=== PATIENT | female | born 1950 | race Two or more races ===

== ENCOUNTER → 2016-04-06 | Outpatient (CLI) | payer MEDICARE, OTHER ==
[~2016-04-06] MED LIST: AMITRIPTYLINE H25 MG ORAL; ASPIRIN-LOW81 MG ORAL; GABAPENTIN100 MG ORAL; GLIPIZIDE5 MG ORAL; METOPROLOL TART25 MG ORAL; NEPHROVITE1 TAB ORAL; PANTOPRAZOLE SO40 MG ORAL; RENAGEL800 MG ORAL
--- NOTE | 2016-04-06 12:59 | Diagnostic Imaging Report ---
Indication: Cough Comparison: 11/10/14 A single view chest radiograph was obtained. Findings: There is a stent present in the left innominate vein. No definite infiltrate or pulmonary vascular congestion identified. The heart is enlarged. The aorta is mildly enlarged consistent with atherosclerotic vascular disease. The bones are osteopenic. Impression: No acute disease. No significant change.
== END | disposition home or self-care (01) ==
LOC: RAD 11:58
DX: R05 Cough (principal)
CPT/HCPCS: 71010

== ENCOUNTER 2016-07-21 02:50 | Inpatient (IN) | payer MEDICARE, OTHER ==
[~2016-07-21] VITALS: Ht 147.3 cm; Wt 96.6 kg
[2016-07-21] VITALS (21 sets, daily range): BP systolic 86–148; BP diastolic 34–76
[2016-07-21 03:31] LABS: MEAN CORPUSCULAR HEMOGLOBIN 33.5 PG (27.0-31.0); MEAN CORPUSCULAR HGB CONC 30.3 G/DL (32.0-36.0); MEAN CORPUSCULAR VOLUME 111 FL (80-99); PLATELET COUNT 198 K/UL (150-450); RED BLOOD COUNT 3.45 M/UL (4.20-5.40); RED CELL DISTRIBUTION WIDTH 13.8 % (11.6-14.8); WHITE BLOOD COUNT 10.4 K/UL (4.8-10.8)
[2016-07-21 03:37] LABS: INR 0.9 (0.9-1.1); PROTHROMBIN TIME 9.4 SEC (9.30-11.50)
[2016-07-21 03:41] LABS: TROPONIN I < 0.30 ng/mL (<=0.30)
[2016-07-21 03:42] LABS: ALANINE AMINOTRANSFERASE 24 U/L (3-33); ANION GAP 18 (5-15); ASPARTATE AMINO TRANSFERASE 29 U/L (5-40); CALCIUM 8.9 mg/dL (8.6-10.2); CARBON DIOXIDE 29 mEQ/L (20-30); CHLORIDE 89 mEQ/L (98-107); CREATININE 5.8 mg/dL (0.5-0.9); GLOMERULAR FILTRATION RATE 7.3 mL/min (>60); HEMOLYSIS 9; POTASSIUM 4.8 mEQ/L (3.4-4.9); SODIUM 136 mEQ/L (135-145); TOTAL PROTEIN 8.2 g/dL (6.6-8.7)
[2016-07-21 03:52] LABS: CKMB < 1.5 ng/mL (< 3.8)
--- NOTE | 2016-07-21 04:01 | Emergency Room Report ---
History of Present Illness General Chief Complaint: Dyspnea/Respdistress Source: EMS Present Illness HPI This is a 66-year-old morbidly obese female with a history renal failure on dialysis. Per EMS she had dialysis yesterday. 911 was called because she was in respiratory distress. Unable to get history from the patient because of her condition. Per EMS, patient has severe rest or distress and their place her on a CPAP. She did not receive anything else. On arrival, she was obtunded and nonresponsive. Her oxygenation was in the mid 80s. Is on a CPAP. No other history can be obtained from the patient. Allergies: Coded Allergies: AMITRIPTYLINE (Verified Allergy, Unknown, 11/15/14) When taken with glipizide pts Blood glucose was critically low. MD stopped medication ATENOLOL (Verified Allergy, Unknown, 11/03/14) GLIPIZIDE (Verified Allergy, Unknown, 11/15/14) Pt is not diabetic. When prescribed pt had symptoms of lethargy, somnolence, depressed, anxiousness. Medication was discontinued. UNABLE TO ASSESS (Unverified , 07/21/16) Patient History Past Medical History: see triage record, old chart reviewed, HTN, renal disease , dialysis Past Surgical History: other - dialysis shunt Pertinent Family History: none Social History: Denies: smoking Last Menstrual Period: n/a Now: No Immunizations: other Reviewed Nursing Documentation: PMH: Agreed, PSxH: Agreed Nursing Documentation-PMH Hx Cardiac Problems: Yes - CAD Hx Hypertension: Yes Hx Asthma: No Hx COPD: Yes Hx Diabetes: Yes Hx Cancer: No Hx Gastrointestinal Problems: No Hx Dialysis: Yes - Shunt L-ARM, T TH SAT Hx Neurological Problems: Yes Hx Cerebrovascular Accident: Yes - Left sided paralysis Hx Transient Ischemic Attacks: Yes Hx Weakness: Yes Review of Systems All Other Systems: limited - Secondary to condition Physical Exam Vital Signs Date Time Temp Pulse Resp B/P Pulse Ox O2 Delivery O2 Flow Rate FiO2 07/21/16 02:43 97.9 112 44 148/65 60 Non-Rebreather 15.0 vitals with tachycardia, tachypnea, and hypoxia Sp02 EP Interpretation: abnormal General Appearance: severe distress, obese, Stupor Head: normocephalic, atraumatic Eyes: bilateral eye PERRL ENT: other - poor dentition with missing and rotten teeth. Neck: other - short and thick neck. Respiratory: respiratory distress, decreased breath sounds, accessory muscle use, rales Cardiovascular #1: tachycardia Gastrointestinal: other - umbilical hernia, overweight Genitourinary: normal inspection Musculoskeletal: other - no edema Neurologic: other - poor response Skin: diaphoresis Procedures Critical Care Time Critical Care Time Critical care is mandated in this patient who presented with respiratory failure. Patient require my urgent intervention to attenuate the risks of respiratory failure which may lead to cardiovascular collapse and . Critical care time is 75 minutes excluding any reportable procedure. Critical care time included evaluation, multiple reevaluation, looking at old charts, interpreting laboratory and diagnostic data, discussing case with patient and family and consultants, and charting. Intubation Intubation : Consent: Emergent Intubation Method: orotracheal Tube Size (cm): 7.5 Medications: Etomidate, Succinylcholine Intubation Complications: oral-unsuccessful attempt, O2 saturation decreased Post Intubation Xray: Yes Attempts: Other - multiples Patient Tolerated: Well Complications: Other Progress Because of the patient's respiratory failure, I elected to intubate the patient. It was extremely difficult intubation. Her neck is really short and thick. Oropharynx is very small. She has loose teeth. Patient received etomidate and succinylcholine. I tried intubate her with a MAC 4 blade and was unsuccessful. Was able to see the vocal cords but it was extremely anterior. Unable to pass the endotracheal tube. I tried with the glidescope and had the same problem. Each time, we were able to bag her oxygenation up to 100%. After several attempts that were unsuccessful, I place a LMA. Initially, there was only a size 4 LMA. I placed this and we were able to oxygenate her. When I found a size 5LMA, I switch it out. Also place a oral bite guard. We will get more tidal volume with this. Unfortunately, 2 of her teeth came out during these procedures. The first one was a right lower central incisor. This came out with the use using my finger to open her mouth. The second one was a left premolar. This came out as I was removing the NG tube that her curled into her mouth. Medical Decision Making Diagnostic Impression: Primary Impression: Respiratory failure requiring intubation Additional Impressions: Respiratory failure with hypoxia Qualified Codes: J96.01 - Acute respiratory failure with hypoxia CHF exacerbation Qualified Codes: I50.9 - Heart failure, unspecified Morbid obesity with BMI of 60.0-69.9, adult End-stage renal disease Anemia in chronic kidney disease ER Course Patient presents with respiratory failure requiring intubation. Again, she was extremely difficult intubated endotracheally. Fortunately, she is getting good tidal volume and oxygenating well on LMA. She is in fact getting more alert. Will admit to the ICU. She does have evidence of vascular congestion on chest x -ray. This has happened to her before. Per family, she went to the [facility] on Sunday. Afterward her symptom worsen. Her something to smoke may have caused some problems too. This patient primary care doctor is Dr. Cohn, will admit to Dr. Sky. I contacted him for admission. Laboratory Tests Test 07/21/16 02:50 White Blood Count 10.4 K/UL (4.8-10.8) Red Blood Count 3.45 M/UL (4.20-5.40) L Hemoglobin 11.6 G/DL (12.0-16.0) L Hematocrit 38.1 % (37.0-47.0) Mean Corpuscular Volume 111 FL (80-99) H Mean Corpuscular Hemoglobin 33.5 PG (27.0-31.0) H Mean Corpuscular Hemoglobin Concent 30.3 G/DL (32.0-36.0) L Red Cell Distribution Width 13.8 % (11.6-14.8) Platelet Count 198 K/UL (150-450) Mean Platelet Volume 6.0 FL (6.5-10.1) L Neutrophils (%) (Auto) % (45.0-75.0) Lymphocytes (%) (Auto) % (20.0-45.0) Monocytes (%) (Auto) % (1.0-10.0) Eosinophils (%) (Auto) % (0.0-3.0) Basophils (%) (Auto) % (0.0-2.0) Prothrombin Time 9.4 SEC (9.30-11.50) Prothromb Time International Ratio 0.9 (0.9-1.1) Activated Partial Thromboplast Time 27 SEC (23-33) Sodium Level 136 mEQ/L (135-145) Potassium Level 4.8 mEQ/L (3.4-4.9) Chloride Level 89 mEQ/L (98-107) L Carbon Dioxide Level 29 mEQ/L (20-30) Anion Gap 18 (5-15) H Blood Urea Nitrogen 32 mg/dL (7-23) H Creatinine 5.8 mg/dL (0.5-0.9) H Estimat Glomerular Filtration Rate 7.3 mL/min (>60) Glucose Level 163 mg/dL (74-106) H Calcium Level 8.9 mg/dL (8.6-10.2) Total Bilirubin 0.4 mg/dL (0.0-1.2) Aspartate Amino Transf (AST/SGOT) 29 U/L (5-40) Alanine Aminotransferase (ALT/SGPT) 24 U/L (3-33) Alkaline Phosphatase 141 U/L (35-104) H Total Creatine Kinase 38 U/L (26-140) Creatine Kinase MB < 1.5 ng/mL (< 3.8) Creatine Kinase MB Relative Index 3.9 Troponin I < 0.30 ng/mL (<=0.30) Pro-B-Type Natriuretic Peptide 87982 pg/mL (0-125) H Total Protein 8.2 g/dL (6.6-8.7) Albumin 4.1 g/dL (3.5-5.2) Globulin 4.1 g/dL Albumin/Globulin Ratio 1.0 (1.0-2.7) Lab Results Impression labs with elevated BNP EKG Diagnostic Results EP Interpretation: no Rate: tachycardiac Rhythm: NSR ST Segments: other - nsst changes Rhythm Strip Diag. Results Rhythm Strip Time: 04:00 EP Interpretation: yes Rate: 90 Rhythm: NSR Chest X-Ray Diagnostic Results Chest X-Ray Ordered: Yes # of Views/Limited/Complete: 1 View Interpretation: no consolidation, no effusion, no pneumothorax, other - cm, vasc congestion. atelectasis Indication: Shortness of Breath Impression: Other - cm with chf Date Electronically Signed: Jul 21, 2016 Time Electronically Signed: 04:00 Interpreting ER Physician: Marco Goldman MD Last Vital Signs Date Time Temp Pulse Resp B/P Pulse Ox O2 Delivery O2 Flow Rate FiO2 07/21/16 02:43 97.9 112 44 148/65 60 Non-Rebreather 15.0 Status: improved Disposition: ADMITTED INPATIENT Condition: Critical MARCO GOLDMAN M.D. Jul 21, 2016 04:01
[2016-07-21] MEDS ORDERED: Albuterol ud Inhalation HHN ONE (04:15)
[2016-07-21] MEDS ORDERED: B COMPLEX1 EACH ORAL (04:46)
[2016-07-21] MEDS ORDERED: PERFOROMIS20 MCG/2 M IH (04:46)
[2016-07-21] MEDS ORDERED: SIMVASTATIN20 MG ORAL (04:46)
[2016-07-21] MEDS ORDERED: METOPROLOL TART25 MG ORAL (04:46)
[2016-07-21] MEDS ORDERED: RENAGEL800 MG ORAL (04:46)
[2016-07-21] MEDS ORDERED: GABAPENTIN300 MG ORAL (04:46)
[2016-07-21] MEDS ORDERED: VELPHORO500 MG PO (04:46)
[2016-07-21] MEDS ORDERED: FOLIC ACID1 MG ORAL (04:46)
[2016-07-21] MEDS ORDERED: TRAMADOL HCL50 MG ORAL (04:46)
[2016-07-21] MEDS ORDERED: RENA-VITE RX T1 EAC1 PO (04:46)
[2016-07-21 05:49] LABS: ABG BASE EXCESS 0.4; ABG PCO2 128.6 mmHg (35.0-45.0)
[2016-07-21 05:50] LABS: ABG ALLEN TEST POSITIVE
[2016-07-21 06:58] LABS: ABG ALLEN TEST POSITIVE; ABG BASE EXCESS -3.1; ABG PCO2 94.9 mmHg (35.0-45.0)
[2016-07-21] MEDS ORDERED: Solu-MEDROL 125mg Inj IVP ONE (08:00)
[2016-07-21] MEDS ORDERED: Nimbex 2mg/ml Inj 10ML IVP ONE (09:00)
[2016-07-21] MEDS ORDERED: Zosyn 2.25 gm in D5W 55ml IV SCH (09:00)
[2016-07-21] MEDS: Pantoprazole Inj IVP SCH ×2 (09:00→09:12)
--- NOTE | 2016-07-21 09:12 | Diagnostic Imaging Report ---
Indications: Shortness of breath, status post intubation Technique: AP chest Findings: Comparison: 04/06/2016 Patient body habitus results in poor image quality, limiting evaluation. Tube coiled over region of larynx, incompletely imaged. Intravascular stents again noted in the regions of left brachiocephalic and subclavian veins, now extending out into the left axillary vein. Cardiac silhouette remains enlarged. Inspiratory effort remains suboptimal. Pulmonary vasculature difficult to evaluate. Linear density is now suggested in both lung bases. Visualized portions of lungs and pleura remain otherwise grossly clear. Moderate gaseous distention of stomach. IMPRESSION: Malposition of tube in neck, most likely nasogastric tube coiled in the larynx. Recommend removal and new placement attempt. Pulmonary bibasal subsegmental atelectasis No other evidence of acute cardiopulmonary disease, limited as described, unchanged. Extension of the left central venous stents, likely relating to dialysis access Moderate gaseous distention of stomach, nonspecific.
[2016-07-21] MEDS ORDERED: Propofol 10mg/ml 20ml IV ONE (09:15)
[2016-07-21] MEDS ORDERED: Lidocaine 1% 10mg/ml/Epi 0.005mg/ml 30ml vial INJ ONE (09:34)
[2016-07-21] MEDS ORDERED: Lidocaine 1% Plain 30 ml INJ ONE ×2 (09:34→13:30)
--- NOTE | 2016-07-21 09:41 | General Progress Note ---
Progress Note Progress Note called emergently by Dr olmstead and ER MD for possible emergency tracheostomy. pt with respiratory distress, had LMA placed, but still in respiratory distress. Pt has been seen by anesthesia budget consultant. The plan is to bring pt to OR for fiberoptic intubation by the [id number]. if unsuccessful, i am here to perform emergency tracheostomy/. PT daughter at bedside and has been apprised of the above plan. KYLE REYES Jul 21, 2016 09:41
[2016-07-21] MEDS: Zosyn 2.25 gm in D5W 55ml IV SCH ×2 (11:26→21:31)
--- NOTE | 2016-07-21 11:30 | History and Physical Report ---
DATE OF ADMISSION: 07/21/2016 CHIEF COMPLAINT: Respiratory failure. HISTORY OF PRESENT ILLNESS: The patient is a 66-year-old female. She has a history of hypertension, diabetes, hypertensive heart disease, and obesity. She was brought in by family members because of altered mentation and shortness of breath. According to the patient's family, the patient was well until Sunday. Initially she felt "weak". She initially refused to go to outpatient dialysis that day, but later after encouragement family agreed for dialysis. She had an uncomplicated dialysis session on Sunday, but afterwards was noted be very tired and weak. She was somnolent and sleepy. On , the patient remained very sleepy and drowsy and on the day of admission, family noted the patient remained somnolent sleepy. She was minimally verbal and appeared short of breath. They brought her to the emergency room for further evaluation. On evaluation there, the patient was difficult to arouse. She had an elevated natriuretic peptide level 13,000. ABG showed severe hypercapnic respiratory failure with a pH of 7 and CO2 of 128. The patient attempted orally intubated and the patient was unsuccessful because of her stature LMA was placed. The patient is on a ventilator. ABG is improving. PAST MEDICAL HISTORY: As above. PAST SURGICAL HISTORY: Unknown. CURRENT MEDICATIONS: Reconciled and reviewed. ALLERGIES: Include amitriptyline, atenolol, and glipizide. SOCIAL HISTORY: There is no known history of tobacco, ethanol, or drugs. REVIEW OF SYSTEMS: From the patient is unobtainable as she is confused and nonverbal. PHYSICAL EXAMINATION: VITAL SIGNS: Temperature 97 degrees, pulse 80, respirations 18, and blood pressure 94/34. GENERAL: The patient is morbidly obese female. She has an airway in place. NECK: Supple. HEART: Regular rate and rhythm. LUNGS: Diminished breath sounds. ABDOMEN: Soft, nontender, and nondistended. EXTREMITIES: Without clubbing or cyanosis. LABORATORY DATA: ABG most recent ABG showed a pH of 7.1 with a CO2 of 94, pO2 of 74, bicarb of 28. White count was 10, hemoglobin 11, hematocrit 38, and platelet count of 198,000. Coags are normal. Sodium is 136, potassium 4.8, BUN 32, and creatinine 5.8. Natriuretic peptide level 13,000. ASSESSMENT: This is an unfortunate female with a history of end-stage renal disease, diabetes, and hypertension, admitted with hypercapnic respiratory failure. 1. Respiratory failure. 2. Rule out pneumonia. 3. End-stage renal disease. 4. Hypertension. 5. Diabetes. PLAN: ENT and anesthesiology. We will take the patient to the OR to attempt a fiberoptic guided intubation if not the patient may require emergent tracheostomy. This has been discussed with the patient's daughter, who is in agreement. We will treat empirically for aspiration pneumonia. Renal consultation, hemodialysis. Pulmonary and ID consultation was also be obtained. The patient's status is currently critical and guarded . Goldy Sky M.D. DR: Serena JOB#: [id number] CC:
--- NOTE | 2016-07-21 11:50 | Anethesia Preoperative Eval ---
Anesthesia Pre-op PMH/ROS General Date of Evaluation: Jul 21, 2016 Anesthesiologist: Mike ASA Score: ASA 4 - E Mallampati Score Class I : Soft palate, uvula, fauces, pillars visible Class II: Soft palate, uvula, fauces visible Class III: Soft palate, base of uvula visible Class IV: Only hard plate visible Mallampati Classification: Class IV Surgeon: Cris Diagnosis: Angioedema Surgical Procedure: Emergency intubation possible tracheostomy Anesthesia History: none Family History: no anesthesia problems Allergies: Coded Allergies: AMITRIPTYLINE (Verified Allergy, Unknown, 11/15/14) When taken with glipizide pts Blood glucose was critically low. MD stopped medication ATENOLOL (Verified Allergy, Unknown, 11/03/14) GLIPIZIDE (Verified Allergy, Unknown, 11/15/14) Pt is not diabetic. When prescribed pt had symptoms of lethargy, somnolence, depressed, anxiousness. Medication was discontinued. UNABLE TO ASSESS (Unverified , 07/21/16) Medications: see eMAR Past Medical History Cardiovascular: Reports: CAD, HTN, other - CHF, Denies: TX, arrhythmia, valve dz Pulmonary: Reports: COPD, Denies: ANIBAL, asthma, other Gastrointestinal/Genitourinary: Reports: ESRD, Denies: CRI, GERD, other Neurologic/Psychiatric: Reports: CVA - with residual left sided paralysis, Denies: TIA, dementia, depression/anxiety, other Endocrine: Reports: DM, Denies: hypothyroidism, other, steroids HEENT: Denies: AGDAAGUX (L), AGDAAGUX (R), cataract (L), cataract (R), glaucoma, other Hematology/Immune: Denies: DVT, anemia, bleeding disorder, other Musculoskeletal/Integumentary: Reports: edema, Denies: DDD, DJD, OA, RA, other Other: obesity - morbid PSxH Narrative: Unable to assess Anesthesia Pre-op Phys. Exam Physician Exam Last Vital Signs Date Time Temp Pulse Resp B/P Pulse Ox O2 Delivery O2 Flow Rate FiO2 07/21/16 11:18 73 16 100 07/21/16 11:00 91/48 100 Mechanical Ventilator 07/21/16 10:45 98.1 07/21/16 10:13 15.0 Constitutional: other - In severe acute respiratory distress, tongue swollen out of mouth, patient unable to speak Cardiovascular: other - tachy Respiratory: other - tachypneic, decreased/absent breath sounds bilaterally Gastrointestinal: other - severely distended; with evidence of umbilical hernia Airway Exam Mallampati Score: Class IV MO: limited - severe angioedema and swelling of tongue, unable to visualize intra-oral cavity Neck: short, obese TMD: <2FB ROM: limited Teeth: missing, broken, loose Anesthesia Pre-op A/P Labs Hematology Test 07/21/16 02:50 White Blood Count 10.4 K/UL (4.8-10.8) Red Blood Count 3.45 M/UL (4.20-5.40) L Hemoglobin 11.6 G/DL (12.0-16.0) L Hematocrit 38.1 % (37.0-47.0) Mean Corpuscular Volume 111 FL (80-99) H Mean Corpuscular Hemoglobin 33.5 PG (27.0-31.0) H Mean Corpuscular Hemoglobin Concent 30.3 G/DL (32.0-36.0) L Red Cell Distribution Width 13.8 % (11.6-14.8) Platelet Count 198 K/UL (150-450) Mean Platelet Volume 6.0 FL (6.5-10.1) L Neutrophils (%) (Auto) % (45.0-75.0) Lymphocytes (%) (Auto) % (20.0-45.0) Monocytes (%) (Auto) % (1.0-10.0) Eosinophils (%) (Auto) % (0.0-3.0) Basophils (%) (Auto) % (0.0-2.0) Coagulation Test 07/21/16 02:50 Prothrombin Time 9.4 SEC (9.30-11.50) Prothromb Time International Ratio 0.9 (0.9-1.1) Activated Partial Thromboplast Time 27 SEC (23-33) Chemistry Test 07/21/16 02:50 Sodium Level 136 mEQ/L (135-145) Potassium Level 4.8 mEQ/L (3.4-4.9) Chloride Level 89 mEQ/L (98-107) L Carbon Dioxide Level 29 mEQ/L (20-30) Anion Gap 18 (5-15) H Blood Urea Nitrogen 32 mg/dL (7-23) H Creatinine 5.8 mg/dL (0.5-0.9) H Estimat Glomerular Filtration Rate 7.3 mL/min (>60) Glucose Level 163 mg/dL (74-106) H Calcium Level 8.9 mg/dL (8.6-10.2) Total Bilirubin 0.4 mg/dL (0.0-1.2) Aspartate Amino Transf (AST/SGOT) 29 U/L (5-40) Alanine Aminotransferase (ALT/SGPT) 24 U/L (3-33) Alkaline Phosphatase 141 U/L (35-104) H Total Creatine Kinase 38 U/L (26-140) Creatine Kinase MB < 1.5 ng/mL (< 3.8) Creatine Kinase MB Relative Index 3.9 Troponin I < 0.30 ng/mL (<=0.30) Pro-B-Type Natriuretic Peptide 22786 pg/mL (0-125) H Total Protein 8.2 g/dL (6.6-8.7) Albumin 4.1 g/dL (3.5-5.2) Globulin 4.1 g/dL Albumin/Globulin Ratio 1.0 (1.0-2.7) Risk Assessment & Plan Assessment: ASA ALVA Plan: GA Status Change Before Surgery: No Pre-Antibiotics Drug: N/A PRESTON JEAN-BAPTISTE M.D. Jul 21, 2016 11:50
--- NOTE | 2016-07-21 11:51 | Immediate Post-Op Evaluation ---
Immediate Post-Op Evalulation Immediate Post-Op Evalulation Procedure: Emergency intubation Date of Evaluation: Jul 21, 2016 Time of Evaluation: 10:46 IV Fluids: 100 Blood Products: 0 Estimated Blood Loss: 0 Urinary Output: 0 Blood Pressure Systolic: 104 Blood Pressure Diastolic: 76 Pulse Rate: 73 Respiratory Rate: 16 O2 Sat by Pulse Oximetry: 99 Temperature (Fahrenheit): 97.2 Pain Score (1-10): 0 Nausea: No Vomiting: No Complications 0 Patient Status: no response - sedated, ventilated, none Hydration Status: adequate Drug: N/A PRESTON JEAN-BAPTISTE M.D. Jul 21, 2016 11:51
[2016-07-21] MEDS ORDERED: Vancomycin 1.5 GM in D5W 325 ML IVPB ONE (12:00)
[2016-07-21] MEDS ORDERED: Lidocaine 1% MPF 10mg/ml 5ml INJ PRN (12:45)
[2016-07-21] MEDS ORDERED: Heparin 2000 units/Ns 1000ml INJ PRN (13:30)
[2016-07-21] MEDS ORDERED: Sodium Bicarbonate 4% 2.4meq/5ml vial INJ PRN (13:30)
[2016-07-21] MEDS ORDERED: Piperacillin/Tazobactam 3.375 GM in D5W 110 ML IVPB SCH (14:00)
--- NOTE | 2016-07-21 14:47 | 48 Hour Post Anesthesia Eval ---
Post Anesthesia Evaluation Procedure: Emergency intubation Date of Evaluation: Jul 21, 2016 Time of Evaluation: 14:45 Blood Pressure Systolic: 122 0: 58 Pulse Rate: 74 Respiratory Rate: 16 O2 Sat by Pulse Oximetry: 100 Airway: other - intuvbated Nausea: No Vomiting: No Pain Intensity: 0 Hydration Status: adequate Cardiopulmonary Status: at baseline Mental Status/LOC: patient returned to baseline Post-Anesthesia Complications: 0 Follow-up care needed: N/A - further care as per primary team PRESTON JEAN-BAPTISTE M.D. Jul 21, 2016 14:47
[2016-07-21 15:17] LABS: ABG ALLEN TEST POSITIVE; ABG BASE EXCESS -0.4; ABG PCO2 35.5 mmHg (35.0-45.0)
--- NOTE | 2016-07-21 15:36 | Diagnostic Imaging Report ---
Indications: Central IV access required for intravenous therapy Technique: Procedure, indications, risks and alternatives were explained to the patient's family, who understands and gives consent to proceed. Procedure was performed at bedside. Strict aseptic technique was utilized, including hand washing, use of hat and mask, use of sterile gown and gloves, sterile ultrasound gel and probe cover, prepping of left groin/proximal anterior thigh skin with 2% chlorhexidine solution, and application of full body sterile barrier over this area. Skin and subcutaneous soft tissues were infiltrated with 1% lidocaine and sodium bicarbonate. A small dermatotomy was made, through which the patent left greater saphenous vein was punctured percutaneously under direct sonographic guidance with a 5 Thai micropuncture set. The percutaneous tract was dilated over a guidewire, then a 7 Thai 20 cm triple-lumen central venous catheter advanced over the guidewire to its hub. Guidewire was removed. Catheter ports were aspirated, then flushed with heparinized saline. Catheter was secured to the skin with suture and adhesive dressing. The patient tolerated the procedure well without immediate complications. Followup abdominal radiograph performed. Findings: All catheter ports aspirate and flush freely. Followup abdominal radiograph demonstrates tip of central venous catheter in region of left common iliac vein. Nasogastric tube is present within the region of the stomach. Hammonds catheter is present within the region of the urinary bladder. There is [id number] diffuse gaseous distention of small bowel and colon, not dilated out of portion to any other. Mild levoscoliosis lumbar spine. Bridging disc margin osteophytes thoracic spine. Scattered arterial mural calcifications. IMPRESSION: Bedside placement of triple-lumen central venous catheter via left greater saphenous vein, working well, adequately position, may be used Additional lines and tubes in place as described Bowel gas pattern compatible with diffuse ileus Arteriosclerosis Degenerative spondylosis and scoliosis.
[2016-07-22] VITALS (24 sets, daily range): BP systolic 83–126; BP diastolic 38–58
--- NOTE | 2016-07-22 01:45 | Consultation ---
DATE OF CONSULTATION: 07/21/2016 NEPHROLOGY CONSULTATION CONSULTING PHYSICIAN: Cm Carrero M.D. REFERRING PHYSICIAN: Goldy Sky M.D. REASON FOR CONSULTATION: End-stage renal disease. HISTORY OF PRESENT ILLNESS: The patient is a 66-year-old lady with end-stage renal disease, who receives dialysis regularly on Sunday, Sunday, and Sunday, and today is Sunday. She was treated by other doctors, who are not in staff in this hospital. She presents with lethargy and respiratory failure with a very high pCO2 greater than 100. She was given treatment in the emergency room and has required intubation under anesthesia as she has thick neck and difficulty intubating and she is intubated in the intensive care unit at the time of my exam. She has a history of a prior CVA, insulin-dependent diabetes, and obstructive sleep apnea and is on apparently home oxygen therapy. She had a CVA in 2011 with left-sided weakness. There is a history of congestive heart failure, prior myocardial infarction, and prior coronary angiogram on two occasions without stenting. PAST SURGICAL HISTORY: Include an AV fistula in the left arm and section. ALLERGIES: Apparently, she is allergic to atenolol from prior notes. MEDICATIONS: Prior to admission medicines reviewed from the computer, but not verified as the family is not available at this time. Home medications include aspirin, folic acid, formoterol, gabapentin, metoprolol, Protonix, Levemir, simvastatin, Velphoro, tramadol, and vitamin B complex. SYSTEM REVIEW: The patient is unable. PHYSICAL EXAMINATION: GENERAL: The patient is seen in the intensive care unit. She is intubated and lethargic. VITAL SIGNS: Temperature 97.9 degrees, pulse 79, respirations 17, blood pressure 119/59, pulse oximetry is 100 on the ventilator. HEENT: Sclerae nonicteric. Eyes are closed during most of the exam. She is orally intubated. NECK: No adenopathy. LUNGS: Distant breath sounds. I do not hear any rales or rhonchi. HEART: Regular. I hear no murmur. ABDOMEN: Obese and soft. No organomegaly. EXTREMITIES: Showed trace edema. She has a left upper arm AV fistula with a good thrill. NEUROLOGIC: She has a left hemiparesis. She moves . LABORATORY DATA: Pertinent labs show a chest x-ray with malposition of the tube in the neck, likely it is nasogastric tube, pulmonary and myocardial subsegmental atelectasis. No acute cardiopulmonary disease. The white count is 10.4 and hemoglobin is 11.6. Sodium 136, potassium 4.8, chloride 89, CO2 29, BUN 32, creatinine 5.8, and glucose 163. Troponin less than 0.30. BNP is 13,738. IMPRESSION: 1. End-stage renal disease. 2. Sssqu-vq-tnscrau respiratory failure. 3. Obstructive sleep apnea. 4. Obesity. 5. Insulin-dependent diabetes. 6. History of cerebrovascular accident with left-sided weakness. 7. Low normal blood pressure. PLAN: Dialysis, to be arranged for fistula. Her medications are reviewed for end-stage renal disease. Try to avoid fluid overload and metabolic abnormality. The patient's condition is critical. Cm Carrero M.D. DR: BALDO JOB#: [id number] CC:
[2016-07-22] MEDS ORDERED: Acetaminophen 650mg/20.3ml NG PRN (03:30)
[2016-07-22] MEDS: LORazepam Inj 2mg/ml 1ml IV PRN (03:47)
[2016-07-22 05:10] LABS: MEAN CORPUSCULAR HEMOGLOBIN 35.6 PG (27.0-31.0); MEAN CORPUSCULAR HGB CONC 33.8 G/DL (32.0-36.0); MEAN CORPUSCULAR VOLUME 105 FL (80-99); PLATELET COUNT 160 K/UL (150-450); RED BLOOD COUNT 2.82 M/UL (4.20-5.40); RED CELL DISTRIBUTION WIDTH 12.8 % (11.6-14.8); WHITE BLOOD COUNT 19.5 K/UL (4.8-10.8)
[2016-07-22 05:23] LABS: CALCIUM 9.1 mg/dL (8.6-10.2); GLOMERULAR FILTRATION RATE 11.2 mL/min (>60); POTASSIUM 3.7 mEQ/L (3.4-4.9); TOTAL PROTEIN 6.4 g/dL (6.6-8.7)
[2016-07-22] MEDS: Zosyn 2.25 gm in D5W 55ml IV SCH ×3 (05:37→21:58)
[2016-07-22] MEDS ORDERED: Heparin Sod 1000 units/ml 10ml IV PRN (06:00)
[2016-07-22 08:13] LABS: BAND NEUTROPHILS % (MANUAL) 2 % (0-8); BASOPHILS % (MANUAL) 0 % (0-2); EOSINOPHILS % (MANUAL) 1 % (0-3); LYMPHOCYTES % (MANUAL) 7 % (20-45); NEUTROPHILS % (MANUAL) 87 % (45-75); PLATELET ESTIMATE ADEQUATE; PLATELET MORPHOLOGY NORMAL; TOTAL CELLS COUNTED 100
--- NOTE | 2016-07-22 08:15 | General Progress Note ---
Assessment/Plan Problem List: (1) DM renal manif type II ICD Codes: E11.29 - Type 2 diabetes mellitus with other diabetic kidney complication SNOMED: 06039497, 703341429 (2) Hemiplegia of nondominant side as late effect of cerebrovascular disease ICD Codes: I69.959 - Hemiplegia and hemiparesis following unspecified cerebrovascular disease affecting unspecified side SNOMED: 511997341 (3) Respiratory acidosis ICD Codes: E87.2 - Acidosis SNOMED: 50159352 (4) Anemia in chronic kidney disease ICD Codes: N18.9 - Chronic kidney disease, unspecified; D63.1 - Anemia in chronic kidney disease SNOMED: 540408545 (5) Morbid obesity with BMI of 60.0-69.9, adult ICD Codes: E66.01 - Morbid (severe) obesity due to excess calories; Z68.44 - Body mass index (BMI) 60.0-69.9, adult SNOMED: 327205619, 695895989 (6) CHF exacerbation ICD Codes: I50.9 - Heart failure, unspecified SNOMED: 72389959, 335367089 Qualifiers: Qualified Codes: I50.9 - Heart failure, unspecified (7) Respiratory failure requiring intubation ICD Codes: J96.90 - Respiratory failure, unspecified, unspecified whether with hypoxia or hypercapnia; Z68.44 - Body mass index (BMI) 60.0-69.9, adult SNOMED: 904931184, 464114780 (8) Respiratory failure with hypoxia ICD Codes: J96.91 - Respiratory failure, unspecified with hypoxia SNOMED: 61856559928146210 Qualifiers: Qualified Codes: J96.01 - Acute respiratory failure with hypoxia Status: stable, progressing Assessment/Plan vent support resp rx suctioning iv abx ngt feeds monitor cxr follow up cultures HD per renal Subjective ROS Limited/Unobtainable: No Constitutional: Reports: malaise, weakness HEENT: Reports: no symptoms Cardiovascular: Reports: no symptoms Respiratory: Reports: cough, shortness of breath Gastrointestinal/Abdominal: Reports: no symptoms Genitourinary: Reports: no symptoms Neurologic/Psychiatric: Reports: no symptoms Endocrine: Reports: no symptoms Hematologic/Lymphatic: Reports: no symptoms Allergies: Coded Allergies: AMITRIPTYLINE (Verified Allergy, Unknown, 11/15/14) When taken with glipizide pts Blood glucose was critically low. MD stopped medication ATENOLOL (Verified Allergy, Unknown, 11/03/14) GLIPIZIDE (Verified Allergy, Unknown, 11/15/14) Pt is not diabetic. When prescribed pt had symptoms of lethargy, somnolence, depressed, anxiousness. Medication was discontinued. UNABLE TO ASSESS (Unverified , 07/21/16) All Systems: reviewed and negative except above Subjective orally intubated in the OR with surgery on standby for possible trach. tolerated HD yesterday - 1L UF. bp on the low side. awake and alert. ?pain Objective Last 24 Hour Vital Signs Date Time Temp Pulse Resp B/P Pulse Ox O2 Delivery O2 Flow Rate FiO2 07/22/16 08:00 40 07/22/16 07:05 71 16 40 07/22/16 07:00 70 17 94/40 100 Mechanical Ventilator 40 07/22/16 06:07 99.1 07/22/16 06:00 71 16 92/41 100 Mechanical Ventilator 40 07/22/16 05:17 77 16 40 07/22/16 05:00 73 16 92/42 100 Mechanical Ventilator 40 07/22/16 04:00 75 07/22/16 04:00 40 07/22/16 04:00 99.1 73 17 90/49 100 Mechanical Ventilator 40 07/22/16 03:17 78 16 40 07/22/16 03:00 79 18 103/47 100 Mechanical Ventilator 40 07/22/16 02:00 99.3 84 16 103/47 100 Mechanical Ventilator 40 07/22/16 01:15 79 16 40 07/22/16 01:00 85 20 108/46 100 Mechanical Ventilator 40 07/22/16 00:00 40 07/22/16 00:00 99.5 87 22 115/44 100 Mechanical Ventilator 40 07/22/16 00:00 74 07/21/16 23:20 77 16 40 07/21/16 23:00 76 25 112/54 100 Mechanical Ventilator 40 07/21/16 22:00 99.3 81 18 117/50 100 Mechanical Ventilator 40 07/21/16 21:15 78 16 40 07/21/16 21:10 Mechanical Ventilator 40 07/21/16 21:00 100.0 84 16 114/60 99 Mechanical Ventilator 40 07/21/16 20:00 40 07/21/16 20:00 76 07/21/16 20:00 99.5 84 16 104/47 99 Mechanical Ventilator 40 07/21/16 19:12 79 16 40 07/21/16 19:00 78 18 126/40 100 Mechanical Ventilator 40 07/21/16 18:00 78 18 121/39 100 Mechanical Ventilator 40 07/21/16 17:40 Mechanical Ventilator 40 07/21/16 17:00 40 07/21/16 17:00 98.1 75 16 118/46 98 Mechanical Ventilator 40 07/21/16 16:53 76 16 40 07/21/16 16:00 50 07/21/16 16:00 75 07/21/16 16:00 77 20 120/46 98 Mechanical Ventilator 60 07/21/16 15:08 78 16 50 07/21/16 15:00 78 20 123/55 100 Mechanical Ventilator 50 07/21/16 14:47 74 16 100 07/21/16 14:00 97.9 79 17 119/59 100 Mechanical Ventilator 60 07/21/16 13:30 75 16 100 07/21/16 13:00 81 20 130/51 100 Mechanical Ventilator 60 07/21/16 12:00 60 07/21/16 12:00 71 07/21/16 12:00 71 16 86/48 100 Mechanical Ventilator 60 07/21/16 11:51 73 16 99 07/21/16 11:18 73 16 100 07/21/16 11:00 75 18 91/48 100 Mechanical Ventilator 60 07/21/16 10:45 98.1 75 20 104/34 100 Mechanical Ventilator 07/21/16 10:40 77 07/21/16 10:40 60 07/21/16 10:13 72 24 117/40 99 Ambu-Bag 15.0 07/21/16 09:36 96.5 72 16 90/41 100 Mechanical Ventilator 100 07/21/16 09:30 20 07/21/16 09:25 18 07/21/16 09:23 16 07/21/16 09:20 16 07/21/16 08:44 78 16 100 07/21/16 08:30 97.8 73 15 118/41 100 Mechanical Ventilator 60 Intake and Output 07/21/16 07/22/16 19:00 07:00 Intake Total 380 ml 140 ml Output Total 0 ml 1000 ml Balance 380 ml -860 ml Intake Oral 0 ml IV Total 380 ml 110 ml Other 30 ml Output Urine Total 0 ml 0 ml Hemodialysis UF 1000 ml # Bowel Movements 2 Laboratory Tests 07/21/16 15:05: Arterial Blood pH 7.437, Arterial Blood Partial Pressure CO2 35.5, Arterial Blood Partial Pressure O2 111.7H, Arterial Blood HCO3 23.4, Arterial Blood Oxygen Saturation 98.5H, Arterial Blood Base Excess -0.4, Jarred Test Positive 07/22/16 04:00: White Blood Count 19.5#H, Red Blood Count 2.82L, Hemoglobin 10.0L, Hematocrit 29.6L, Mean Corpuscular Volume 105H, Mean Corpuscular Hemoglobin 35.6H, Mean Corpuscular Hemoglobin Concent 33.8, Red Cell Distribution Width 12.8, Platelet Count 160, Mean Platelet Volume 7.0, Neutrophils (%) (Auto) , Lymphocytes (%) ( Auto) , Monocytes (%) (Auto) , Eosinophils (%) (Auto) , Basophils (%) (Auto) , Neutrophils % (Manual) [Pending], Lymphocytes % (Manual) [Pending], Platelet Estimate [Pending], Platelet Morphology [Pending], Sodium Level 138, Potassium Level 3.7, Chloride Level 96L, Carbon Dioxide Level 26, Anion Gap 16H, Blood Urea Nitrogen 20, Creatinine 4.0H, Estimat Glomerular Filtration Rate 11.2, Glucose Level 110H, Calcium Level 9.1, Total Bilirubin 0.9, Aspartate Amino Transf (AST/SGOT) 33, Alanine Aminotransferase (ALT/SGPT) 19, Alkaline Phosphatase 79, Total Protein 6.4L, Albumin 3.3L, Globulin 3.1, Albumin/ Globulin Ratio 1.0, Random Vancomycin Level 20.9, Hepatitis A IgM Antibody [ Pending], Hepatitis B Surface Antigen [Pending], Hepatitis B Core IgM Antibody [ Pending], Hepatitis C Antibody [Pending] Height (Feet): 4 Height (Inches): 10.00 Weight (Pounds): 198 General Appearance: WD/WN, alert Neck: supple Cardiovascular: regular rhythm Respiratory/Chest: rhonchi - bilaterally Abdomen: normal bowel sounds, non tender, soft, no organomegaly Edema: no edema noted Arm (L), no edema noted Arm (R), no edema noted Leg (L), no edema noted Leg (R), no edema noted Pedal (L), no edema noted Pedal (R), no edema noted 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
--- NOTE | 2016-07-22 08:47 | Critical Care Progress Note ---
Assessment/Plan Assessment/Plan IMPRESSION: 1. End-stage renal disease. 2. Yjfcc-jm-sffqxej respiratory failure. 3. Obstructive sleep apnea. 4. poor airway 5. Insulin-dependent diabetes. 6. cerebrovascular accident with left-sided weakness. 7. hypotension 8. leukocytosis 9. anemia 10. possible sepsis PLAN care noted IV antibiotics respiratory care Ventilatory support reviewed meds supportive care suction no wean for today oxygen therapy prognosis guarded ICU care noted medications/laboratory data/nursing notes/ICU care reviewed in detail note reviewed and edited care discussed with RN and RT ICU time spent 36 minutes Critical Care - Subjective Interval Events: events noted orally intubated now stable renal noted ROS Limited/Unobtainable: Yes Condition: critical EKG Rhythm: Sinus Rhythm I&O: Intake and Output 07/21/16 07/22/16 19:00 07:00 Intake Total 380 ml 140 ml Output Total 0 ml 1000 ml Balance 380 ml -860 ml Intake Oral 0 ml IV Total 380 ml 110 ml Other 30 ml Output Urine Total 0 ml 0 ml Hemodialysis UF 1000 ml # Bowel Movements 2 Critical Care - Objective ET-Tube: 7.5 ET Position: 20 Last 24 Hour Vital Signs Date Time Temp Pulse Resp B/P Pulse Ox O2 Delivery O2 Flow Rate FiO2 07/22/16 08:00 74 07/22/16 08:00 98.8 74 18 88/38 100 Mechanical Ventilator 40 07/22/16 08:00 40 07/22/16 07:05 71 16 40 07/22/16 07:00 70 17 94/40 100 Mechanical Ventilator 40 07/22/16 06:07 99.1 07/22/16 06:00 71 16 92/41 100 Mechanical Ventilator 40 07/22/16 05:17 77 16 40 07/22/16 05:00 73 16 92/42 100 Mechanical Ventilator 40 07/22/16 04:00 75 07/22/16 04:00 40 07/22/16 04:00 99.1 73 17 90/49 100 Mechanical Ventilator 40 07/22/16 03:17 78 16 40 07/22/16 03:00 79 18 103/47 100 Mechanical Ventilator 40 07/22/16 02:00 99.3 84 16 103/47 100 Mechanical Ventilator 40 07/22/16 01:15 79 16 40 07/22/16 01:00 85 20 108/46 100 Mechanical Ventilator 40 07/22/16 00:00 40 6/17/17 00:00 99.5 87 22 115/44 100 Mechanical Ventilator 40 07/22/16 00:00 74 07/21/16 23:20 77 16 40 07/21/16 23:00 76 25 112/54 100 Mechanical Ventilator 40 07/21/16 22:00 99.3 81 18 117/50 100 Mechanical Ventilator 40 07/21/16 21:15 78 16 40 07/21/16 21:10 Mechanical Ventilator 40 07/21/16 21:00 100.0 84 16 114/60 99 Mechanical Ventilator 40 07/21/16 20:00 40 07/21/16 20:00 76 07/21/16 20:00 99.5 84 16 104/47 99 Mechanical Ventilator 40 07/21/16 19:12 79 16 40 07/21/16 19:00 78 18 126/40 100 Mechanical Ventilator 40 07/21/16 18:00 78 18 121/39 100 Mechanical Ventilator 40 07/21/16 17:40 Mechanical Ventilator 40 07/21/16 17:00 40 07/21/16 17:00 98.1 75 16 118/46 98 Mechanical Ventilator 40 07/21/16 16:53 76 16 40 17 16:00 50 07/21/16 16:00 75 07/21/16 16:00 77 20 120/46 98 Mechanical Ventilator 60 07/21/16 15:08 78 16 50 07/21/16 15:00 78 20 123/55 100 Mechanical Ventilator 50 07/21/16 14:47 74 16 100 07/21/16 14:00 97.9 79 17 119/59 100 Mechanical Ventilator 60 07/21/16 13:30 75 16 100 17 13:00 81 20 130/51 100 Mechanical Ventilator 60 17 12:00 60 17 12:00 71 07/21/16 12:00 71 16 86/48 100 Mechanical Ventilator 60 1617 11:51 73 16 99 1617 11:18 73 16 100 1617 11:00 75 18 91/48 100 Mechanical Ventilator 60 17 10:45 98.1 75 20 104/34 100 Mechanical Ventilator 17 10:40 77 1617 10:40 60 17 10:13 72 24 117/40 99 Ambu-Bag 15.0 07/21/16 09:36 96.5 72 16 90/41 100 Mechanical Ventilator 100 07/21/16 09:30 20 07/21/16 09:25 18 07/21/16 09:23 16 07/21/16 09:20 16 07/21/16 08:44 78 16 100 Labs: Laboratory Tests Test 07/21/16 15:05 07/22/16 04:00 Arterial Blood pH 7.437 (7.350-7.450) Arterial Blood Partial Pressure CO2 35.5 mmHg (35.0-45.0) Arterial Blood Partial Pressure O2 111.7 mmHg (75.0-100.0) H Arterial Blood HCO3 23.4 mmol/L (22.0-26.0) Arterial Blood Oxygen Saturation 98.5 % (92.0-98.0) H Arterial Blood Base Excess -0.4 Jarred Test Positive White Blood Count 19.5 K/UL (4.8-10.8) #H Red Blood Count 2.82 M/UL (4.20-5.40) L Hemoglobin 10.0 G/DL (12.0-16.0) L Hematocrit 29.6 % (37.0-47.0) L Mean Corpuscular Volume 105 FL (80-99) H Mean Corpuscular Hemoglobin 35.6 PG (27.0-31.0) H Mean Corpuscular Hemoglobin Concent 33.8 G/DL (32.0-36.0) Red Cell Distribution Width 12.8 % (11.6-14.8) Platelet Count 160 K/UL (150-450) Mean Platelet Volume 7.0 FL (6.5-10.1) Neutrophils (%) (Auto) % (45.0-75.0) Lymphocytes (%) (Auto) % (20.0-45.0) Monocytes (%) (Auto) % (1.0-10.0) Eosinophils (%) (Auto) % (0.0-3.0) Basophils (%) (Auto) % (0.0-2.0) Neutrophils % (Manual) Pending Lymphocytes % (Manual) Pending Platelet Estimate Pending Platelet Morphology Pending Sodium Level 138 mEQ/L (135-145) Potassium Level 3.7 mEQ/L (3.4-4.9) Chloride Level 96 mEQ/L (98-107) L Carbon Dioxide Level 26 mEQ/L (20-30) Anion Gap 16 (5-15) H Blood Urea Nitrogen 20 mg/dL (7-23) Creatinine 4.0 mg/dL (0.5-0.9) H Estimat Glomerular Filtration Rate 11.2 mL/min (>60) Glucose Level 110 mg/dL (74-106) H Calcium Level 9.1 mg/dL (8.6-10.2) Total Bilirubin 0.9 mg/dL (0.0-1.2) Aspartate Amino Transf (AST/SGOT) 33 U/L (5-40) Alanine Aminotransferase (ALT/SGPT) 19 U/L (3-33) Alkaline Phosphatase 79 U/L (35-104) Total Protein 6.4 g/dL (6.6-8.7) L Albumin 3.3 g/dL (3.5-5.2) L Globulin 3.1 g/dL Albumin/Globulin Ratio 1.0 (1.0-2.7) Random Vancomycin Level 20.9 ug/mL Hepatitis A IgM Antibody Pending Hepatitis B Surface Antigen Pending Hepatitis B Core IgM Antibody Pending Hepatitis C Antibody Pending Objective: PHYSICAL EXAMINATION: GENERAL: ALOC, NAD HEENT: orally intubated; PERRL NECK: No adenopathy. LUNGS: reduced breath sounds. no rhonchi or wheeze HEART: RRR without MRG ABDOMEN: Obese and soft. No HSM; no distention; NABS EXTREMITIES: no CCE; She has a left upper arm AV fistula with a good thrill. NEUROLOGIC: left hemiparesis. Accucheck: 127 FITO SIMS Jul 22, 2016 08:47
--- NOTE | 2016-07-22 08:58 | Nephrology Progress Note ---
Assessment/Plan Problem List: (1) Respiratory failure with hypoxia (2) Hemiplegia of nondominant side as late effect of cerebrovascular disease (3) Respiratory failure requiring intubation (4) End-stage renal disease Plan hd 07/21 uf -1000, bp low-normal, no significant fluid overload, continue pulmonary care Subjective ROS Limited/Unobtainable: Yes Objective Objective Last 24 Hour Vital Signs Date Time Temp Pulse Resp B/P Pulse Ox O2 Delivery O2 Flow Rate FiO2 07/22/16 08:00 74 07/22/16 08:00 98.8 74 18 88/38 100 Mechanical Ventilator 40 07/22/16 08:00 40 07/22/16 07:05 71 16 40 07/22/16 07:00 70 17 94/40 100 Mechanical Ventilator 40 07/22/16 06:07 99.1 07/22/16 06:00 71 16 92/41 100 Mechanical Ventilator 40 07/22/16 05:17 77 16 40 07/22/16 05:00 73 16 92/42 100 Mechanical Ventilator 40 07/22/16 04:00 75 07/22/16 04:00 40 07/22/16 04:00 99.1 73 17 90/49 100 Mechanical Ventilator 40 07/22/16 03:17 78 16 40 07/22/16 03:00 79 18 103/47 100 Mechanical Ventilator 40 07/22/16 02:00 99.3 84 16 103/47 100 Mechanical Ventilator 40 07/22/16 01:15 79 16 40 07/22/16 01:00 85 20 108/46 100 Mechanical Ventilator 40 07/22/16 00:00 40 07/22/16 00:00 99.5 87 22 115/44 100 Mechanical Ventilator 40 07/22/16 00:00 74 07/21/16 23:20 77 16 40 07/21/16 23:00 76 25 112/54 100 Mechanical Ventilator 40 07/21/16 22:00 99.3 81 18 117/50 100 Mechanical Ventilator 40 07/21/16 21:15 78 16 40 07/21/16 21:10 Mechanical Ventilator 40 07/21/16 21:00 100.0 84 16 114/60 99 Mechanical Ventilator 40 07/21/16 20:00 40 07/21/16 20:00 76 07/21/16 20:00 99.5 84 16 104/47 99 Mechanical Ventilator 40 07/21/16 19:12 79 16 40 07/21/16 19:00 78 18 126/40 100 Mechanical Ventilator 40 07/21/16 18:00 78 18 121/39 100 Mechanical Ventilator 40 07/21/16 17:40 Mechanical Ventilator 40 07/21/16 17:00 40 07/21/16 17:00 98.1 75 16 118/46 98 Mechanical Ventilator 40 07/21/16 16:53 76 16 40 07/21/16 16:00 50 07/21/16 16:00 75 07/21/16 16:00 77 20 120/46 98 Mechanical Ventilator 60 07/21/16 15:08 78 16 50 07/21/16 15:00 78 20 123/55 100 Mechanical Ventilator 50 07/21/16 14:47 74 16 100 07/21/16 14:00 97.9 79 17 119/59 100 Mechanical Ventilator 60 07/21/16 13:30 75 16 100 07/21/16 13:00 81 20 130/51 100 Mechanical Ventilator 60 07/21/16 12:00 60 07/21/16 12:00 71 07/21/16 12:00 71 16 86/48 100 Mechanical Ventilator 60 07/21/16 11:51 73 16 99 07/21/16 11:18 73 16 100 07/21/16 11:00 75 18 91/48 100 Mechanical Ventilator 60 07/21/16 10:45 98.1 75 20 104/34 100 Mechanical Ventilator 07/21/16 10:40 77 07/21/16 10:40 60 07/21/16 10:13 72 24 117/40 99 Ambu-Bag 15.0 07/21/16 09:36 96.5 72 16 90/41 100 Mechanical Ventilator 100 07/21/16 09:30 20 07/21/16 09:25 18 07/21/16 09:23 16 07/21/16 09:20 16 Intake and Output 07/21/16 07/22/16 19:00 07:00 Intake Total 380 ml 140 ml Output Total 0 ml 1000 ml Balance 380 ml -860 ml Intake Oral 0 ml IV Total 380 ml 110 ml Other 30 ml Output Urine Total 0 ml 0 ml Hemodialysis UF 1000 ml # Bowel Movements 2 Laboratory Tests 07/21/16 15:05: Arterial Blood pH 7.437, Arterial Blood Partial Pressure CO2 35.5, Arterial Blood Partial Pressure O2 111.7H, Arterial Blood HCO3 23.4, Arterial Blood Oxygen Saturation 98.5H, Arterial Blood Base Excess -0.4, Jarred Test Positive 07/22/16 04:00: White Blood Count 19.5#H, Red Blood Count 2.82L, Hemoglobin 10.0L, Hematocrit 29.6L, Mean Corpuscular Volume 105H, Mean Corpuscular Hemoglobin 35.6H, Mean Corpuscular Hemoglobin Concent 33.8, Red Cell Distribution Width 12.8, Platelet Count 160, Mean Platelet Volume 7.0, Neutrophils (%) (Auto) , Lymphocytes (%) ( Auto) , Monocytes (%) (Auto) , Eosinophils (%) (Auto) , Basophils (%) (Auto) , Neutrophils % (Manual) [Pending], Lymphocytes % (Manual) [Pending], Platelet Estimate [Pending], Platelet Morphology [Pending], Sodium Level 138, Potassium Level 3.7, Chloride Level 96L, Carbon Dioxide Level 26, Anion Gap 16H, Blood Urea Nitrogen 20, Creatinine 4.0H, Estimat Glomerular Filtration Rate 11.2, Glucose Level 110H, Calcium Level 9.1, Total Bilirubin 0.9, Aspartate Amino Transf (AST/SGOT) 33, Alanine Aminotransferase (ALT/SGPT) 19, Alkaline Phosphatase 79, Total Protein 6.4L, Albumin 3.3L, Globulin 3.1, Albumin/ Globulin Ratio 1.0, Random Vancomycin Level 20.9, Hepatitis A IgM Antibody [ Pending], Hepatitis B Surface Antigen [Pending], Hepatitis B Core IgM Antibody [ Pending], Hepatitis C Antibody [Pending] Height (Feet): 4 Height (Inches): 10.00 Weight (Pounds): 198 General Appearance: no apparent distress, other - intubated EENT: normal ENT inspection Neck: non-tender Cardiovascular: normal rate, regular rhythm Respiratory/Chest: lungs clear, decreased breath sounds Abdomen: non tender, soft Extremities: trace edema Neurologic: other - L hemiparesis TATI DANIEL Jul 22, 2016 08:58
[2016-07-22] MEDS: Dyna-Hex 2% Top Sol 8oz TOPIC SCH (09:02)
[2016-07-22] MEDS: Pantoprazole Inj IVP SCH (09:02)
[2016-07-22] MEDS ORDERED: Tubing IV Secondary IV ONE (09:31)
[2016-07-22] MEDS ORDERED: NS 275ml ONE (09:31)
[2016-07-22] MEDS ORDERED: Sterile Water Irrig 1000ml IRRIG ONE (16:02)
[2016-07-22] MEDS ORDERED: Vancomycin 750mg/D5W 275ml IVPB ONE ×2 (18:00)
[2016-07-22] MEDS: Norco 5mg/325mg tab ORAL PRN (22:12)
[2016-07-23] VITALS (25 sets, daily range): BP systolic 72–101; BP diastolic 34–73
[2016-07-23] MEDS: Dyna-Hex 2% Top Sol 8oz TOPIC SCH (00:46)
[2016-07-23 05:16] LABS: MEAN CORPUSCULAR HEMOGLOBIN 34.3 PG (27.0-31.0); MEAN CORPUSCULAR HGB CONC 33.1 G/DL (32.0-36.0); MEAN CORPUSCULAR VOLUME 104 FL (80-99); MEAN PLATELET VOLUME 6.9 FL (6.5-10.1); PLATELET COUNT 158 K/UL (150-450); RED BLOOD COUNT 2.79 M/UL (4.20-5.40); RED CELL DISTRIBUTION WIDTH 12.9 % (11.6-14.8); WHITE BLOOD COUNT 13.6 K/UL (4.8-10.8)
[2016-07-23 05:29] LABS: CALCIUM 9.1 mg/dL (8.6-10.2); CREATININE 5.5 mg/dL (0.5-0.9); GLOMERULAR FILTRATION RATE 7.7 mL/min (>60); POTASSIUM 3.9 mEQ/L (3.4-4.9)
[2016-07-23] MEDS: Zosyn 2.25 gm in D5W 55ml IV SCH ×3 (05:37→22:07)
--- NOTE | 2016-07-23 07:29 | Critical Care Progress Note ---
Assessment/Plan Assessment/Plan IMPRESSION: 1. End-stage renal disease. 2. [id number] respiratory failure. 3. Obstructive sleep apnea. 4. poor airway 5. Insulin-dependent diabetes. 6. cerebrovascular accident with left-sided weakness. 7. hypotension 8. leukocytosis 9. anemia 10. possible sepsis PLAN care noted and reviewed overall not acute IV antibiotics respiratory care Ventilatory support; still on high o2 reviewed meds supportive care suction as needed no wean for today; possibly in am oxygen therapy prognosis guarded follow up chest xray ICU care noted medications/laboratory data/nursing notes/ICU care reviewed in detail note reviewed and edited care discussed with RN and RT ICU time spent 37 minutes Critical Care - Subjective Interval Events: care reviewed on the ventilator nursing noted reviewed ROS Limited/Unobtainable: Yes Condition: critical EKG Rhythm: Sinus Rhythm Residuals: minimal Tube Feeding Tolerated: yes I&O: Intake and Output 07/22/16 07/23/16 19:00 07:00 Intake Total 40 ml 400 ml Output Total 0 ml 0 ml Balance 40 ml 400 ml IV Total 110 ml Tube Feeding 40 ml 240 ml Other 50 ml Output Urine Total 0 ml 0 ml Critical Care - Objective ET-Tube: 7.5 ET Position: 20 Last 24 Hour Vital Signs Date Time Temp Pulse Resp B/P Pulse Ox O2 Delivery O2 Flow Rate FiO2 07/23/16 07:12 56 16 40 07/23/16 07:00 60 17 85/38 100 Mechanical Ventilator 40 07/23/16 06:00 57 17 83/38 100 Mechanical Ventilator 40 07/23/16 05:24 57 16 40 07/23/16 05:00 57 17 86/45 100 Mechanical Ventilator 40 07/23/16 04:00 40 07/23/16 04:00 56 07/23/16 04:00 98.3 56 16 86/41 100 Mechanical Ventilator 40 07/23/16 03:20 68 16 40 07/23/16 03:00 57 17 86/73 100 Mechanical Ventilator 40 07/23/16 02:00 60 17 88/43 100 Mechanical Ventilator 40 07/23/16 01:43 75 16 40 07/23/16 01:00 70 17 99/43 100 Mechanical Ventilator 40 07/23/16 00:00 40 07/23/16 00:00 59 17 99/46 100 Mechanical Ventilator 40 07/23/16 00:00 56 07/22/16 23:22 61 15 40 07/22/16 23:11 99.1 07/22/16 23:00 98.3 59 16 97/41 100 Mechanical Ventilator 40 07/22/16 22:00 68 16 97/42 100 Mechanical Ventilator 40 07/22/16 21:28 63 16 40 07/22/16 21:00 65 17 90/38 100 Mechanical Ventilator 40 07/22/16 20:00 99.1 73 22 97/43 100 Mechanical Ventilator 40 07/22/16 20:00 68 07/22/16 20:00 40 07/22/16 19:34 71 16 40 07/22/16 19:00 64 16 92/40 100 Mechanical Ventilator 40 07/22/16 18:00 64 16 94/40 100 Mechanical Ventilator 40 07/22/16 17:13 74 15 40 07/22/16 17:00 73 20 126/46 100 Mechanical Ventilator 40 07/22/16 16:00 74 07/22/16 16:00 99.3 68 18 94/41 100 Mechanical Ventilator 40 07/22/16 16:00 40 07/22/16 15:00 68 18 101/45 100 Mechanical Ventilator 40 07/22/16 14:00 76 23 100/42 99 Mechanical Ventilator 40 07/22/16 13:06 72 16 40 07/22/16 13:00 72 23 94/58 99 Mechanical Ventilator 40 07/22/16 12:00 80 07/22/16 12:00 99.1 73 22 97/43 100 Mechanical Ventilator 40 07/22/16 12:00 40 07/22/16 11:00 86 22 83/38 100 Mechanical Ventilator 40 07/22/16 10:57 86 15 40 07/22/16 10:00 73 18 91/40 100 Mechanical Ventilator 40 07/22/16 09:00 69 20 101/42 100 Mechanical Ventilator 40 07/22/16 08:51 69 15 40 07/22/16 08:00 74 07/22/16 08:00 98.8 74 18 88/38 100 Mechanical Ventilator 40 07/22/16 08:00 40 Labs: Labs Test 07/21/16 02:50 07/21/16 05:31 07/21/16 06:36 07/21/16 15:05 White Blood Count 10.4 K/UL (4.8-10.8) Red Blood Count 3.45 M/UL (4.20-5.40) Hemoglobin 11.6 G/DL (12.0-16.0) Hematocrit 38.1 % (37.0-47.0) Mean Corpuscular Volume 111 FL (80-99) Mean Corpuscular Hemoglobin 33.5 PG (27.0-31.0) Mean Corpuscular Hemoglobin Concent 30.3 G/DL (32.0-36.0) Red Cell Distribution Width 13.8 % (11.6-14.8) Platelet Count 198 K/UL (150-450) Mean Platelet Volume 6.0 FL (6.5-10.1) Neutrophils (%) (Auto) % (45.0-75.0) Lymphocytes (%) (Auto) % (20.0-45.0) Monocytes (%) (Auto) % (1.0-10.0) Eosinophils (%) (Auto) % (0.0-3.0) Basophils (%) (Auto) % (0.0-2.0) Prothrombin Time 9.4 SEC (9.30-11.50) Prothromb Time International Ratio 0.9 (0.9-1.1) Activated Partial Thromboplast Time 27 SEC (23-33) Sodium Level 136 mEQ/L (135-145) Potassium Level 4.8 mEQ/L (3.4-4.9) Chloride Level 89 mEQ/L (98-107) Carbon Dioxide Level 29 mEQ/L (20-30) Anion Gap 18 (5-15) Blood Urea Nitrogen 32 mg/dL (7-23) Creatinine 5.8 mg/dL (0.5-0.9) Estimat Glomerular Filtration Rate 7.3 mL/min (>60) Glucose Level 163 mg/dL (74-106) Calcium Level 8.9 mg/dL (8.6-10.2) Total Bilirubin 0.4 mg/dL (0.0-1.2) Aspartate Amino Transf (AST/SGOT) 29 U/L (5-40) Alanine Aminotransferase (ALT/SGPT) 24 U/L (3-33) Alkaline Phosphatase 141 U/L (35-104) Total Creatine Kinase 38 U/L (26-140) Creatine Kinase MB < 1.5 ng/mL (< 3.8) Creatine Kinase MB Relative Index 3.9 Troponin I < 0.30 ng/mL (<=0.30) Pro-B-Type Natriuretic Peptide 69947 pg/mL (0-125) Total Protein 8.2 g/dL (6.6-8.7) Albumin 4.1 g/dL (3.5-5.2) Globulin 4.1 g/dL Albumin/Globulin Ratio 1.0 (1.0-2.7) Arterial Blood pH 7.046 (7.350-7.450) 7.100 (7.350-7.450) 7.437 (7.350-7.450) Arterial Blood Partial Pressure CO2 128.6 mmHg (35.0-45.0) 94.9 mmHg (35.0-45.0) 35.5 mmHg (35.0-45.0) Arterial Blood Partial Pressure O2 178.5 mmHg (75.0-100.0) 74.3 mmHg (75.0-100.0) 111.7 mmHg (75.0-100.0) Arterial Blood HCO3 34.5 mmol/L (22.0-26.0) 28.8 mmol/L (22.0-26.0) 23.4 mmol/L (22.0-26.0) Arterial Blood Oxygen Saturation 98.7 % (92.0-98.0) 93.0 % (92.0-98.0) 98.5 % (92.0-98.0) Arterial Blood Base Excess 0.4 -3.1 -0.4 Jarred Test Positive Positive Positive Test 07/22/16 04:00 07/23/16 04:00 White Blood Count 19.5 K/UL (4.8-10.8) 13.6 K/UL (4.8-10.8) Red Blood Count 2.82 M/UL (4.20-5.40) 2.79 M/UL (4.20-5.40) Hemoglobin 10.0 G/DL (12.0-16.0) 9.6 G/DL (12.0-16.0) Hematocrit 29.6 % (37.0-47.0) 28.9 % (37.0-47.0) Mean Corpuscular Volume 105 FL (80-99) 104 FL (80-99) Mean Corpuscular Hemoglobin 35.6 PG (27.0-31.0) 34.3 PG (27.0-31.0) Mean Corpuscular Hemoglobin Concent 33.8 G/DL (32.0-36.0) 33.1 G/DL (32.0-36.0) Red Cell Distribution Width 12.8 % (11.6-14.8) 12.9 % (11.6-14.8) Platelet Count 160 K/UL (150-450) 158 K/UL (150-450) Mean Platelet Volume 7.0 FL (6.5-10.1) 6.9 FL (6.5-10.1) Neutrophils (%) (Auto) % (45.0-75.0) % (45.0-75.0) Lymphocytes (%) (Auto) % (20.0-45.0) % (20.0-45.0) Monocytes (%) (Auto) % (1.0-10.0) % (1.0-10.0) Eosinophils (%) (Auto) % (0.0-3.0) % (0.0-3.0) Basophils (%) (Auto) % (0.0-2.0) % (0.0-2.0) Differential Total Cells Counted 100 Neutrophils % (Manual) 87 % (45-75) Lymphocytes % (Manual) 7 % (20-45) Monocytes % (Manual) 3 % (1-10) Eosinophils % (Manual) 1 % (0-3) Basophils % (Manual) 0 % (0-2) Band Neutrophils 2 % (0-8) Platelet Estimate Adequate Platelet Morphology Normal Red Blood Cell Morphology Normal Sodium Level 138 mEQ/L (135-145) 138 mEQ/L (135-145) Potassium Level 3.7 mEQ/L (3.4-4.9) 3.9 mEQ/L (3.4-4.9) Chloride Level 96 mEQ/L (98-107) 94 mEQ/L (98-107) Carbon Dioxide Level 26 mEQ/L (20-30) 24 mEQ/L (20-30) Anion Gap 16 (5-15) 20 (5-15) Blood Urea Nitrogen 20 mg/dL (7-23) 41 mg/dL (7-23) Creatinine 4.0 mg/dL (0.5-0.9) 5.5 mg/dL (0.5-0.9) Estimat Glomerular Filtration Rate 11.2 mL/min (>60) 7.7 mL/min (>60) Glucose Level 110 mg/dL (74-106) 113 mg/dL (74-106) Calcium Level 9.1 mg/dL (8.6-10.2) 9.1 mg/dL (8.6-10.2) Total Bilirubin 0.9 mg/dL (0.0-1.2) 0.7 mg/dL (0.0-1.2) Aspartate Amino Transf (AST/SGOT) 33 U/L (5-40) 26 U/L (5-40) Alanine Aminotransferase (ALT/SGPT) 19 U/L (3-33) 17 U/L (3-33) Alkaline Phosphatase 79 U/L (35-104) 96 U/L (35-104) Total Protein 6.4 g/dL (6.6-8.7) 6.0 g/dL (6.6-8.7) Albumin 3.3 g/dL (3.5-5.2) 3.0 g/dL (3.5-5.2) Globulin 3.1 g/dL 3.0 g/dL Albumin/Globulin Ratio 1.0 (1.0-2.7) 1.0 (1.0-2.7) Random Vancomycin Level 20.9 ug/mL Objective: PHYSICAL EXAMINATION: GENERAL: ALOC, NAD HEENT: orally intubated; PERRL NECK: No adenopathy. LUNGS: reduced breath sounds. no rhonchi or wheeze HEART: RRR without MRG ABDOMEN: Obese and soft. No HSM; no distention; NABS EXTREMITIES: no CCE; She has a left upper arm AV fistula with a good thrill. NEUROLOGIC: left hemiparesis. reviewed and edited Micro: Microbiology Date/Time Source Procedure Growth Status 07/21/16 04:31 Rectum VRE Culture - Final NO VANCOMYCIN RESISTANT ENTEROCOCCUS ... Complete Accucheck: 127 FITO SIMS Jul 23, 2016 07:29
--- NOTE | 2016-07-23 08:26 | General Progress Note ---
Assessment/Plan Problem List: (1) DM renal manif type II ICD Codes: E11.29 - Type 2 diabetes mellitus with other diabetic kidney complication SNOMED: 22428086, 289481728 (2) Hemiplegia of nondominant side as late effect of cerebrovascular disease ICD Codes: I69.959 - Hemiplegia and hemiparesis following unspecified cerebrovascular disease affecting unspecified side SNOMED: 529954634 (3) Respiratory acidosis ICD Codes: E87.2 - Acidosis SNOMED: 70208598 (4) Anemia in chronic kidney disease ICD Codes: N18.9 - Chronic kidney disease, unspecified; D63.1 - Anemia in chronic kidney disease SNOMED: 750232489 (5) Morbid obesity with BMI of 60.0-69.9, adult ICD Codes: E66.01 - Morbid (severe) obesity due to excess calories; Z68.44 - Body mass index (BMI) 60.0-69.9, adult SNOMED: 261372694, 165365124 (6) CHF exacerbation ICD Codes: I50.9 - Heart failure, unspecified SNOMED: 28421591, 344219215 Qualifiers: Qualified Codes: I50.9 - Heart failure, unspecified (7) Respiratory failure requiring intubation ICD Codes: J96.90 - Respiratory failure, unspecified, unspecified whether with hypoxia or hypercapnia; Z68.44 - Body mass index (BMI) 60.0-69.9, adult SNOMED: 615627984, 507278766 (8) Respiratory failure with hypoxia ICD Codes: J96.91 - Respiratory failure, unspecified with hypoxia SNOMED: 48207134680639446 Qualifiers: Qualified Codes: J96.01 - Acute respiratory failure with hypoxia Status: stable, progressing Assessment/Plan vent support resp rx suctioning wean per pulm iv abx ngt feeds monitor cxr follow up cultures HD per renal Subjective ROS Limited/Unobtainable: No Constitutional: Reports: malaise, weakness HEENT: Reports: no symptoms Cardiovascular: Reports: no symptoms Respiratory: Reports: shortness of breath Gastrointestinal/Abdominal: Reports: no symptoms Genitourinary: Reports: no symptoms Neurologic/Psychiatric: Reports: no symptoms Endocrine: Reports: no symptoms Hematologic/Lymphatic: Reports: no symptoms Allergies: Coded Allergies: AMITRIPTYLINE (Verified Allergy, Unknown, 11/15/14) When taken with glipizide pts Blood glucose was critically low. MD stopped medication ATENOLOL (Verified Allergy, Unknown, 11/03/14) GLIPIZIDE (Verified Allergy, Unknown, 11/15/14) Pt is not diabetic. When prescribed pt had symptoms of lethargy, somnolence, depressed, anxiousness. Medication was discontinued. UNABLE TO ASSESS (Unverified , 07/21/16) All Systems: reviewed and negative except above Subjective remains intubated. still with high fio2. alert. follows commands. tolerating feeds. Objective Last 24 Hour Vital Signs Date Time Temp Pulse Resp B/P Pulse Ox O2 Delivery O2 Flow Rate FiO2 07/23/16 08:00 58 07/23/16 08:00 40 07/23/16 08:00 58 17 91/41 100 Mechanical Ventilator 40 07/23/16 07:12 56 16 40 07/23/16 07:00 60 17 85/38 100 Mechanical Ventilator 40 07/23/16 06:00 57 17 83/38 100 Mechanical Ventilator 40 07/23/16 05:24 57 16 40 07/23/16 05:00 57 17 86/45 100 Mechanical Ventilator 40 07/23/16 04:00 40 07/23/16 04:00 56 07/23/16 04:00 98.3 56 16 86/41 100 Mechanical Ventilator 40 07/23/16 03:20 68 16 40 07/23/16 03:00 57 17 86/73 100 Mechanical Ventilator 40 07/23/16 02:00 60 17 88/43 100 Mechanical Ventilator 40 07/23/16 01:43 75 16 40 07/23/16 01:00 70 17 99/43 100 Mechanical Ventilator 40 07/23/16 00:00 40 07/23/16 00:00 59 17 99/46 100 Mechanical Ventilator 40 07/23/16 00:00 56 07/22/16 23:22 61 15 40 07/22/16 23:11 99.1 07/22/16 23:00 98.3 59 16 97/41 100 Mechanical Ventilator 40 07/22/16 22:00 68 16 97/42 100 Mechanical Ventilator 40 07/22/16 21:28 63 16 40 07/22/16 21:00 65 17 90/38 100 Mechanical Ventilator 40 07/22/16 20:00 99.1 73 22 97/43 100 Mechanical Ventilator 40 07/22/16 20:00 68 07/22/16 20:00 40 07/22/16 19:34 71 16 40 07/22/16 19:00 64 16 92/40 100 Mechanical Ventilator 40 07/22/16 18:00 64 16 94/40 100 Mechanical Ventilator 40 07/22/16 17:13 74 15 40 07/22/16 17:00 73 20 126/46 100 Mechanical Ventilator 40 07/22/16 16:00 74 07/22/16 16:00 99.3 68 18 94/41 100 Mechanical Ventilator 40 07/22/16 16:00 40 07/22/16 15:00 68 18 101/45 100 Mechanical Ventilator 40 07/22/16 14:00 76 23 100/42 99 Mechanical Ventilator 40 07/22/16 13:06 72 16 40 07/22/16 13:00 72 23 94/58 99 Mechanical Ventilator 40 07/22/16 12:00 80 07/22/16 12:00 99.1 73 22 97/43 100 Mechanical Ventilator 40 07/22/16 12:00 40 07/22/16 11:00 86 22 83/38 100 Mechanical Ventilator 40 07/22/16 10:57 86 15 40 07/22/16 10:00 73 18 91/40 100 Mechanical Ventilator 40 07/22/16 09:00 69 20 101/42 100 Mechanical Ventilator 40 07/22/16 08:51 69 15 40 Intake and Output 07/22/16 07/23/16 19:00 07:00 Intake Total 40 ml 400 ml Output Total 0 ml 0 ml Balance 40 ml 400 ml IV Total 110 ml Tube Feeding 40 ml 240 ml Other 50 ml Output Urine Total 0 ml 0 ml Laboratory Tests 07/23/16 04:00: White Blood Count 13.6H, Red Blood Count 2.79L, Hemoglobin 9.6L, Hematocrit 28.9L, Mean Corpuscular Volume 104H, Mean Corpuscular Hemoglobin 34.3H, Mean Corpuscular Hemoglobin Concent 33.1, Red Cell Distribution Width 12.9, Platelet Count 158, Mean Platelet Volume 6.9, Neutrophils (%) (Auto) , Lymphocytes (%) ( Auto) , Monocytes (%) (Auto) , Eosinophils (%) (Auto) , Basophils (%) (Auto) , Neutrophils % (Manual) [Pending], Lymphocytes % (Manual) [Pending], Platelet Estimate [Pending], Platelet Morphology [Pending], Sodium Level 138, Potassium Level 3.9, Chloride Level 94L, Carbon Dioxide Level 24, Anion Gap 20H, Blood Urea Nitrogen 41H, Creatinine 5.5H, Estimat Glomerular Filtration Rate 7.7, Glucose Level 113H, Calcium Level 9.1, Total Bilirubin 0.7, Aspartate Amino Transf (AST/SGOT) 26, Alanine Aminotransferase (ALT/SGPT) 17, Alkaline Phosphatase 96, Total Protein 6.0L, Albumin 3.0L, Globulin 3.0, Albumin/ Globulin Ratio 1.0 Height (Feet): 4 Height (Inches): 10.00 Weight (Pounds): 187 Objective General Appearance: WD/WN, alert Neck: supple Cardiovascular: regular rhythm Respiratory/Chest: rhonchi - bilaterally Abdomen: normal bowel sounds, non tender, soft, no organomegaly Edema: no edema noted Arm (L), no edema noted Arm (R), no edema noted Leg (L), no edema noted Leg (R), no edema noted Pedal (L), no edema noted Pedal (R), no edema noted Generalized 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
[2016-07-23] MEDS: Pantoprazole Inj IVP SCH (08:48)
[2016-07-23 10:27] LABS: BAND NEUTROPHILS % (MANUAL) 0 % (0-8); BASOPHILS % (MANUAL) 0 % (0-2); EOSINOPHILS % (MANUAL) 1 % (0-3); HYPOCHROMASIA 1+; LYMPHOCYTES % (MANUAL) 7 % (20-45); NEUTROPHILS % (MANUAL) 90 % (45-75); PLATELET ESTIMATE ADEQUATE; PLATELET MORPHOLOGY NORMAL; TOTAL CELLS COUNTED 100
--- NOTE | 2016-07-23 10:38 | Diagnostic Imaging Report ---
Indication: Chest pain Technique: XRAY CHEST 1 V Comparison: 07/21/16 Findings: Endotracheal tube is now in satisfactory position 2 cm above the terry. Nasogastric tube and left-sided vascular stents are noted. The cardiomediastinal silhouette is stable. Bilateral interstitial edema or infiltrates are again noted. Osseous structures are stable. Impression: Satisfactory repositioning of the endotracheal tube. Cardiomegaly and bilateral interstitial probable edema.
--- NOTE | 2016-07-23 12:04 | Nephrology Progress Note ---
Assessment/Plan Problem List: (1) Respiratory failure with hypoxia (2) Hemiplegia of nondominant side as late effect of cerebrovascular disease (3) Respiratory failure requiring intubation (4) End-stage renal disease Plan hd 07/21 uf -1000, bp low-normal, no significant fluid overload, continue pulmonary care, epogen, next hd 07/24 Subjective ROS Limited/Unobtainable: Yes Objective Objective Last 24 Hour Vital Signs Date Time Temp Pulse Resp B/P Pulse Ox O2 Delivery O2 Flow Rate FiO2 07/23/16 11:00 61 18 88/45 100 Mechanical Ventilator 40 07/23/16 10:54 61 16 40 07/23/16 10:00 63 18 101/34 100 Mechanical Ventilator 40 07/23/16 09:00 60 16 81/34 100 Mechanical Ventilator 40 07/23/16 08:38 56 16 40 07/23/16 08:00 58 07/23/16 08:00 40 07/23/16 08:00 98.5 58 17 91/41 100 Mechanical Ventilator 40 07/23/16 07:12 56 16 40 07/23/16 07:00 60 17 85/38 100 Mechanical Ventilator 40 07/23/16 06:00 57 17 83/38 100 Mechanical Ventilator 40 07/23/16 05:24 57 16 40 07/23/16 05:00 57 17 86/45 100 Mechanical Ventilator 40 07/23/16 04:00 40 07/23/16 04:00 56 07/23/16 04:00 98.3 56 16 86/41 100 Mechanical Ventilator 40 07/23/16 03:20 68 16 40 07/23/16 03:00 57 17 86/73 100 Mechanical Ventilator 40 07/23/16 02:00 60 17 88/43 100 Mechanical Ventilator 40 07/23/16 01:43 75 16 40 07/23/16 01:00 70 17 99/43 100 Mechanical Ventilator 40 07/23/16 00:00 40 07/23/16 00:00 59 17 99/46 100 Mechanical Ventilator 40 07/23/16 00:00 56 07/22/16 23:22 61 15 40 07/22/16 23:11 99.1 07/22/16 23:00 98.3 59 16 97/41 100 Mechanical Ventilator 40 07/22/16 22:00 68 16 97/42 100 Mechanical Ventilator 40 07/22/16 21:28 63 16 40 07/22/16 21:00 65 17 90/38 100 Mechanical Ventilator 40 07/22/16 20:00 99.1 73 22 97/43 100 Mechanical Ventilator 40 07/22/16 20:00 68 07/22/16 20:00 40 07/22/16 19:34 71 16 40 07/22/16 19:00 64 16 92/40 100 Mechanical Ventilator 40 07/22/16 18:00 64 16 94/40 100 Mechanical Ventilator 40 07/22/16 17:13 74 15 40 07/22/16 17:00 73 20 126/46 100 Mechanical Ventilator 40 07/22/16 16:00 74 07/22/16 16:00 99.3 68 18 94/41 100 Mechanical Ventilator 40 07/22/16 16:00 40 07/22/16 15:00 68 18 101/45 100 Mechanical Ventilator 40 07/22/16 14:00 76 23 100/42 99 Mechanical Ventilator 40 07/22/16 13:06 72 16 40 07/22/16 13:00 72 23 94/58 99 Mechanical Ventilator 40 Intake and Output 07/22/16 07/23/16 19:00 07:00 Intake Total 40 ml 400 ml Output Total 0 ml 0 ml Balance 40 ml 400 ml IV Total 110 ml Tube Feeding 40 ml 240 ml Other 50 ml Output Urine Total 0 ml 0 ml Laboratory Tests 07/23/16 04:00: White Blood Count 13.6H, Red Blood Count 2.79L, Hemoglobin 9.6L, Hematocrit 28.9L, Mean Corpuscular Volume 104H, Mean Corpuscular Hemoglobin 34.3H, Mean Corpuscular Hemoglobin Concent 33.1, Red Cell Distribution Width 12.9, Platelet Count 158, Mean Platelet Volume 6.9, Neutrophils (%) (Auto) , Lymphocytes (%) ( Auto) , Monocytes (%) (Auto) , Eosinophils (%) (Auto) , Basophils (%) (Auto) , Differential Total Cells Counted 100, Neutrophils % (Manual) 90H, Lymphocytes % (Manual) 7L, Monocytes % (Manual) 2, Eosinophils % (Manual) 1, Basophils % ( Manual) 0, Band Neutrophils 0, Platelet Estimate Adequate, Platelet Morphology Normal, Hypochromasia 1+, Sodium Level 138, Potassium Level 3.9, Chloride Level 94L, Carbon Dioxide Level 24, Anion Gap 20H, Blood Urea Nitrogen 41H, Creatinine 5.5H, Estimat Glomerular Filtration Rate 7.7, Glucose Level 113H, Calcium Level 9.1, Total Bilirubin 0.7, Aspartate Amino Transf (AST/SGOT) 26, Alanine Aminotransferase (ALT/SGPT) 17, Alkaline Phosphatase 96, Total Protein 6.0L, Albumin 3.0L, Globulin 3.0, Albumin/Globulin Ratio 1.0 Height (Feet): 4 Height (Inches): 10.00 Weight (Pounds): 187 General Appearance: no apparent distress, other - on ventilator EENT: normal ENT inspection Neck: normal alignment Cardiovascular: regular rhythm Respiratory/Chest: lungs clear Abdomen: soft, no organomegaly Extremities: other - no edema Neurologic: motor weakness TATI DANIEL Jul 23, 2016 12:04
[2016-07-23] MEDS: Norco 5mg/325mg tab ORAL PRN ×2 (14:08→23:22)
[2016-07-23] MEDS ORDERED: Tubing IV Secondary IV ONE (16:04)
[2016-07-23] MEDS ORDERED: NS 275ml ONE (16:04)
--- NOTE | 2016-07-23 18:34 | Cardiology Report ---
APPROVED REPORT EKG Measurement Heart [id number] Sinus tachycardia with premature atrial complexes Left axis deviation Low voltage QRS Cannot rule out Anterior infarct, age undetermined Abnormal ECG
[2016-07-24] VITALS (24 sets, daily range): BP systolic 80–111; BP diastolic 37–72
[2016-07-24] MEDS: Dyna-Hex 2% Top Sol 8oz TOPIC SCH (03:58)
[2016-07-24 05:06] LABS: BASOPHILS % (AUTO) 0.8 % (0.0-2.0); EOSINOPHILS % (AUTO) 2.5 % (0.0-3.0); LYMPHOCYTES % (AUTO) 8.8 % (20.0-45.0); MEAN CORPUSCULAR HEMOGLOBIN 33.3 PG (27.0-31.0); MEAN CORPUSCULAR HGB CONC 32.4 G/DL (32.0-36.0); MEAN CORPUSCULAR VOLUME 103 FL (80-99); MEAN PLATELET VOLUME 7.5 FL (6.5-10.1); MONOCYTES % (AUTO) 8.1 % (1.0-10.0); NEUTROPHILS % (AUTO) 79.8 % (45.0-75.0); PLATELET COUNT 147 K/UL (150-450); RED BLOOD COUNT 2.99 M/UL (4.20-5.40)
[2016-07-24 05:25] LABS: CALCIUM 8.9 mg/dL (8.6-10.2); CREATININE 6.6 mg/dL (0.5-0.9); GLOMERULAR FILTRATION RATE 6.2 mL/min (>60); POTASSIUM 3.8 mEQ/L (3.4-4.9)
[2016-07-24] MEDS: Zosyn 2.25 gm in D5W 55ml IV SCH ×3 (05:38→22:04)
[2016-07-24] MEDS ORDERED: Heparin Sod 1000 units/ml 10ml IV PRN (06:00)
--- NOTE | 2016-07-24 07:56 | General Progress Note ---
Assessment/Plan Problem List: (1) DM renal manif type II ICD Codes: E11.29 - Type 2 diabetes mellitus with other diabetic kidney complication SNOMED: 26806211, 162575280 (2) Hemiplegia of nondominant side as late effect of cerebrovascular disease ICD Codes: I69.959 - Hemiplegia and hemiparesis following unspecified cerebrovascular disease affecting unspecified side SNOMED: 459268086 (3) Respiratory acidosis ICD Codes: E87.2 - Acidosis SNOMED: 50303775 (4) Anemia in chronic kidney disease ICD Codes: N18.9 - Chronic kidney disease, unspecified; D63.1 - Anemia in chronic kidney disease SNOMED: 969339503 (5) Morbid obesity with BMI of 60.0-69.9, adult ICD Codes: E66.01 - Morbid (severe) obesity due to excess calories; Z68.44 - Body mass index (BMI) 60.0-69.9, adult SNOMED: 964917622, 553652806 (6) CHF exacerbation ICD Codes: I50.9 - Heart failure, unspecified SNOMED: 69473919, 904292885 Qualifiers: Qualified Codes: I50.9 - Heart failure, unspecified (7) Respiratory failure requiring intubation ICD Codes: J96.90 - Respiratory failure, unspecified, unspecified whether with hypoxia or hypercapnia; Z68.44 - Body mass index (BMI) 60.0-69.9, adult SNOMED: 030953520, 051155589 (8) Respiratory failure with hypoxia ICD Codes: J96.91 - Respiratory failure, unspecified with hypoxia SNOMED: 54281965157165387 Qualifiers: Qualified Codes: J96.01 - Acute respiratory failure with hypoxia Status: stable Assessment/Plan vent support resp rx suctioning wean per pulm may need to be extubated in or with ent backup for possible trach iv abx ngt feeds monitor cxr follow up cultures HD per renal Subjective ROS Limited/Unobtainable: No Constitutional: Reports: malaise, weakness HEENT: Reports: no symptoms Cardiovascular: Reports: no symptoms Respiratory: Reports: cough, shortness of breath Gastrointestinal/Abdominal: Reports: difficulty swallowing Genitourinary: Reports: no symptoms Neurologic/Psychiatric: Reports: no symptoms Endocrine: Reports: no symptoms Hematologic/Lymphatic: Reports: anemia Allergies: Coded Allergies: AMITRIPTYLINE (Verified Allergy, Unknown, 11/15/14) When taken with glipizide pts Blood glucose was critically low. MD stopped medication ATENOLOL (Verified Allergy, Unknown, 11/03/14) GLIPIZIDE (Verified Allergy, Unknown, 11/15/14) Pt is not diabetic. When prescribed pt had symptoms of lethargy, somnolence, depressed, anxiousness. Medication was discontinued. UNABLE TO ASSESS (Unverified , 07/21/16) All Systems: reviewed and negative except above Subjective remains intubated. still with high fio2. alert. follows commands. tolerating feeds. on 45%. alert and awake Objective Last 24 Hour Vital Signs Date Time Temp Pulse Resp B/P Pulse Ox O2 Delivery O2 Flow Rate FiO2 07/24/16 07:00 58 19 87/46 100 Mechanical Ventilator 40 07/24/16 06:35 53 16 40 07/24/16 06:00 55 19 93/43 100 Mechanical Ventilator 40 07/24/16 05:29 62 16 40 07/24/16 05:00 62 17 91/46 100 Mechanical Ventilator 40 07/24/16 04:00 98.5 56 17 111/52 100 Mechanical Ventilator 40 07/24/16 04:00 40 07/24/16 04:00 54 07/24/16 03:00 52 16 40 07/24/16 03:00 57 17 97/46 100 Mechanical Ventilator 40 07/24/16 02:00 52 17 81/43 100 Mechanical Ventilator 40 07/24/16 01:00 52 17 89/46 100 Mechanical Ventilator 40 07/24/16 00:58 53 16 40 07/24/16 00:21 98.0 07/24/16 00:00 59 07/24/16 00:00 98.0 67 16 87/37 100 Mechanical Ventilator 40 07/24/16 00:00 40 07/23/16 23:12 59 16 40 07/23/16 23:00 58 17 97/47 100 Mechanical Ventilator 40 07/23/16 22:00 55 17 87/61 100 Mechanical Ventilator 40 07/23/16 21:22 59 16 40 07/23/16 21:00 56 20 99/43 100 Mechanical Ventilator 40 07/23/16 20:00 98.5 63 17 90/40 100 Mechanical Ventilator 40 07/23/16 20:00 59 07/23/16 20:00 40 07/23/16 19:28 62 16 40 07/23/16 19:00 75 21 79/37 100 Mechanical Ventilator 40 07/23/16 18:00 72 18 89/35 100 Mechanical Ventilator 40 07/23/16 17:00 63 23 82/41 100 Mechanical Ventilator 40 07/23/16 16:58 54 16 40 07/23/16 16:00 60 07/23/16 16:00 40 07/23/16 16:00 98.0 68 23 82/40 100 Mechanical Ventilator 40 07/23/16 15:21 64 16 40 07/23/16 15:00 64 23 89/45 100 Mechanical Ventilator 40 07/23/16 14:00 67 19 85/40 100 Mechanical Ventilator 40 07/23/16 13:20 76 16 40 07/23/16 13:00 69 22 89/50 100 Mechanical Ventilator 40 07/23/16 12:00 98.5 63 17 75/36 100 Mechanical Ventilator 40 07/23/16 12:00 63 07/23/16 12:00 40 07/23/16 11:00 61 18 88/45 100 Mechanical Ventilator 40 07/23/16 10:54 61 16 40 07/23/16 10:00 63 18 101/34 100 Mechanical Ventilator 40 07/23/16 09:00 60 16 81/34 100 Mechanical Ventilator 40 07/23/16 08:38 56 16 40 07/23/16 08:00 58 07/23/16 08:00 40 07/23/16 08:00 98.5 58 17 91/41 100 Mechanical Ventilator 40 Intake and Output 07/23/16 07/24/16 19:00 07:00 Intake Total 295 ml 380 ml Output Total 0 ml 0 ml Balance 295 ml 380 ml IV Total 55 ml 110 ml Tube Feeding 240 ml 240 ml Other 30 ml Output Urine Total 0 ml 0 ml Laboratory Tests 07/24/16 04:00: White Blood Count 9.0, Red Blood Count 2.99L, Hemoglobin 10.0L, Hematocrit 30.7L , Mean Corpuscular Volume 103H, Mean Corpuscular Hemoglobin 33.3H, Mean Corpuscular Hemoglobin Concent 32.4, Red Cell Distribution Width 13.0, Platelet Count 147L, Mean Platelet Volume 7.5, Neutrophils (%) (Auto) 79.8H, Lymphocytes (%) (Auto) 8.8L, Monocytes (%) (Auto) 8.1, Eosinophils (%) (Auto) 2.5, Basophils (%) (Auto) 0.8, Sodium Level 138, Potassium Level 3.8, Chloride Level 94L, Carbon Dioxide Level 25, Anion Gap 19H, Blood Urea Nitrogen 58H, Creatinine 6.6H, Estimat Glomerular Filtration Rate 6.2, Glucose Level 101, Calcium Level 8.9, Random Vancomycin Level 31.6 Height (Feet): 4 Height (Inches): 10.00 Weight (Pounds): 195 Objective General Appearance: WD/WN, alert Neck: supple Cardiovascular: regular rhythm Respiratory/Chest: rhonchi - bilaterally Abdomen: normal bowel sounds, non tender, soft, no organomegaly Edema: no edema noted Arm (L), no edema noted Arm (R), no edema noted Leg (L), no edema noted Leg (R), no edema noted Pedal (L), no edema noted Pedal (R), no edema noted Generalized 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
--- NOTE | 2016-07-24 08:39 | Diagnostic Imaging Report ---
Indications: Intubation Technique: Portable AP chest at 1149 Findings: Comparison: 0331 Endotracheal tube has been placed, tip 1 cm into the right mainstem bronchus. Nasogastric tube has been placed, tip and proximal port in the region of the stomach. Gaseous distention of the latter has resolved. Patchy airspace opacity has developed in the right upper lobe. Mild volume loss of the left lung has developed with leftward shift of cardiomediastinal structures. No other interval change. IMPRESSION: Endotracheal tube in right mainstem bronchus, recommend 3-4 cm withdrawal. Patient's nurse in ICU notified by telephone at time of this dictation. Developing atelectasis versus pneumonia right upper lobe, may be due to endotracheal tube position Left lung volume loss and also be due to endotracheal tube position Nasogastric tube in stomach, latter decompressed
[2016-07-24] MEDS: Pantoprazole Inj IVP SCH (08:55)
[2016-07-24] MEDS ORDERED: Etomidate 40mg/20ml Inj IV ONE ×2 (10:26)
[2016-07-24] MEDS ORDERED: Zemuron 50mg/5ml Inj IV ONE (10:26)
[2016-07-24] MEDS ORDERED: Succinylcholine 20mg/ml 10ml vial ONE ×2 (10:26)
--- NOTE | 2016-07-24 10:45 | Consultation ---
DATE OF CONSULTATION: HEAD AND NECK SURGERY ENT CONSULT CONSULTING PHYSICIAN: Bernard Nichole M.D. REQUESTING PHYSICIAN: Goldy Sky M.D. INDICATION FOR CONSULTATION: This is a 66-year-old female with congestive heart failure, respiratory failure was intubated with difficulty few days ago. This was done in the operating room, actually with general surgeon there to put a trach and as needed. Today, Dr. Sky saw me in the ICU while was seeing another patient asked me to evaluate her. We discussed the fact that she may be extubated well in the near future, but considering her BMI and recent events which should be done in the operating room, with the ability to place a trach if indicated. PAST MEDICAL HISTORY: Significant for respiratory failure, chronic renal failure, congestive heart failure and anemia associated with chronic renal disease. In the past, she has been hypoglycemic as well and hemiparesis. MEDICATIONS: Tylenol, , Procrit, heparin, Matthews, Ativan, Protonix, sodium chloride and vancomycin dose. At home, she takes aspirin, folic acid, Perforomist, gabapentin, metoprolol, pantoprazole, Renagel, Zocor, Velphoro, tramadol, vitamin C complex with biotin and B complex. ALLERGIES: She is allergic to amitriptyline, atenolol, and glipizide. PHYSICAL EXAMINATION: VITAL SIGNS: She is 147.cm, weighs 88.47 kilograms, and BMI of 40.8 kilograms. HEENT: Head, normocephalic. She is morbidly obese and has excessive fat in her neck, which will make it more difficult to place the trach. She has an endotracheal tube and her mouth was shut with the endotracheal tube so she was not able to evaluate significantly. Feeding tube in her nose. ASSESSMENT: She has a potential trach, if she is not extubatable. PLAN: I did discuss with her daughter in the room this morning after seeing the patient that we will try that extubate the patient in the operating room with myself present if need be we will do a trach. She understands this and is researching herself and is agreeable. I did suggest she discuss it with her brother, which she will do. At this point, it is at least a couple days away so we will revisit this as we proceed. Once again, she was a very difficult intubation and therefore I would recommend that she be extubated in the operating room, with the ability to do a trach if indicated will be reintubated. Thank you very much for asking my opinion in the care and treatment of this patient. Bernard Nichole M.D. DR: Jose JOB#: [id number] CC: HANH
[2016-07-24] MEDS: Norco 5mg/325mg tab ORAL PRN ×2 (11:12→22:26)
--- NOTE | 2016-07-24 11:21 | Critical Care Progress Note ---
Assessment/Plan Assessment/Plan IMPRESSION: 1. End-stage renal disease. 2. Pbaxg-io-rihkvqf respiratory failure. 3. Obstructive sleep apnea. 4. poor airway 5. Insulin-dependent diabetes. 6. cerebrovascular accident with left-sided weakness. 7. hypotension 8. leukocytosis 9. anemia 10. possible sepsis PLAN care noted and reviewed exam noted and reviewed overall seems more stable IV antibiotics noted respiratory care Ventilatory support; wean in am reviewed meds supportive care suction as needed oxygen therapy prognosis guarded follow up chest xray for change monitor fluid status closely ICU care noted monitor airway after extubation medications/laboratory data/nursing notes/ICU care reviewed in detail note reviewed and edited care discussed with RN and RT ICU time spent 36 minutes Critical Care - Subjective Interval Events: care noted and reviewed events noted and discussed ROS Limited/Unobtainable: Yes Condition: critical EKG Rhythm: Sinus Tachycardia Residuals: minimal Tube Feeding Tolerated: yes I&O: Intake and Output 07/23/16 07/24/16 18:59 06:59 Intake Total 295 ml 380 ml Output Total 0 ml 0 ml Balance 295 ml 380 ml IV Total 55 ml 110 ml Tube Feeding 240 ml 240 ml Other 30 ml Output Urine Total 0 ml 0 ml Critical Care - Objective CXR: mild edema ET-Tube: 7.5 ET Position: 20 Last 24 Hour Vital Signs Date Time Temp Pulse Resp B/P Pulse Ox O2 Delivery O2 Flow Rate FiO2 07/24/16 11:00 65 16 40 07/24/16 10:00 51 24 92/40 100 Mechanical Ventilator 40 07/24/16 09:00 64 22 88/44 100 Mechanical Ventilator 40 07/24/16 08:39 72 18 40 07/24/16 08:00 98.7 61 16 80/38 100 Mechanical Ventilator 40 07/24/16 08:00 57 07/24/16 08:00 40 07/24/16 07:00 58 19 87/46 100 Mechanical Ventilator 40 07/24/16 06:35 53 16 40 07/24/16 06:00 55 19 93/43 100 Mechanical Ventilator 40 07/24/16 05:29 62 16 40 07/24/16 05:00 62 17 91/46 100 Mechanical Ventilator 40 07/24/16 04:00 98.5 56 17 111/52 100 Mechanical Ventilator 40 07/24/16 04:00 40 07/24/16 04:00 54 07/24/16 03:00 52 16 40 07/24/16 03:00 57 17 97/46 100 Mechanical Ventilator 40 07/24/16 02:00 52 17 81/43 100 Mechanical Ventilator 40 07/24/16 01:00 52 17 89/46 100 Mechanical Ventilator 40 07/24/16 00:58 53 16 40 07/24/16 00:21 98.0 07/24/16 00:00 59 07/24/16 00:00 98.0 67 16 87/37 100 Mechanical Ventilator 40 07/24/16 00:00 40 07/23/16 23:12 59 16 40 07/23/16 23:00 58 17 97/47 100 Mechanical Ventilator 40 07/23/16 22:00 55 17 87/61 100 Mechanical Ventilator 40 07/23/16 21:22 59 16 40 07/23/16 21:00 56 20 99/43 100 Mechanical Ventilator 40 07/23/16 20:00 98.5 63 17 90/40 100 Mechanical Ventilator 40 07/23/16 20:00 59 07/23/16 20:00 40 07/23/16 19:28 62 16 40 07/23/16 19:00 75 21 79/37 100 Mechanical Ventilator 40 07/23/16 18:00 72 18 89/35 100 Mechanical Ventilator 40 07/23/16 17:00 63 23 82/41 100 Mechanical Ventilator 40 07/23/16 16:58 54 16 40 07/23/16 16:00 60 07/23/16 16:00 40 07/23/16 16:00 98.0 68 23 82/40 100 Mechanical Ventilator 40 07/23/16 15:21 64 16 40 07/23/16 15:00 64 23 89/45 100 Mechanical Ventilator 40 07/23/16 14:00 67 19 85/40 100 Mechanical Ventilator 40 07/23/16 13:20 76 16 40 07/23/16 13:00 69 22 89/50 100 Mechanical Ventilator 40 07/23/16 12:00 98.5 63 17 75/36 100 Mechanical Ventilator 40 07/23/16 12:00 63 07/23/16 12:00 40 Labs: Labs Test 07/21/16 15:05 07/22/16 04:00 07/23/16 04:00 07/24/16 04:00 Arterial Blood pH 7.437 (7.350-7.450) Arterial Blood Partial Pressure CO2 35.5 mmHg (35.0-45.0) Arterial Blood Partial Pressure O2 111.7 mmHg (75.0-100.0) Arterial Blood HCO3 23.4 mmol/L (22.0-26.0) Arterial Blood Oxygen Saturation 98.5 % (92.0-98.0) Arterial Blood Base Excess -0.4 Jarred Test Positive White Blood Count 19.5 K/UL (4.8-10.8) 13.6 K/UL (4.8-10.8) 9.0 K/UL (4.8-10.8) Red Blood Count 2.82 M/UL (4.20-5.40) 2.79 M/UL (4.20-5.40) 2.99 M/UL (4.20-5.40) Hemoglobin 10.0 G/DL (12.0-16.0) 9.6 G/DL (12.0-16.0) 10.0 G/DL (12.0-16.0) Hematocrit 29.6 % (37.0-47.0) 28.9 % (37.0-47.0) 30.7 % (37.0-47.0) Mean Corpuscular Volume 105 FL (80-99) 104 FL (80-99) 103 FL (80-99) Mean Corpuscular Hemoglobin 35.6 PG (27.0-31.0) 34.3 PG (27.0-31.0) 33.3 PG (27.0-31.0) Mean Corpuscular Hemoglobin Concent 33.8 G/DL (32.0-36.0) 33.1 G/DL (32.0-36.0) 32.4 G/DL (32.0-36.0) Red Cell Distribution Width 12.8 % (11.6-14.8) 12.9 % (11.6-14.8) 13.0 % (11.6-14.8) Platelet Count 160 K/UL (150-450) 158 K/UL (150-450) 147 K/UL (150-450) Mean Platelet Volume 7.0 FL (6.5-10.1) 6.9 FL (6.5-10.1) 7.5 FL (6.5-10.1) Neutrophils (%) (Auto) % (45.0-75.0) % (45.0-75.0) 79.8 % (45.0-75.0) Lymphocytes (%) (Auto) % (20.0-45.0) % (20.0-45.0) 8.8 % (20.0-45.0) Monocytes (%) (Auto) % (1.0-10.0) % (1.0-10.0) 8.1 % (1.0-10.0) Eosinophils (%) (Auto) % (0.0-3.0) % (0.0-3.0) 2.5 % (0.0-3.0) Basophils (%) (Auto) % (0.0-2.0) % (0.0-2.0) 0.8 % (0.0-2.0) Differential Total Cells Counted 100 100 Neutrophils % (Manual) 87 % (45-75) 90 % (45-75) Lymphocytes % (Manual) 7 % (20-45) 7 % (20-45) Monocytes % (Manual) 3 % (1-10) 2 % (1-10) Eosinophils % (Manual) 1 % (0-3) 1 % (0-3) Basophils % (Manual) 0 % (0-2) 0 % (0-2) Band Neutrophils 2 % (0-8) 0 % (0-8) Platelet Estimate Adequate Adequate Platelet Morphology Normal Normal Red Blood Cell Morphology Normal Sodium Level 138 mEQ/L (135-145) 138 mEQ/L (135-145) 138 mEQ/L (135-145) Potassium Level 3.7 mEQ/L (3.4-4.9) 3.9 mEQ/L (3.4-4.9) 3.8 mEQ/L (3.4-4.9) Chloride Level 96 mEQ/L (98-107) 94 mEQ/L (98-107) 94 mEQ/L (98-107) Carbon Dioxide Level 26 mEQ/L (20-30) 24 mEQ/L (20-30) 25 mEQ/L (20-30) Anion Gap 16 (5-15) 20 (5-15) 19 (5-15) Blood Urea Nitrogen 20 mg/dL (7-23) 41 mg/dL (7-23) 58 mg/dL (7-23) Creatinine 4.0 mg/dL (0.5-0.9) 5.5 mg/dL (0.5-0.9) 6.6 mg/dL (0.5-0.9) Estimat Glomerular Filtration Rate 11.2 mL/min (>60) 7.7 mL/min (>60) 6.2 mL/min (>60) Glucose Level 110 mg/dL (74-106) 113 mg/dL (74-106) 101 mg/dL (74-106) Calcium Level 9.1 mg/dL (8.6-10.2) 9.1 mg/dL (8.6-10.2) 8.9 mg/dL (8.6-10.2) Total Bilirubin 0.9 mg/dL (0.0-1.2) 0.7 mg/dL (0.0-1.2) Aspartate Amino Transf (AST/SGOT) 33 U/L (5-40) 26 U/L (5-40) Alanine Aminotransferase (ALT/SGPT) 19 U/L (3-33) 17 U/L (3-33) Alkaline Phosphatase 79 U/L (35-104) 96 U/L (35-104) Total Protein 6.4 g/dL (6.6-8.7) 6.0 g/dL (6.6-8.7) Albumin 3.3 g/dL (3.5-5.2) 3.0 g/dL (3.5-5.2) Globulin 3.1 g/dL 3.0 g/dL Albumin/Globulin Ratio 1.0 (1.0-2.7) 1.0 (1.0-2.7) Random Vancomycin Level 20.9 ug/mL 31.6 ug/mL Hypochromasia 1+ Objective: PHYSICAL EXAMINATION: GENERAL: ALOC, NAD HEENT: orally intubated; PERRL NECK: No adenopathy. short LUNGS: reduced breath sounds. no rhonchi or wheeze HEART: RRR without MRG ABDOMEN: Obese and soft. No HSM; no distention; NABS EXTREMITIES: no CCE; She has a left upper arm AV fistula with a good thrill. NEUROLOGIC: left hemiparesis. reviewed and edited Accucheck: 127 FITO SIMS Jul 24, 2016 11:21
--- NOTE | 2016-07-24 12:24 | Nephrology Progress Note ---
Assessment/Plan Problem List: (1) Respiratory failure with hypoxia (2) Hemiplegia of nondominant side as late effect of cerebrovascular disease (3) Respiratory failure requiring intubation (4) End-stage renal disease Plan no significant fluid overload, continue pulmonary care, epogen, next hd 07/24 Subjective ROS Limited/Unobtainable: Yes Objective Objective Last 24 Hour Vital Signs Date Time Temp Pulse Resp B/P Pulse Ox O2 Delivery O2 Flow Rate FiO2 07/24/16 12:00 98.4 63 23 109/52 100 Mechanical Ventilator 40 07/24/16 12:00 60 07/24/16 12:00 40 07/24/16 11:00 59 23 96/43 100 Mechanical Ventilator 40 07/24/16 11:00 65 16 40 07/24/16 10:00 51 24 92/40 100 Mechanical Ventilator 40 07/24/16 09:00 64 22 88/44 100 Mechanical Ventilator 40 07/24/16 08:39 72 18 40 07/24/16 08:00 98.7 61 16 80/38 100 Mechanical Ventilator 40 07/24/16 08:00 57 07/24/16 08:00 40 07/24/16 07:00 58 19 87/46 100 Mechanical Ventilator 40 07/24/16 06:35 53 16 40 07/24/16 06:00 55 19 93/43 100 Mechanical Ventilator 40 07/24/16 05:29 62 16 40 07/24/16 05:00 62 17 91/46 100 Mechanical Ventilator 40 07/24/16 04:00 98.5 56 17 111/52 100 Mechanical Ventilator 40 07/24/16 04:00 40 07/24/16 04:00 54 07/24/16 03:00 52 16 40 07/24/16 03:00 57 17 97/46 100 Mechanical Ventilator 40 07/24/16 02:00 52 17 81/43 100 Mechanical Ventilator 40 07/24/16 01:00 52 17 89/46 100 Mechanical Ventilator 40 07/24/16 00:58 53 16 40 07/24/16 00:21 98.0 07/24/16 00:00 59 07/24/16 00:00 98.0 67 16 87/37 100 Mechanical Ventilator 40 07/24/16 00:00 40 07/23/16 23:12 59 16 40 07/23/16 23:00 58 17 97/47 100 Mechanical Ventilator 40 07/23/16 22:00 55 17 87/61 100 Mechanical Ventilator 40 07/23/16 21:22 59 16 40 07/23/16 21:00 56 20 99/43 100 Mechanical Ventilator 40 07/23/16 20:00 98.5 63 17 90/40 100 Mechanical Ventilator 40 07/23/16 20:00 59 07/23/16 20:00 40 07/23/16 19:28 62 16 40 07/23/16 19:00 75 21 79/37 100 Mechanical Ventilator 40 07/23/16 18:00 72 18 89/35 100 Mechanical Ventilator 40 07/23/16 17:00 63 23 82/41 100 Mechanical Ventilator 40 07/23/16 16:58 54 16 40 07/23/16 16:00 60 07/23/16 16:00 40 07/23/16 16:00 98.0 68 23 82/40 100 Mechanical Ventilator 40 07/23/16 15:21 64 16 40 07/23/16 15:00 64 23 89/45 100 Mechanical Ventilator 40 07/23/16 14:00 67 19 85/40 100 Mechanical Ventilator 40 07/23/16 13:20 76 16 40 07/23/16 13:00 69 22 89/50 100 Mechanical Ventilator 40 Intake and Output 07/23/16 07/24/16 19:00 07:00 Intake Total 295 ml 380 ml Output Total 0 ml 0 ml Balance 295 ml 380 ml IV Total 55 ml 110 ml Tube Feeding 240 ml 240 ml Other 30 ml Output Urine Total 0 ml 0 ml Laboratory Tests 07/24/16 04:00: White Blood Count 9.0, Red Blood Count 2.99L, Hemoglobin 10.0L, Hematocrit 30.7L , Mean Corpuscular Volume 103H, Mean Corpuscular Hemoglobin 33.3H, Mean Corpuscular Hemoglobin Concent 32.4, Red Cell Distribution Width 13.0, Platelet Count 147L, Mean Platelet Volume 7.5, Neutrophils (%) (Auto) 79.8H, Lymphocytes (%) (Auto) 8.8L, Monocytes (%) (Auto) 8.1, Eosinophils (%) (Auto) 2.5, Basophils (%) (Auto) 0.8, Sodium Level 138, Potassium Level 3.8, Chloride Level 94L, Carbon Dioxide Level 25, Anion Gap 19H, Blood Urea Nitrogen 58H, Creatinine 6.6H, Estimat Glomerular Filtration Rate 6.2, Glucose Level 101, Calcium Level 8.9, Random Vancomycin Level 31.6 Height (Feet): 4 Height (Inches): 10.00 Weight (Pounds): 195 General Appearance: no apparent distress, morbidly obese EENT: normal ENT inspection, other - intubated Neck: normal alignment Cardiovascular: normal rate Respiratory/Chest: lungs clear, decreased breath sounds Abdomen: non tender Extremities: other - no edema Neurologic: other - L side weakness TATI DANIEL Jul 24, 2016 12:24
[2016-07-24] MEDS: Epogen (for ESRD on dialysis) SUBQ SCH (20:41)
[2016-07-25] VITALS (24 sets, daily range): BP systolic 89–134; BP diastolic 42–66
[2016-07-25] MEDS: LORazepam Inj 2mg/ml 1ml IV PRN (01:00)
[2016-07-25] MEDS: Zosyn 2.25 gm in D5W 55ml IV SCH ×3 (05:29→21:36)
[2016-07-25] MEDS: Dyna-Hex 2% Top Sol 8oz TOPIC SCH (05:32)
--- NOTE | 2016-07-25 07:15 | Consultation ---
DATE OF CONSULTATION: 07/21/2016 PULMONARY CONSULTATION REFERRING PHYSICIAN: Goldy Sky M.D. REASON FOR CONSULTATION: Respiratory failure. HISTORY OF PRESENT ILLNESS: This is an unfortunate 66-year-old female with multiple medical problems. The patient is dialysis patient, was brought in by 911 with respiratory distress. The patient is now intubated with LMA due to difficult with intubation. The patient is obtunded and unresponsive. The patient with poor oxygenation, initially on CPAP. Case discussed and reviewed. I was asked to evaluate further. The patient's finding discussed. The patient remains fairly critical, requires endotracheal intubation. The patient is agitated adequately at this time. The patient's findings discussed and reviewed. The patient unable to give any history at this present time. PAST MEDICAL HISTORY: Per chart review from prior admission, notable for end stage renal disease, history of AV fistula, history of , history of encephalopathy, hypertension, history of diabetes. MEDICATIONS: Reviewed. ALLERGIES: Reviewed. SOCIAL HISTORY: Nonsmoker and nondrinker. The patient is very debilitated, fully disabled at the present time. FAMILY HISTORY: Unobtainable. REVIEW OF SYSTEMS: Unobtainable. PHYSICAL EXAMINATION: GENERAL: The patient is an elderly female, currently stable. VITAL SIGNS: All reviewed. Currently, temperature 97 degrees, blood pressure 94/34, saturation 95% on 60% FiO2, respiratory rate is 16 and heart rate is 86. HEENT: Fairly negative. Pupil sluggish. LMA in place. NECK: Supple. LUNGS: Reduced air entry, but adequate. No rhonchi or wheezes. CARDIAC: S1 and S2. Regular rate and rhythm without murmur, rubs or gallops. ABDOMEN: Obese and nontender. Positive bowel sounds. EXTREMITIES: No cyanosis or clubbing. The patient without any clear edema. Of note, the patient does have an umbilical hernia. NEUROLOGIC: Poorly responsive. SKIN: Noted and reviewed. LABORATORY AND DIAGNOSTIC DATA: Sodium 136, potassium 4.8, chloride 89, BUN is 32 and creatinine is 5.8. BNP 13,786. White cell count 10.4, hemoglobin 11.6, and platelets are 198,000. Arterial blood gases poor at 7.10, 94, 74, and 28. The x-rays reviewed. IMPRESSION: 1. Profound respiratory acidemia. 2. Acute on chronic respiratory acidosis. 3. Metabolic alkalosis respiratory failure, acute on chronic. 4. End-stage renal disease. 5. Poor airway. 6. Elevated natriuretic peptide, likely with fluid overload. 7. Evidence of anemia. 8. Acute encephalopathy. RECOMMENDATION: The patient requires airway. The patient to go to the OR for an endoscopic tracheostomy and/or intubation. At present, the patient requires hyperventilation to maintain an adequate PH. Await follow up of blood gases to to assess further. The patient is critical and guarded, we need to keep pH greater than 7.2 and hypoventilate as needed and optimize care. Monitor fluid status and Nephrology for hemodialysis and ultrafiltration when the patient is stable. Case discussed and reviewed with the admitting physician and I will follow clinically for other changes. Aquiles Clifton M.D. DR: ROCK JOB#: [id number] CC: HANH
[2016-07-25] MEDS: Docusate 100mg/10ml Liq NG SCH ×2 (07:44→17:31)
--- NOTE | 2016-07-25 07:44 | Nephrology Progress Note ---
Assessment/Plan Problem List: (1) Respiratory failure with hypoxia (2) Hemiplegia of nondominant side as late effect of cerebrovascular disease (3) Respiratory failure requiring intubation (4) End-stage renal disease Plan no significant fluid overload, continue pulmonary care, epogen, low bp and no uf on hd 07/24 Subjective ROS Limited/Unobtainable: Yes Objective Objective Last 24 Hour Vital Signs Date Time Temp Pulse Resp B/P Pulse Ox O2 Delivery O2 Flow Rate FiO2 07/25/16 07:01 74 16 35 07/25/16 07:00 75 20 134/55 100 Mechanical Ventilator 40 07/25/16 06:00 46 19 92/42 100 Mechanical Ventilator 40 07/25/16 05:20 62 16 40 07/25/16 05:00 61 19 112/51 100 Mechanical Ventilator 40 07/25/16 04:00 40 07/25/16 04:00 98.9 61 18 97/48 100 Mechanical Ventilator 40 07/25/16 04:00 63 07/25/16 03:23 61 18 40 07/25/16 03:00 54 17 93/48 100 Mechanical Ventilator 40 07/25/16 02:00 57 17 99/52 100 Mechanical Ventilator 40 07/25/16 01:08 63 16 40 07/25/16 01:00 69 18 97/62 100 Mechanical Ventilator 40 07/25/16 00:00 65 07/25/16 00:00 98.7 64 21 99/52 100 Mechanical Ventilator 40 07/25/16 00:00 40 07/24/16 23:27 61 16 40 07/24/16 23:00 65 18 97/44 100 Mechanical Ventilator 40 07/24/16 22:06 61 16 40 07/24/16 22:00 74 17 88/38 99 Mechanical Ventilator 40 07/24/16 21:55 Mechanical Ventilator 07/24/16 21:00 74 17 88/41 99 Mechanical Ventilator 40 07/24/16 20:17 59 16 40 07/24/16 20:00 52 07/24/16 20:00 40 07/24/16 20:00 69 17 92/43 99 Mechanical Ventilator 40 07/24/16 19:00 98.9 62 20 90/44 100 Mechanical Ventilator 40 07/24/16 18:00 73 22 102/72 100 Mechanical Ventilator 40 07/24/16 17:00 98.7 56 21 90/47 100 Mechanical Ventilator 40 07/24/16 16:33 62 16 40 07/24/16 16:00 40 07/24/16 16:00 63 17 102/72 100 Mechanical Ventilator 40 07/24/16 16:00 63 07/24/16 15:00 57 20 94/42 100 Mechanical Ventilator 40 07/24/16 14:42 65 16 40 07/24/16 14:00 57 32 102/45 100 Mechanical Ventilator 40 07/24/16 13:00 63 22 104/40 100 Mechanical Ventilator 40 07/24/16 13:00 62 16 40 07/24/16 12:00 98.4 63 23 109/52 100 Mechanical Ventilator 40 07/24/16 12:00 60 07/24/16 12:00 40 07/24/16 11:00 59 23 96/43 100 Mechanical Ventilator 40 07/24/16 11:00 65 16 40 07/24/16 10:00 51 24 92/40 100 Mechanical Ventilator 40 07/24/16 09:00 64 22 88/44 100 Mechanical Ventilator 40 07/24/16 08:39 72 18 40 07/24/16 08:00 98.7 61 16 80/38 100 Mechanical Ventilator 40 07/24/16 08:00 57 07/24/16 08:00 40 Intake and Output 07/24/16 07/25/16 19:00 07:00 Intake Total 445 ml 270 ml Output Total 0 ml 0 ml Balance 445 ml 270 ml IV Total 55 ml Tube Feeding 240 ml 240 ml Hemodialysis 0 ml Other 150 ml 30 ml Output Urine Total 0 ml 0 ml # Bowel Movements 1 Height (Feet): 4 Height (Inches): 10.00 Weight (Pounds): 200 General Appearance: morbidly obese EENT: normal ENT inspection Neck: normal alignment Cardiovascular: regular rhythm Respiratory/Chest: decreased breath sounds, rhonchi - bilaterally Abdomen: non tender, soft Extremities: other - no edema Neurologic: other - l side weak TATI DANIEL Jul 25, 2016 07:44
[2016-07-25] MEDS: Pantoprazole Inj IVP SCH (07:45)
[2016-07-25] MEDS: Norco 5mg/325mg tab ORAL PRN ×2 (07:45→19:48)
--- NOTE | 2016-07-25 09:29 | General Progress Note ---
Assessment/Plan Problem List: (1) DM renal manif type II ICD Codes: E11.29 - Type 2 diabetes mellitus with other diabetic kidney complication SNOMED: 84098201, 937392987 (2) Hemiplegia of nondominant side as late effect of cerebrovascular disease ICD Codes: I69.959 - Hemiplegia and hemiparesis following unspecified cerebrovascular disease affecting unspecified side SNOMED: 352527425 (3) Respiratory acidosis ICD Codes: E87.2 - Acidosis SNOMED: 98652449 (4) Anemia in chronic kidney disease ICD Codes: N18.9 - Chronic kidney disease, unspecified; D63.1 - Anemia in chronic kidney disease SNOMED: 554760328 (5) Morbid obesity with BMI of 60.0-69.9, adult ICD Codes: E66.01 - Morbid (severe) obesity due to excess calories; Z68.44 - Body mass index (BMI) 60.0-69.9, adult SNOMED: 666261315, 365815092 (6) CHF exacerbation ICD Codes: I50.9 - Heart failure, unspecified SNOMED: 16664222, 908730605 Qualifiers: Qualified Codes: I50.9 - Heart failure, unspecified (7) Respiratory failure requiring intubation ICD Codes: J96.90 - Respiratory failure, unspecified, unspecified whether with hypoxia or hypercapnia; Z68.44 - Body mass index (BMI) 60.0-69.9, adult SNOMED: 078651845, 430330156 (8) Respiratory failure with hypoxia ICD Codes: J96.91 - Respiratory failure, unspecified with hypoxia SNOMED: 22161516105747092 Qualifiers: Qualified Codes: J96.01 - Acute respiratory failure with hypoxia Status: stable, progressing Assessment/Plan vent support resp rx suctioning wean per pulm may need to be extubated in or with ent backup for possible trach iv abx ngt feeds monitor cxr follow up cultures HD per renal Subjective ROS Limited/Unobtainable: No Constitutional: Reports: malaise, weakness HEENT: Reports: no symptoms Cardiovascular: Reports: no symptoms Respiratory: Reports: cough, shortness of breath Gastrointestinal/Abdominal: Reports: no symptoms Genitourinary: Reports: no symptoms Neurologic/Psychiatric: Reports: no symptoms Endocrine: Reports: no symptoms Hematologic/Lymphatic: Reports: anemia Allergies: Coded Allergies: AMITRIPTYLINE (Verified Allergy, Unknown, 11/15/14) When taken with glipizide pts Blood glucose was critically low. MD stopped medication ATENOLOL (Verified Allergy, Unknown, 11/03/14) GLIPIZIDE (Verified Allergy, Unknown, 11/15/14) Pt is not diabetic. When prescribed pt had symptoms of lethargy, somnolence, depressed, anxiousness. Medication was discontinued. UNABLE TO ASSESS (Unverified , 07/21/16) All Systems: reviewed and negative except above Subjective remains intubated. alert. follows commands. tolerating feeds. on 40%. alert and awake. HD done yesterday. No UF due to low bp Objective Last 24 Hour Vital Signs Date Time Temp Pulse Resp B/P Pulse Ox O2 Delivery O2 Flow Rate FiO2 07/25/16 08:40 98.9 07/25/16 08:00 98.7 71 22 94/46 100 Mechanical Ventilator 40 07/25/16 07:01 74 16 35 07/25/16 07:00 75 20 134/55 100 Mechanical Ventilator 40 07/25/16 06:00 46 19 92/42 100 Mechanical Ventilator 40 07/25/16 05:20 62 16 40 07/25/16 05:00 61 19 112/51 100 Mechanical Ventilator 40 07/25/16 04:00 40 07/25/16 04:00 98.9 61 18 97/48 100 Mechanical Ventilator 40 07/25/16 04:00 63 07/25/16 03:23 61 18 40 07/25/16 03:00 54 17 93/48 100 Mechanical Ventilator 40 07/25/16 02:00 57 17 99/52 100 Mechanical Ventilator 40 07/25/16 01:08 63 16 40 07/25/16 01:00 69 18 97/62 100 Mechanical Ventilator 40 07/25/16 00:00 65 07/25/16 00:00 98.7 64 21 99/52 100 Mechanical Ventilator 40 07/25/16 00:00 40 07/24/16 23:27 61 16 40 07/24/16 23:00 65 18 97/44 100 Mechanical Ventilator 40 07/24/16 22:06 61 16 40 07/24/16 22:00 74 17 88/38 99 Mechanical Ventilator 40 07/24/16 21:55 Mechanical Ventilator 07/24/16 21:00 74 17 88/41 99 Mechanical Ventilator 40 07/24/16 20:17 59 16 40 07/24/16 20:00 52 07/24/16 20:00 40 07/24/16 20:00 69 17 92/43 99 Mechanical Ventilator 40 07/24/16 19:00 98.9 62 20 90/44 100 Mechanical Ventilator 40 07/24/16 18:00 73 22 102/72 100 Mechanical Ventilator 40 07/24/16 17:00 98.7 56 21 90/47 100 Mechanical Ventilator 40 07/24/16 16:33 62 16 40 07/24/16 16:00 40 07/24/16 16:00 63 17 102/72 100 Mechanical Ventilator 40 07/24/16 16:00 63 07/24/16 15:00 57 20 94/42 100 Mechanical Ventilator 40 07/24/16 14:42 65 16 40 07/24/16 14:00 57 32 102/45 100 Mechanical Ventilator 40 07/24/16 13:00 63 22 104/40 100 Mechanical Ventilator 40 07/24/16 13:00 62 16 40 07/24/16 12:00 98.4 63 23 109/52 100 Mechanical Ventilator 40 07/24/16 12:00 60 07/24/16 12:00 40 07/24/16 11:00 59 23 96/43 100 Mechanical Ventilator 40 07/24/16 11:00 65 16 40 07/24/16 10:00 51 24 92/40 100 Mechanical Ventilator 40 Intake and Output 07/24/16 07/25/16 19:00 07:00 Intake Total 445 ml 270 ml Output Total 0 ml 0 ml Balance 445 ml 270 ml IV Total 55 ml Tube Feeding 240 ml 240 ml Hemodialysis 0 ml Other 150 ml 30 ml Output Urine Total 0 ml 0 ml # Bowel Movements 1 Height (Feet): 4 Height (Inches): 10.00 Weight (Pounds): 200 General Appearance: WD/WN, alert Neck: supple Cardiovascular: regular rhythm Respiratory/Chest: lungs clear, normal breath sounds, no respiratory distress, no accessory muscle use Abdomen: normal bowel sounds, non tender, soft, no organomegaly Edema: no edema noted Arm (L), no edema noted Arm (R), no edema noted Leg (L), no edema noted Leg (R), no edema noted Pedal (L), no edema noted Pedal (R), no edema noted Generalized Objective General Appearance: WD/WN, alert Neck: supple Cardiovascular: regular rhythm Respiratory/Chest: rhonchi - bilaterally Abdomen: normal bowel sounds, non tender, soft, no organomegaly Edema: no edema noted Arm (L), no edema noted Arm (R), no edema noted Leg (L), no edema noted Leg (R), no edema noted Pedal (L), no edema noted Pedal (R), no edema noted Generalized Neurologic: clarity specialists II-XII grossly normal, no motor/sensory deficits, alert, responsive Lymphatic: normal anterior cervical (L), normal anterior cervical (R), normal axillary (L), normal axillary (R), normal inguinal (L), normal inguinal (R), normal other, normal posterior cervical (L), normal posterior cervical (R), normal submandibular (L), normal submandibular (R), normal supraclavicular (L), normal supraclavicular (R) TOMI GONZALES Jul 25, 2016 09:29
--- NOTE | 2016-07-25 09:42 | Critical Care Progress Note ---
Assessment/Plan Assessment/Plan IMPRESSION: 1. End-stage renal disease. 2. Ojsxd-ag-nnfgkle respiratory failure. 3. Obstructive sleep apnea. 4. poor airway 5. Insulin-dependent diabetes. 6. cerebrovascular accident with left-sided weakness. 7. hypotension 8. leukocytosis 9. anemia 10. possible sepsis PLAN care noted and reviewed exam noted and reviewed overall seems stable IV antibiotics noted respiratory care Ventilatory support; wean today reviewed meds supportive care suction as needed oxygen therapy prognosis guarded but seems to have stabilized follow up chest xray for fluid retention monitor fluid status closely ICU care noted monitor airway after extubation medications/laboratory data/nursing notes/ICU care reviewed in detail note reviewed and edited care discussed with RN and RT ICU time spent 38 minutes Critical Care - Subjective Interval Events: intubated events noted NAD ROS Limited/Unobtainable: Yes Condition: critical EKG Rhythm: Sinus Tachycardia Residuals: minimal Tube Feeding Tolerated: yes I&O: Intake and Output 07/24/16 07/25/16 19:00 07:00 Intake Total 445 ml 270 ml Output Total 0 ml 0 ml Balance 445 ml 270 ml IV Total 55 ml Tube Feeding 240 ml 240 ml Hemodialysis 0 ml Other 150 ml 30 ml Output Urine Total 0 ml 0 ml # Bowel Movements 1 Critical Care - Objective ET-Tube: 7.5 ET Position: 20 Last 24 Hour Vital Signs Date Time Temp Pulse Resp B/P Pulse Ox O2 Delivery O2 Flow Rate FiO2 07/25/16 09:00 59 20 102/66 100 Mechanical Ventilator 40 07/25/16 08:40 98.9 07/25/16 08:00 98.7 71 22 94/46 100 Mechanical Ventilator 40 07/25/16 08:00 72 07/25/16 08:00 40 07/25/16 07:01 74 16 35 07/25/16 07:00 75 20 134/55 100 Mechanical Ventilator 40 07/25/16 06:00 46 19 92/42 100 Mechanical Ventilator 40 07/25/16 05:20 62 16 40 07/25/16 05:00 61 19 112/51 100 Mechanical Ventilator 40 07/25/16 04:00 40 07/25/16 04:00 98.9 61 18 97/48 100 Mechanical Ventilator 40 07/25/16 04:00 63 07/25/16 03:23 61 18 40 07/25/16 03:00 54 17 93/48 100 Mechanical Ventilator 40 07/25/16 02:00 57 17 99/52 100 Mechanical Ventilator 40 07/25/16 01:08 63 16 40 07/25/16 01:00 69 18 97/62 100 Mechanical Ventilator 40 07/25/16 00:00 65 07/25/16 00:00 98.7 64 21 99/52 100 Mechanical Ventilator 40 07/25/16 00:00 40 07/24/16 23:27 61 16 40 07/24/16 23:00 65 18 97/44 100 Mechanical Ventilator 40 07/24/16 22:06 61 16 40 07/24/16 22:00 74 17 88/38 99 Mechanical Ventilator 40 07/24/16 21:55 Mechanical Ventilator 07/24/16 21:00 74 17 88/41 99 Mechanical Ventilator 40 07/24/16 20:17 59 16 40 07/24/16 20:00 52 07/24/16 20:00 40 07/24/16 20:00 69 17 92/43 99 Mechanical Ventilator 40 07/24/16 19:00 98.9 62 20 90/44 100 Mechanical Ventilator 40 07/24/16 18:00 73 22 102/72 100 Mechanical Ventilator 40 07/24/16 17:00 98.7 56 21 90/47 100 Mechanical Ventilator 40 07/24/16 16:33 62 16 40 07/24/16 16:00 40 07/24/16 16:00 63 17 102/72 100 Mechanical Ventilator 40 07/24/16 16:00 63 07/24/16 15:00 57 20 94/42 100 Mechanical Ventilator 40 07/24/16 14:42 65 16 40 07/24/16 14:00 57 32 102/45 100 Mechanical Ventilator 40 07/24/16 13:00 63 22 104/40 100 Mechanical Ventilator 40 07/24/16 13:00 62 16 40 07/24/16 12:00 98.4 63 23 109/52 100 Mechanical Ventilator 40 07/24/16 12:00 60 07/24/16 12:00 40 07/24/16 11:00 59 23 96/43 100 Mechanical Ventilator 40 07/24/16 11:00 65 16 40 07/24/16 10:00 51 24 92/40 100 Mechanical Ventilator 40 Labs: Labs Test 07/23/16 04:00 07/24/16 04:00 White Blood Count 13.6 K/UL (4.8-10.8) 9.0 K/UL (4.8-10.8) Red Blood Count 2.79 M/UL (4.20-5.40) 2.99 M/UL (4.20-5.40) Hemoglobin 9.6 G/DL (12.0-16.0) 10.0 G/DL (12.0-16.0) Hematocrit 28.9 % (37.0-47.0) 30.7 % (37.0-47.0) Mean Corpuscular Volume 104 FL (80-99) 103 FL (80-99) Mean Corpuscular Hemoglobin 34.3 PG (27.0-31.0) 33.3 PG (27.0-31.0) Mean Corpuscular Hemoglobin Concent 33.1 G/DL (32.0-36.0) 32.4 G/DL (32.0-36.0) Red Cell Distribution Width 12.9 % (11.6-14.8) 13.0 % (11.6-14.8) Platelet Count 158 K/UL (150-450) 147 K/UL (150-450) Mean Platelet Volume 6.9 FL (6.5-10.1) 7.5 FL (6.5-10.1) Neutrophils (%) (Auto) % (45.0-75.0) 79.8 % (45.0-75.0) Lymphocytes (%) (Auto) % (20.0-45.0) 8.8 % (20.0-45.0) Monocytes (%) (Auto) % (1.0-10.0) 8.1 % (1.0-10.0) Eosinophils (%) (Auto) % (0.0-3.0) 2.5 % (0.0-3.0) Basophils (%) (Auto) % (0.0-2.0) 0.8 % (0.0-2.0) Differential Total Cells Counted 100 Neutrophils % (Manual) 90 % (45-75) Lymphocytes % (Manual) 7 % (20-45) Monocytes % (Manual) 2 % (1-10) Eosinophils % (Manual) 1 % (0-3) Basophils % (Manual) 0 % (0-2) Band Neutrophils 0 % (0-8) Platelet Estimate Adequate Platelet Morphology Normal Hypochromasia 1+ Sodium Level 138 mEQ/L (135-145) 138 mEQ/L (135-145) Potassium Level 3.9 mEQ/L (3.4-4.9) 3.8 mEQ/L (3.4-4.9) Chloride Level 94 mEQ/L (98-107) 94 mEQ/L (98-107) Carbon Dioxide Level 24 mEQ/L (20-30) 25 mEQ/L (20-30) Anion Gap 20 (5-15) 19 (5-15) Blood Urea Nitrogen 41 mg/dL (7-23) 58 mg/dL (7-23) Creatinine 5.5 mg/dL (0.5-0.9) 6.6 mg/dL (0.5-0.9) Estimat Glomerular Filtration Rate 7.7 mL/min (>60) 6.2 mL/min (>60) Glucose Level 113 mg/dL (74-106) 101 mg/dL (74-106) Calcium Level 9.1 mg/dL (8.6-10.2) 8.9 mg/dL (8.6-10.2) Total Bilirubin 0.7 mg/dL (0.0-1.2) Aspartate Amino Transf (AST/SGOT) 26 U/L (5-40) Alanine Aminotransferase (ALT/SGPT) 17 U/L (3-33) Alkaline Phosphatase 96 U/L (35-104) Total Protein 6.0 g/dL (6.6-8.7) Albumin 3.0 g/dL (3.5-5.2) Globulin 3.0 g/dL Albumin/Globulin Ratio 1.0 (1.0-2.7) Random Vancomycin Level 31.6 ug/mL Objective: PHYSICAL EXAMINATION: GENERAL: ALOC, NAD HEENT: orally intubated; PERRL NECK: No adenopathy. short LUNGS: reduced breath sounds. no rhonchi or wheeze overall same HEART: RRR without MRG ABDOMEN: Obese and soft. No HSM; no distention; NABS EXTREMITIES: no CCE; She has a left upper arm AV fistula with a good thrill. NEUROLOGIC: left hemiparesis. reviewed and edited Accucheck: 127 FITO SIMS Jul 25, 2016 09:42
[2016-07-26] VITALS (25 sets, daily range): BP systolic 86–114; BP diastolic 33–59
[2016-07-26] MEDS: LORazepam Inj 2mg/ml 1ml IV PRN (01:27)
[2016-07-26] MEDS: Norco 5mg/325mg tab ORAL PRN ×4 (02:02→23:29)
[2016-07-26 05:37] LABS: BASOPHILS % (AUTO) 1.2 % (0.0-2.0); EOSINOPHILS % (AUTO) 5.5 % (0.0-3.0); MEAN CORPUSCULAR HGB CONC 33.9 G/DL (32.0-36.0); MEAN CORPUSCULAR VOLUME 100 FL (80-99); MEAN PLATELET VOLUME 7.8 FL (6.5-10.1); MONOCYTES % (AUTO) 14.6 % (1.0-10.0); NEUTROPHILS % (AUTO) 66.8 % (45.0-75.0); PLATELET COUNT 135 K/UL (150-450); RED BLOOD COUNT 2.99 M/UL (4.20-5.40); WHITE BLOOD COUNT 8.1 K/UL (4.8-10.8)
[2016-07-26] MEDS: Zosyn 2.25 gm in D5W 55ml IV SCH ×3 (05:51→22:11)
[2016-07-26] MEDS ORDERED: Heparin Sod 1000 units/ml 10ml IV PRN (06:00)
[2016-07-26 06:21] LABS: CALCIUM 8.8 mg/dL (8.6-10.2); CREATININE 6.4 mg/dL (0.5-0.9); GLOMERULAR FILTRATION RATE 6.5 mL/min (>60); POTASSIUM 3.7 mEQ/L (3.4-4.9)
--- NOTE | 2016-07-26 06:49 | Critical Care Progress Note ---
Assessment/Plan Assessment/Plan IMPRESSION: 1. End-stage renal disease. 2. Zgtvz-fp-fvowvvo respiratory failure. 3. Obstructive sleep apnea. 4. poor airway 5. Insulin-dependent diabetes. 6. cerebrovascular accident with left-sided weakness. 7. hypotension 8. leukocytosis 9. anemia 10. possible sepsis 11. sinus bradycardia PLAN care noted and reviewed exam noted and reviewed overall same IV antibiotics noted respiratory care Ventilatory support; wean further today reviewed meds supportive care suction as needed oxygen therapy prognosis guarded but seems to have stabilized follow up chest xray and maintain negative fluid balance ICU care noted monitor airway after extubation; will follow up reduce sedation medications/laboratory data/nursing notes/ICU care reviewed in detail note reviewed and edited care discussed with RN and RT ICU time spent 36 minutes Critical Care - Subjective Interval Events: events noted was non SIMV trying to wean; now back on AC ROS Limited/Unobtainable: Yes Condition: critical EKG Rhythm: Sinus Bradycardia Residuals: minimal Tube Feeding Tolerated: yes I&O: Intake and Output 07/25/16 07/26/16 19:00 07:00 Intake Total 395 ml 220 ml Output Total 2 ml 0 ml Balance 393 ml 220 ml IV Total 55 ml Tube Feeding 240 ml 220 ml Other 100 ml Output Urine Total 2 ml 0 ml # Bowel Movements 1 1 Critical Care - Objective ET-Tube: 7.5 ET Position: 20 Last 24 Hour Vital Signs Date Time Temp Pulse Resp B/P Pulse Ox O2 Delivery O2 Flow Rate FiO2 07/26/16 06:41 63 16 35 07/26/16 06:00 53 16 91/48 100 Mechanical Ventilator 40 07/26/16 05:12 97.9 07/26/16 05:08 54 16 35 07/26/16 05:00 54 20 98/51 100 Mechanical Ventilator 40 07/26/16 04:00 53 07/26/16 04:00 40 07/26/16 04:00 52 18 103/50 96 Mechanical Ventilator 40 07/26/16 03:07 55 16 35 07/26/16 03:01 99.0 07/26/16 03:00 57 18 98/59 96 Mechanical Ventilator 40 07/26/16 02:00 61 18 104/48 96 Mechanical Ventilator 40 07/26/16 01:10 63 16 35 07/26/16 01:00 99.0 65 18 99/51 96 Mechanical Ventilator 40 07/26/16 00:00 40 6/21/17 00:00 99.0 62 18 103/56 96 Mechanical Ventilator 40 07/26/16 00:00 70 07/25/16 23:05 65 16 35 07/25/16 23:00 68 18 106/55 96 Mechanical Ventilator 40 07/25/16 22:00 55 18 91/46 96 Mechanical Ventilator 40 07/25/16 21:01 54 16 35 07/25/16 21:00 98.8 65 18 95/52 96 Mechanical Ventilator 40 07/25/16 20:00 60 07/25/16 20:00 98.8 67 18 98/62 96 Mechanical Ventilator 40 07/25/16 20:00 40 07/25/16 19:17 70 18 35 07/25/16 19:00 72 18 100/49 96 Mechanical Ventilator 40 07/25/16 18:00 75 18 97/53 93 Mechanical Ventilator 40 07/25/16 17:00 66 22 89/49 99 Mechanical Ventilator 40 07/25/16 16:46 72 25 35 07/25/16 16:00 72 07/25/16 16:00 98.2 75 20 97/44 98 Mechanical Ventilator 40 07/25/16 15:09 76 26 35 07/25/16 15:00 75 22 117/50 99 Mechanical Ventilator 40 07/25/16 14:00 75 20 98/47 99 Mechanical Ventilator 40 07/25/16 13:01 82 21 35 07/25/16 13:00 40 07/25/16 13:00 78 20 115/55 97 Mechanical Ventilator 40 07/25/16 12:00 79 07/25/16 12:00 98.5 79 19 98/55 98 Mechanical Ventilator 40 07/25/16 11:21 72 14 35 07/25/16 11:00 78 19 95/48 98 Mechanical Ventilator 40 07/25/16 10:00 80 22 105/52 98 Mechanical Ventilator 40 07/25/16 10:00 40 07/25/16 09:29 77 8 35 07/25/16 09:00 59 20 102/66 100 Mechanical Ventilator 40 07/25/16 08:00 98.7 71 22 94/46 100 Mechanical Ventilator 40 07/25/16 08:00 72 07/25/16 08:00 40 07/25/16 07:01 74 16 35 6/20/17 07:00 75 20 134/55 100 Mechanical Ventilator 40 Labs: Labs Test 07/24/16 04:00 07/26/16 04:54 White Blood Count 9.0 K/UL (4.8-10.8) 8.1 K/UL (4.8-10.8) Red Blood Count 2.99 M/UL (4.20-5.40) 2.99 M/UL (4.20-5.40) Hemoglobin 10.0 G/DL (12.0-16.0) 10.2 G/DL (12.0-16.0) Hematocrit 30.7 % (37.0-47.0) 30.0 % (37.0-47.0) Mean Corpuscular Volume 103 FL (80-99) 100 FL (80-99) Mean Corpuscular Hemoglobin 33.3 PG (27.0-31.0) 34.0 PG (27.0-31.0) Mean Corpuscular Hemoglobin Concent 32.4 G/DL (32.0-36.0) 33.9 G/DL (32.0-36.0) Red Cell Distribution Width 13.0 % (11.6-14.8) 13.0 % (11.6-14.8) Platelet Count 147 K/UL (150-450) 135 K/UL (150-450) Mean Platelet Volume 7.5 FL (6.5-10.1) 7.8 FL (6.5-10.1) Neutrophils (%) (Auto) 79.8 % (45.0-75.0) 66.8 % (45.0-75.0) Lymphocytes (%) (Auto) 8.8 % (20.0-45.0) 12.0 % (20.0-45.0) Monocytes (%) (Auto) 8.1 % (1.0-10.0) 14.6 % (1.0-10.0) Eosinophils (%) (Auto) 2.5 % (0.0-3.0) 5.5 % (0.0-3.0) Basophils (%) (Auto) 0.8 % (0.0-2.0) 1.2 % (0.0-2.0) Sodium Level 138 mEQ/L (135-145) Potassium Level 3.8 mEQ/L (3.4-4.9) Chloride Level 94 mEQ/L (98-107) Carbon Dioxide Level 25 mEQ/L (20-30) Anion Gap 19 (5-15) Blood Urea Nitrogen 58 mg/dL (7-23) Creatinine 6.6 mg/dL (0.5-0.9) Estimat Glomerular Filtration Rate 6.2 mL/min (>60) Glucose Level 101 mg/dL (74-106) Calcium Level 8.9 mg/dL (8.6-10.2) Random Vancomycin Level 31.6 ug/mL Objective: PHYSICAL EXAMINATION: GENERAL: ALOC, NAD HEENT: orally intubated; PERRL NECK: No adenopathy. short LUNGS: reduced breath sounds. no rhonchi or wheeze overall same HEART: RR slightly chasity without MRG ABDOMEN: Obese and soft. No HSM; no distention; NABS EXTREMITIES: no CCE; She has a left upper arm AV fistula with a good thrill. NEUROLOGIC: left hemiparesis. reviewed and edited Accucheck: 127 FITO SIMS Jul 26, 2016 06:49
--- NOTE | 2016-07-26 08:26 | General Progress Note ---
Assessment/Plan Problem List: (1) DM renal manif type II ICD Codes: E11.29 - Type 2 diabetes mellitus with other diabetic kidney complication SNOMED: 82880294, 719638929 (2) Hemiplegia of nondominant side as late effect of cerebrovascular disease ICD Codes: I69.959 - Hemiplegia and hemiparesis following unspecified cerebrovascular disease affecting unspecified side SNOMED: 072294383 (3) Respiratory acidosis ICD Codes: E87.2 - Acidosis SNOMED: 20639300 (4) Anemia in chronic kidney disease ICD Codes: N18.9 - Chronic kidney disease, unspecified; D63.1 - Anemia in chronic kidney disease SNOMED: 843109417 (5) Morbid obesity with BMI of 60.0-69.9, adult ICD Codes: E66.01 - Morbid (severe) obesity due to excess calories; Z68.44 - Body mass index (BMI) 60.0-69.9, adult SNOMED: 069974180, 207440717 (6) CHF exacerbation ICD Codes: I50.9 - Heart failure, unspecified SNOMED: 82928036, 909381895 Qualifiers: Qualified Codes: I50.9 - Heart failure, unspecified (7) Respiratory failure requiring intubation ICD Codes: J96.90 - Respiratory failure, unspecified, unspecified whether with hypoxia or hypercapnia; Z68.44 - Body mass index (BMI) 60.0-69.9, adult SNOMED: 302420702, 871225336 (8) Respiratory failure with hypoxia ICD Codes: J96.91 - Respiratory failure, unspecified with hypoxia SNOMED: 24862404599433221 Qualifiers: Qualified Codes: J96.01 - Acute respiratory failure with hypoxia Status: stable, progressing Assessment/Plan vent support- continue weaning resp rx suctioning wean per pulm may need to be extubated in OR with ent backup for possible trach iv abx ngt feeds monitor cxr follow up cultures HD per renal Subjective ROS Limited/Unobtainable: No Constitutional: Reports: malaise, weakness HEENT: Reports: no symptoms Cardiovascular: Reports: no symptoms Respiratory: Reports: cough Gastrointestinal/Abdominal: Reports: no symptoms Genitourinary: Reports: no symptoms Neurologic/Psychiatric: Reports: pre-existing deficit Endocrine: Reports: no symptoms Hematologic/Lymphatic: Reports: no symptoms Allergies: Coded Allergies: AMITRIPTYLINE (Verified Allergy, Unknown, 10/11/15) When taken with glipizide pts Blood glucose was critically low. MD stopped medication ATENOLOL (Verified Allergy, Unknown, 11/03/14) GLIPIZIDE (Verified Allergy, Unknown, 11/15/14) Pt is not diabetic. When prescribed pt had symptoms of lethargy, somnolence, depressed, anxiousness. Medication was discontinued. UNABLE TO ASSESS (Unverified , 07/21/16) All Systems: reviewed and negative except above Subjective remains intubated. alert. follows commands. tolerating feeds. on 35%. tolerating simv. alert and awake. Objective Last 24 Hour Vital Signs Date Time Temp Pulse Resp B/P Pulse Ox O2 Delivery O2 Flow Rate FiO2 07/26/16 06:41 63 16 35 07/26/16 06:00 53 16 91/48 100 Mechanical Ventilator 40 07/26/16 05:12 97.9 07/26/16 05:08 54 16 35 07/26/16 05:00 54 20 98/51 100 Mechanical Ventilator 40 07/26/16 04:00 53 07/26/16 04:00 40 07/26/16 04:00 52 18 103/50 96 Mechanical Ventilator 40 07/26/16 03:07 55 16 35 07/26/16 03:01 99.0 07/26/16 03:00 57 18 98/59 96 Mechanical Ventilator 40 07/26/16 02:00 61 18 104/48 96 Mechanical Ventilator 40 07/26/16 01:10 63 16 35 07/26/16 01:00 99.0 65 18 99/51 96 Mechanical Ventilator 40 07/26/16 00:00 40 07/26/16 00:00 99.0 62 18 103/56 96 Mechanical Ventilator 40 07/26/16 00:00 70 07/25/16 23:05 65 16 35 07/25/16 23:00 68 18 106/55 96 Mechanical Ventilator 40 07/25/16 22:00 55 18 91/46 96 Mechanical Ventilator 40 07/25/16 21:01 54 16 35 07/25/16 21:00 98.8 65 18 95/52 96 Mechanical Ventilator 40 07/25/16 20:00 60 07/25/16 20:00 98.8 67 18 98/62 96 Mechanical Ventilator 40 07/25/16 20:00 40 07/25/16 19:17 70 18 35 07/25/16 19:00 72 18 100/49 96 Mechanical Ventilator 40 07/25/16 18:00 75 18 97/53 93 Mechanical Ventilator 40 07/25/16 17:00 66 22 89/49 99 Mechanical Ventilator 40 07/25/16 16:46 72 25 35 07/25/16 16:00 72 07/25/16 16:00 98.2 75 20 97/44 98 Mechanical Ventilator 40 07/25/16 15:09 76 26 35 07/25/16 15:00 75 22 117/50 99 Mechanical Ventilator 40 07/25/16 14:00 75 20 98/47 99 Mechanical Ventilator 40 07/25/16 13:01 82 21 35 07/25/16 13:00 40 07/25/16 13:00 78 20 115/55 97 Mechanical Ventilator 40 07/25/16 12:00 79 07/25/16 12:00 98.5 79 19 98/55 98 Mechanical Ventilator 40 07/25/16 11:21 72 14 35 07/25/16 11:00 78 19 95/48 98 Mechanical Ventilator 40 07/25/16 10:00 80 22 105/52 98 Mechanical Ventilator 40 07/25/16 10:00 40 07/25/16 09:29 77 8 35 07/25/16 09:00 59 20 102/66 100 Mechanical Ventilator 40 Intake and Output 07/25/16 07/26/16 19:00 07:00 Intake Total 395 ml 220 ml Output Total 2 ml 0 ml Balance 393 ml 220 ml IV Total 55 ml Tube Feeding 240 ml 220 ml Other 100 ml Output Urine Total 2 ml 0 ml # Bowel Movements 1 1 Laboratory Tests 07/26/16 04:54: White Blood Count 8.1, Red Blood Count 2.99L, Hemoglobin 10.2L, Hematocrit 30.0L , Mean Corpuscular Volume 100H, Mean Corpuscular Hemoglobin 34.0H, Mean Corpuscular Hemoglobin Concent 33.9, Red Cell Distribution Width 13.0, Platelet Count 135L, Mean Platelet Volume 7.8, Neutrophils (%) (Auto) 66.8, Lymphocytes ( %) (Auto) 12.0L, Monocytes (%) (Auto) 14.6H, Eosinophils (%) (Auto) 5.5H, Basophils (%) (Auto) 1.2, Sodium Level 138, Potassium Level 3.7, Chloride Level 92L, Carbon Dioxide Level 21, Anion Gap 25H, Blood Urea Nitrogen 50H, Creatinine 6.4H, Estimat Glomerular Filtration Rate 6.5, Glucose Level 87, Calcium Level 8.8 Height (Feet): 4 Height (Inches): 10.00 Weight (Pounds): 195 Objective General Appearance: WD/WN, alert Neck: supple Cardiovascular: regular rhythm Respiratory/Chest: rhonchi - bilaterally Abdomen: normal bowel sounds, non tender, soft, no organomegaly Edema: no edema noted Arm (L), no edema noted Arm (R), no edema noted Leg (L), no edema noted Leg (R), no edema noted Pedal (L), no edema noted Pedal (R), no edema noted Generalized 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
[2016-07-26] MEDS: Dyna-Hex 2% Top Sol 8oz TOPIC SCH (08:43)
[2016-07-26] MEDS: Docusate 100mg/10ml Liq NG SCH ×2 (08:43→17:36)
[2016-07-26] MEDS: Pantoprazole Inj IVP SCH (08:43)
[2016-07-26] MEDS ORDERED: NS 275ml ONE (16:31)
--- NOTE | 2016-07-26 17:29 | Nephrology Progress Note ---
Assessment/Plan Problem List: (1) Respiratory failure with hypoxia (2) Hemiplegia of nondominant side as late effect of cerebrovascular disease (3) Respiratory failure requiring intubation (4) End-stage renal disease Plan no significant fluid overload, continue pulmonary care, epogen, low bp and no uf on hd 07/24, hd again 07/26 Subjective ROS Limited/Unobtainable: Yes Objective Objective Last 24 Hour Vital Signs Date Time Temp Pulse Resp B/P Pulse Ox O2 Delivery O2 Flow Rate FiO2 07/26/16 17:03 65 12 35 07/26/16 16:00 35 07/26/16 16:00 62 07/26/16 15:18 68 12 35 07/26/16 15:00 66 18 114/33 100 Mechanical Ventilator 35 07/26/16 14:00 65 15 112/49 99 Mechanical Ventilator 35 07/26/16 13:00 67 13 114/43 100 Mechanical Ventilator 35 07/26/16 12:53 98.6 07/26/16 12:36 64 12 35 07/26/16 12:00 98.6 67 18 98/45 100 Mechanical Ventilator 40 07/26/16 12:00 67 07/26/16 11:00 62 18 103/43 100 Mechanical Ventilator 35 07/26/16 10:37 35 07/26/16 10:32 62 14 35 07/26/16 10:00 55 17 109/52 100 Mechanical Ventilator 35 07/26/16 09:00 56 16 107/52 100 Mechanical Ventilator 35 07/26/16 08:58 35 07/26/16 08:42 58 16 35 07/26/16 08:00 40 07/26/16 08:00 98.6 57 20 97/56 100 Mechanical Ventilator 40 07/26/16 08:00 57 07/26/16 07:00 53 16 100/50 100 Mechanical Ventilator 40 07/26/16 06:41 63 16 35 07/26/16 06:00 53 16 91/48 100 Mechanical Ventilator 40 07/26/16 05:12 97.9 07/26/16 05:08 54 16 35 07/26/16 05:00 54 20 98/51 100 Mechanical Ventilator 40 07/26/16 04:00 53 07/26/16 04:00 40 07/26/16 04:00 52 18 103/50 96 Mechanical Ventilator 40 07/26/16 03:07 55 16 35 07/26/16 03:00 57 18 98/59 96 Mechanical Ventilator 40 07/26/16 02:00 61 18 104/48 96 Mechanical Ventilator 40 07/26/16 01:10 63 16 35 07/26/16 01:00 99.0 65 18 99/51 96 Mechanical Ventilator 40 07/26/16 00:00 40 07/26/16 00:00 99.0 62 18 103/56 96 Mechanical Ventilator 40 07/26/16 00:00 70 07/25/16 23:05 65 16 35 07/25/16 23:00 68 18 106/55 96 Mechanical Ventilator 40 07/25/16 22:00 55 18 91/46 96 Mechanical Ventilator 40 07/25/16 21:01 54 16 35 07/25/16 21:00 98.8 65 18 95/52 96 Mechanical Ventilator 40 07/25/16 20:00 60 07/25/16 20:00 98.8 67 18 98/62 96 Mechanical Ventilator 40 07/25/16 20:00 40 07/25/16 19:17 70 18 35 07/25/16 19:00 72 18 100/49 96 Mechanical Ventilator 40 07/25/16 18:00 75 18 97/53 93 Mechanical Ventilator 40 Intake and Output 07/25/16 07/26/16 19:00 07:00 Intake Total 395 ml 240 ml Output Total 2 ml 0 ml Balance 393 ml 240 ml IV Total 55 ml Tube Feeding 240 ml 240 ml Other 100 ml Output Urine Total 2 ml 0 ml # Bowel Movements 1 1 Laboratory Tests 07/26/16 04:54: White Blood Count 8.1, Red Blood Count 2.99L, Hemoglobin 10.2L, Hematocrit 30.0L , Mean Corpuscular Volume 100H, Mean Corpuscular Hemoglobin 34.0H, Mean Corpuscular Hemoglobin Concent 33.9, Red Cell Distribution Width 13.0, Platelet Count 135L, Mean Platelet Volume 7.8, Neutrophils (%) (Auto) 66.8, Lymphocytes ( %) (Auto) 12.0L, Monocytes (%) (Auto) 14.6H, Eosinophils (%) (Auto) 5.5H, Basophils (%) (Auto) 1.2, Sodium Level 138, Potassium Level 3.7, Chloride Level 92L, Carbon Dioxide Level 21, Anion Gap 25H, Blood Urea Nitrogen 50H, Creatinine 6.4H, Estimat Glomerular Filtration Rate 6.5, Glucose Level 87, Calcium Level 8.8 Height (Feet): 4 Height (Inches): 10.00 Weight (Pounds): 195 General Appearance: morbidly obese, other - intubated EENT: normal ENT inspection Neck: normal alignment Cardiovascular: normal rate, regular rhythm Respiratory/Chest: lungs clear, decreased breath sounds Abdomen: non tender, soft Extremities: other - no edema Neurologic: motor weakness TATI DANIEL Jul 26, 2016 17:29
[2016-07-26] MEDS: Epogen (for ESRD on dialysis) SUBQ SCH (21:08)
[2016-07-27] VITALS (24 sets, daily range): BP systolic 72–159; BP diastolic 33–85
--- NOTE | 2016-07-27 03:30 | Progress Note ---
DATE: 07/26/2016 CARDIOLOGY PROGRESS NOTE SUBJECTIVE: The patient is status post hemodialysis. Her blood pressure has been falling down to 75 systolic. OBJECTIVE: GENERAL: Alert. Orally intubated. LUNGS: Coarse rhonchi. HEART: Regular rhythm and rate. Normal S1, S2. ABDOMEN: Soft. EXTREMITIES: Trace edema. LABORATORY DATA: White count 8, hemoglobin 10.2. Potassium 3.7. IMPRESSION: 1. Respiratory failure. 2. Acute on chronic respiratory acidosis. 3. Obesity. 4. Acute on chronic congestive heart failure. 5. Shock. 6. Possible sepsis. 7. Renal failure, on hemodialysis. 8. Anemia of chronic kidney disease. 9. Type 2 diabetes mellitus. 10. Cerebrovascular accident with left hemiparesis, critical and guarded. 11. Sinus bradycardia, likely vagally mediated. PLAN: 1. Antimicrobials. 2. Albumisol infusion. 3. Advance oxygen. 4. Continue ventilator support. 5. DVT prophylaxis. 6. Hemodialysis with ultrafiltration as tolerated. 7. No indication for permanent pacemaker. Adalberto May M.D. DR: GRADY JOB#: [id number] CC:
[2016-07-27] MEDS: Zosyn 2.25 gm in D5W 55ml IV SCH ×3 (05:36→22:13)
[2016-07-27] MEDS: Docusate 100mg/10ml Liq NG SCH ×2 (08:39→18:00)
[2016-07-27] MEDS: Dyna-Hex 2% Top Sol 8oz TOPIC SCH (08:39)
[2016-07-27] MEDS: Pantoprazole Inj IVP SCH (08:39)
[2016-07-27 12:32] LABS: ABG BASE EXCESS -3.4
[2016-07-27 12:33] LABS: ABG ALLEN TEST POSITIVE
--- NOTE | 2016-07-27 13:36 | Critical Care Progress Note ---
Assessment/Plan Assessment/Plan IMPRESSION: 1. End-stage renal disease. 2. Ixkex-pm-cbbkkty respiratory failure. 3. Obstructive sleep apnea. 4. poor airway 5. Insulin-dependent diabetes. 6. cerebrovascular accident with left-sided weakness. 7. hypotension 8. leukocytosis 9. anemia 10. possible sepsis 11. sinus bradycardia PLAN care noted and reviewed exam noted and reviewed overall improved recheck chest xr respiratory care stable on wean reviewed meds supportive care suction as needed oxygen therapy near baseline follow up chest xray and maintain negative fluid balance ICU care noted monitor airway after extubation; will follow up BIPAP at bedside proceed with extubation and monitor medications/laboratory data/nursing notes/ICU care reviewed in detail note reviewed and edited care discussed with RN and RT ICU time spent 37 minutes Critical Care - Subjective Interval Events: overall well very alert no significant distress ROS Limited/Unobtainable: Yes Condition: critical EKG Rhythm: Sinus Rhythm Residuals: minimal Tube Feeding Tolerated: yes I&O: Intake and Output 07/26/16 07/27/16 19:00 07:00 Intake Total 280 ml 355 ml Output Total 0 ml 500 ml Balance 280 ml -145 ml Free Water 30 ml IV Total 55 ml Tube Feeding 220 ml 240 ml Blood Product 30 ml Other 60 ml Output Urine Total 0 ml Hemodialysis UF 500 ml # Bowel Movements 6 5 Critical Care - Objective ET-Tube: 7.5 ET Position: 20 Last 24 Hour Vital Signs Date Time Temp Pulse Resp B/P Pulse Ox O2 Delivery O2 Flow Rate FiO2 07/27/16 13:00 85 17 159/49 97 Endotracheal Tube 35 07/27/16 12:48 86 28 35 07/27/16 12:00 83 07/27/16 12:00 35 07/27/16 12:00 98.6 84 20 101/45 99 Endotracheal Tube 35 07/27/16 11:00 35 07/27/16 11:00 89 19 115/61 99 Endotracheal Tube 35 07/27/16 10:48 80 10 35 07/27/16 10:00 90 18 124/49 99 Endotracheal Tube 35 07/27/16 09:00 91 19 101/59 99 Endotracheal Tube 35 07/27/16 08:56 79 12 35 07/27/16 08:00 98.5 89 20 103/61 99 Endotracheal Tube 35 07/27/16 08:00 35 07/27/16 08:00 83 07/27/16 07:00 89 19 94/39 99 Endotracheal Tube 35 07/27/16 06:50 84 13 35 07/27/16 06:00 16 86/34 100 Endotracheal Tube 35 07/27/16 05:18 69 12 35 07/27/16 05:00 68 14 103/46 100 Endotracheal Tube 35 07/27/16 04:00 80 07/27/16 04:00 35 07/27/16 04:00 63 15 92/39 100 Endotracheal Tube 35 07/27/16 03:12 80 17 35 07/27/16 03:00 80 14 96/36 97 Endotracheal Tube 35 07/27/16 02:00 78 21 109/45 100 Endotracheal Tube 35 07/27/16 01:00 66 21 72/35 99 Endotracheal Tube 35 07/27/16 00:55 69 12 35 07/27/16 00:07 69 19 95/37 100 Endotracheal Tube 35 07/27/16 00:05 35 07/26/16 23:05 86 13 35 07/26/16 23:00 78 16 88/33 100 Endotracheal Tube 35 07/26/16 22:18 99.3 68 15 86/47 94 Endotracheal Tube 35 07/26/16 22:00 73 16 88/41 99 Endotracheal Tube 35 07/26/16 21:16 74 12 35 07/26/16 21:00 67 16 90/40 99 Endotracheal Tube 35 07/26/16 20:00 99.4 74 17 102/40 100 Endotracheal Tube 35 07/26/16 20:00 74 07/26/16 20:00 35 07/26/16 19:39 Endotracheal Tube 07/26/16 19:10 98.6 07/26/16 19:07 68 13 35 07/26/16 19:00 68 15 90/47 94 Endotracheal Tube 35 07/26/16 18:00 67 18 92/38 100 Mechanical Ventilator 35 07/26/16 17:03 65 12 35 07/26/16 17:00 67 16 99/53 100 Mechanical Ventilator 35 07/26/16 16:00 35 07/26/16 16:00 98.7 62 15 92/41 100 Mechanical Ventilator 35 07/26/16 16:00 62 07/26/16 15:18 68 12 35 07/26/16 15:00 66 18 114/33 100 Mechanical Ventilator 35 07/26/16 14:00 65 15 112/49 99 Mechanical Ventilator 35 Labs: Labs Test 07/26/16 04:54 07/27/16 11:15 White Blood Count 8.1 K/UL (4.8-10.8) Red Blood Count 2.99 M/UL (4.20-5.40) Hemoglobin 10.2 G/DL (12.0-16.0) Hematocrit 30.0 % (37.0-47.0) Mean Corpuscular Volume 100 FL (80-99) Mean Corpuscular Hemoglobin 34.0 PG (27.0-31.0) Mean Corpuscular Hemoglobin Concent 33.9 G/DL (32.0-36.0) Red Cell Distribution Width 13.0 % (11.6-14.8) Platelet Count 135 K/UL (150-450) Mean Platelet Volume 7.8 FL (6.5-10.1) Neutrophils (%) (Auto) 66.8 % (45.0-75.0) Lymphocytes (%) (Auto) 12.0 % (20.0-45.0) Monocytes (%) (Auto) 14.6 % (1.0-10.0) Eosinophils (%) (Auto) 5.5 % (0.0-3.0) Basophils (%) (Auto) 1.2 % (0.0-2.0) Sodium Level 138 mEQ/L (135-145) Potassium Level 3.7 mEQ/L (3.4-4.9) Chloride Level 92 mEQ/L (98-107) Carbon Dioxide Level 21 mEQ/L (20-30) Anion Gap 25 (5-15) Blood Urea Nitrogen 50 mg/dL (7-23) Creatinine 6.4 mg/dL (0.5-0.9) Estimat Glomerular Filtration Rate 6.5 mL/min (>60) Glucose Level 87 mg/dL (74-106) Calcium Level 8.8 mg/dL (8.6-10.2) Arterial Blood pH 7.310 (7.350-7.450) Arterial Blood Partial Pressure CO2 47.0 mmHg (35.0-45.0) Arterial Blood Partial Pressure O2 133.0 mmHg (75.0-100.0) Arterial Blood HCO3 23.0 mmol/L (22.0-26.0) Arterial Blood Oxygen Saturation 98.0 % (92.0-98.0) Arterial Blood Base Excess -3.4 Jarred Test Positive Objective: PHYSICAL EXAMINATION: GENERAL: much more alertNAD HEENT: orally intubated; PERRL NECK: No adenopathy. short LUNGS: reduced breath sounds. no rhonchi or wheeze overall same HEART: RR slightly chasity without MRG ABDOMEN: Obese and soft. No HSM; no distention; NABS EXTREMITIES: no CCE; She has a left upper arm AV fistula with a good thrill. NEUROLOGIC: left hemiparesis. reviewed and edited much improved Accucheck: 127 FITO SIMS Jul 27, 2016 13:36
[2016-07-27] MEDS ORDERED: Racemic EPINEPHrine 2.25% 0.5ml HHN SCH (14:00)
--- NOTE | 2016-07-27 14:28 | Diagnostic Imaging Report ---
Indications: Shortness of breath Technique: Portable AP chest Findings: Comparison: 07/23/16 Cardiomegaly, bilateral interstitial infiltrates, small right pleural effusion persist, unchanged. Lines and tubes remain in place. No new abnormality identified. IMPRESSION: Stable bilateral congestive changes
--- NOTE | 2016-07-27 14:39 | Nephrology Progress Note ---
Assessment/Plan Problem List: (1) Respiratory failure with hypoxia (2) Hemiplegia of nondominant side as late effect of cerebrovascular disease (3) Respiratory failure requiring intubation (4) End-stage renal disease Plan no significant fluid overload, continue pulmonary care, epogen, low bp and -500 uf on hd 07/26, hd again 07/28, extubated now Subjective ROS Limited/Unobtainable: Yes Objective Objective Last 24 Hour Vital Signs Date Time Temp Pulse Resp B/P Pulse Ox O2 Delivery O2 Flow Rate FiO2 07/27/16 13:00 85 17 159/49 97 Endotracheal Tube 35 07/27/16 12:48 86 28 35 07/27/16 12:00 83 07/27/16 12:00 35 07/27/16 12:00 98.6 84 20 101/45 99 Endotracheal Tube 35 07/27/16 11:00 35 07/27/16 11:00 89 19 115/61 99 Endotracheal Tube 35 07/27/16 10:48 80 10 35 07/27/16 10:00 90 18 124/49 99 Endotracheal Tube 35 07/27/16 09:00 91 19 101/59 99 Endotracheal Tube 35 07/27/16 08:56 79 12 35 07/27/16 08:00 98.5 89 20 103/61 99 Endotracheal Tube 35 07/27/16 08:00 35 07/27/16 08:00 83 07/27/16 07:00 89 19 94/39 99 Endotracheal Tube 35 07/27/16 06:50 84 13 35 07/27/16 06:00 16 86/34 100 Endotracheal Tube 35 07/27/16 05:18 69 12 35 07/27/16 05:00 68 14 103/46 100 Endotracheal Tube 35 07/27/16 04:00 80 07/27/16 04:00 35 07/27/16 04:00 63 15 92/39 100 Endotracheal Tube 35 07/27/16 03:12 80 17 35 07/27/16 03:00 80 14 96/36 97 Endotracheal Tube 35 07/27/16 02:00 78 21 109/45 100 Endotracheal Tube 35 07/27/16 01:00 66 21 72/35 99 Endotracheal Tube 35 07/27/16 00:55 69 12 35 07/27/16 00:07 69 19 95/37 100 Endotracheal Tube 35 07/27/16 00:05 35 07/26/16 23:05 86 13 35 07/26/16 23:00 78 16 88/33 100 Endotracheal Tube 35 07/26/16 22:18 99.3 68 15 86/47 94 Endotracheal Tube 35 07/26/16 22:00 73 16 88/41 99 Endotracheal Tube 35 07/26/16 21:16 74 12 35 07/26/16 21:00 67 16 90/40 99 Endotracheal Tube 35 07/26/16 20:00 99.4 74 17 102/40 100 Endotracheal Tube 35 07/26/16 20:00 74 07/26/16 20:00 35 07/26/16 19:39 Endotracheal Tube 07/26/16 19:10 98.6 07/26/16 19:07 68 13 35 07/26/16 19:00 68 15 90/47 94 Endotracheal Tube 35 07/26/16 18:00 67 18 92/38 100 Mechanical Ventilator 35 07/26/16 17:03 65 12 35 07/26/16 17:00 67 16 99/53 100 Mechanical Ventilator 35 07/26/16 16:00 35 07/26/16 16:00 98.7 62 15 92/41 100 Mechanical Ventilator 35 07/26/16 16:00 62 07/26/16 15:18 68 12 35 07/26/16 15:00 66 18 114/33 100 Mechanical Ventilator 35 Intake and Output 07/26/16 07/27/16 19:00 07:00 Intake Total 280 ml 355 ml Output Total 0 ml 500 ml Balance 280 ml -145 ml Free Water 30 ml IV Total 55 ml Tube Feeding 220 ml 240 ml Blood Product 30 ml Other 60 ml Output Urine Total 0 ml Hemodialysis UF 500 ml # Bowel Movements 6 5 Laboratory Tests 07/27/16 11:15: Arterial Blood pH 7.310L, Arterial Blood Partial Pressure CO2 47.0H, Arterial Blood Partial Pressure O2 133.0H, Arterial Blood HCO3 23.0, Arterial Blood Oxygen Saturation 98.0, Arterial Blood Base Excess -3.4, Jarred Test Positive Height (Feet): 4 Height (Inches): 10.00 Weight (Pounds): 192 General Appearance: morbidly obese EENT: normal ENT inspection Neck: normal alignment Cardiovascular: normal rate Respiratory/Chest: lungs clear, decreased breath sounds Abdomen: non tender, soft Extremities: other - no edema Neurologic: motor weakness TATI DANIEL Jul 27, 2016 14:39
--- NOTE | 2016-07-27 14:49 | General Progress Note ---
Assessment/Plan Problem List: (1) DM renal manif type II ICD Codes: E11.29 - Type 2 diabetes mellitus with other diabetic kidney complication SNOMED: 65879534, 319187214 (2) Hemiplegia of nondominant side as late effect of cerebrovascular disease ICD Codes: I69.959 - Hemiplegia and hemiparesis following unspecified cerebrovascular disease affecting unspecified side SNOMED: 288081735 (3) Respiratory acidosis ICD Codes: E87.2 - Acidosis SNOMED: 19916558 (4) Anemia in chronic kidney disease ICD Codes: N18.9 - Chronic kidney disease, unspecified; D63.1 - Anemia in chronic kidney disease SNOMED: 427487804 (5) Morbid obesity with BMI of 60.0-69.9, adult ICD Codes: E66.01 - Morbid (severe) obesity due to excess calories; Z68.44 - Body mass index (BMI) 60.0-69.9, adult SNOMED: 335340028, 164123552 (6) CHF exacerbation ICD Codes: I50.9 - Heart failure, unspecified SNOMED: 94537504, 221815256 Qualifiers: Qualified Codes: I50.9 - Heart failure, unspecified (7) Respiratory failure requiring intubation ICD Codes: J96.90 - Respiratory failure, unspecified, unspecified whether with hypoxia or hypercapnia; Z68.44 - Body mass index (BMI) 60.0-69.9, adult SNOMED: 400965802, 087005784 (8) Respiratory failure with hypoxia ICD Codes: J96.91 - Respiratory failure, unspecified with hypoxia SNOMED: 80059992591774885 Qualifiers: Qualified Codes: J96.01 - Acute respiratory failure with hypoxia Status: stable, progressing Assessment/Plan vent support- continue weaning resp rx suctioning wean per pulm iv abx ngt feeds monitor cxr follow up cultures HD per renal Subjective ROS Limited/Unobtainable: No Constitutional: Reports: malaise, weakness HEENT: Reports: no symptoms Cardiovascular: Reports: no symptoms Respiratory: Reports: no symptoms Gastrointestinal/Abdominal: Reports: no symptoms Genitourinary: Reports: no symptoms Neurologic/Psychiatric: Reports: no symptoms Endocrine: Reports: no symptoms Hematologic/Lymphatic: Reports: anemia Allergies: Coded Allergies: AMITRIPTYLINE (Verified Allergy, Unknown, 11/15/14) When taken with glipizide pts Blood glucose was critically low. MD stopped medication ATENOLOL (Verified Allergy, Unknown, 11/03/14) GLIPIZIDE (Verified Allergy, Unknown, 11/15/14) Pt is not diabetic. When prescribed pt had symptoms of lethargy, somnolence, depressed, anxiousness. Medication was discontinued. UNABLE TO ASSESS (Unverified , 07/21/16) All Systems: reviewed and negative except above Subjective remains intubated. alert. follows commands. tolerating feeds. on 35%. tolerating cpap. alert and awake. Objective Last 24 Hour Vital Signs Date Time Temp Pulse Resp B/P Pulse Ox O2 Delivery O2 Flow Rate FiO2 07/27/16 14:00 90 28 154/58 100 Nasal Cannula 2.0 07/27/16 13:00 85 17 159/49 97 Endotracheal Tube 35 07/27/16 12:48 86 28 35 07/27/16 12:00 83 07/27/16 12:00 35 07/27/16 12:00 98.6 84 20 101/45 99 Endotracheal Tube 35 07/27/16 11:00 35 07/27/16 11:00 89 19 115/61 99 Endotracheal Tube 35 07/27/16 10:48 80 10 35 07/27/16 10:00 90 18 124/49 99 Endotracheal Tube 35 07/27/16 09:00 91 19 101/59 99 Endotracheal Tube 35 07/27/16 08:56 79 12 35 07/27/16 08:00 98.5 89 20 103/61 99 Endotracheal Tube 35 07/27/16 08:00 35 07/27/16 08:00 83 07/27/16 07:00 89 19 94/39 99 Endotracheal Tube 35 07/27/16 06:50 84 13 35 07/27/16 06:00 16 86/34 100 Endotracheal Tube 35 07/27/16 05:18 69 12 35 07/27/16 05:00 68 14 103/46 100 Endotracheal Tube 35 07/27/16 04:00 80 07/27/16 04:00 35 07/27/16 04:00 63 15 92/39 100 Endotracheal Tube 35 07/27/16 03:12 80 17 35 07/27/16 03:00 80 14 96/36 97 Endotracheal Tube 35 07/27/16 02:00 78 21 109/45 100 Endotracheal Tube 35 07/27/16 01:00 66 21 72/35 99 Endotracheal Tube 35 07/27/16 00:55 69 12 35 07/27/16 00:07 69 19 95/37 100 Endotracheal Tube 35 07/27/16 00:05 35 07/26/16 23:05 86 13 35 07/26/16 23:00 78 16 88/33 100 Endotracheal Tube 35 07/26/16 22:18 99.3 68 15 86/47 94 Endotracheal Tube 35 07/26/16 22:00 73 16 88/41 99 Endotracheal Tube 35 07/26/16 21:16 74 12 35 07/26/16 21:00 67 16 90/40 99 Endotracheal Tube 35 07/26/16 20:00 99.4 74 17 102/40 100 Endotracheal Tube 35 07/26/16 20:00 74 07/26/16 20:00 35 07/26/16 19:39 Endotracheal Tube 07/26/16 19:10 98.6 07/26/16 19:07 68 13 35 07/26/16 19:00 68 15 90/47 94 Endotracheal Tube 35 07/26/16 18:00 67 18 92/38 100 Mechanical Ventilator 35 07/26/16 17:03 65 12 35 07/26/16 17:00 67 16 99/53 100 Mechanical Ventilator 35 07/26/16 16:00 35 07/26/16 16:00 98.7 62 15 92/41 100 Mechanical Ventilator 35 07/26/16 16:00 62 07/26/16 15:18 68 12 35 07/26/16 15:00 66 18 114/33 100 Mechanical Ventilator 35 Intake and Output 07/26/16 07/27/16 19:00 07:00 Intake Total 280 ml 355 ml Output Total 0 ml 500 ml Balance 280 ml -145 ml Free Water 30 ml IV Total 55 ml Tube Feeding 220 ml 240 ml Blood Product 30 ml Other 60 ml Output Urine Total 0 ml Hemodialysis UF 500 ml # Bowel Movements 6 5 Laboratory Tests 07/27/16 11:15: Arterial Blood pH 7.310L, Arterial Blood Partial Pressure CO2 47.0H, Arterial Blood Partial Pressure O2 133.0H, Arterial Blood HCO3 23.0, Arterial Blood Oxygen Saturation 98.0, Arterial Blood Base Excess -3.4, Jarred Test Positive Height (Feet): 4 Height (Inches): 10.00 Weight (Pounds): 192 Objective General Appearance: WD/WN, alert Neck: supple Cardiovascular: regular rhythm Respiratory/Chest: rhonchi - bilaterally Abdomen: normal bowel sounds, non tender, soft, no organomegaly Edema: no edema noted Arm (L), no edema noted Arm (R), no edema noted Leg (L), no edema noted Leg (R), no edema noted Pedal (L), no edema noted Pedal (R), no edema noted Generalized Neurologic: occ med physician II-XII grossly normal, no motor/sensory deficits, alert, responsive Lymphatic: normal anterior cervical (L), normal anterior cervical (R), normal axillary (L), normal axillary (R), normal inguinal (L), normal inguinal (R), normal other, normal posterior cervical (L), normal posterior cervical (R), normal submandibular (L), normal submandibular (R), normal supraclavicular (L), normal supraclavicular (R) TOMI GONZALES Jul 27, 2016 14:49
[2016-07-27 17:03] LABS: ABG ALLEN TEST POSITIVE; ABG BASE EXCESS -1.7
--- NOTE | 2016-07-27 18:30 | Progress Note ---
DATE: 07/27/2016 CARDIOLOGY PROGRESS NOTE SUBJECTIVE: The patient remains in the intensive care unit. She remains on ventilator support and NG-tube feedings. She had hypotension last night following dialysis. She continues to require [id number]-[id number] respiratory hygiene. OBJECTIVE: VITAL SIGNS: Blood pressure 154/58, pulse 90, and respirations 28. LUNGS: Coarse breath sounds. Scattered rhonchi. HEART: Regular rhythm and rate. Normal S1 and S2. ABDOMEN: Soft. EXTREMITIES: Trace edema. IMPRESSION: 1. Respiratory failure. 2. Sepsis with shock. 3. Cerebrovascular accident with hemiplegia. 4. Acute on chronic respiratory acidosis. 5. Acute on chronic diastolic congestive heart failure. 6. Type 2 diabetes mellitus with multiple complications. 7. Sinus bradycardia due to increased vagal tone, now resolved. PLAN: 1. Off pressors. 2. Avoid additional volume support at this time. 3. Hemodialysis with ultrafiltration based on clinical parameters. 4. Stable cardiac rhythm. 5. Antibiotics per Infectious Diseases qm consultant. 6. Intensive care unit care. 7. Continue respiratory hygiene with weaning efforts. Adalberto May M.D. DR: JOLANTA JOB#: [id number] CC:
[2016-07-27] MEDS: Norco 5mg/325mg tab ORAL PRN (23:27)
[2016-07-28] VITALS (24 sets, daily range): BP systolic 96–145; BP diastolic 30–81
[2016-07-28] MEDS: Dyna-Hex 2% Top Sol 8oz TOPIC SCH (03:44)
[2016-07-28] MEDS: Zosyn 2.25 gm in D5W 55ml IV SCH (05:41)
[2016-07-28] MEDS ORDERED: Vancomycin 1250mg/D5W 275ml IVPB ONE ×4 (08:00→10:00)
[2016-07-28] MEDS ORDERED: Vancomycin 1.5 GM in D5W 325 ML IVPB ONE (08:00)
--- NOTE | 2016-07-28 08:26 | Critical Care Progress Note ---
Assessment/Plan Assessment/Plan IMPRESSION: 1. End-stage renal disease. 2. Qppyi-al-uqywifl respiratory failure. 3. Obstructive sleep apnea. 4. poor airway 5. Insulin-dependent diabetes. 6. cerebrovascular accident with left-sided weakness. 7. hypotension 8. leukocytosis 9. anemia 10. possible sepsis 11. sinus bradycardia PLAN care noted and reviewed exam noted and reviewed overall improved monitor for changes respiratory care stable on wean reviewed meds supportive care suction as needed oxygen therapy near baseline BIPAP at HS and PRN monitor airway doing well follow up ABG medications/laboratory data/nursing notes/ICU care reviewed in detail note reviewed and edited care discussed with RN and RT ICU time spent 36 minutes Critical Care - Subjective Interval Events: extubated CPAP at HS on NC oxygen ROS Limited/Unobtainable: Yes EKG Rhythm: Sinus Rhythm I&O: Intake and Output 07/27/16 07/28/16 19:00 07:00 Intake Total 315 ml 325 ml Balance 315 ml 325 ml IV Total 55 ml 55 ml Tube Feeding 260 ml 240 ml Other 30 ml # Voids 1 # Bowel Movements 4 6 Critical Care - Objective CXR: congestive changes ET-Tube: 7.5 ET Position: 20 Last 24 Hour Vital Signs Date Time Temp Pulse Resp B/P Pulse Ox O2 Delivery O2 Flow Rate FiO2 07/28/16 07:00 74 22 117/41 98 Nasal Cannula 2.0 07/28/16 06:00 98.6 78 23 129/38 95 Nasal Cannula 2.0 07/28/16 05:00 80 22 122/48 97 Nasal Cannula 2.0 07/28/16 04:00 81 07/28/16 04:00 83 23 116/43 100 Nasal Cannula 2.0 07/28/16 03:00 85 22 125/48 100 Nasal Cannula 2.0 07/28/16 02:00 98.6 86 20 102/67 99 Nasal Cannula 2.0 07/28/16 01:00 83 18 105/46 100 Nasal Cannula 2.0 07/28/16 00:00 98.1 81 25 102/33 100 Nasal Cannula 2.0 07/28/16 00:00 84 07/27/16 23:00 85 21 131/43 100 Nasal Cannula 2.0 07/27/16 22:00 83 21 117/33 100 Nasal Cannula 2.0 07/27/16 21:00 83 23 109/42 100 Nasal Cannula 2.0 07/27/16 20:00 98.6 86 20 142/67 99 Endotracheal Tube 35 07/27/16 20:00 84 07/27/16 19:16 Nasal Cannula 2.0 28 07/27/16 19:14 100 Nasal Cannula 2.0 28 07/27/16 19:14 88 17 Nasal Cannula 2.0 28 07/27/16 19:00 87 26 136/53 100 Nasal Cannula 2.0 07/27/16 18:00 87 26 134/44 100 Nasal Cannula 2.0 07/27/16 17:00 85 24 104/64 100 Nasal Cannula 2.0 07/27/16 16:30 2.0 07/27/16 16:00 97.4 85 25 132/85 100 Nasal Cannula 2.0 07/27/16 16:00 85 07/27/16 15:47 Nasal Cannula 2.0 28 07/27/16 15:47 100 Nasal Cannula 2.0 28 07/27/16 15:00 86 15 127/48 100 Nasal Cannula 2.0 07/27/16 14:03 Nasal Cannula 2.0 28 07/27/16 14:00 90 28 154/58 100 Nasal Cannula 2.0 07/27/16 13:00 85 17 159/49 97 Endotracheal Tube 35 07/27/16 12:48 86 28 35 07/27/16 12:00 83 07/27/16 12:00 35 07/27/16 12:00 98.6 84 20 101/45 99 Endotracheal Tube 35 07/27/16 11:00 35 07/27/16 11:00 89 19 115/61 99 Endotracheal Tube 35 07/27/16 10:48 80 10 35 07/27/16 10:00 90 18 124/49 99 Endotracheal Tube 35 07/27/16 09:00 91 19 101/59 99 Endotracheal Tube 35 07/27/16 08:56 79 12 35 Labs: Labs Test 07/26/16 04:54 07/27/16 11:15 07/27/16 16:30 07/28/16 04:30 White Blood Count 8.1 K/UL (4.8-10.8) Red Blood Count 2.99 M/UL (4.20-5.40) Hemoglobin 10.2 G/DL (12.0-16.0) Hematocrit 30.0 % (37.0-47.0) Mean Corpuscular Volume 100 FL (80-99) Mean Corpuscular Hemoglobin 34.0 PG (27.0-31.0) Mean Corpuscular Hemoglobin Concent 33.9 G/DL (32.0-36.0) Red Cell Distribution Width 13.0 % (11.6-14.8) Platelet Count 135 K/UL (150-450) Mean Platelet Volume 7.8 FL (6.5-10.1) Neutrophils (%) (Auto) 66.8 % (45.0-75.0) Lymphocytes (%) (Auto) 12.0 % (20.0-45.0) Monocytes (%) (Auto) 14.6 % (1.0-10.0) Eosinophils (%) (Auto) 5.5 % (0.0-3.0) Basophils (%) (Auto) 1.2 % (0.0-2.0) Sodium Level 138 mEQ/L (135-145) Potassium Level 3.7 mEQ/L (3.4-4.9) Chloride Level 92 mEQ/L (98-107) Carbon Dioxide Level 21 mEQ/L (20-30) Anion Gap 25 (5-15) Blood Urea Nitrogen 50 mg/dL (7-23) Creatinine 6.4 mg/dL (0.5-0.9) Estimat Glomerular Filtration Rate 6.5 mL/min (>60) Glucose Level 87 mg/dL (74-106) Calcium Level 8.8 mg/dL (8.6-10.2) Arterial Blood pH 7.310 (7.350-7.450) 7.300 (7.350-7.450) Arterial Blood Partial Pressure CO2 47.0 mmHg (35.0-45.0) 53.0 mmHg (35.0-45.0) Arterial Blood Partial Pressure O2 133.0 mmHg (75.0-100.0) 100.0 mmHg (75.0-100.0) Arterial Blood HCO3 23.0 mmol/L (22.0-26.0) 25.2 mmol/L (22.0-26.0) Arterial Blood Oxygen Saturation 98.0 % (92.0-98.0) 98.0 % (92.0-98.0) Arterial Blood Base Excess -3.4 -1.7 Jarred Test Positive Positive Random Vancomycin Level 14.9 ug/mL Objective: PHYSICAL EXAMINATION: GENERAL: much more alert NAD HEENT: extubated; PERRL NECK: No adenopathy. short LUNGS: reduced breath sounds. no rhonchi or wheeze overall same HEART: RR slightly chasity without MRG ABDOMEN: Obese and soft. No HSM; no distention; NABS EXTREMITIES: no CCE; She has a left upper arm AV fistula with a good thrill. NEUROLOGIC: left hemiparesis. reviewed and edited much improved Accucheck: 127 FITO SIMS Jul 28, 2016 08:26
[2016-07-28] MEDS: Docusate 100mg/10ml Liq NG SCH ×2 (09:00→18:00)
[2016-07-28] MEDS: Pantoprazole Inj IVP SCH (09:20)
--- NOTE | 2016-07-28 11:01 | Diagnostic Imaging Report ---
Indication: SOB Technique: One view of the chest Comparison: 07/27/2016 Findings: Patient is rotated to the right. Increased infiltrates are seen in the left lung diffusely. Stable interstitial and alveolar opacities in the right lung. Nasogastric tube remains. Endotracheal tube is no longer evident. Extensive left sided venous stents are again demonstrated. Impression: Interim extubation Increasing parenchymal consolidation throughout the left lung, over one day. Stable mostly interstitial disease in the right lung.
--- NOTE | 2016-07-28 14:17 | General Progress Note ---
Assessment/Plan Problem List: (1) DM renal manif type II ICD Codes: E11.29 - Type 2 diabetes mellitus with other diabetic kidney complication SNOMED: 92134818, 288409909 (2) Hemiplegia of nondominant side as late effect of cerebrovascular disease ICD Codes: I69.959 - Hemiplegia and hemiparesis following unspecified cerebrovascular disease affecting unspecified side SNOMED: 738089203 (3) Respiratory acidosis ICD Codes: E87.2 - Acidosis SNOMED: 74004320 (4) Anemia in chronic kidney disease ICD Codes: N18.9 - Chronic kidney disease, unspecified; D63.1 - Anemia in chronic kidney disease SNOMED: 450935447 (5) Morbid obesity with BMI of 60.0-69.9, adult ICD Codes: E66.01 - Morbid (severe) obesity due to excess calories; Z68.44 - Body mass index (BMI) 60.0-69.9, adult SNOMED: 027807990, 245824344 (6) CHF exacerbation ICD Codes: I50.9 - Heart failure, unspecified SNOMED: 88713579, 065227171 Qualifiers: Qualified Codes: I50.9 - Heart failure, unspecified (7) Respiratory failure requiring intubation ICD Codes: J96.90 - Respiratory failure, unspecified, unspecified whether with hypoxia or hypercapnia; Z68.44 - Body mass index (BMI) 60.0-69.9, adult SNOMED: 638157533, 028803544 (8) Respiratory failure with hypoxia ICD Codes: J96.91 - Respiratory failure, unspecified with hypoxia SNOMED: 17729752299145610 Qualifiers: Qualified Codes: J96.01 - Acute respiratory failure with hypoxia Status: stable, progressing Assessment/Plan swallow eval; resp rx suctioning wean per pulm iv abx ngt feeds until swallow monitor cxr follow up cultures HD per renal Subjective ROS Limited/Unobtainable: No Constitutional: Reports: malaise, weakness HEENT: Reports: no symptoms Cardiovascular: Reports: no symptoms Respiratory: Reports: cough, shortness of breath Gastrointestinal/Abdominal: Reports: no symptoms Genitourinary: Reports: no symptoms Neurologic/Psychiatric: Reports: no symptoms Endocrine: Reports: no symptoms Hematologic/Lymphatic: Reports: anemia Allergies: Coded Allergies: AMITRIPTYLINE (Verified Allergy, Unknown, 11/15/14) When taken with glipizide pts Blood glucose was critically low. MD stopped medication ATENOLOL (Verified Allergy, Unknown, 11/03/14) GLIPIZIDE (Verified Allergy, Unknown, 11/15/14) Pt is not diabetic. When prescribed pt had symptoms of lethargy, somnolence, depressed, anxiousness. Medication was discontinued. UNABLE TO ASSESS (Unverified , 07/21/16) All Systems: reviewed and negative except above Subjective extubated. doing well. still has ngt. refused bipap at night. Objective Last 24 Hour Vital Signs Date Time Temp Pulse Resp B/P Pulse Ox O2 Delivery O2 Flow Rate FiO2 07/28/16 10:00 83 22 145/61 98 Nasal Cannula 2.0 07/28/16 09:00 82 22 140/51 98 Nasal Cannula 2.0 07/28/16 08:00 87 07/28/16 08:00 97.9 82 23 111/49 97 Nasal Cannula 2.0 07/28/16 07:41 83 20 Nasal Cannula 2.0 07/28/16 07:37 Nasal Cannula 2.0 07/28/16 07:36 97 Nasal Cannula 2.0 07/28/16 07:00 74 22 117/41 98 Nasal Cannula 2.0 07/28/16 06:00 98.6 78 23 129/38 95 Nasal Cannula 2.0 07/28/16 05:00 80 22 122/48 97 Nasal Cannula 2.0 07/28/16 04:00 81 07/28/16 04:00 83 23 116/43 100 Nasal Cannula 2.0 07/28/16 03:00 85 22 125/48 100 Nasal Cannula 2.0 07/28/16 02:00 98.6 86 20 102/67 99 Nasal Cannula 2.0 07/28/16 01:00 83 18 105/46 100 Nasal Cannula 2.0 07/28/16 00:00 98.1 81 25 102/33 100 Nasal Cannula 2.0 07/28/16 00:00 84 07/27/16 23:00 85 21 131/43 100 Nasal Cannula 2.0 07/27/16 22:00 83 21 117/33 100 Nasal Cannula 2.0 07/27/16 21:00 83 23 109/42 100 Nasal Cannula 2.0 07/27/16 20:00 98.6 86 20 142/67 99 Endotracheal Tube 35 07/27/16 20:00 84 07/27/16 19:16 Nasal Cannula 2.0 28 07/27/16 19:14 100 Nasal Cannula 2.0 28 07/27/16 19:14 88 17 Nasal Cannula 2.0 28 07/27/16 19:00 87 26 136/53 100 Nasal Cannula 2.0 07/27/16 18:00 87 26 134/44 100 Nasal Cannula 2.0 07/27/16 17:00 85 24 104/64 100 Nasal Cannula 2.0 07/27/16 16:30 2.0 07/27/16 16:00 97.4 85 25 132/85 100 Nasal Cannula 2.0 07/27/16 16:00 85 07/27/16 15:47 Nasal Cannula 2.0 28 07/27/16 15:47 100 Nasal Cannula 2.0 28 07/27/16 15:00 86 15 127/48 100 Nasal Cannula 2.0 Intake and Output 07/27/16 07/28/16 19:00 07:00 Intake Total 315 ml 325 ml Balance 315 ml 325 ml IV Total 55 ml 55 ml Tube Feeding 260 ml 240 ml Other 30 ml # Voids 1 # Bowel Movements 4 6 Laboratory Tests 07/27/16 16:30: Arterial Blood pH 7.300L, Arterial Blood Partial Pressure CO2 53.0H, Arterial Blood Partial Pressure O2 100.0, Arterial Blood HCO3 25.2, Arterial Blood Oxygen Saturation 98.0, Arterial Blood Base Excess -1.7, Jarred Test Positive 07/28/16 04:30: Random Vancomycin Level 14.9 Height (Feet): 4 Height (Inches): 10.00 Weight (Pounds): 187 Objective General Appearance: WD/WN, alert. 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
[2016-07-28] MEDS ORDERED: Heparin Sod 1000 units/ml 10ml IV ONE (14:45)
--- NOTE | 2016-07-28 14:58 | General Progress Note ---
Progress Note Progress Note ENT I have been following pt online Please note I will not be available from 5PM today through 08/02/16 at 1 PM to see pt. I will be available by phone for questions [phone] MARIO WHITNEY Jul 28, 2016 14:58
--- NOTE | 2016-07-28 15:10 | Pre-Procedure Note/Attestation ---
Pre-Procedure Note/Attestation Complete Prior to Procedure Planned Procedure: not applicable Procedure Narrative: Trach Indications for Procedure Pre-Operative Diagnosis: Resp dependent Attestation I attest that I discussed the nature of the procedure; its benefits; risks and complications; and alternatives (and the risks and benefits of such alternatives ), prior to the procedure, with the patient (or the patient's legal guest services representative). I attest that, if there was a reasonable possibility of needing a blood transfusion, the patient (or the patient's legal guest services representative) was given the [facility] standardized written summary, pursuant to the [employer] Beat[employer] Blood Safety Act ([place] Health and Safety Code # 1645, as amended). I attest that I re-evaluated the patient just prior to the surgery and that there has been no change in the patient's H&P. I have signed for consent in progress note-another MD has done so as well because there is no one else available. Nursinig staff has tried, no family or conservator to our knowledge. MARIO WHITNEY Jul 28, 2016 15:10
--- NOTE | 2016-07-28 17:51 | Nephrology Progress Note ---
Assessment/Plan Problem List: (1) Respiratory failure with hypoxia (2) Hemiplegia of nondominant side as late effect of cerebrovascular disease (3) Respiratory failure requiring intubation (4) End-stage renal disease Plan no significant fluid overload, continue pulmonary care, epogen, low bp and - 1000 uf on hd 07/28, extubated now Subjective Constitutional: Reports: weakness HEENT: Reports: no symptoms Genitourinary: Reports: no symptoms Neurologic/Psychiatric: Reports: pre-existing deficit Objective Objective Last 24 Hour Vital Signs Date Time Temp Pulse Resp B/P Pulse Ox O2 Delivery O2 Flow Rate FiO2 07/28/16 17:00 91 29 110/49 98 Nasal Cannula 2.0 07/28/16 16:00 97.8 89 28 135/53 98 Nasal Cannula 2.0 07/28/16 16:00 93 07/28/16 15:58 Simple Mask 3.0 07/28/16 15:00 93 22 111/67 98 Nasal Cannula 2.0 07/28/16 14:00 83 22 128/81 98 Nasal Cannula 2.0 07/28/16 13:00 96 24 103/44 98 Nasal Cannula 2.0 07/28/16 12:00 99 07/28/16 12:00 97.5 95 23 96/30 97 Nasal Cannula 2.0 07/28/16 11:00 90 25 144/62 97 Nasal Cannula 2.0 07/28/16 10:00 83 22 145/61 98 Nasal Cannula 2.0 07/28/16 09:00 82 22 140/51 98 Nasal Cannula 2.0 07/28/16 08:00 87 07/28/16 08:00 97.9 82 23 111/49 97 Nasal Cannula 2.0 07/28/16 07:41 83 20 Nasal Cannula 2.0 07/28/16 07:37 Nasal Cannula 2.0 07/28/16 07:36 97 Nasal Cannula 2.0 07/28/16 07:00 74 22 117/41 98 Nasal Cannula 2.0 07/28/16 06:00 98.6 78 23 129/38 95 Nasal Cannula 2.0 07/28/16 05:00 80 22 122/48 97 Nasal Cannula 2.0 07/28/16 04:00 81 07/28/16 04:00 83 23 116/43 100 Nasal Cannula 2.0 07/28/16 03:00 85 22 125/48 100 Nasal Cannula 2.0 07/28/16 02:00 98.6 86 20 102/67 99 Nasal Cannula 2.0 07/28/16 01:00 83 18 105/46 100 Nasal Cannula 2.0 07/28/16 00:00 98.1 81 25 102/33 100 Nasal Cannula 2.0 07/28/16 00:00 84 07/27/16 23:00 85 21 131/43 100 Nasal Cannula 2.0 07/27/16 22:00 83 21 117/33 100 Nasal Cannula 2.0 07/27/16 21:00 83 23 109/42 100 Nasal Cannula 2.0 07/27/16 20:00 98.6 86 20 142/67 99 Endotracheal Tube 35 07/27/16 20:00 84 07/27/16 19:16 Nasal Cannula 2.0 28 07/27/16 19:14 100 Nasal Cannula 2.0 28 07/27/16 19:14 88 17 Nasal Cannula 2.0 28 07/27/16 19:00 87 26 136/53 100 Nasal Cannula 2.0 07/27/16 18:00 87 26 134/44 100 Nasal Cannula 2.0 Intake and Output 07/27/16 07/28/16 19:00 07:00 Intake Total 315 ml 325 ml Balance 315 ml 325 ml IV Total 55 ml 55 ml Tube Feeding 260 ml 240 ml Other 30 ml # Voids 1 # Bowel Movements 4 6 Laboratory Tests 07/28/16 04:30: Random Vancomycin Level 14.9 Height (Feet): 4 Height (Inches): 10.00 Weight (Pounds): 187 General Appearance: no apparent distress, alert EENT: normal ENT inspection Neck: non-tender Cardiovascular: regular rhythm Respiratory/Chest: rhonchi - bilaterally Abdomen: non tender Extremities: other - no edema Neurologic: motor weakness TATI DANIEL Jul 28, 2016 17:51
[2016-07-28] MEDS ORDERED: Levofloxacin 500mg tab GT ONE (18:00)
--- NOTE | 2016-07-28 19:45 | Progress Note ---
DATE: 07/28/2016 SUBJECTIVE: The patient's condition remains critical. She is in the intensive care unit. Prognosis is guarded. There is slight improvement in her clinical parameters. She is on BiPAP support at night and during the day on nasal cannula. PHYSICAL EXAMINATION: VITAL SIGNS: Blood pressure range 111/49 to 140/51, heart rate in the 80s, respiratory rate 20s. She is afebrile, monitored rhythm sinus. RESPIRATORY: Moderate rhonchi and secretions. HEART: Regular rhythm and rate. Normal S1 and S2. ABDOMEN: Obese. EXTREMITIES: With dependent edema. LABORATORY DATA: No new laboratories today. IMPRESSION: 1. Status post shock due to sepsis. 2. Cerebrovascular accident with hemiplegia. 3. Acute on chronic respiratory acidosis. 4. Status post respiratory failure. 5. Acute on chronic diastolic congestive heart failure. 6. Resolved bradycardia. 7. Paroxysmal atrial ectopy. PLAN: 1. Respiratory hygiene. No resumption of pressors. 2. Avoid additional volume support at this time. 3. Hemodialysis with ultrafiltration based on clinical parameters. 4. Cardiac monitoring. 5. Recheck laboratory studies. 6. Antimicrobials per Infectious Disease aws consultant. Adalberto May M.D. DR: LAVONNE JOB#: [id number] CC: HANH
[2016-07-28] MEDS: Epogen (for ESRD on dialysis) SUBQ SCH (21:52)
[2016-07-29] VITALS (8 sets, daily range): BP systolic 109–142; BP diastolic 52–65
[2016-07-29] MEDS ORDERED: Acetaminophen 650mg/20.3ml NG PRN (03:30)
[2016-07-29] MEDS ORDERED: LORazepam Inj 2mg/ml 1ml IV PRN (03:30)
[2016-07-29 08:32] LABS: ABG BASE EXCESS 5.4; ABG PCO2 63.3 mmHg (35.0-45.0)
[2016-07-29 08:33] LABS: ABG ALLEN TEST POSITIVE
[2016-07-29] MEDS: Docusate 100mg/10ml Liq NG SCH ×2 (09:00→18:00)
[2016-07-29 09:01] LABS: ALBUMIN/GLOBULIN RATIO 1.1 (1.0-2.7); CALCIUM 9.7 mg/dL (8.6-10.2); CREATININE 5.1 mg/dL (0.5-0.9); GLOMERULAR FILTRATION RATE 8.5 mL/min (>60); PHOSPHORUS 4.3 mg/dL (2.5-4.8); POTASSIUM 3.4 mEQ/L (3.4-4.9); TOTAL PROTEIN 6.7 g/dL (6.6-8.7)
[2016-07-29 09:10] LABS: BASOPHILS % (AUTO) 0.8 % (0.0-2.0); EOSINOPHILS % (AUTO) 2.9 % (0.0-3.0); LYMPHOCYTES % (AUTO) 8.8 % (20.0-45.0); MEAN CORPUSCULAR HEMOGLOBIN 33.6 PG (27.0-31.0); MEAN CORPUSCULAR HGB CONC 30.9 G/DL (32.0-36.0); MEAN CORPUSCULAR VOLUME 108 FL (80-99); MEAN PLATELET VOLUME 5.8 FL (6.5-10.1); MONOCYTES % (AUTO) 13.3 % (1.0-10.0); NEUTROPHILS % (AUTO) 74.3 % (45.0-75.0); PLATELET COUNT 215 K/UL (150-450); RED BLOOD COUNT 3.27 M/UL (4.20-5.40); RED CELL DISTRIBUTION WIDTH 14.1 % (11.6-14.8); WHITE BLOOD COUNT 9.1 K/UL (4.8-10.8)
[2016-07-29] MEDS: Dyna-Hex 2% Top Sol 8oz TOPIC SCH (09:54)
--- NOTE | 2016-07-29 10:21 | Critical Care Progress Note ---
Assessment/Plan Assessment/Plan IMPRESSION: 1. End-stage renal disease. 2. Hswbc-hz-lrueiez respiratory failure. 3. Obstructive sleep apnea. 4. poor airway 5. Insulin-dependent diabetes. 6. cerebrovascular accident with left-sided weakness. 7. hypotension 8. leukocytosis 9. anemia 10. possible sepsis 11. sinus bradycardia 12. left lung infiltrate and ?collapse PLAN care noted and reviewed exam noted and reviewed CPT and HHN added monitor for changes respiratory care reviewed meds supportive care suction oxygen therapy near baseline BIPAP at HS and PRN monitor airway doing well follow up ABG for worsening retention close follow up medications/laboratory data/nursing notes reviewed in detail note reviewed and edited care discussed with RN and RT Critical Care - Subjective Interval Events: worsening left chest infiltrate noted ABG and discussed I&O: Intake and Output 07/28/16 07/29/16 19:00 07:00 Intake Total 240 ml 240 ml Balance 240 ml 240 ml Tube Feeding 240 ml 240 ml # Bowel Movements 5 4 Critical Care - Objective CXR: worsening infiltrate left ET-Tube: 7.5 ET Position: 20 Last 24 Hour Vital Signs Date Time Temp Pulse Resp B/P Pulse Ox O2 Delivery O2 Flow Rate FiO2 07/29/16 08:43 92 07/29/16 08:03 Nasal Cannula 2.0 07/29/16 08:02 96 Nasal Cannula 2.0 07/29/16 08:01 90 22 Nasal Cannula 2.0 07/29/16 03:00 97.9 28 117/55 97 Nasal Cannula 2.0 07/29/16 02:00 97.7 96 24 133/64 95 Nasal Cannula 2.0 28 07/29/16 01:00 97.7 96 24 133/64 95 Nasal Cannula 2.0 07/29/16 00:00 97.7 96 24 133/64 95 Nasal Cannula 07/29/16 00:00 93 07/28/16 23:00 94 23 130/57 96 Nasal Cannula 2.0 07/28/16 22:00 93 19 138/55 96 Nasal Cannula 2.0 07/28/16 21:00 97 26 130/65 98 Nasal Cannula 2.0 07/28/16 20:00 98.8 94 25 127/59 98 Nasal Cannula 2.0 07/28/16 20:00 94 07/28/16 19:38 Nasal Cannula 2.0 07/28/16 19:37 85 20 Nasal Cannula 2.0 28 07/28/16 19:37 98 Nasal Cannula 2.0 28 07/28/16 19:00 94 22 122/58 98 Nasal Cannula 2.0 07/28/16 18:00 99 29 126/61 98 Nasal Cannula 2.0 07/28/16 17:00 91 29 110/49 98 Nasal Cannula 2.0 07/28/16 16:00 97.8 89 28 135/53 98 Nasal Cannula 2.0 07/28/16 16:00 93 07/28/16 15:58 Simple Mask 3.0 07/28/16 15:00 93 22 111/67 98 Nasal Cannula 2.0 07/28/16 14:00 83 22 128/81 98 Nasal Cannula 2.0 07/28/16 13:00 96 24 103/44 98 Nasal Cannula 2.0 07/28/16 12:00 99 07/28/16 12:00 97.5 95 23 96/30 97 Nasal Cannula 2.0 07/28/16 11:00 90 25 144/62 97 Nasal Cannula 2.0 Labs: Labs Test 07/27/16 11:15 07/27/16 16:30 07/28/16 04:30 07/29/16 08:00 Arterial Blood pH 7.310 (7.350-7.450) 7.300 (7.350-7.450) Arterial Blood Partial Pressure CO2 47.0 mmHg (35.0-45.0) 53.0 mmHg (35.0-45.0) Arterial Blood Partial Pressure O2 133.0 mmHg (75.0-100.0) 100.0 mmHg (75.0-100.0) Arterial Blood HCO3 23.0 mmol/L (22.0-26.0) 25.2 mmol/L (22.0-26.0) Arterial Blood Oxygen Saturation 98.0 % (92.0-98.0) 98.0 % (92.0-98.0) Arterial Blood Base Excess -3.4 -1.7 Jarred Test Positive Positive Random Vancomycin Level 14.9 ug/mL White Blood Count 9.1 K/UL (4.8-10.8) Red Blood Count 3.27 M/UL (4.20-5.40) Hemoglobin 11.0 G/DL (12.0-16.0) Hematocrit 35.5 % (37.0-47.0) Mean Corpuscular Volume 108 FL (80-99) Mean Corpuscular Hemoglobin 33.6 PG (27.0-31.0) Mean Corpuscular Hemoglobin Concent 30.9 G/DL (32.0-36.0) Red Cell Distribution Width 14.1 % (11.6-14.8) Platelet Count 215 K/UL (150-450) Mean Platelet Volume 5.8 FL (6.5-10.1) Neutrophils (%) (Auto) 74.3 % (45.0-75.0) Lymphocytes (%) (Auto) 8.8 % (20.0-45.0) Monocytes (%) (Auto) 13.3 % (1.0-10.0) Eosinophils (%) (Auto) 2.9 % (0.0-3.0) Basophils (%) (Auto) 0.8 % (0.0-2.0) Sodium Level 141 mEQ/L (135-145) Potassium Level 3.4 mEQ/L (3.4-4.9) Chloride Level 94 mEQ/L (98-107) Carbon Dioxide Level 31 mEQ/L (20-30) Anion Gap 16 (5-15) Blood Urea Nitrogen 21 mg/dL (7-23) Creatinine 5.1 mg/dL (0.5-0.9) Estimat Glomerular Filtration Rate 8.5 mL/min (>60) Glucose Level 123 mg/dL (74-106) Calcium Level 9.7 mg/dL (8.6-10.2) Phosphorus Level 4.3 mg/dL (2.5-4.8) Magnesium Level 2.0 mg/dL (1.7-2.5) Total Bilirubin 0.5 mg/dL (0.0-1.2) Aspartate Amino Transf (AST/SGOT) 20 U/L (5-40) Alanine Aminotransferase (ALT/SGPT) 19 U/L (3-33) Alkaline Phosphatase 100 U/L (35-104) Total Protein 6.7 g/dL (6.6-8.7) Albumin 3.6 g/dL (3.5-5.2) Globulin 3.1 g/dL Albumin/Globulin Ratio 1.1 (1.0-2.7) Test 07/29/16 08:20 Arterial Blood pH 7.330 (7.350-7.450) Arterial Blood Partial Pressure CO2 63.3 mmHg (35.0-45.0) Arterial Blood Partial Pressure O2 77.1 mmHg (75.0-100.0) Arterial Blood HCO3 32.9 mmol/L (22.0-26.0) Arterial Blood Oxygen Saturation 95.4 % (92.0-98.0) Arterial Blood Base Excess 5.4 Jarred Test Positive Objective: PHYSICAL EXAMINATION: GENERAL: alert NAD HEENT: extubated; PERRL NECK: No adenopathy. short LUNGS: reduced breath sounds left base. some rhonchi left HEART: RR slightly chasity without MRG ABDOMEN: Obese and soft. No HSM; no distention; NABS EXTREMITIES: no CCE; She has a left upper arm AV fistula with a good thrill. NEUROLOGIC: left hemiparesis. reviewed and edited awake Micro: Microbiology Date/Time Source Procedure Growth Status 07/28/16 15:15 Stool Clostridium difficile Toxin Assay - Final Complete Accucheck: 127 FITO SIMS Jul 29, 2016 10:21
[2016-07-29] MEDS: Albuterol ud Inhalation HHN SCH ×4 (11:32→23:19)
--- NOTE | 2016-07-29 12:35 | General Progress Note ---
Assessment/Plan Problem List: (1) DM renal manif type II ICD Codes: E11.29 - Type 2 diabetes mellitus with other diabetic kidney complication SNOMED: 02462471, 947154182 (2) Hemiplegia of nondominant side as late effect of cerebrovascular disease ICD Codes: I69.959 - Hemiplegia and hemiparesis following unspecified cerebrovascular disease affecting unspecified side SNOMED: 314549989 (3) Respiratory acidosis ICD Codes: E87.2 - Acidosis SNOMED: 63219625 (4) Anemia in chronic kidney disease ICD Codes: N18.9 - Chronic kidney disease, unspecified; D63.1 - Anemia in chronic kidney disease SNOMED: 961085919 (5) Morbid obesity with BMI of 60.0-69.9, adult ICD Codes: E66.01 - Morbid (severe) obesity due to excess calories; Z68.44 - Body mass index (BMI) 60.0-69.9, adult SNOMED: 794073854, 471987251 (6) CHF exacerbation ICD Codes: I50.9 - Heart failure, unspecified SNOMED: 52861749, 951037896 Qualifiers: Qualified Codes: I50.9 - Heart failure, unspecified (7) Respiratory failure requiring intubation ICD Codes: J96.90 - Respiratory failure, unspecified, unspecified whether with hypoxia or hypercapnia; Z68.44 - Body mass index (BMI) 60.0-69.9, adult SNOMED: 074817586, 020170883 (8) Respiratory failure with hypoxia ICD Codes: J96.91 - Respiratory failure, unspecified with hypoxia SNOMED: 77225828775931344 Qualifiers: Qualified Codes: J96.01 - Acute respiratory failure with hypoxia Status: stable, progressing Assessment/Plan swallow rx keep ngt in place until po intake adequate resp rx suctioning wean per pulm iv abx monitor cxr follow up cultures HD per renal out of bed pt/ot Subjective ROS Limited/Unobtainable: No Constitutional: Reports: malaise, weakness HEENT: Reports: no symptoms Cardiovascular: Reports: edema Respiratory: Reports: cough, shortness of breath, sputum Gastrointestinal/Abdominal: Reports: no symptoms Genitourinary: Reports: no symptoms Neurologic/Psychiatric: Reports: pre-existing deficit Endocrine: Reports: no symptoms Hematologic/Lymphatic: Reports: anemia Allergies: Coded Allergies: AMITRIPTYLINE (Verified Allergy, Unknown, 11/15/14) When taken with glipizide pts Blood glucose was critically low. MD stopped medication ATENOLOL (Verified Allergy, Unknown, 11/03/14) GLIPIZIDE (Verified Allergy, Unknown, 11/15/14) Pt is not diabetic. When prescribed pt had symptoms of lethargy, somnolence, depressed, anxiousness. Medication was discontinued. UNABLE TO ASSESS (Unverified , 07/21/16) All Systems: reviewed and negative except above Subjective no events. want top get out of bed to chair. denies sob. Objective Last 24 Hour Vital Signs Date Time Temp Pulse Resp B/P Pulse Ox O2 Delivery O2 Flow Rate FiO2 07/29/16 12:00 97.6 93 19 142/65 99 Nasal Cannula 2.0 07/29/16 11:46 93 22 100 Nasal Cannula 2.0 07/29/16 11:35 93 22 97 Nasal Cannula 2.0 07/29/16 08:43 92 07/29/16 08:03 Nasal Cannula 2.0 07/29/16 08:02 96 Nasal Cannula 2.0 07/29/16 08:01 90 22 Nasal Cannula 2.0 07/29/16 08:00 97.3 90 18 133/59 100 Nasal Cannula 2.0 07/29/16 08:00 92 07/29/16 03:00 97.9 28 117/55 97 Nasal Cannula 2.0 07/29/16 02:00 97.7 96 24 133/64 95 Nasal Cannula 2.0 28 07/29/16 01:00 97.7 96 24 133/64 95 Nasal Cannula 2.0 07/29/16 00:00 97.7 96 24 133/64 95 Nasal Cannula 07/29/16 00:00 93 07/28/16 23:00 94 23 130/57 96 Nasal Cannula 2.0 07/28/16 22:00 93 19 138/55 96 Nasal Cannula 2.0 07/28/16 21:00 97 26 130/65 98 Nasal Cannula 2.0 07/28/16 20:00 98.8 94 25 127/59 98 Nasal Cannula 2.0 07/28/16 20:00 94 07/28/16 19:38 Nasal Cannula 2.0 28 07/28/16 19:37 85 20 Nasal Cannula 2.0 28 07/28/16 19:37 98 Nasal Cannula 2.0 28 07/28/16 19:00 94 22 122/58 98 Nasal Cannula 2.0 07/28/16 18:00 99 29 126/61 98 Nasal Cannula 2.0 07/28/16 17:00 91 29 110/49 98 Nasal Cannula 2.0 07/28/16 16:00 97.8 89 28 135/53 98 Nasal Cannula 2.0 07/28/16 16:00 93 07/28/16 15:58 Simple Mask 3.0 07/28/16 15:00 93 22 111/67 98 Nasal Cannula 2.0 07/28/16 14:00 83 22 128/81 98 Nasal Cannula 2.0 07/28/16 13:00 96 24 103/44 98 Nasal Cannula 2.0 Intake and Output 07/28/16 07/29/16 19:00 07:00 Intake Total 240 ml 240 ml Balance 240 ml 240 ml Tube Feeding 240 ml 240 ml # Bowel Movements 5 4 Laboratory Tests 07/29/16 08:00: White Blood Count 9.1, Red Blood Count 3.27L, Hemoglobin 11.0L, Hematocrit 35.5L , Mean Corpuscular Volume 108H, Mean Corpuscular Hemoglobin 33.6H, Mean Corpuscular Hemoglobin Concent 30.9L, Red Cell Distribution Width 14.1, Platelet Count 215, Mean Platelet Volume 5.8L, Neutrophils (%) (Auto) 74.3, Lymphocytes (%) (Auto) 8.8L, Monocytes (%) (Auto) 13.3H, Eosinophils (%) (Auto) 2.9, Basophils (%) (Auto) 0.8, Sodium Level 141, Potassium Level 3.4, Chloride Level 94L, Carbon Dioxide Level 31H, Anion Gap 16H, Blood Urea Nitrogen 21, Creatinine 5.1H, Estimat Glomerular Filtration Rate 8.5, Glucose Level 123H, Calcium Level 9.7, Phosphorus Level 4.3, Magnesium Level 2.0, Total Bilirubin 0.5, Aspartate Amino Transf (AST/SGOT) 20, Alanine Aminotransferase (ALT/SGPT) 19, Alkaline Phosphatase 100, Total Protein 6.7, Albumin 3.6, Globulin 3.1, Albumin/Globulin Ratio 1.1 07/29/16 08:20: Arterial Blood pH 7.330L, Arterial Blood Partial Pressure CO2 63.3*H, Arterial Blood Partial Pressure O2 77.1, Arterial Blood HCO3 32.9H, Arterial Blood Oxygen Saturation 95.4, Arterial Blood Base Excess 5.4, Jarred Test Positive Height (Feet): 4 Height (Inches): 10.00 Weight (Pounds): 186 Objective General Appearance: WD/WN, alert. extubated Neck: supple Cardiovascular: regular rhythm Respiratory/Chest: coarse BS Abdomen: normal bowel sounds, non tender, soft, no organomegaly Edema: no edema noted Arm (L), no edema noted Arm (R), no edema noted Leg (L), no edema noted Leg (R), no edema noted Pedal (L), no edema noted Pedal (R), no edema noted Generalized Neurologic: counter roller II-XII grossly normal, no motor/sensory deficits, alert, responsive Lymphatic: normal anterior cervical (L), normal anterior cervical (R), normal axillary (L), normal axillary (R), normal inguinal (L), normal inguinal (R), normal other, normal posterior cervical (L), normal posterior cervical (R), normal submandibular (L), normal submandibular (R), normal supraclavicular (L), normal supraclavicular (R) TOMI GONZALES Jul 29, 2016 12:35
[2016-07-29] MEDS ORDERED: NS 275ml ONE (14:45)
[2016-07-29] MEDS ORDERED: Tubing IV Secondary IV ONE (14:45)
--- NOTE | 2016-07-29 15:49 | Nephrology Progress Note ---
Assessment/Plan Problem List: (1) Respiratory failure with hypoxia (2) Hemiplegia of nondominant side as late effect of cerebrovascular disease (3) Respiratory failure requiring intubation (4) End-stage renal disease Plan no significant fluid overload, continue pulmonary care, epogen, low bp and - 1000 uf on hd 07/28, extubated now Subjective Constitutional: Reports: weakness HEENT: Reports: no symptoms Genitourinary: Reports: incontinence Neurologic/Psychiatric: Reports: pre-existing deficit Objective Objective Last 24 Hour Vital Signs Date Time Temp Pulse Resp B/P Pulse Ox O2 Delivery O2 Flow Rate FiO2 07/29/16 15:33 90 20 100 Nasal Cannula 2.0 07/29/16 15:20 100 20 94 Nasal Cannula 2.0 07/29/16 12:00 143 07/29/16 12:00 97.6 93 19 142/65 99 Nasal Cannula 2.0 07/29/16 11:46 93 22 100 Nasal Cannula 2.0 07/29/16 11:35 93 22 97 Nasal Cannula 2.0 07/29/16 08:43 92 07/29/16 08:03 Nasal Cannula 2.0 07/29/16 08:02 96 Nasal Cannula 2.0 07/29/16 08:01 90 22 Nasal Cannula 2.0 07/29/16 08:00 97.3 90 18 133/59 100 Nasal Cannula 2.0 07/29/16 08:00 92 07/29/16 03:00 97.9 28 117/55 97 Nasal Cannula 2.0 07/29/16 02:00 97.7 96 24 133/64 95 Nasal Cannula 2.0 07/29/16 01:00 97.7 96 24 133/64 95 Nasal Cannula 2.0 07/29/16 00:00 97.7 96 24 133/64 95 Nasal Cannula 07/29/16 00:00 93 07/28/16 23:00 94 23 130/57 96 Nasal Cannula 2.0 07/28/16 22:00 93 19 138/55 96 Nasal Cannula 2.0 07/28/16 21:00 97 26 130/65 98 Nasal Cannula 2.0 07/28/16 20:00 98.8 94 25 127/59 98 Nasal Cannula 2.0 07/28/16 20:00 94 07/28/16 19:38 Nasal Cannula 2.0 28 07/28/16 19:37 85 20 Nasal Cannula 2.0 28 07/28/16 19:37 98 Nasal Cannula 2.0 28 07/28/16 19:00 94 22 122/58 98 Nasal Cannula 2.0 07/28/16 18:00 99 29 126/61 98 Nasal Cannula 2.0 07/28/16 17:00 91 29 110/49 98 Nasal Cannula 2.0 07/28/16 16:00 97.8 89 28 135/53 98 Nasal Cannula 2.0 07/28/16 16:00 93 07/28/16 15:58 Simple Mask 3.0 Intake and Output 07/28/16 07/29/16 19:00 07:00 Intake Total 240 ml 240 ml Balance 240 ml 240 ml Tube Feeding 240 ml 240 ml # Bowel Movements 5 4 Laboratory Tests 07/29/16 08:00: White Blood Count 9.1, Red Blood Count 3.27L, Hemoglobin 11.0L, Hematocrit 35.5L , Mean Corpuscular Volume 108H, Mean Corpuscular Hemoglobin 33.6H, Mean Corpuscular Hemoglobin Concent 30.9L, Red Cell Distribution Width 14.1, Platelet Count 215, Mean Platelet Volume 5.8L, Neutrophils (%) (Auto) 74.3, Lymphocytes (%) (Auto) 8.8L, Monocytes (%) (Auto) 13.3H, Eosinophils (%) (Auto) 2.9, Basophils (%) (Auto) 0.8, Sodium Level 141, Potassium Level 3.4, Chloride Level 94L, Carbon Dioxide Level 31H, Anion Gap 16H, Blood Urea Nitrogen 21, Creatinine 5.1H, Estimat Glomerular Filtration Rate 8.5, Glucose Level 123H, Calcium Level 9.7, Phosphorus Level 4.3, Magnesium Level 2.0, Total Bilirubin 0.5, Aspartate Amino Transf (AST/SGOT) 20, Alanine Aminotransferase (ALT/SGPT) 19, Alkaline Phosphatase 100, Total Protein 6.7, Albumin 3.6, Globulin 3.1, Albumin/Globulin Ratio 1.1 07/29/16 08:20: Arterial Blood pH 7.330L, Arterial Blood Partial Pressure CO2 63.3*H, Arterial Blood Partial Pressure O2 77.1, Arterial Blood HCO3 32.9H, Arterial Blood Oxygen Saturation 95.4, Arterial Blood Base Excess 5.4, Jarred Test Positive Height (Feet): 4 Height (Inches): 10.00 Weight (Pounds): 186 General Appearance: no apparent distress, morbidly obese EENT: normal ENT inspection Neck: non-tender Cardiovascular: regular rhythm Respiratory/Chest: rhonchi - bilaterally Abdomen: non tender, soft Extremities: other - no edema Neurologic: motor weakness TATI DANIEL Jul 29, 2016 15:49
[2016-07-29] MEDS: Norco 5mg/325mg tab ORAL PRN (17:35)
[2016-07-30 00:18] VITALS: BP 115/52
--- NOTE | 2016-07-30 00:45 | Progress Note ---
CARDIOLOGY PROGRESS NOTE DATE: 07/29/2016 SUBJECTIVE: The patient is off the ventilator with no respiratory distress. Swallow evaluation is pending. She continues on hemodialysis with ultrafiltration for volume management. Pending swallow evaluation, NG tube is in place for nutrition. Monitored rhythm is sinus. No significant ectopy. PHYSICAL EXAMINATION: VITAL SIGNS: Blood pressure 142/65, pulse 93, respirations 19, and afebrile. LUNGS: Good breath sounds. HEART: Regular rhythm and rate. Normal S1, S2. ABDOMEN: Soft. EXTREMITIES: Trace dependent edema. NEUROLOGIC: Left hemiparesis. DIAGNOSTIC DATA: Chest x-ray with left infiltrate. IMPRESSION: 1. Acute on chronic respiratory failure, now resolved. 2. Sleep apnea, airway obstruction. 3. End-stage renal disease. 4. Acute on chronic diastolic congestive heart failure. 5. Sinus bradycardia, resolved. 6. Healthcare-acquired pneumonia. PLAN: 1. Antibiotics. 2. Respiratory hygiene. 3. Hemodialysis with ultrafiltration for volume management. 4. Epogen. 5. No current plan for additional antihypertensive. Adalberto May M.D. DR: GWEN JOB#: [id number] CC:
[2016-07-30] MEDS: Albuterol ud Inhalation HHN SCH ×5 (03:21→23:09)
[2016-07-30 04:15] LABS: BASOPHILS % (AUTO) 1.2 % (0.0-2.0); EOSINOPHILS % (AUTO) 2.5 % (0.0-3.0); LYMPHOCYTES % (AUTO) 11.3 % (20.0-45.0); MEAN CORPUSCULAR HGB CONC 30.8 G/DL (32.0-36.0); MEAN CORPUSCULAR VOLUME 107 FL (80-99); MONOCYTES % (AUTO) 13.4 % (1.0-10.0); NEUTROPHILS % (AUTO) 71.6 % (45.0-75.0); PLATELET COUNT 241 K/UL (150-450); RED BLOOD COUNT 3.11 M/UL (4.20-5.40); RED CELL DISTRIBUTION WIDTH 13.3 % (11.6-14.8); WHITE BLOOD COUNT 7.9 K/UL (4.8-10.8)
[2016-07-30 04:22] VITALS: BP 109/52
[2016-07-30 04:32] LABS: ALBUMIN/GLOBULIN RATIO 0.9 (1.0-2.7); CALCIUM 9.1 mg/dL (8.6-10.2); CREATININE 6.4 mg/dL (0.5-0.9); GLOMERULAR FILTRATION RATE 6.5 mL/min (>60); POTASSIUM 2.9 mEQ/L (3.4-4.9); TOTAL PROTEIN 6.3 g/dL (6.6-8.7)
[2016-07-30 08:00] VITALS: BP 125/74
[2016-07-30] MEDS: Dyna-Hex 2% Top Sol 8oz TOPIC SCH (08:47)
[2016-07-30] MEDS: Docusate 100mg/10ml Liq NG SCH ×2 (08:54→18:00)
--- NOTE | 2016-07-30 09:05 | General Progress Note ---
Assessment/Plan Problem List: (1) DM renal manif type II ICD Codes: E11.29 - Type 2 diabetes mellitus with other diabetic kidney complication SNOMED: 74657845, 985024003 (2) Hemiplegia of nondominant side as late effect of cerebrovascular disease ICD Codes: I69.959 - Hemiplegia and hemiparesis following unspecified cerebrovascular disease affecting unspecified side SNOMED: 971701763 (3) Respiratory acidosis ICD Codes: E87.2 - Acidosis SNOMED: 05593731 (4) Anemia in chronic kidney disease ICD Codes: N18.9 - Chronic kidney disease, unspecified; D63.1 - Anemia in chronic kidney disease SNOMED: 421273718 (5) Morbid obesity with BMI of 60.0-69.9, adult ICD Codes: E66.01 - Morbid (severe) obesity due to excess calories; Z68.44 - Body mass index (BMI) 60.0-69.9, adult SNOMED: 281510082, 641156896 (6) CHF exacerbation ICD Codes: I50.9 - Heart failure, unspecified SNOMED: 77348700, 514479028 Qualifiers: Qualified Codes: I50.9 - Heart failure, unspecified (7) Respiratory failure requiring intubation ICD Codes: J96.90 - Respiratory failure, unspecified, unspecified whether with hypoxia or hypercapnia; Z68.44 - Body mass index (BMI) 60.0-69.9, adult SNOMED: 408818496, 601065146 (8) Respiratory failure with hypoxia ICD Codes: J96.91 - Respiratory failure, unspecified with hypoxia SNOMED: 95695209934346089 Qualifiers: Qualified Codes: J96.01 - Acute respiratory failure with hypoxia Assessment/Plan swallow rx keep ngt in place until po intake adequate will consider dc ngt if taking good po resp rx suctioning wean per pulm iv abx monitor cxr follow up cultures HD per renal out of bed pt/ot Subjective ROS Limited/Unobtainable: No Constitutional: Reports: malaise, weakness HEENT: Reports: no symptoms Cardiovascular: Reports: no symptoms Respiratory: Reports: cough, shortness of breath Gastrointestinal/Abdominal: Reports: no symptoms Genitourinary: Reports: no symptoms Neurologic/Psychiatric: Reports: no symptoms Endocrine: Reports: no symptoms Hematologic/Lymphatic: Reports: no symptoms Allergies: Coded Allergies: AMITRIPTYLINE (Verified Allergy, Unknown, 11/15/14) When taken with glipizide pts Blood glucose was critically low. MD stopped medication ATENOLOL (Verified Allergy, Unknown, 11/03/14) GLIPIZIDE (Verified Allergy, Unknown, 11/15/14) Pt is not diabetic. When prescribed pt had symptoms of lethargy, somnolence, depressed, anxiousness. Medication was discontinued. UNABLE TO ASSESS (Unverified , 07/21/16) Subjective no events. want top get out of bed to chair. denies sob. Objective Last 24 Hour Vital Signs Date Time Temp Pulse Resp B/P Pulse Ox O2 Delivery O2 Flow Rate FiO2 07/30/16 08:00 97.9 96 20 125/74 Nasal Cannula 2.0 100 07/30/16 04:22 97.3 84 20 109/52 98 Bi-pap 07/30/16 04:00 83 07/30/16 03:30 84 22 100 Bi-pap 35 07/30/16 03:22 86 22 98 Facial 35 07/30/16 03:21 86 24 98 Bi-pap 35 07/30/16 01:17 84 22 98 Facial 35 07/30/16 00:18 97.0 88 20 115/52 100 Bi-pap 07/30/16 00:00 83 07/29/16 23:30 86 22 100 Bi-pap 35 07/29/16 23:20 82 24 98 Bi-pap 35 07/29/16 23:19 82 24 98 Facial 35 07/29/16 21:29 92 22 98 Facial 35 07/29/16 20:27 97.9 94 20 109/52 98 07/29/16 20:00 98 07/29/16 19:20 102 22 100 Nasal Cannula 28.0 07/29/16 19:13 Nasal Cannula 2.0 28 07/29/16 19:13 97 Nasal Cannula 2.0 28 07/29/16 19:11 100 23 Nasal Cannula 2.0 28 07/29/16 19:11 100 23 97 Nasal Cannula 2.0 28 07/29/16 16:00 97 07/29/16 16:00 97.0 102 20 125/60 97 Nasal Cannula 2.0 07/29/16 15:33 90 20 100 Nasal Cannula 2.0 07/29/16 15:20 100 20 94 Nasal Cannula 2.0 07/29/16 12:00 95 07/29/16 12:00 97.6 93 19 142/65 99 Nasal Cannula 2.0 07/29/16 11:46 93 22 100 Nasal Cannula 2.0 07/29/16 11:35 93 22 97 Nasal Cannula 2.0 Intake and Output 07/29/16 07/30/16 19:00 07:00 # Voids 1 # Bowel Movements 1 Laboratory Tests 07/30/16 04:00: White Blood Count 7.9, Red Blood Count 3.11L, Hemoglobin 10.3L, Hematocrit 33.4L , Mean Corpuscular Volume 107H, Mean Corpuscular Hemoglobin 33.0H, Mean Corpuscular Hemoglobin Concent 30.8L, Red Cell Distribution Width 13.3, Platelet Count 241, Mean Platelet Volume 6.0L, Neutrophils (%) (Auto) 71.6, Lymphocytes (%) (Auto) 11.3L, Monocytes (%) (Auto) 13.4H, Eosinophils (%) (Auto ) 2.5, Basophils (%) (Auto) 1.2, Sodium Level 139, Potassium Level 2.9L, Chloride Level 92L, Carbon Dioxide Level 30, Anion Gap 17H, Blood Urea Nitrogen 25H, Creatinine 6.4H, Estimat Glomerular Filtration Rate 6.5, Glucose Level 90, Calcium Level 9.1, Total Bilirubin 0.4, Aspartate Amino Transf (AST/SGOT) 16, Alanine Aminotransferase (ALT/SGPT) 15, Alkaline Phosphatase 79, Total Protein 6.3L, Albumin 3.1L, Globulin 3.2, Albumin/Globulin Ratio 0.9L Height (Feet): 4 Height (Inches): 10.00 Weight (Pounds): 212 Objective General Appearance: WD/WN, alert. extubated Neck: supple Cardiovascular: regular rhythm Respiratory/Chest: coarse BS Abdomen: normal bowel sounds, non tender, soft, no organomegaly Edema: no edema noted Arm (L), no edema noted Arm (R), no edema noted Leg (L), no edema noted Leg (R), no edema noted Pedal (L), no edema noted Pedal (R), no edema noted Generalized Neurologic: operations and intelligence assistant II-XII grossly normal, no motor/sensory deficits, alert, responsive Lymphatic: normal anterior cervical (L), normal anterior cervical (R), normal axillary (L), normal axillary (R), normal inguinal (L), normal inguinal (R), normal other, normal posterior cervical (L), normal posterior cervical (R), normal submandibular (L), normal submandibular (R), normal supraclavicular (L), normal supraclavicular (R) TOMI GONZALES Jul 30, 2016 09:05
[2016-07-30 09:56] LABS: ABG PCO2 61.2 mmHg (35.0-45.0)
[2016-07-30 09:57] LABS: ABG ALLEN TEST POSITIVE; ABG BASE EXCESS 4.7
--- NOTE | 2016-07-30 10:45 | Diagnostic Imaging Report ---
Indications: Shortness of breath Technique: Portable AP chest Findings: Comparison: 07/28/16 Inspiratory has improved. Cardiomegaly, bilateral interstitial prominence, probable small right pleural effusion unchanged. Linear density left midlung persists, decreased. Left costophrenic angle remains indistinct. Nasogastric tube remains in place. No new abnormality identified. IMPRESSION: Stable bilateral congestive changes Persistent left midlung subsegmental atelectasis, decreased
[2016-07-30 12:00] VITALS: BP 124/89
--- NOTE | 2016-07-30 14:54 | Critical Care Progress Note ---
Assessment/Plan Assessment/Plan IMPRESSION: 1. End-stage renal disease. 2. Cbayu-vb-qesupuu respiratory failure. 3. Obstructive sleep apnea. 4. poor airway 5. Insulin-dependent diabetes. 6. cerebrovascular accident with left-sided weakness. 7. hypotension 8. leukocytosis 9. anemia 10. possible sepsis 11. sinus bradycardia 12. left lung infiltrate and ?collapse PLAN care noted and reviewed exam noted and reviewed CPT and HHN as is monitor for changes respiratory care reviewed meds supportive care suction oxygen therapy near baseline BIPAP at HS and PRN monitor airway doing well follow up ABG and imaging closely close follow up medications/laboratory data/nursing notes reviewed in detail note reviewed and edited care discussed with RN and RT Critical Care - Subjective Interval Events: awake on BIPAP no distress ROS Limited/Unobtainable: Yes EKG Rhythm: Sinus Rhythm I&O: Intake and Output 07/29/16 07/30/16 19:00 07:00 # Voids 1 # Bowel Movements 1 Critical Care - Objective ET-Tube: 7.5 ET Position: 20 Last 24 Hour Vital Signs Date Time Temp Pulse Resp B/P Pulse Ox O2 Delivery O2 Flow Rate FiO2 07/30/16 14:49 99 22 95 Nasal Cannula 2.0 28 07/30/16 13:27 96 22 98 07/30/16 12:00 85 18 124/89 98 Room Air 07/30/16 12:00 95 07/30/16 10:50 85 24 99 Facial 35 07/30/16 10:47 89 22 100 Bi-pap 35 07/30/16 10:43 99 22 98 Nasal Cannula 2.0 28 07/30/16 09:36 99 22 98 Nasal Cannula 2.0 28 07/30/16 08:00 95 07/30/16 08:00 97.9 96 20 125/74 Nasal Cannula 2.0 100 07/30/16 07:45 98 Nasal Cannula 2.0 28 07/30/16 07:45 Nasal Cannula 2.0 28 07/30/16 07:45 99 23 Nasal Cannula 2.0 28 07/30/16 04:22 97.3 84 20 109/52 98 Bi-pap 07/30/16 04:00 83 07/30/16 03:30 84 22 100 Bi-pap 35 07/30/16 03:22 86 22 98 Facial 35 07/30/16 03:21 86 24 98 Bi-pap 35 07/30/16 01:17 84 22 98 Facial 35 07/30/16 00:18 97.0 88 20 115/52 100 Bi-pap 07/30/16 00:00 83 07/29/16 23:30 86 22 100 Bi-pap 35 07/29/16 23:20 82 24 98 Bi-pap 35 07/29/16 23:19 82 24 98 Facial 35 07/29/16 21:29 92 22 98 Facial 35 07/29/16 20:27 97.9 94 20 109/52 98 07/29/16 20:00 98 07/29/16 19:20 102 22 100 Nasal Cannula 28.0 07/29/16 19:13 Nasal Cannula 2.0 28 07/29/16 19:13 97 Nasal Cannula 2.0 28 07/29/16 19:11 100 23 Nasal Cannula 2.0 28 07/29/16 19:11 100 23 97 Nasal Cannula 2.0 28 07/29/16 16:00 97 07/29/16 16:00 97.0 102 20 125/60 97 Nasal Cannula 2.0 07/29/16 15:33 90 20 100 Nasal Cannula 2.0 07/29/16 15:20 100 20 94 Nasal Cannula 2.0 Labs: Labs Test 07/27/16 16:30 07/28/16 04:30 07/29/16 08:00 07/29/16 08:20 Arterial Blood pH 7.300 (7.350-7.450) 7.330 (7.350-7.450) Arterial Blood Partial Pressure CO2 53.0 mmHg (35.0-45.0) 63.3 mmHg (35.0-45.0) Arterial Blood Partial Pressure O2 100.0 mmHg (75.0-100.0) 77.1 mmHg (75.0-100.0) Arterial Blood HCO3 25.2 mmol/L (22.0-26.0) 32.9 mmol/L (22.0-26.0) Arterial Blood Oxygen Saturation 98.0 % (92.0-98.0) 95.4 % (92.0-98.0) Arterial Blood Base Excess -1.7 5.4 Jarred Test Positive Positive Random Vancomycin Level 14.9 ug/mL White Blood Count 9.1 K/UL (4.8-10.8) Red Blood Count 3.27 M/UL (4.20-5.40) Hemoglobin 11.0 G/DL (12.0-16.0) Hematocrit 35.5 % (37.0-47.0) Mean Corpuscular Volume 108 FL (80-99) Mean Corpuscular Hemoglobin 33.6 PG (27.0-31.0) Mean Corpuscular Hemoglobin Concent 30.9 G/DL (32.0-36.0) Red Cell Distribution Width 14.1 % (11.6-14.8) Platelet Count 215 K/UL (150-450) Mean Platelet Volume 5.8 FL (6.5-10.1) Neutrophils (%) (Auto) 74.3 % (45.0-75.0) Lymphocytes (%) (Auto) 8.8 % (20.0-45.0) Monocytes (%) (Auto) 13.3 % (1.0-10.0) Eosinophils (%) (Auto) 2.9 % (0.0-3.0) Basophils (%) (Auto) 0.8 % (0.0-2.0) Sodium Level 141 mEQ/L (135-145) Potassium Level 3.4 mEQ/L (3.4-4.9) Chloride Level 94 mEQ/L (98-107) Carbon Dioxide Level 31 mEQ/L (20-30) Anion Gap 16 (5-15) Blood Urea Nitrogen 21 mg/dL (7-23) Creatinine 5.1 mg/dL (0.5-0.9) Estimat Glomerular Filtration Rate 8.5 mL/min (>60) Glucose Level 123 mg/dL (74-106) Calcium Level 9.7 mg/dL (8.6-10.2) Phosphorus Level 4.3 mg/dL (2.5-4.8) Magnesium Level 2.0 mg/dL (1.7-2.5) Total Bilirubin 0.5 mg/dL (0.0-1.2) Aspartate Amino Transf (AST/SGOT) 20 U/L (5-40) Alanine Aminotransferase (ALT/SGPT) 19 U/L (3-33) Alkaline Phosphatase 100 U/L (35-104) Total Protein 6.7 g/dL (6.6-8.7) Albumin 3.6 g/dL (3.5-5.2) Globulin 3.1 g/dL Albumin/Globulin Ratio 1.1 (1.0-2.7) Test 07/30/16 04:00 White Blood Count 7.9 K/UL (4.8-10.8) Red Blood Count 3.11 M/UL (4.20-5.40) Hemoglobin 10.3 G/DL (12.0-16.0) Hematocrit 33.4 % (37.0-47.0) Mean Corpuscular Volume 107 FL (80-99) Mean Corpuscular Hemoglobin 33.0 PG (27.0-31.0) Mean Corpuscular Hemoglobin Concent 30.8 G/DL (32.0-36.0) Red Cell Distribution Width 13.3 % (11.6-14.8) Platelet Count 241 K/UL (150-450) Mean Platelet Volume 6.0 FL (6.5-10.1) Neutrophils (%) (Auto) 71.6 % (45.0-75.0) Lymphocytes (%) (Auto) 11.3 % (20.0-45.0) Monocytes (%) (Auto) 13.4 % (1.0-10.0) Eosinophils (%) (Auto) 2.5 % (0.0-3.0) Basophils (%) (Auto) 1.2 % (0.0-2.0) Arterial Blood pH 7.336 (7.350-7.450) Arterial Blood Partial Pressure CO2 61.2 mmHg (35.0-45.0) Arterial Blood Partial Pressure O2 105.4 mmHg (75.0-100.0) Arterial Blood HCO3 32.0 mmol/L (22.0-26.0) Arterial Blood Oxygen Saturation 97.7 % (92.0-98.0) Arterial Blood Base Excess 4.7 Jarred Test Positive Sodium Level 139 mEQ/L (135-145) Potassium Level 2.9 mEQ/L (3.4-4.9) Chloride Level 92 mEQ/L (98-107) Carbon Dioxide Level 30 mEQ/L (20-30) Anion Gap 17 (5-15) Blood Urea Nitrogen 25 mg/dL (7-23) Creatinine 6.4 mg/dL (0.5-0.9) Estimat Glomerular Filtration Rate 6.5 mL/min (>60) Glucose Level 90 mg/dL (74-106) Calcium Level 9.1 mg/dL (8.6-10.2) Total Bilirubin 0.4 mg/dL (0.0-1.2) Aspartate Amino Transf (AST/SGOT) 16 U/L (5-40) Alanine Aminotransferase (ALT/SGPT) 15 U/L (3-33) Alkaline Phosphatase 79 U/L (35-104) Total Protein 6.3 g/dL (6.6-8.7) Albumin 3.1 g/dL (3.5-5.2) Globulin 3.2 g/dL Albumin/Globulin Ratio 0.9 (1.0-2.7) Objective: PHYSICAL EXAMINATION: GENERAL: alert NAD HEENT: extubated; PERRL on BIPAP NECK: No adenopathy. short LUNGS: improved breath sounds left base. reduced rhonchi left HEART: RR slightly chasity without MRG ABDOMEN: Obese and soft. No HSM; no distention; NABS EXTREMITIES: no CCE; She has a left upper arm AV fistula with a good thrill. NEUROLOGIC: left hemiparesis. reviewed and edited awake Micro: Microbiology Date/Time Source Procedure Growth Status 07/28/16 15:15 Stool Clostridium difficile Toxin Assay - Final Complete Accucheck: 127 FITO SIMS Jul 30, 2016 14:54
--- NOTE | 2016-07-30 15:37 | Nephrology Progress Note ---
Assessment/Plan Problem List: (1) Respiratory failure with hypoxia (2) Hemiplegia of nondominant side as late effect of cerebrovascular disease (3) Respiratory failure requiring intubation (4) End-stage renal disease Plan no significant fluid overload, continue pulmonary care, epogen, low bp and - 1000 uf on hd 07/28, extubated , low K adjust dialysate for 07/31 Subjective Constitutional: Reports: weakness HEENT: Reports: no symptoms Genitourinary: Reports: no symptoms Neurologic/Psychiatric: Reports: pre-existing deficit Objective Objective Last 24 Hour Vital Signs Date Time Temp Pulse Resp B/P Pulse Ox O2 Delivery O2 Flow Rate FiO2 07/30/16 14:55 99 20 99 Nasal Cannula 2.0 28 07/30/16 14:49 99 22 95 Nasal Cannula 2.0 28 07/30/16 13:27 96 22 98 07/30/16 12:00 85 18 124/89 98 Room Air 07/30/16 12:00 95 07/30/16 10:50 85 24 99 Facial 35 07/30/16 10:47 89 22 100 Bi-pap 35 07/30/16 10:43 99 22 98 Nasal Cannula 2.0 28 07/30/16 09:36 99 22 98 Nasal Cannula 2.0 28 07/30/16 08:00 95 07/30/16 08:00 97.9 96 20 125/74 Nasal Cannula 2.0 100 07/30/16 07:45 98 Nasal Cannula 2.0 28 07/30/16 07:45 Nasal Cannula 2.0 28 07/30/16 07:45 99 23 Nasal Cannula 2.0 28 07/30/16 04:22 97.3 84 20 109/52 98 Bi-pap 07/30/16 04:00 83 07/30/16 03:30 84 22 100 Bi-pap 35 07/30/16 03:22 86 22 98 Facial 35 07/30/16 03:21 86 24 98 Bi-pap 35 07/30/16 01:17 84 22 98 Facial 35 07/30/16 00:18 97.0 88 20 115/52 100 Bi-pap 07/30/16 00:00 83 07/29/16 23:30 86 22 100 Bi-pap 35 07/29/16 23:20 82 24 98 Bi-pap 35 07/29/16 23:19 82 24 98 Facial 35 07/29/16 21:29 92 22 98 Facial 35 07/29/16 20:27 97.9 94 20 109/52 98 07/29/16 20:00 98 07/29/16 19:20 102 22 100 Nasal Cannula 28.0 07/29/16 19:13 Nasal Cannula 2.0 28 07/29/16 19:13 97 Nasal Cannula 2.0 28 07/29/16 19:11 100 23 Nasal Cannula 2.0 28 07/29/16 19:11 100 23 97 Nasal Cannula 2.0 28 07/29/16 16:00 97 07/29/16 16:00 97.0 102 20 125/60 97 Nasal Cannula 2.0 Intake and Output 07/29/16 07/30/16 19:00 07:00 # Voids 1 # Bowel Movements 1 Laboratory Tests 07/30/16 04:00: White Blood Count 7.9, Red Blood Count 3.11L, Hemoglobin 10.3L, Hematocrit 33.4L , Mean Corpuscular Volume 107H, Mean Corpuscular Hemoglobin 33.0H, Mean Corpuscular Hemoglobin Concent 30.8L, Red Cell Distribution Width 13.3, Platelet Count 241, Mean Platelet Volume 6.0L, Neutrophils (%) (Auto) 71.6, Lymphocytes (%) (Auto) 11.3L, Monocytes (%) (Auto) 13.4H, Eosinophils (%) (Auto ) 2.5, Basophils (%) (Auto) 1.2, Arterial Blood pH 7.336L, Arterial Blood Partial Pressure CO2 61.2*H, Arterial Blood Partial Pressure O2 105.4H, Arterial Blood HCO3 32.0H, Arterial Blood Oxygen Saturation 97.7, Arterial Blood Base Excess 4.7, Jarred Test Positive, Sodium Level 139, Potassium Level 2.9L, Chloride Level 92L, Carbon Dioxide Level 30, Anion Gap 17H, Blood Urea Nitrogen 25H, Creatinine 6.4H, Estimat Glomerular Filtration Rate 6.5, Glucose Level 90, Calcium Level 9.1, Total Bilirubin 0.4, Aspartate Amino Transf (AST/ SGOT) 16, Alanine Aminotransferase (ALT/SGPT) 15, Alkaline Phosphatase 79, Total Protein 6.3L, Albumin 3.1L, Globulin 3.2, Albumin/Globulin Ratio 0.9L Height (Feet): 4 Height (Inches): 10.00 Weight (Pounds): 212 General Appearance: no apparent distress, morbidly obese EENT: normal ENT inspection Neck: normal alignment Cardiovascular: normal rate, regular rhythm Respiratory/Chest: decreased breath sounds Abdomen: soft, no organomegaly Extremities: other - no edema Neurologic: motor weakness TATI DANIEL Jul 30, 2016 15:37
[2016-07-30 16:00] VITALS: BP 123/49
[2016-07-30 20:00] VITALS: BP 150/67
--- NOTE | 2016-07-30 22:30 | Progress Note ---
DATE: 07/30/2016 CARDIOLOGY PROGRESS NOTE SUBJECTIVE: The patient had an NG tube. She is awaiting swallow evaluation before nutrition can be initiated. The patient remains on hemodialysis and ultrafiltration for volume management. The patient is on ventilator support for the last several days without respiratory distress. No shortness of breath noted. OBJECTIVE: VITAL SIGNS: Blood pressure 125/74, pulse 84 to 96, respiratory rate 20 and afebrile. Monitored rhythm, sinus. The patient is occasionally on BiPAP. LUNGS: Coarse breath sounds. HEART: Regular rhythm and rate. Normal S1 and S2. ABDOMEN: Soft. EXTREMITIES: Trace edema. LABORATORY AND DIAGNOSTIC DATA: Chest x-ray revealed persistent congestive changes. White count 7.9 and hemoglobin 10.3. Sodium 139, potassium 2.9, bicarbonate 30, BUN 25, and creatinine 6.4. Albumin 3.1. ABG, pH 7.34, pCO2 61 and pO2 105. IMPRESSION: 1. Acute on chronic respiratory acidosis. 2. Status post respiratory failure. 3. Hypoventilation syndrome. 4. End-stage renal disease. 5. Acute on chronic diastolic congestive heart failure. 6. Insulin-requiring diabetes with multiple complications. 7. Cerebrovascular accident with left hemiparesis. 8. Sinus bradycardia, resolved. PLAN: 1. Avoid beta-blockers due to potential for bradyarrhythmias. 2. Hemodialysis with ultrafiltration for volume management. 3. Await swallow evaluation. 4. Continue NG tube feedings for now. 5. Respiratory hygiene. 6. Antimicrobials. 7. Insulin titration. 8. BiPAP as needed. Adalberto May M.D. DR: ERICK JOB#: [id number] CC:
[2016-07-31] VITALS (7 sets, daily range): BP systolic 106–153; BP diastolic 51–68
[2016-07-31] MEDS: Albuterol ud Inhalation HHN SCH ×6 (03:20→23:24)
[2016-07-31] MEDS: Norco 5mg/325mg tab ORAL PRN ×2 (04:57→21:31)
[2016-07-31 05:25] LABS: BASOPHILS % (AUTO) 1.3 % (0.0-2.0); EOSINOPHILS % (AUTO) 2.2 % (0.0-3.0); LYMPHOCYTES % (AUTO) 11.7 % (20.0-45.0); MEAN CORPUSCULAR HEMOGLOBIN 32.8 PG (27.0-31.0); MEAN CORPUSCULAR HGB CONC 30.8 G/DL (32.0-36.0); MEAN CORPUSCULAR VOLUME 107 FL (80-99); MEAN PLATELET VOLUME 4.8 FL (6.5-10.1); MONOCYTES % (AUTO) 11.4 % (1.0-10.0); NEUTROPHILS % (AUTO) 73.4 % (45.0-75.0); PLATELET COUNT 243 K/UL (150-450); RED BLOOD COUNT 3.24 M/UL (4.20-5.40); RED CELL DISTRIBUTION WIDTH 13.6 % (11.6-14.8); WHITE BLOOD COUNT 9.3 K/UL (4.8-10.8)
[2016-07-31 05:40] LABS: CALCIUM 9.4 mg/dL (8.6-10.2); CREATININE 7.9 mg/dL (0.5-0.9); GLOMERULAR FILTRATION RATE 5.1 mL/min (>60)
--- NOTE | 2016-07-31 08:38 | Critical Care Progress Note ---
Assessment/Plan Assessment/Plan IMPRESSION: 1. End-stage renal disease. 2. Tgrgo-bu-zxmotwd respiratory failure. 3. Obstructive sleep apnea. 4. poor airway 5. Insulin-dependent diabetes. 6. cerebrovascular accident with left-sided weakness. 7. hypotension 8. leukocytosis 9. anemia 10. possible sepsis 11. sinus bradycardia 12. left lung infiltrate and ?collapse PLAN care noted and reviewed exam noted and reviewed CPT and HHN as is for now monitor for changes respiratory care reviewed meds supportive care suction as needed oxygen therapy near baseline BIPAP at HS and PRN monitor airway doing well follow up ABG and imaging closely for change close follow up for now medications/laboratory data/nursing notes reviewed in detail note reviewed and edited care discussed with RN and RT Critical Care - Subjective Interval Events: much more alert conversant NAD Condition: improving EKG Rhythm: Sinus Rhythm I&O: Intake and Output 07/30/16 07/31/16 19:00 07:00 Intake Total 200 ml Balance 200 ml Intake Oral 200 ml # Voids 2 # Bowel Movements 1 Critical Care - Objective ET-Tube: 7.5 ET Position: 20 Last 24 Hour Vital Signs Date Time Temp Pulse Resp B/P Pulse Ox O2 Delivery O2 Flow Rate FiO2 07/31/16 08:07 98.2 105 20 106/51 99 Nasal Cannula 2.0 07/31/16 07:22 101 24 98 Nasal Cannula 2.0 07/31/16 07:13 Nasal Cannula 2.0 28 07/31/16 07:13 2.0 28 07/31/16 07:13 99 20 Nasal Cannula 2.0 07/31/16 07:13 Nasal Cannula 2.0 28 07/31/16 07:13 99 20 97 Nasal Cannula 2.0 28 07/31/16 07:13 97 Nasal Cannula 2.0 28 07/31/16 06:01 Nasal Cannula 2.0 07/31/16 05:56 97.0 07/31/16 04:00 93 07/31/16 04:00 98.0 102 21 152/68 98 Bi-pap 07/31/16 03:30 94 24 98 Bi-pap 35 07/31/16 03:20 94 23 97 Bi-pap 35 07/31/16 03:20 94 23 98 Facial 35 07/31/16 01:35 94 24 98 Facial 35 07/31/16 00:00 97.0 96 22 153/65 100 Bi-pap 07/31/16 00:00 93 07/30/16 23:42 96 32 97 Facial 35 07/30/16 23:16 94 26 98 Bi-pap 35 07/30/16 23:16 92 28 97 Bi-pap 2.0 28 07/30/16 22:30 88 26 97 Facial 35 07/30/16 20:00 97.9 99 20 150/67 96 Nasal Cannula 2.0 07/30/16 20:00 100 07/30/16 19:25 97 22 99 Nasal Cannula 2.0 28 07/30/16 19:17 97 Nasal Cannula 2.0 28 07/30/16 19:17 97 24 96 Nasal Cannula 2.0 28 07/30/16 19:17 97 24 Nasal Cannula 2.0 28 07/30/16 19:17 Nasal Cannula 2.0 28 07/30/16 16:00 97.9 89 19 123/49 Nasal Cannula 2.0 93 07/30/16 16:00 101 07/30/16 14:55 99 20 99 Nasal Cannula 2.0 28 07/30/16 14:49 99 22 95 Nasal Cannula 2.0 28 07/30/16 13:27 96 22 98 07/30/16 12:00 85 18 124/89 98 Room Air 07/30/16 12:00 95 07/30/16 10:50 85 24 99 Facial 35 07/30/16 10:47 89 22 100 Bi-pap 35 07/30/16 10:43 99 22 98 Nasal Cannula 2.0 28 07/30/16 09:36 99 22 98 Nasal Cannula 2.0 28 Labs: Labs Test 07/29/16 08:00 07/29/16 08:20 07/30/16 04:00 07/31/16 04:00 White Blood Count 9.1 K/UL (4.8-10.8) 7.9 K/UL (4.8-10.8) 9.3 K/UL (4.8-10.8) Red Blood Count 3.27 M/UL (4.20-5.40) 3.11 M/UL (4.20-5.40) 3.24 M/UL (4.20-5.40) Hemoglobin 11.0 G/DL (12.0-16.0) 10.3 G/DL (12.0-16.0) 10.6 G/DL (12.0-16.0) Hematocrit 35.5 % (37.0-47.0) 33.4 % (37.0-47.0) 34.5 % (37.0-47.0) Mean Corpuscular Volume 108 FL (80-99) 107 FL (80-99) 107 FL (80-99) Mean Corpuscular Hemoglobin 33.6 PG (27.0-31.0) 33.0 PG (27.0-31.0) 32.8 PG (27.0-31.0) Mean Corpuscular Hemoglobin Concent 30.9 G/DL (32.0-36.0) 30.8 G/DL (32.0-36.0) 30.8 G/DL (32.0-36.0) Red Cell Distribution Width 14.1 % (11.6-14.8) 13.3 % (11.6-14.8) 13.6 % (11.6-14.8) Platelet Count 215 K/UL (150-450) 241 K/UL (150-450) 243 K/UL (150-450) Mean Platelet Volume 5.8 FL (6.5-10.1) 6.0 FL (6.5-10.1) 4.8 FL (6.5-10.1) Neutrophils (%) (Auto) 74.3 % (45.0-75.0) 71.6 % (45.0-75.0) 73.4 % (45.0-75.0) Lymphocytes (%) (Auto) 8.8 % (20.0-45.0) 11.3 % (20.0-45.0) 11.7 % (20.0-45.0) Monocytes (%) (Auto) 13.3 % (1.0-10.0) 13.4 % (1.0-10.0) 11.4 % (1.0-10.0) Eosinophils (%) (Auto) 2.9 % (0.0-3.0) 2.5 % (0.0-3.0) 2.2 % (0.0-3.0) Basophils (%) (Auto) 0.8 % (0.0-2.0) 1.2 % (0.0-2.0) 1.3 % (0.0-2.0) Sodium Level 141 mEQ/L (135-145) 139 mEQ/L (135-145) 142 mEQ/L (135-145) Potassium Level 3.4 mEQ/L (3.4-4.9) 2.9 mEQ/L (3.4-4.9) 3.0 mEQ/L (3.4-4.9) Chloride Level 94 mEQ/L (98-107) 92 mEQ/L (98-107) 93 mEQ/L (98-107) Carbon Dioxide Level 31 mEQ/L (20-30) 30 mEQ/L (20-30) 27 mEQ/L (20-30) Anion Gap 16 (5-15) 17 (5-15) 22 (5-15) Blood Urea Nitrogen 21 mg/dL (7-23) 25 mg/dL (7-23) 29 mg/dL (7-23) Creatinine 5.1 mg/dL (0.5-0.9) 6.4 mg/dL (0.5-0.9) 7.9 mg/dL (0.5-0.9) Estimat Glomerular Filtration Rate 8.5 mL/min (>60) 6.5 mL/min (>60) 5.1 mL/min (>60) Glucose Level 123 mg/dL (74-106) 90 mg/dL (74-106) 100 mg/dL (74-106) Calcium Level 9.7 mg/dL (8.6-10.2) 9.1 mg/dL (8.6-10.2) 9.4 mg/dL (8.6-10.2) Phosphorus Level 4.3 mg/dL (2.5-4.8) Magnesium Level 2.0 mg/dL (1.7-2.5) Total Bilirubin 0.5 mg/dL (0.0-1.2) 0.4 mg/dL (0.0-1.2) Aspartate Amino Transf (AST/SGOT) 20 U/L (5-40) 16 U/L (5-40) Alanine Aminotransferase (ALT/SGPT) 19 U/L (3-33) 15 U/L (3-33) Alkaline Phosphatase 100 U/L (35-104) 79 U/L (35-104) Total Protein 6.7 g/dL (6.6-8.7) 6.3 g/dL (6.6-8.7) Albumin 3.6 g/dL (3.5-5.2) 3.1 g/dL (3.5-5.2) Globulin 3.1 g/dL 3.2 g/dL Albumin/Globulin Ratio 1.1 (1.0-2.7) 0.9 (1.0-2.7) Arterial Blood pH 7.330 (7.350-7.450) 7.336 (7.350-7.450) Arterial Blood Partial Pressure CO2 63.3 mmHg (35.0-45.0) 61.2 mmHg (35.0-45.0) Arterial Blood Partial Pressure O2 77.1 mmHg (75.0-100.0) 105.4 mmHg (75.0-100.0) Arterial Blood HCO3 32.9 mmol/L (22.0-26.0) 32.0 mmol/L (22.0-26.0) Arterial Blood Oxygen Saturation 95.4 % (92.0-98.0) 97.7 % (92.0-98.0) Arterial Blood Base Excess 5.4 4.7 Jarred Test Positive Positive Objective: PHYSICAL EXAMINATION: GENERAL: alert NAD HEENT: PERRL off BIPAP; on oxygen NECK: No adenopathy. short LUNGS: stable breath sounds left base. otherwise clear HEART: RR slightly chasity without MRG ABDOMEN: Obese and soft. No HSM; no distention; NABS EXTREMITIES: no CCE; She has a left upper arm AV fistula with a good thrill. NEUROLOGIC: left hemiparesis. reviewed and edited awake and alert Micro: Microbiology Date/Time Source Procedure Growth Status 07/28/16 15:15 Stool Clostridium difficile Toxin Assay - Final Complete Accucheck: 127 FITO SIMS Jul 31, 2016 08:38
[2016-07-31] MEDS: Docusate 100mg/10ml Liq NG SCH (09:00)
[2016-07-31] MEDS: Dyna-Hex 2% Top Sol 8oz TOPIC SCH (09:22)
--- NOTE | 2016-07-31 12:08 | Diagnostic Imaging Report ---
Indication: SOB Technique: One view of the chest Comparison: 07/30/2016 Findings: Again demonstrated are numerous vascular stents in the left axillary, subclavian, and innominate veins. The heart remains enlarged. There are is again demonstrated pulmonary venous congestion. Left hemidiaphragm is now obscured Impression: Interim obscuration of left hemidiaphragm, suggesting increased pleural fluid or parenchymal disease at the left lung base Otherwise stable congestive changes bilaterally. Stable cardiomegaly
[2016-07-31 15:26] LABS: ABG BASE EXCESS 6.8
[2016-07-31 15:27] LABS: ABG ALLEN TEST POSITIVE
[2016-07-31] MEDS ORDERED: Heparin Sod 1000 units/ml 10ml IV ONE (15:45)
[2016-07-31] MEDS: Docusate 250mg cap ORAL SCH (17:15)
[2016-07-31] MEDS ORDERED: Epogen (for ESRD on dialysis) SUBQ SCH (21:00)
[2016-08-01] VITALS (7 sets, daily range): BP systolic 112–135; BP diastolic 50–64
--- NOTE | 2016-08-01 01:45 | Progress Note ---
DATE: 07/31/2016 SUBJECTIVE: The patient remains on respiratory hygiene, requires suctioning and oxygen supplementation. She was on hemodialysis with ultrafiltration for volume management. OBJECTIVE: VITAL SIGNS: Blood pressure 106/51, pulse 105, respiratory rate 20, and afebrile. LUNGS: Diminished breath sounds. Scattered rhonchi. HEART: Regular rhythm. Rapid rate. Normal S1, S2. ABDOMEN: Soft. EXTREMITIES: Trace edema. LABORATORY DATA: White count is 9.3 and hemoglobin is 10.6. Potassium is 3, BUN 29, and creatinine 7.9. IMPRESSION: 1. Status post respiratory failure and aspiration risk. 2. Hypokalemia. 3. End-stage renal disease. 4. Status post respiratory failure. 5. Sleep apnea, poor airway recovered shock due to sepsis, resolved. 6. Sinus bradycardia now with sinus tachycardia. 7. Possible middle left lung infiltrates. PLAN: Continue respiratory hygiene. CPT, bronchodilators, suctioning, oxygen, DVT, and stress ulcer prophylaxis, hemodialysis with ultrafiltration, adjust potassium bath. Would not initiate beta blockade in view of tenuous respiratory parameters and history of chasity arrhythmias. Liam Gonsalves JOB#: [id number] CC:
[2016-08-01] MEDS: Albuterol ud Inhalation HHN SCH ×6 (02:53→23:16)
--- NOTE | 2016-08-01 08:02 | Critical Care Progress Note ---
Assessment/Plan Assessment/Plan IMPRESSION: 1. End-stage renal disease. 2. Dqkml-yo-ixdghew respiratory failure. 3. Obstructive sleep apnea. 4. poor airway 5. Insulin-dependent diabetes. 6. cerebrovascular accident with left-sided weakness. 7. hypotension 8. leukocytosis 9. anemia 10. possible sepsis 11. sinus bradycardia 12. left lung infiltrate and ?collapse PLAN care noted and reviewed exam noted and reviewed CPT and HHN pending cxr today monitor for changes respiratory care reviewed meds supportive care suction as needed oxygen therapy near baseline BIPAP at HS and PRN monitor airway overall improved; avoid any sedation medications/laboratory data/nursing notes reviewed in detail note reviewed and edited care discussed with RN and RT Critical Care - Subjective Interval Events: stabilizing alert care noted ROS Limited/Unobtainable: Yes Condition: improving EKG Rhythm: Sinus Rhythm I&O: Intake and Output 07/31/16 08/01/16 19:00 07:00 Intake Total 360 ml Balance 360 ml Intake Oral 360 ml # Voids 1 # Bowel Movements 2 1 Critical Care - Objective ET-Tube: 7.5 ET Position: 20 Last 24 Hour Vital Signs Date Time Temp Pulse Resp B/P Pulse Ox O2 Delivery O2 Flow Rate FiO2 08/01/16 04:18 80 22 94 Facial 35 08/01/16 04:00 97.3 80 26 135/59 99 Bi-pap 2.0 35 08/01/16 03:43 85 08/01/16 02:54 90 26 99 Bi-pap 35 08/01/16 02:54 86 26 97 Bi-pap 35 08/01/16 02:00 97.7 80 20 135/59 98 Bi-pap 2.0 35 08/01/16 01:11 82 20 98 Facial 35 08/01/16 00:25 93 08/01/16 00:00 97.7 101 20 122/56 97 Bi-pap 2.0 35 07/31/16 23:28 92 22 99 Bi-pap 35 07/31/16 23:27 88 23 98 Bi-pap 35 07/31/16 22:30 88 23 99 Facial 35 07/31/16 20:09 96 20 Nasal Cannula 2.0 28 07/31/16 20:00 Nasal Cannula 2.0 28 07/31/16 20:00 97.7 107 20 123/56 97 Nasal Cannula 2.0 28 07/31/16 20:00 Nasal Cannula 2.0 28 07/31/16 19:41 97 07/31/16 19:30 97 Nasal Cannula 2.0 28 07/31/16 19:30 96 20 98 Nasal Cannula 2.0 28 07/31/16 19:30 Nasal Cannula 2.0 28 07/31/16 19:30 96 20 Nasal Cannula 2.0 28 07/31/16 19:30 100 20 99 Nasal Cannula 2.0 28 07/31/16 18:25 61 16 122/62 96 Nasal Cannula 2.0 07/31/16 16:09 97.7 101 20 126/63 97 Nasal Cannula 2.0 07/31/16 15:46 103 07/31/16 15:36 92 18 97 Nasal Cannula 2.0 07/31/16 15:36 91 18 97 Nasal Cannula 2.0 28 07/31/16 15:25 99 20 99 Nasal Cannula 2.0 28 07/31/16 15:20 98 20 98 Nasal Cannula 2.0 07/31/16 12:05 98.2 98 20 142/68 98 Nasal Cannula 2.0 07/31/16 12:00 104 07/31/16 11:45 100 20 98 Nasal Cannula 2.0 28 07/31/16 11:40 99 20 98 Nasal Cannula 2.0 28 07/31/16 11:35 95 20 96 Nasal Cannula 2.0 28 07/31/16 11:35 95 20 95 2.0 28 07/31/16 08:07 98.2 105 20 106/51 99 Nasal Cannula 2.0 Labs: Labs Test 07/29/16 08:20 07/30/16 04:00 07/31/16 04:00 07/31/16 15:16 Arterial Blood pH 7.330 (7.350-7.450) 7.336 (7.350-7.450) 7.379 (7.350-7.450) Arterial Blood Partial Pressure CO2 63.3 mmHg (35.0-45.0) 61.2 mmHg (35.0-45.0) 58.0 mmHg (35.0-45.0) Arterial Blood Partial Pressure O2 77.1 mmHg (75.0-100.0) 105.4 mmHg (75.0-100.0) 100.6 mmHg (75.0-100.0) Arterial Blood HCO3 32.9 mmol/L (22.0-26.0) 32.0 mmol/L (22.0-26.0) 33.5 mmol/L (22.0-26.0) Arterial Blood Oxygen Saturation 95.4 % (92.0-98.0) 97.7 % (92.0-98.0) 96.8 % (92.0-98.0) Arterial Blood Base Excess 5.4 4.7 6.8 Jarred Test Positive Positive Positive White Blood Count 7.9 K/UL (4.8-10.8) 9.3 K/UL (4.8-10.8) Red Blood Count 3.11 M/UL (4.20-5.40) 3.24 M/UL (4.20-5.40) Hemoglobin 10.3 G/DL (12.0-16.0) 10.6 G/DL (12.0-16.0) Hematocrit 33.4 % (37.0-47.0) 34.5 % (37.0-47.0) Mean Corpuscular Volume 107 FL (80-99) 107 FL (80-99) Mean Corpuscular Hemoglobin 33.0 PG (27.0-31.0) 32.8 PG (27.0-31.0) Mean Corpuscular Hemoglobin Concent 30.8 G/DL (32.0-36.0) 30.8 G/DL (32.0-36.0) Red Cell Distribution Width 13.3 % (11.6-14.8) 13.6 % (11.6-14.8) Platelet Count 241 K/UL (150-450) 243 K/UL (150-450) Mean Platelet Volume 6.0 FL (6.5-10.1) 4.8 FL (6.5-10.1) Neutrophils (%) (Auto) 71.6 % (45.0-75.0) 73.4 % (45.0-75.0) Lymphocytes (%) (Auto) 11.3 % (20.0-45.0) 11.7 % (20.0-45.0) Monocytes (%) (Auto) 13.4 % (1.0-10.0) 11.4 % (1.0-10.0) Eosinophils (%) (Auto) 2.5 % (0.0-3.0) 2.2 % (0.0-3.0) Basophils (%) (Auto) 1.2 % (0.0-2.0) 1.3 % (0.0-2.0) Sodium Level 139 mEQ/L (135-145) 142 mEQ/L (135-145) Potassium Level 2.9 mEQ/L (3.4-4.9) 3.0 mEQ/L (3.4-4.9) Chloride Level 92 mEQ/L (98-107) 93 mEQ/L (98-107) Carbon Dioxide Level 30 mEQ/L (20-30) 27 mEQ/L (20-30) Anion Gap 17 (5-15) 22 (5-15) Blood Urea Nitrogen 25 mg/dL (7-23) 29 mg/dL (7-23) Creatinine 6.4 mg/dL (0.5-0.9) 7.9 mg/dL (0.5-0.9) Estimat Glomerular Filtration Rate 6.5 mL/min (>60) 5.1 mL/min (>60) Glucose Level 90 mg/dL (74-106) 100 mg/dL (74-106) Calcium Level 9.1 mg/dL (8.6-10.2) 9.4 mg/dL (8.6-10.2) Total Bilirubin 0.4 mg/dL (0.0-1.2) Aspartate Amino Transf (AST/SGOT) 16 U/L (5-40) Alanine Aminotransferase (ALT/SGPT) 15 U/L (3-33) Alkaline Phosphatase 79 U/L (35-104) Total Protein 6.3 g/dL (6.6-8.7) Albumin 3.1 g/dL (3.5-5.2) Globulin 3.2 g/dL Albumin/Globulin Ratio 0.9 (1.0-2.7) Objective: PHYSICAL EXAMINATION: GENERAL: alert NAD HEENT: PERRL off BIPAP; on oxygen NECK: No adenopathy. short LUNGS: stable breath sounds without rhonchi HEART: RRR without MRG ABDOMEN: Obese and soft. No HSM; no distention; NABS EXTREMITIES: no CCE; She has a left upper arm AV fistula with a good thrill. NEUROLOGIC: left hemiparesis. reviewed and edited awake and alert Accucheck: 127 FITO SIMS Aug 01, 2016 08:02
[2016-08-01] MEDS: Docusate 250mg cap ORAL SCH ×2 (09:00→18:00)
[2016-08-01] MEDS: Dyna-Hex 2% Top Sol 8oz TOPIC SCH (09:51)
--- NOTE | 2016-08-01 11:02 | Diagnostic Imaging Report ---
Indications: Shortness of breath Technique: Portable AP chest Findings: Comparison: 07/31/16 Cardiomegaly, bilateral interstitial infiltrates, left retrocardiac opacification, patchy airspace consolidation medial right lung base, left costophrenic angle indistinctness suggesting pleural effusion unchanged. No new abnormality identified. IMPRESSION: No change from one day prior
--- NOTE | 2016-08-01 12:38 | Nephrology Progress Note ---
Assessment/Plan Problem List: (1) Respiratory failure with hypoxia (2) Hemiplegia of nondominant side as late effect of cerebrovascular disease (3) Respiratory failure requiring intubation (4) End-stage renal disease Plan no significant fluid overload, continue pulmonary care, epogen, hd 08/02 Subjective Constitutional: Reports: weakness HEENT: Reports: no symptoms Genitourinary: Reports: no symptoms Neurologic/Psychiatric: Reports: pre-existing deficit Objective Objective Last 24 Hour Vital Signs Date Time Temp Pulse Resp B/P Pulse Ox O2 Delivery O2 Flow Rate FiO2 08/01/16 11:02 97 20 99 Nasal Cannula 2.0 28 08/01/16 11:02 97 20 99 Nasal Cannula 2.0 28 08/01/16 08:00 100 08/01/16 08:00 98.1 100 17 134/64 95 Room Air 08/01/16 07:33 90 20 98 Nasal Cannula 2.0 28 08/01/16 07:30 98 Nasal Cannula 2.0 28 08/01/16 07:23 90 20 98 Nasal Cannula 2.0 08/01/16 07:23 Nasal Cannula 2.0 28 08/01/16 04:18 80 22 94 Facial 35 08/01/16 04:00 97.3 80 26 135/59 99 Bi-pap 2.0 35 08/01/16 03:43 85 08/01/16 02:54 90 26 99 Bi-pap 35 08/01/16 02:54 86 26 97 Bi-pap 35 08/01/16 02:00 97.7 80 20 135/59 98 Bi-pap 2.0 35 08/01/16 01:11 82 20 98 Facial 35 08/01/16 00:25 93 08/01/16 00:00 97.7 101 20 122/56 97 Bi-pap 2.0 35 07/31/16 23:28 92 22 99 Bi-pap 35 07/31/16 23:27 88 23 98 Bi-pap 35 07/31/16 22:30 88 23 99 Facial 35 07/31/16 20:09 96 20 Nasal Cannula 2.0 28 07/31/16 20:00 Nasal Cannula 2.0 28 07/31/16 20:00 97.7 107 20 123/56 97 Nasal Cannula 2.0 28 07/31/16 20:00 Nasal Cannula 2.0 28 07/31/16 19:41 97 07/31/16 19:30 97 Nasal Cannula 2.0 28 07/31/16 19:30 96 20 98 Nasal Cannula 2.0 28 07/31/16 19:30 Nasal Cannula 2.0 28 07/31/16 19:30 96 20 Nasal Cannula 2.0 28 07/31/16 19:30 100 20 99 Nasal Cannula 2.0 28 07/31/16 18:25 61 16 122/62 96 Nasal Cannula 2.0 07/31/16 16:09 97.7 101 20 126/63 97 Nasal Cannula 2.0 07/31/16 15:46 103 07/31/16 15:36 92 18 97 Nasal Cannula 2.0 07/31/16 15:36 91 18 97 Nasal Cannula 2.0 07/31/16 15:25 99 20 99 Nasal Cannula 2.0 07/31/16 15:20 98 20 98 Nasal Cannula 2.0 28 Intake and Output 07/31/16 08/01/16 19:00 07:00 Intake Total 360 ml Balance 360 ml Intake Oral 360 ml # Voids 1 # Bowel Movements 2 1 Laboratory Tests 07/31/16 15:16: Arterial Blood pH 7.379, Arterial Blood Partial Pressure CO2 58.0*H, Arterial Blood Partial Pressure O2 100.6H, Arterial Blood HCO3 33.5H, Arterial Blood Oxygen Saturation 96.8, Arterial Blood Base Excess 6.8, Jarred Test Positive Height (Feet): 4 Height (Inches): 10.00 Weight (Pounds): 213 General Appearance: morbidly obese EENT: normal ENT inspection Neck: normal alignment Cardiovascular: normal rate, regular rhythm Respiratory/Chest: lungs clear Abdomen: non tender, soft Extremities: other - no edema Neurologic: motor weakness TATI DANIEL Aug 01, 2016 12:38
--- NOTE | 2016-08-01 14:46 | Diagnostic Imaging Report ---
APPROVED REPORT CPT Code: 95230 Present Symptoms Shortness of breath Comments: Technically difficult study due to vessel depth (mid-thigh and calf area). BILATERAL: Imaging reveals a patent deep venous system bilaterally. There is no evidence of thrombus within the femoral, popliteal or tibial segments. The greater saphenous veins are also within normal limits. Doppler indicates normal spontaneous flow within these segments.
--- NOTE | 2016-08-01 22:15 | Progress Note ---
DATE: 08/01/2016 CARDIOLOGY PROGRESS NOTE SUBJECTIVE: The patient remains with some respiratory discomfort, but overall improved on 2 liters nasal cannula and saturating 99%. OBJECTIVE: VITAL SIGNS: Blood pressure 134/64, heart rate 100, and respiratory rate 17. She is afebrile. LUNGS: Coarse breath sounds. No wheezing. HEART: Regular rhythm and rate. Normal S1 and S2. ABDOMEN: Soft. EXTREMITIES: Trace dependent edema. Palpable bruit over the left upper extremity AV fistula. IMPRESSION: 1. End-stage renal disease. 2. Acute on chronic respiratory failure. 3. Sleep apnea. 4. Poor airway. 5. Cerebrovascular accident with left hemiparesis. 6. Recovered sepsis with shock. 7. Resolved sinus bradycardia. 8. Episodes of sinus tachycardia, likely physiologically appropriate. PLAN: 1. Hemodialysis with ultrafiltration. 2. Respiratory hygiene. 3. No plans for additional cardiovascular medications at this time. 4. Discharge planning. Adalberto May M.D. DR: JOLANTA JOB#: [id number] CC:
[2016-08-02] VITALS: BP 117/48
[2016-08-02] MEDS: Albuterol ud Inhalation HHN SCH ×4 (03:54→14:57)
[2016-08-02 04:00] VITALS: BP 111/44
[2016-08-02] MEDS ORDERED: Heparin Sod 1000 units/ml 10ml IV PRN (06:00)
[2016-08-02 07:43] VITALS: BP 136/70
[2016-08-02] MEDS: Docusate 250mg cap ORAL SCH ×2 (09:00→18:00)
[2016-08-02] MEDS: Dyna-Hex 2% Top Sol 8oz TOPIC SCH (09:00)
--- NOTE | 2016-08-02 09:11 | Critical Care Progress Note ---
Assessment/Plan Assessment/Plan IMPRESSION: 1. End-stage renal disease. 2. Yycos-dg-yrypktz respiratory failure. 3. Obstructive sleep apnea. 4. poor airway 5. Insulin-dependent diabetes. 6. cerebrovascular accident with left-sided weakness. 7. hypotension 8. leukocytosis 9. anemia 10. possible sepsis 11. sinus bradycardia 12. left lung infiltrate and ?collapse PLAN care noted and reviewed exam noted and reviewed dc CPT maintain HHN monitor for changes respiratory care reviewed meds supportive care suction as needed oxygen therapy near baseline BIPAP at HS and PRN monitor airway overall improved; avoid any sedation dc planning medications/laboratory data/nursing notes reviewed in detail note reviewed and edited care discussed with RN and RT Critical Care - Subjective Condition: stable EKG Rhythm: Sinus Rhythm I&O: Intake and Output 08/01/16 08/02/16 19:00 07:00 Intake Total 320 ml Balance 320 ml Intake Oral 320 ml # Voids 1 1 # Bowel Movements 1 2 Critical Care - Objective ET-Tube: 7.5 ET Position: 20 Last 24 Hour Vital Signs Date Time Temp Pulse Resp B/P Pulse Ox O2 Delivery O2 Flow Rate FiO2 08/02/16 07:43 97.1 92 18 136/70 99 Nasal Cannula 2.0 08/02/16 07:14 86 16 98 Nasal Cannula 2.0 08/02/16 07:07 Nasal Cannula 2.0 28 08/02/16 07:07 84 16 97 Nasal Cannula 2.0 08/02/16 07:07 98 Nasal Cannula 2.0 28 08/02/16 04:00 98.2 81 21 111/44 96 Bi-pap 2.0 35 08/02/16 03:55 84 21 98 Bi-pap 35 08/02/16 03:55 81 21 96 Facial 35 08/02/16 03:54 81 21 96 Bi-pap 35 08/02/16 03:54 82 08/02/16 01:30 72 21 96 Facial 35 08/02/16 00:00 98.2 99 20 117/48 99 Bi-pap 2.0 35 08/01/16 23:28 92 08/01/16 23:19 90 20 99 Bi-pap 35 08/01/16 23:19 88 20 99 Bi-pap 35 08/01/16 23:17 76 20 95 Facial 35 08/01/16 22:30 79 22 94 Facial 35 08/01/16 20:00 97.5 99 18 117/50 98 Nasal Cannula 2.0 28 08/01/16 19:45 94 20 99 Nasal Cannula 2.0 08/01/16 19:30 91 20 99 Nasal Cannula 2.0 28 08/01/16 19:30 Nasal Cannula 2.0 28 08/01/16 19:30 98 Nasal Cannula 2.0 28 08/01/16 19:30 95 08/01/16 16:00 102 08/01/16 16:00 98.2 105 17 112/57 96 Room Air 08/01/16 14:57 95 20 99 Nasal Cannula 2.0 28 08/01/16 14:47 95 20 99 Nasal Cannula 2.0 28 08/01/16 12:00 103 08/01/16 12:00 96.9 97 18 134/59 99 Room Air 08/01/16 11:02 97 20 99 Nasal Cannula 2.0 28 08/01/16 11:02 97 20 99 Nasal Cannula 2.0 28 Labs: Labs Test 07/31/16 04:00 07/31/16 15:16 White Blood Count 9.3 K/UL (4.8-10.8) Red Blood Count 3.24 M/UL (4.20-5.40) Hemoglobin 10.6 G/DL (12.0-16.0) Hematocrit 34.5 % (37.0-47.0) Mean Corpuscular Volume 107 FL (80-99) Mean Corpuscular Hemoglobin 32.8 PG (27.0-31.0) Mean Corpuscular Hemoglobin Concent 30.8 G/DL (32.0-36.0) Red Cell Distribution Width 13.6 % (11.6-14.8) Platelet Count 243 K/UL (150-450) Mean Platelet Volume 4.8 FL (6.5-10.1) Neutrophils (%) (Auto) 73.4 % (45.0-75.0) Lymphocytes (%) (Auto) 11.7 % (20.0-45.0) Monocytes (%) (Auto) 11.4 % (1.0-10.0) Eosinophils (%) (Auto) 2.2 % (0.0-3.0) Basophils (%) (Auto) 1.3 % (0.0-2.0) Sodium Level 142 mEQ/L (135-145) Potassium Level 3.0 mEQ/L (3.4-4.9) Chloride Level 93 mEQ/L (98-107) Carbon Dioxide Level 27 mEQ/L (20-30) Anion Gap 22 (5-15) Blood Urea Nitrogen 29 mg/dL (7-23) Creatinine 7.9 mg/dL (0.5-0.9) Estimat Glomerular Filtration Rate 5.1 mL/min (>60) Glucose Level 100 mg/dL (74-106) Calcium Level 9.4 mg/dL (8.6-10.2) Arterial Blood pH 7.379 (7.350-7.450) Arterial Blood Partial Pressure CO2 58.0 mmHg (35.0-45.0) Arterial Blood Partial Pressure O2 100.6 mmHg (75.0-100.0) Arterial Blood HCO3 33.5 mmol/L (22.0-26.0) Arterial Blood Oxygen Saturation 96.8 % (92.0-98.0) Arterial Blood Base Excess 6.8 Jarred Test Positive Objective: PHYSICAL EXAMINATION: GENERAL: alert NAD HEENT: PERRL off BIPAP; on oxygen NECK: No adenopathy. short LUNGS: stable breath sounds without rhonchi or wheeze HEART: RRR without MRG ABDOMEN: Obese and soft. No HSM; no distention; NABS EXTREMITIES: no CCE; She has a left upper arm AV fistula with a good thrill. NEUROLOGIC: left hemiparesis. reviewed and edited awake and alert Accucheck: 127 FITO SIMS Aug 02, 2016 09:11
[2016-08-02 11:26] VITALS: BP 107/51
[2016-08-02] MEDS: Norco 5mg/325mg tab ORAL PRN (13:23)
--- NOTE | 2016-08-02 14:39 | Nephrology Progress Note ---
Assessment/Plan Problem List: (1) Respiratory failure with hypoxia (2) Hemiplegia of nondominant side as late effect of cerebrovascular disease (3) Respiratory failure requiring intubation (4) End-stage renal disease Plan no significant fluid overload, continue pulmonary care, epogen, hd 08/02 stable UF more than 2 liter well tolerated Subjective Constitutional: Reports: weakness HEENT: Reports: no symptoms Genitourinary: Reports: incontinence Neurologic/Psychiatric: Reports: pre-existing deficit Objective Objective Last 24 Hour Vital Signs Date Time Temp Pulse Resp B/P Pulse Ox O2 Delivery O2 Flow Rate FiO2 08/02/16 12:30 Nasal Cannula 2.0 08/02/16 12:00 108 08/02/16 11:26 98.4 102 19 107/51 97 Nasal Cannula 08/02/16 10:44 86 16 98 Nasal Cannula 2.0 08/02/16 10:31 82 16 98 Nasal Cannula 2.0 08/02/16 08:55 Nasal Cannula 2.0 08/02/16 08:00 110 08/02/16 07:43 97.1 92 18 136/70 99 Nasal Cannula 2.0 08/02/16 07:14 86 16 98 Nasal Cannula 2.0 08/02/16 07:07 Nasal Cannula 2.0 08/02/16 07:07 84 16 97 Nasal Cannula 2.0 08/02/16 07:07 98 Nasal Cannula 2.0 08/02/16 04:00 98.2 81 21 111/44 96 Bi-pap 2.0 35 08/02/16 03:55 84 21 98 Bi-pap 35 08/02/16 03:55 81 21 96 Facial 35 08/02/16 03:54 81 21 96 Bi-pap 35 08/02/16 03:54 82 08/02/16 01:30 72 21 96 Facial 35 08/02/16 00:00 98.2 99 20 117/48 99 Bi-pap 2.0 35 08/01/16 23:28 92 08/01/16 23:19 90 20 99 Bi-pap 35 08/01/16 23:19 88 20 99 Bi-pap 35 08/01/16 23:17 76 20 95 Facial 35 08/01/16 22:30 79 22 94 Facial 35 08/01/16 20:00 97.5 99 18 117/50 98 Nasal Cannula 2.0 28 27/17 19:45 94 20 99 Nasal Cannula 2.0 08/01/16 19:30 91 20 99 Nasal Cannula 2.0 08/01/16 19:30 Nasal Cannula 2.0 08/01/16 19:30 98 Nasal Cannula 2.0 08/01/16 19:30 95 08/01/16 16:00 102 08/01/16 16:00 98.2 105 17 112/57 96 Room Air 08/01/16 14:57 95 20 99 Nasal Cannula 2.0 08/01/16 14:47 95 20 99 Nasal Cannula 2.0 Intake and Output 08/01/16 08/02/16 19:00 07:00 Intake Total 320 ml Balance 320 ml Intake Oral 320 ml # Voids 1 1 # Bowel Movements 1 2 Height (Feet): 4 Height (Inches): 10.00 Weight (Pounds): 213 General Appearance: no apparent distress, morbidly obese EENT: normal ENT inspection Neck: normal alignment Cardiovascular: regular rhythm Respiratory/Chest: lungs clear Abdomen: no organomegaly Extremities: other - no edeema Neurologic: motor weakness TATI DANIEL Aug 02, 2016 14:39
[2016-08-02 16:00] VITALS: BP 125/52
[2016-08-02] MEDS ORDERED: EPOGEN4000 UNIT/ SUBQ (16:39)
[2016-08-02] MEDS ORDERED: LEVOFLOXACIN250 MG ORAL (16:43)
--- NOTE | 2016-08-02 21:45 | Progress Note ---
DATE: 08/02/2016 CARDIOLOGY PROGRESS NOTE: SUBJECTIVE: The patient is without distress. She is status post hemodialysis with ultrafiltration. Monitored rhythm, sinus. Rare atrial ectopy. OBJECTIVE: VITAL SIGNS: Blood pressure is 136/70, pulse rate 92, and respiratory rate 18. NECK: Supple. LUNGS: Diminished breath sounds. Otherwise lungs are clear. CARDIAC: Regular. Normal S1 and S2. EXTREMITIES: With nonpitting edema. IMPRESSION: 1. Sleep apnea. 2. Status post acute on chronic respiratory failure. 3. End-stage renal disease, on hemodialysis. 4. Cerebrovascular accident with left paresis. 5. Paroxysmal sinus bradycardia, resolved. 6. Acute and chronic diastolic congestive heart failure, compensated. PLAN: 1. Medication regimen reviewed for discharge. 2. Outpatient followup. 3. Hemodialysis arranged. 4. Skin care. 5. Follow up with Dr. Sky within seven days. Adalberto May M.D. DR: Pauline JOB#: [id number] CC:
--- NOTE | 2016-08-04 11:07 | Discharge Summary ---
Discharge Summary Hospital Course Date of Admission Jul 21, 2016 at 03:44 Date of Discharge Aug 02, 2016 at 18:37 Admitting Diagnosis respiratory failure HPI Leslie Morrow is a 66 year old female who was admitted on Jul 21, 2016 at 03:44 for Respiratory Failure Hospital Course [id number] Discharge Discharge Disposition Patient was discharged to Home with HH Discharge Diagnoses: Betsy Alaniz NP Aug 04, 2016 11:07
--- NOTE | 2016-08-04 22:46 | Discharge Summary 2 SIG ---
DATE OF ADMISSION: 07/21/2016 DATE OF DISCHARGE: 08/02/2016 ATTENDING PHYSICIAN: Goldy Sky M.D. CONSULTANTS: 1. Cm Carrero M.D. 2. Aquiles Clifton M.D. 3. Bernard Nichole M.D. BRIEF HOSPITAL COURSE: The patient is a 66-year-old female with history of hypertension, diabetes, hypertensive heart disease, and obesity, was brought in by family members, because of altered mentation and shortness of breath. She initially refused to go to outpatient dialysis and eventually had an uncomplicated hemodialysis, but afterwards was noted to be very tired and weak and was sleepy. Following day, she continued to be drowsy and sleepy and was minimally verbal and appeared short of breath. She was taken to [facility] ER, where on evaluation, was difficult to arouse. She had BNP elevated to 13,000. ABG showed severe hypercapnic respiratory failure, pH of 7, and CO2 of 128. At ED, the patient had extremely difficult intubation. Several attempts were done and has been unsuccessful. LMA was placed. She was then admitted to ICU for respiratory failure and pneumonia. She was eventually orally intubated in OR. Surgical consult was on standby for possible tracheostomy. Dr. Carrero was consulted and the patient underwent hemodialysis. She was given ventilatory support and respiratory care and was given vancomycin and Zosyn. She had anemia and was given Epogen. The patient underwent weaning trials. She had a triple-lumen central venous catheter placed on the left greater saphenous vein. She was eventually extubated on 07/27/2016 and had been off ventilatory support with no respiratory distress. She was given BiPAP as needed. She underwent swallow evaluation and was recommended a pureed moist nectar thick renal diet. She underwent physical therapy and occupational therapy. She was eventually discharged home. Follow up with Dr. Sky in seven days. FINAL DIAGNOSES: 1. Acute on chronic respiratory failure, resolved. 2. End-stage renal disease, on hemodialysis. 3. Cerebrovascular accident with left hemiparesis. 4. Paroxysmal sinus bradycardia. 5. Acute on chronic diastolic congestive heart failure, compensated. 6. Sleep apnea. 7. Insulin-dependent diabetes. 8. Anemia of kidney disease. 9. Morbid obesity. 10. Diabetes mellitus with renal manifestation, type 2. Adalberto May M.D. I have been assigned to dictate discharge summary on this account and I was not involved in the patient's management. Betsy Alaniz N.P. DR: Kimberly JOB#: [id number] CC: HANH
== END 2016-08-02 18:37 | disposition home health service (06) | DRG 870 ==
LOC: EDBD 02:50 → EMR 03:30 → ICU 03:44 → EDBEDREQ 04:23 → 2E 07-29
PROC: 5A1D60Z (ICD-10-PCS; 2016-07-21)
PROC: 06HQ33Z Insertion of Infusion Device into Left Saphenous Vein, Percutaneous Approach (ICD-10-PCS; 2016-07-21)
PROC: 0BH17EZ Insertion of Endotracheal Airway into Trachea, Via Natural or Artificial Opening (ICD-10-PCS; principal; 2016-07-21 10:00)
PROC: 5A1955Z Respiratory Ventilation, Greater than 96 Consecutive Hours (ICD-10-PCS; principal; 2016-07-21 10:00)
DX: A41.9 Sepsis, unspecified organism (principal); J96.21 Acute and chronic respiratory failure with hypoxia; I50.33 Acute on chronic diastolic (congestive) heart failure; G93.40 Encephalopathy, unspecified; E87.3 Alkalosis; I95.9 Hypotension, unspecified; N18.6 End stage renal disease; E11.22 Type 2 diabetes mellitus with diabetic chronic kidney disease; Z68.44 Body mass index [BMI] 60.0-69.9, adult; I69.954 Hemiplegia and hemiparesis following unspecified cerebrovascular disease affecting left non-dominant side; J96.22 Acute and chronic respiratory failure with hypercapnia; I13.2 Hypertensive heart and chronic kidney disease with heart failure and with stage 5 chronic kidney disease, or end stage renal disease; Z99.2 Dependence on renal dialysis; Z79.4 Long term (current) use of insulin; E66.01 Morbid (severe) obesity due to excess calories; I25.2 Old myocardial infarction; G47.33 Obstructive sleep apnea (adult) (pediatric); D63.1 Anemia in chronic kidney disease; R00.1 Bradycardia, unspecified
CPT/HCPCS: 36415; 36569; 36600; 71010; 80048; 80053; 80202; 82550; 82553; 82803; 82962; 83735; 83880; 84100; 84484; 85007; 85025; 85610; 85730; 86705; 86709; 86803; 87081; 87324; 87340; 93005; 93970; 94002; 94003; 94150; 94640; 94660; 94664; 94760

== ENCOUNTER 2016-08-10 14:56 | Outpatient (CLI) | payer MEDICARE, OTHER ==
[~2016-08-10 14:56] MED LIST changes: +B COMPLEX1 EACH ORAL; +EPOGEN4000 UNIT/ SUBQ; +FOLIC ACID1 MG ORAL; +GABAPENTIN300 MG ORAL; +LEVOFLOXACIN250 MG ORAL; +PERFOROMIS20 MCG/2 M IH; +RENA-VITE RX T1 EAC1 PO; +SIMVASTATIN20 MG ORAL; +TRAMADOL HCL50 MG ORAL; +VELPHORO500 MG PO
== END 2016-08-10 15:56 | disposition home or self-care (01) ==
LOC: RAD 14:56
DX: R05 Cough (principal); R06.02 Shortness of breath
CPT/HCPCS: 71010

== ENCOUNTER 2016-09-09 09:49 | Inpatient (IN) | payer MEDICARE, OTHER ==
[~2016-09-09] VITALS: Ht 144.8 cm; Wt 85.3 kg
[2016-09-09 16:09] VITALS: BP 125/63
[2016-09-09] MEDS ORDERED: COLACE100 MG ORAL (16:10)
[2016-09-09] MEDS ORDERED: SIMBRINZA 1%-0.28 ML OP (16:10)
[2016-09-09] MEDS ORDERED: GABAPENTIN100 MG ORAL (16:10)
[2016-09-09] MEDS ORDERED: ACETAMINOPHEN-1 EAC1 ORAL (16:10)
[2016-09-09] MEDS ORDERED: AZELASTINE HCL6 ML OP (16:10)
[2016-09-09] MEDS ORDERED: GABAPENTIN300 MG ORAL (16:10)
[2016-09-09] MEDS ORDERED: Tylenol #3 tab (300mg/30mg) ORAL PRN (16:30)
[2016-09-09] MEDS ORDERED: DuoNeb 0.5-3(2.5)mg/3ml neb HHN PRN (16:30)
[2016-09-09] MEDS ORDERED: Acetaminophen 500mg (ES) tab ORAL PRN (16:45)
[2016-09-09] MEDS: Renagel 400mg cap ORAL SCH (18:00)
[2016-09-09] MEDS ORDERED: Vancomycin 1250mg/D5W 250ml IVPB ONE (18:00)
[2016-09-09] MEDS: Docusate 100mg cap ORAL SCH (18:27)
[2016-09-09 20:01] LABS: BASOPHILS % (AUTO) 1.8 % (0.0-2.0); EOSINOPHILS % (AUTO) 5.5 % (0.0-3.0); MEAN CORPUSCULAR HEMOGLOBIN 34.4 PG (27.0-31.0); MEAN CORPUSCULAR HGB CONC 32.9 G/DL (32.0-36.0); MEAN CORPUSCULAR VOLUME 104 FL (80-99); MEAN PLATELET VOLUME 5.6 FL (6.5-10.1); MONOCYTES % (AUTO) 11.4 % (1.0-10.0); NEUTROPHILS % (AUTO) 61.3 % (45.0-75.0); PLATELET COUNT 172 K/UL (150-450); RED CELL DISTRIBUTION WIDTH 14.1 % (11.6-14.8); WHITE BLOOD COUNT 7.3 K/UL (4.8-10.8)
[2016-09-09 20:09] VITALS: BP 114/56
[2016-09-09 20:17] LABS: ALBUMIN/GLOBULIN RATIO 0.8 (1.0-2.7); CALCIUM 9.6 mg/dL (8.6-10.2); CREATININE 5.3 mg/dL (0.5-0.9); GLOMERULAR FILTRATION RATE 8.1 mL/min (>60); POTASSIUM 4.3 mEQ/L (3.4-4.9); TOTAL PROTEIN 7.4 g/dL (6.6-8.7)
[2016-09-09] MEDS: Heparin 5000 units/ml inj SUBQ SCH (20:54)
[2016-09-10 00:13] VITALS: BP 104/54
[2016-09-10 04:39] VITALS: BP 98/47
[2016-09-10 05:10] VITALS: BP 104/50
[2016-09-10] MEDS: Nephrovite tab ORAL SCH (08:18)
[2016-09-10] MEDS: Docusate 100mg cap ORAL SCH ×2 (08:18→17:41)
[2016-09-10] MEDS: Aspirin EC 81mg tab ORAL SCH (08:19)
[2016-09-10] MEDS: Heparin 5000 units/ml inj SUBQ SCH ×2 (08:20→20:18)
[2016-09-10] MEDS: Renagel 400mg cap ORAL SCH ×3 (08:24→17:41)
[2016-09-10 09:00] VITALS: BP 99/59
[2016-09-10] MEDS ORDERED: NS 275ml ONE (10:02)
[2016-09-10] MEDS ORDERED: Tubing IV Secondary IV ONE (10:02)
[2016-09-10 12:00] VITALS: BP 113/54
--- NOTE | 2016-09-10 13:45 | History and Physical Report ---
DATE OF ADMISSION: 09/09/2016 CHIEF COMPLAINT: Right leg cellulitis. HISTORY OF PRESENT ILLNESS: The patient is a 66-year-old female. She has a history of obesity, hypoventilation, sleep apnea, end-stage renal disease, and hypertensive heart disease, and CHF. She was admitted with complaints of right leg pain, swelling, and subjective fevers and chills. According to the patient, she two days prior to admission. She noted itching and pain in the right lower extremity. She believes that she sustained bug bite. Dialysis staff noted that she had worsening erythema and swelling of the right lower extremity, is concerned about a progressing worsening cellulitis and she is now admitted for further evaluation and care. PAST MEDICAL HISTORY: As above. PAST SURGICAL HISTORY: None. CURRENT MEDICATIONS: Reconciled and reviewed. ALLERGIES: Include amitriptyline, atenolol, and glipizide. FAMILY HISTORY: Noncontributory. SOCIAL HISTORY: There is no known history of tobacco, ethanol, or drugs. REVIEW OF SYSTEMS: General: Positive fevers and chills. Denies night sweats. HEENT: No headaches or visual changes. Cardiopulmonary: No chest pain or shortness of breath. Gastrointestinal: No nausea or vomiting. Genitourinary: No urgency or frequency. Musculoskeletal: No dependent swelling. Neurologic: No evidence of seizures. PHYSICAL EXAMINATION: GENERAL: The patient is a well-developed female, in no apparent distress. She is awake, alert, and oriented x4. VITAL SIGNS: Temperature 98 degrees, blood pressure 125/52, pulse 96, and respirations 19. NECK: Supple. There is no jugular venous distention. HEART: Regular rate and rhythm. LUNGS: Clear. ABDOMEN: Soft, nontender, and nondistended. EXTREMITIES: Without clubbing or cyanosis. There is right lower extremity edema and erythema from the midfoot, ankle to the just below the knee. There is a small vesicular lesion on the inner aspect of the right leg. There is erythema and warmth. Labs are pending. Cultures are pending. ASSESSMENT: This is a pleasant female with history of end-stage renal disease, sleep apnea, congestive heart failure, admitted with, 1. Right lower extremity cellulitis. 2. Possible early sepsis. 3. End-stage renal disease. 4. Sleep apnea. 5. History congestive heart failure. PLAN: IV antibiotics. Followup cultures. Hemodialysis per Renal. Cardiac treatment per Cardiology. The patient will likely need 2 to 3 days of IV antibiotic therapy. We will adjust based on ID recommendations and culture result. Goldy Sky M.D. DR: MONIKA JOB#: [id number] CC:
--- NOTE | 2016-09-10 17:00 | Consultation ---
DATE OF CONSULTATION: 09/10/2016 INFECTIOUS DISEASE CONSULT This consult is for coverage of Dr. Cunningham. PRIMARY ATTENDING PHYSICIAN: Goldy Sky M.D. REASON FOR CONSULT: Right leg cellulitis. HISTORY OF PRESENT ILLNESS: The patient is a 66-year-old female admitted yesterday complaining of pain, erythema, and itching in the right lower extremity. No fever or chills. No other symptoms. PAST MEDICAL HISTORY: Significant for end-stage renal disease, on hemodialysis, diabetes mellitus, anemia, hypertension, morbid obesity, CVA, and left-sided hemiparesis. MEDICATIONS: Epogen, aspirin, folic acid, Protonix, Nephro-Giulia, gabapentin, Lipitor, heparin, Colace, vancomycin, Zofran, Tylenol, and DuoNeb inhaler. ALLERGIES: Tylenol, glipizide, and amitriptyline. SOCIAL HISTORY: No history of alcohol, drug abuse, or smoking. . Originally from [facility]. She has two grown up children. REVIEW OF SYSTEMS: Today, she feels better. Just only itching in the right leg. No other complaints. PHYSICAL EXAMINATION: GENERAL APPEARANCE: She is in no acute distress, seems obese. VITAL SIGNS: Temperature is 97.5 degrees, pulse 66, and blood pressure 99/59. HEAD AND NECK: [place] conjunctivae. HEART: Regular. LUNGS: Clear. ABDOMEN: Obese, soft, and nontender. EXTREMITIES: Has erythema and edema in the right lower extremity below the knee. NEUROLOGIC: Awake and alert. She is weak in the left side of the body. LABORATORY DATA: WBC is 7.3, hemoglobin 11, hematocrit 33.4, and platelets 172,000. Sodium 140, potassium 4.3, chloride 94, bicarbonate 32, BUN 26, creatinine 5.3, and glucose 110. Alkaline phosphatase is 119. IMPRESSION: Right leg cellulitis. The patient has morbid obesity, hypertension, end-stage renal disease, on hemodialysis, and anemia. RECOMMENDATIONS: We will continue with vancomycin. We will follow up the cultures and clinical course. At the end of my exam, I thank Dr. Sky for involving me in the care of this patient. Presley Rahban, M.D. DR: CONOR JOB#: [id number] CC:
--- NOTE | 2016-09-10 17:00 | Consultation ---
DATE OF CONSULTATION: 09/10/2016 NEPHROLOGY CONSULTATION REFERRING PHYSICIAN: Goldy Sky M.D. REASON FOR CONSULTATION: End-stage renal disease. HISTORY OF PRESENT ILLNESS: The patient is a 66-year-old lady with end-stage renal disease, who has dialysis on Sunday, Sunday, and Sunday. She presents on 09/09/2016 with increasing cellulitis of the right leg and swelling in the right leg. She was recently hospitalized with respiratory failure. She had a prolonged hospitalization, ventilator care, improved. She had some likely sleep apnea and morbid obesity. There is a history of prior CVA, left-sided weakness, insulin-dependent diabetes, CHF, prior myocardial infarction, and prior coronary angiogram on two occasions about stenting. PAST SURGICAL HISTORY: Include AV fistula, left arm and section. ALLERGIES: Possibly to atenolol. MEDICATIONS: Prior to admission, medications listed on the computer. The patient cannot give an accurate list. SYSTEM REVIEW: HEAD EYES, EARS, NOSE, AND THROAT: She has decreased visual acuity. Hearing is good. ENDOCRINE: History of obesity and diabetes. PULMONARY: History of obstructive sleep apnea and uses home oxygen. She is not short of breath at this time. CARDIAC: Denies angina or FL, but according prior notes, she did have a prior FL. GASTROINTESTINAL: No recent nausea, vomiting, or abdominal pain. GENITOURINARY: She makes little urine. Neurologic: She has 01:51 . PHYSICAL EXAMINATION: GENERAL: The patient is alert lady, sitting up in bed, in no acute distress. She was seen with the nurse at the bedside. VITAL SIGNS: Temperature is 97.5 degrees, pulse 66, respirations 20, and blood pressure 99/59. HEAD EYES, EARS, NOSE, AND THROAT: Sclerae are nonicteric. Ocular motions intact in all directions. Oral mucosa moist. NECK: No adenopathy or thyroid enlargement. LUNGS: Clear. Distant breath sounds. HEART: Regular rhythm. I hear no murmur. ABDOMEN: Obese. Soft. No organomegaly or masses. EXTREMITIES: There is a left arm AV fistula with a good thrill. The left leg has trace edema. The right leg with 2 to 3+ edema with erythema consistent with cellulitis. PERTINENT LABORATORY DATA: Show white count of 7.3 and hemoglobin 11. Sodium 140, potassium 4.3, chloride 94, CO2 33, BUN 26, creatinine 5.3, and calcium is 9.6. Albumin is 3.4. IMPRESSION: 1. End-stage renal disease. 2. Cellulitis of the left leg. 3. History of prior respiratory failure and obstructive sleep apnea. 4. History of chronic congestive heart failure. PLAN: The patient will have maintenance dialysis. A V/Q study has been ordered. Start on empiric antibiotics. We will watch her closely in view of her comorbidities. Cm Carrero M.D. DR: TIFFANY JOB#: [id number] CC:
[2016-09-10 21:00] VITALS: BP 90/58
[2016-09-11 04:00] VITALS: BP 104/47
[2016-09-11] MEDS ORDERED: Heparin Sod 1000 units/ml 10ml IV SCH (06:00)
[2016-09-11] MEDS ORDERED: DOXYCYCLINE HY100 M2 PO (07:48)
[2016-09-11 08:00] VITALS: BP 108/50
[2016-09-11] MEDS: Renagel 400mg cap ORAL SCH ×3 (08:58→17:18)
[2016-09-11] MEDS: Docusate 100mg cap ORAL SCH ×2 (08:58→17:18)
[2016-09-11] MEDS: Nephrovite tab ORAL SCH (08:58)
[2016-09-11] MEDS: Aspirin EC 81mg tab ORAL SCH (08:59)
[2016-09-11] MEDS: Heparin 5000 units/ml inj SUBQ SCH (08:59)
--- NOTE | 2016-09-11 10:22 | Consultation ---
Consult Note Consult Note HISTORY OF PRESENT ILLNESS: 66-year-old female with long standing history of respiratory failure. She has a history of obesity hypoventilation, sleep apnea, end-stage renal disease, and hypertensive heart disease, respiratory failure, chronic hypercapnia, and CHF. Patient was admitted with complaints of right leg pain, swelling, and subjective fevers and chills. Patient treated and improved. Dialysis staff noted that she had worsening erythema and swelling of the right lower extremity. Patient treated with antibiotics and now improved. patient with chronic oxygen use and BIPAP. PAST MEDICAL HISTORY: history of respiratory failure. She has a history of obesity hypoventilation, sleep apnea, end-stage renal disease, and hypertensive heart disease, respiratory failure, chronic hypercapnia, and CHF. PAST SURGICAL HISTORY: reviewed CURRENT MEDICATIONS: Reconciled and reviewed. ALLERGIES: reviewed FAMILY HISTORY: Noncontributory. SOCIAL HISTORY: There is no known history of tobacco, ethanol, or drugs. REVIEW OF SYSTEMS: noted and reviewed fairly debilitated; prior history of intubation; patient mostly wheelchair bound chronically on HD PHYSICAL EXAMINATION: GENERAL: The patient is a well-developed female, in no apparent distress. She is awake, alert, and oriented x4. VITAL SIGNS: reviewed 108/50 77 98.2 14 94% NECK: Supple. There is no jugular venous distention. HEART: Regular rate and rhythm. without MRG; normal S1S2 LUNGS: Clear bilaterally with some reduced breath sounds left ABDOMEN: Soft, nontender, and nondistended. obese EXTREMITIES: Without clubbing or cyanosis. There is right lower extremity edema noted and reviewed NEURO: Nonfocal but weak but alert Labs Test 09/09/16 17:40 09/10/16 17:45 White Blood Count 7.3 K/UL (4.8-10.8) Red Blood Count 3.20 M/UL (4.20-5.40) Hemoglobin 11.0 G/DL (12.0-16.0) Hematocrit 33.4 % (37.0-47.0) Mean Corpuscular Volume 104 FL (80-99) Mean Corpuscular Hemoglobin 34.4 PG (27.0-31.0) Mean Corpuscular Hemoglobin Concent 32.9 G/DL (32.0-36.0) Red Cell Distribution Width 14.1 % (11.6-14.8) Platelet Count 172 K/UL (150-450) Mean Platelet Volume 5.6 FL (6.5-10.1) Neutrophils (%) (Auto) 61.3 % (45.0-75.0) Lymphocytes (%) (Auto) 20.0 % (20.0-45.0) Monocytes (%) (Auto) 11.4 % (1.0-10.0) Eosinophils (%) (Auto) 5.5 % (0.0-3.0) Basophils (%) (Auto) 1.8 % (0.0-2.0) Sodium Level 140 mEQ/L (135-145) Potassium Level 4.3 mEQ/L (3.4-4.9) Chloride Level 94 mEQ/L (98-107) Carbon Dioxide Level 33 mEQ/L (20-30) Anion Gap 13 (5-15) Blood Urea Nitrogen 26 mg/dL (7-23) Creatinine 5.3 mg/dL (0.5-0.9) Estimat Glomerular Filtration Rate 8.1 mL/min (>60) Glucose Level 110 mg/dL (74-106) Calcium Level 9.6 mg/dL (8.6-10.2) Total Bilirubin 0.6 mg/dL (0.0-1.2) Aspartate Amino Transf (AST/SGOT) 27 U/L (5-40) Alanine Aminotransferase (ALT/SGPT) 12 U/L (3-33) Alkaline Phosphatase 119 U/L (35-104) Total Protein 7.4 g/dL (6.6-8.7) Albumin 3.4 g/dL (3.5-5.2) Globulin 4.0 g/dL Albumin/Globulin Ratio 0.8 (1.0-2.7) Random Vancomycin Level 18.1 ug/mL ASSESSMENT: 1. Right lower extremity cellulitis. improved 2. History of Respiratory failure 3. End-stage renal disease. 4. Sleep apnea. with hypoventilation 5. History congestive heart failure. 6. Chronic hypoxemia 7. Chronic hypercapnia PLAN care noted BIPAP nightly respiratory care oxygen supportive care maintain therapy after discharge ok to discharge per pulmonary impression, plan, and exam edited and reviewed in detail care discussed with FITO GOMEZ Sep 11, 2016 10:22
--- NOTE | 2016-09-11 10:59 | Infectious Diseases Prog Note ---
Assessment/Plan Assessment/Plan antibiotics : vancomycin iv A 1. right leg cellulitis 2. renal failure 3. DM 4. HTN P 1. continue iv vancomycin 2. add cefepime 3. will follow up cultures 4. leg elevation Subjective Constitutional: Denies: chills, fever Respiratory: Denies: dry cough, shortness of breath Gastrointestinal/Abdominal: Denies: diarrhea, nausea, vomiting Musculoskeletal: Reports: other - itching, Denies: pain Allergies: Coded Allergies: AMITRIPTYLINE (Verified Allergy, Unknown, 11/15/14) When taken with glipizide pts Blood glucose was critically low. MD stopped medication ATENOLOL (Verified Allergy, Unknown, 11/03/14) GLIPIZIDE (Verified Allergy, Unknown, 11/15/14) Pt is not diabetic. When prescribed pt had symptoms of lethargy, somnolence, depressed, anxiousness. Medication was discontinued. UNABLE TO ASSESS (Unverified , 07/21/16) Objective Vital Signs Last 24 Hour Vital Signs Date Time Temp Pulse Resp B/P Pulse Ox O2 Delivery O2 Flow Rate FiO2 09/11/16 08:00 97.3 77 20 108/50 93 Room Air 09/11/16 04:00 97.2 63 20 104/47 99 Nasal Cannula 2.0 09/10/16 21:00 97.5 67 20 90/58 96 Nasal Cannula 09/10/16 12:00 97.5 70 19 113/54 99 Room Air Height (Feet): 4 Height (Inches): 9.00 Weight (Pounds): 188 Respiratory/Chest: lungs clear Cardiovascular: normal rate, regular rhythm, no gallop/murmur Abdomen: soft, non tender Extremities: other - right leg erythema Microbiology Date/Time Source Procedure Growth Status 09/09/16 17:50 Blood Blood Culture - Preliminary NO GROWTH AFTER 24 HOURS Resulted 09/09/16 17:40 Blood Blood Culture - Preliminary NO GROWTH AFTER 24 HOURS Resulted 09/09/16 17:30 Wound Gram Stain - Final Resulted 09/09/16 17:30 Wound Wound Culture Pending Resulted Laboratory Tests Test 09/10/16 17:45 Random Vancomycin Level 18.1 ug/mL MAKSIM HERNANDEZ Sep 11, 2016 10:59
[2016-09-11 12:00] VITALS: BP 104/56
[2016-09-11] MEDS ORDERED: Cefepime HCl 2 GM in D5W 110 ML IVPB ONE (12:30)
--- NOTE | 2016-09-11 13:17 | Wound Care Consultation ---
Wound Assessment Wound Assessment : Wound Number: #1 Wound Present on Admission: Yes New Wound: No Status Change of Wound: No Wound Location Body Site Modif: right, lower Wound Location Body Site: leg Wound Type: scab - scattered scabs,patient stated she was scratching,self inflicted scratches. Yossi Test: Does not Yossi Wound Thickness: Full Thickness Percent of Wound Bed Yellow/Wh: 50 - yellow scab Percent of Wound Black/Brown: 50 - scabs Wound Drainage Amount: None Wound Drainage Odor: None/Absent Tissue Surrounding Wound: Edematous Wound General Appearance: Clean/Dry Wound Comment #1 right lower extremity scattered scabs. Recommendation. -Keep scabs clean and dry. -Turn and reposition. -keep clean and dry. -Optimize nutrition. -Offload lower extremity. -Assess and notify MD for any changes of condition. LINDA VENTURA Sep 11, 2016 13:17
--- NOTE | 2016-09-11 14:18 | Nephrology Progress Note ---
Assessment/Plan Problem List: (1) End-stage renal disease (2) Hemiplegia of nondominant side as late effect of cerebrovascular disease (3) DM renal manif type II (4) Anemia in chronic kidney disease Plan HD 09/11 via fistula, fluid removal as tolerated, continue antibiotics for cellulitis Subjective Constitutional: Reports: weakness HEENT: Reports: no symptoms Genitourinary: Reports: no symptoms Neurologic/Psychiatric: Reports: no symptoms, pre-existing deficit Objective Objective Last 24 Hour Vital Signs Date Time Temp Pulse Resp B/P Pulse Ox O2 Delivery O2 Flow Rate FiO2 09/11/16 12:00 97.2 62 20 104/56 100 Nasal Cannula 2.0 09/11/16 08:00 97.3 77 20 108/50 93 Room Air 09/11/16 04:00 97.2 63 20 104/47 99 Nasal Cannula 2.0 09/10/16 21:00 97.5 67 20 90/58 96 Nasal Cannula Intake and Output 09/10/16 09/11/16 19:00 07:00 Intake Total 200 ml Balance 200 ml Intake Oral 200 ml # Voids 1 1 # Bowel Movements 1 Laboratory Tests 09/10/16 17:45: Random Vancomycin Level 18.1 Height (Feet): 4 Height (Inches): 9.00 Weight (Pounds): 188 General Appearance: no apparent distress, obese EENT: normal ENT inspection Neck: normal alignment Cardiovascular: normal rate, regular rhythm Respiratory/Chest: lungs clear, decreased breath sounds Abdomen: non tender, soft Extremities: other - RLE swelling and erythema Neurologic: motor weakness TATI DANIEL Sep 11, 2016 14:18
[2016-09-11 16:00] VITALS: BP 99/40
[2016-09-11] MEDS ORDERED: Vancomycin 1gm/D5W 275ml IVPB ONE ×4 (16:30→20:00)
[2016-09-11] MEDS ORDERED: Tubing IV Secondary IV ONE (19:52)
[2016-09-11] MEDS ORDERED: NS 275ml ONE (19:52)
[2016-09-11] MEDS ORDERED: Epogen (for ESRD on dialysis) SUBQ SCH (21:00)
--- NOTE | 2016-09-11 23:15 | Discharge Summary ---
DATE OF ADMISSION: 09/09/2016 DATE OF DISCHARGE: 09/11/2016 ADMISSION DIAGNOSIS: Right lower extremity cellulitis. HISTORY AND HOSPITAL COURSE: The patient is a very pleasant female with history of obesity, hypoventilation, sleep apnea, and end-stage renal disease, who has been admitted with complaints of possible early sepsis and cellulitis involving the entire right leg from the knee down. She received intravenous vancomycin. She was pancultured. Cultures were still pending, but the patient's cellulitis rapidly resolve while on IV antibiotic therapy. She will be discharged on oral antibiotic therapy. We will followup cultures as outpatient. The patient has been instructed to return for any fevers or chills or worsening erythema. DISCHARGE MEDICATIONS: Please see discharge medication list for discharge medications. DIET: Renal diet. ACTIVITY: Ad-vi. FOLLOWUP: The patient will follow up in one to two weeks. Goldy Sky M.D. DR: [place] JOB#: [id number] CC:
--- NOTE | 2016-09-12 11:41 | Diagnostic Imaging Report ---
APPROVED REPORT CPT Code: 43219 Risk Factors TIA/CVA History BILATERAL: Common femoral artery waveform analysis is within normal limits at rest. Color flow duplex sonography reveals minimal calcification throughout the superficial femoral, and popliteal arteries. There is no evidence of stenosis or occlusion within these segments. The tibioperoneal trunks were not well visualized. The posterior tibial and dorsalis pedis arteries waveforms are compatible with minimal ischemia bilaterally.
--- NOTE | 2016-09-12 11:42 | Diagnostic Imaging Report ---
APPROVED REPORT CPT Code: 10562 Present Symptoms Lower Extremity Pain: Bilateral BILATERAL: Imaging reveals a patent deep venous system bilaterally. There is no evidence of thrombus within the femoral, popliteal or tibial segments. The greater saphenous veins are also within normal limits. Doppler indicates normal spontaneous flow within these segments.
[2016-09-12] MEDS ORDERED: Cefepime 500mg in D5W 55ml IVPB SCH (12:00)
[2016-09-12] MEDS ORDERED: Cefepime 1gm/D5W 55ml IVPB SCH ×2 (12:00)
== END 2016-09-11 19:53 | disposition home or self-care (01) | DRG 602 ==
LOC: 4E 15:00
PROC: 5A1D00Z (ICD-10-PCS; principal; 2016-09-09)
DX: L03.115 Cellulitis of right lower limb (principal); N18.6 End stage renal disease; I13.2 Hypertensive heart and chronic kidney disease with heart failure and with stage 5 chronic kidney disease, or end stage renal disease; E11.22 Type 2 diabetes mellitus with diabetic chronic kidney disease; I69.354 Hemiplegia and hemiparesis following cerebral infarction affecting left non-dominant side; Z68.41 Body mass index [BMI] 40.0-44.9, adult; I50.9 Heart failure, unspecified; Z99.2 Dependence on renal dialysis; G47.33 Obstructive sleep apnea (adult) (pediatric); R09.02 Hypoxemia; R06.89 Other abnormalities of breathing; Z88.6 Allergy status to analgesic agent; Z88.8 Allergy status to other drugs, medicaments and biological substances; D64.9 Anemia, unspecified; Z79.4 Long term (current) use of insulin
CPT/HCPCS: 36415; 80053; 80202; 85025; 87040; 87070; 87081; 87181; 87205; 93925; 93970

== ENCOUNTER 2016-12-17 08:39 | Inpatient (IN) | payer MEDICARE, OTHER ==
[2016-12-17] VITALS (12 sets, daily range): BP systolic 80–129; BP diastolic 31–96
[~2016-12-17] VITALS: Ht 157.5 cm; Wt 84.4 kg
[~2016-12-17 08:39] MED LIST changes: +ACETAMINOPHEN-1 EAC1 ORAL; +AZELASTINE HCL6 ML OP; +COLACE100 MG ORAL; +DOXYCYCLINE HY100 M2 PO; +SIMBRINZA 1%-0.28 ML OP
[2016-12-17] MEDS ORDERED: PHENERGAN25 M1 ORAL (08:59)
--- NOTE | 2016-12-17 09:13 | Emergency Room Report ---
History of Present Illness General Chief Complaint: Altered Mental Status Source: Patient, Medical Record, EMS Present Illness HPI 66-year-old female history of CVA with a left-sided paresis, bedbound, end- stage renal disease on dialysis Sunday, last dialysis yesterday, asthma/COPD, presenting with shortness of breath and altered mental status. Patient is awake alert oriented x4 however not providing much history, history is mostly provided by EMS. Patient is coming from home, EMS stated that family stated that she is less talkative and less responsive today. Also appeared to be short of breath. Patient is normally on 2 L nasal cannula at home 24 hours a day, was satting 90 on nasal cannula 2 L. On room air was 87. No other history able to be obtained Currently patient is saying yes when being asked if she is short of breath however not complaining of any other symptoms. Allergies: Coded Allergies: AMITRIPTYLINE (Verified Allergy, Unknown, 11/15/14) When taken with glipizide pts Blood glucose was critically low. MD stopped medication ATENOLOL (Verified Allergy, Unknown, 11/03/14) GLIPIZIDE (Verified Allergy, Unknown, 11/15/14) Pt is not diabetic. When prescribed pt had symptoms of lethargy, somnolence, depressed, anxiousness. Medication was discontinued. UNABLE TO ASSESS (Unverified , 07/21/16) Patient History Past Medical History: see triage record Past Surgical History: none Pertinent Family History: none Last Menstrual Period: Unk Reviewed Nursing Documentation: PMH: Agreed, PSxH: Agreed Nursing Documentation-PMH Hx Cardiac Problems: Yes Hx Hypertension: Yes Hx COPD: Yes Hx Diabetes: Yes - DM1 Hx Cancer: No Hx Gastrointestinal Problems: No Hx Dialysis: Yes Hx Neurological Problems: Yes - CVA, left sided deficits Hx Cerebrovascular Accident: Yes Hx Transient Ischemic Attacks: Yes Hx Weakness: Yes Review of Systems All Other Systems: negative except mentioned in HPI Physical Exam Vital Signs Date Time Temp Pulse Resp B/P (MAP) Pulse Ox O2 Delivery O2 Flow Rate FiO2 12/17/16 08:47 101.2 85 24 103/50 92 2L nc Sp02 EP Interpretation: reviewed, abnormal General Appearance: alert, lethargic, obese, other - Middle-age female, appears to be in respiratory distress, lethargic, appears tired, however is following commands Head: normocephalic, atraumatic Eyes: bilateral eye normal inspection, bilateral eye PERRL, bilateral eye EOMI ENT: normal ENT inspection, normal pharynx, normal voice, moist mucus membranes Neck: normal inspection, full range of motion, supple Respiratory: respiratory distress, speaking full sentences, other - Tachypnea, crackles bilateral lung bases, chest symmetrical Cardiovascular #1: normal capillary refill, tachycardia, edema Cardiovascular #2: 2+ radial (R), 2+ radial (L) Gastrointestinal: normal inspection, non tender, soft, non-distended, no guarding Musculoskeletal: normal inspection, back normal, non-tender Neurologic: responsive, other - Oriented to person place and time, however not providing much in history, confused, left-sided hemiparesis, right upper and right lower extremity moving on command Psychiatric: other - Confused Skin: normal inspection, normal color, no rash, warm/dry, well hydrated, normal turgor Procedures Critical Care Time Critical Care Time 40 minutes of CC time 66-year-old female with altered mental status and shortness of breath VS: Tachycardic, febrile, tachypneic, hypoxic Sepsis criteria met Airway patent. PLAN: IV access, labs, lactate, Blood/Urine Cx, Abx Anticipate admission to Tele vs. GABBY CC time also includes review of labs, review of EMR, discussion with family and paperwork from SNF, d/w hospitalist CC could include dosing of pressors, additional Abx CC time does not include procedures Intubation Intubation : Consent: Verbal Intubation Method: orotracheal Tube Size (cm): 6.0 Breath Sounds after Intubation: equal Intubation Complications: oral-unsuccessful attempt Post Intubation Xray: Yes Progress/Xray Impression: ETT in appropriate position Attempts: Other - 3 attempts performed all with kaleidoscope. Patient difficult intubation with edematous airway. For 7.5 ET tube attempted, then 7 ETT unable to pass due to edema. 6.0 placed. good air entry b/l Patient Tolerated: Well Complications: None Medical Decision Making Diagnostic Impression: Primary Impression: Severe sepsis Additional Impressions: End-stage renal disease Altered mental status Respiratory failure ER Course 66-year-old female with p/w altered mental status/of breath DDX: ACS, COPD/asthma exacerbation, electrolyte disturbance, dehydration Sepsis 2/2 UTI, PNA, bacteremia, will also consider intra-abdominal pathology such as colitis / diverticulitis / acalculous cholecystitis if no other course found but at this time abdomen soft, NT, ND. Plan: O2 via nasal cannula/NRB We will not give 30 mL per KG bolus as patient is end-stage renal disease do not want to overload patient Obtain labs including cbc, bmp, blood culture, blood gas, lactate, ua, ucx CXR EKG Broad spectrum ABX ER course: Pt's airway remains patent Patient started on BiPAP upon arrival Patient's BP has remained stable with MAP > 65 Given broad spectrum abx - vancomycin and cefepime Patient became increasingly lethargic, continues to be in respiratory distress despite being on BiPAP, CO2 increased, discussed with the patient's daughter at bedside, patient is full code, discussed need to intubate patient and got her verbal consent Patient was intubated with kaleidoscope, patient was difficult airway, daughter states that in the past patient has required a surgical airway due to inability to intubate. Patient intubated with a 6 ETT tube after the third attempt due to edematous cords, prev attempts with 7.5 and 7.0 fentanyl drip for sedation blood gas drawn with interval improvement Sepsis Re-examination Time: 10:50am VS: Temp 99.3 HR 96 BP 118/47 RR 17 CVS: RRR Respiratory: Crackles bilaterally Peripheral pulses: 2+ radial Capillary refill: <2 seconds Skin exam: warm, dry, no rash, not mottled Disposition: Patient will admitted to the ICU Patient requires close monitoring of respiratory/hemodynamic status and continuation of IV antibiotics. D/W Hospitalist Dr Sky who has accepted pt for admission Please note that this Emergency Department Report was dictated using [employer] change clerk technology software, occasionally this can lead to erroneous entry secondary to interpretation by the dictation equipment. EKG Diagnostic Results EP Interpretation: Yes Rate: Tachycardic Rhythm: NSR ST Segments: T-wave flattening in V2 ASA given to patient: No Rhythm Strip EP Interpretation: Yes Rate: 111 Rhythm: NSR, no PVCs, no ectopy Chest X-ray CXR: Ordered: Yes 1 view Indication: Chest pain EP interpretation: Yes Interpretation: Cardiomegaly with pulmonary vascular congestion Impression: Cardiomegaly with pulmonary vascular congestion/ CHF/fluid overload Electronically signed by Maria Isabel Underwood MD Chest X-ray CXR: Ordered: Yes 1 view Indication: ETT placed EP interpretation: Yes Interpretation: ETT above terry in appropriate position, b/l pulm vasc congestion Impression: fluid overload Electronically signed by Maria Isabel Underwood MD Laboratory Tests Test 12/17/16 09:29 12/17/16 10:44 12/17/16 12:28 White Blood Count 6.3 K/UL (4.8-10.8) Red Blood Count 3.86 M/UL (4.20-5.40) L Hemoglobin 12.2 G/DL (12.0-16.0) Hematocrit 41.1 % (37.0-47.0) Mean Corpuscular Volume 107 FL (80-99) H Mean Corpuscular Hemoglobin 31.6 PG (27.0-31.0) H Mean Corpuscular Hemoglobin Concent 29.7 G/DL (32.0-36.0) L Red Cell Distribution Width 13.8 % (11.6-14.8) Platelet Count 161 K/UL (150-450) Mean Platelet Volume 7.6 FL (6.5-10.1) Neutrophils (%) (Auto) 61.6 % (45.0-75.0) Lymphocytes (%) (Auto) 19.6 % (20.0-45.0) L Monocytes (%) (Auto) 15.5 % (1.0-10.0) H Eosinophils (%) (Auto) 1.3 % (0.0-3.0) Basophils (%) (Auto) 2.0 % (0.0-2.0) Sodium Level 137 MMOL/L (136-145) Potassium Level 5.5 MMOL/L (3.5-5.1) H Chloride Level 100 MMOL/L (98-107) Carbon Dioxide Level 26 MMOL/L (21-32) Anion Gap 11 mmol/L (5-15) Blood Urea Nitrogen 49 mg/dL (7-18) H Creatinine 7.8 MG/DL (0.55-1.30) H Estimate Glomerular Filtration Rate 5.2 mL/min (>60) Glucose Level 93 MG/DL (74-106) Lactic Acid Level 0.60 mmol/L (0.66-2.22) L Calcium Level 8.6 MG/DL (8.5-10.1) Total Bilirubin 0.4 MG/DL (0.2-1.0) Aspartate Amino Transferase (AST) 68 U/L (15-37) H Alanine Aminotransferase (ALT) 56 U/L (12-78) Alkaline Phosphatase 197 U/L (46-116) H Troponin I 0.018 ng/mL (0.000-0.056) Total Protein 7.9 G/DL (6.4-8.2) Albumin 3.3 G/DL (3.4-5.0) L Globulin 4.6 g/dL Albumin/Globulin Ratio 0.7 (1.0-2.7) L Arterial Blood pH 7.180 (7.350-7.450) 7.117 (7.350-7.450) Arterial Blood Partial Pressure CO2 73.7 mmHg (35.0-45.0) *H 95.9 mmHg (35.0-45.0) *H Arterial Blood Partial Pressure O2 132.7 mmHg (75.0-100.0) H 119.2 mmHg (75.0-100.0) H Arterial Blood HCO3 26.9 mmol/L (22.0-26.0) H 30.1 mmol/L (22.0-26.0) H Arterial Blood Oxygen Saturation 97.9 % (92.0-98.0) 97.5 % (92.0-98.0) Arterial Blood Base Excess -2.8 -1.6 Jarred Test Positive Positive Last Vital Signs Date Time Temp Pulse Resp B/P (MAP) Pulse Ox O2 Delivery O2 Flow Rate FiO2 12/17/16 08:47 Room Air Disposition: ADMITTED INPATIENT Condition: Maria Isabel Power M.D. Dec 17, 2016 09:13
[2016-12-17] MEDS ORDERED: Acetaminophen 650 MG SUPP RECTAL ONE (09:15)
[2016-12-17 09:43] LABS: EOSINOPHILS % (AUTO) 1.3 % (0.0-3.0); LYMPHOCYTES % (AUTO) 19.6 % (20.0-45.0); MEAN CORPUSCULAR HEMOGLOBIN 31.6 PG (27.0-31.0); MEAN CORPUSCULAR HGB CONC 29.7 G/DL (32.0-36.0); MEAN CORPUSCULAR VOLUME 107 FL (80-99); MEAN PLATELET VOLUME 7.6 FL (6.5-10.1); MONOCYTES % (AUTO) 15.5 % (1.0-10.0); NEUTROPHILS % (AUTO) 61.6 % (45.0-75.0); PLATELET COUNT 161 K/UL (150-450); RED BLOOD COUNT 3.86 M/UL (4.20-5.40); RED CELL DISTRIBUTION WIDTH 13.8 % (11.6-14.8); WHITE BLOOD COUNT 6.3 K/UL (4.8-10.8)
[2016-12-17] MEDS ORDERED: Cefepime 2gm ONE (09:55)
[2016-12-17 09:57] LABS: ANION GAP 11 mmol/L (5-15); CALCIUM 8.6 MG/DL (8.5-10.1); CARBON DIOXIDE 26 MMOL/L (21-32); CHLORIDE 100 MMOL/L (98-107); CREATININE 7.8 MG/DL (0.55-1.30); GLOMERULAR FILTRATION RATE 5.2 mL/min (>60); POTASSIUM 5.5 MMOL/L (3.5-5.1); SODIUM 137 MMOL/L (136-145)
[2016-12-17] MEDS ORDERED: Vancomycin 1.5gm/D5W 250ml 250 ML IVPB ONE (10:00)
[2016-12-17] MEDS ORDERED: Cefepime HCl 2 GM in NS 110 ML IV ONE (10:00)
[2016-12-17 10:01] LABS: ALANINE AMINOTRANSFERASE 56 U/L (12-78); ALBUMIN/GLOBULIN RATIO 0.7 (1.0-2.7); ASPARTATE AMINO TRANSFERASE 68 U/L (15-37); TOTAL PROTEIN 7.9 G/DL (6.4-8.2)
[2016-12-17] MEDS ORDERED: Sodium Bicarbonate 50ml Carp IV ONE (10:15)
[2016-12-17] MEDS ORDERED: Calcium Gluconate 1gm/10ml vial IVP ONE (10:15)
[2016-12-17] MEDS ORDERED: Cefepime HCl 2 GM in D5W 110 ML IV ONE (10:15)
--- NOTE | 2016-12-17 10:45 | Diagnostic Imaging Report ---
Indication: Shortness of breath Comparison: 08/10/2012 chest one view Findings: Single view the chest shows marked cardiomegaly, unchanged from the prior examination. Pulmonary vasculature appears prominent consistent with mild congestive changes. There is some increased density in the left lung base with obscuration of the left hemidiaphragm indicating either left basilar atelectasis/infiltrate and/or left pleural effusion. Again noted are vascular stents in the left chest, unchanged. Impression: Cardiomegaly with bilateral congestive changes. Left basilar atelectasis/infiltrate and/or pleural effusion. Left chest vascular stents, unchanged.
[2016-12-17 10:50] LABS: ABG ALLEN TEST POSITIVE; ABG BASE EXCESS -2.8; ABG PCO2 73.7 mmHg (35.0-45.0)
[2016-12-17 12:34] LABS: ABG ALLEN TEST POSITIVE; ABG BASE EXCESS -1.6; ABG PCO2 95.9 mmHg (35.0-45.0)
[2016-12-17] MEDS ORDERED: fentaNYL 100 mcg/2 mL IV ONE ×2 (13:17→13:30)
[2016-12-17 15:55] LABS: ABG ALLEN TEST POSITIVE; ABG BASE EXCESS -3.1
[2016-12-17] MEDS ORDERED: Albuterol/Ipratropium 3ml neb HHN PRN (16:30)
[2016-12-17] MEDS: NovoLOG Insulin Flexpen SUBQ SCH ×2 (17:00→21:00)
[2016-12-17] MEDS ORDERED: Docusate 100mg cap ORAL SCH (18:00)
[2016-12-17] MEDS ORDERED: Sodium Chloride 500ML 500 ML IVPB ONE (18:45)
[2016-12-17 19:10] LABS: ABG BASE EXCESS -2.3; ABG PCO2 36.3 mmHg (35.0-45.0)
[2016-12-17 19:11] LABS: ABG ALLEN TEST POSITIVE
[2016-12-17] MEDS ORDERED: LORazepam Inj 2mg/ml 1ml IV PRN (21:15)
[2016-12-17] MEDS ORDERED: NS 250 ML IVPB ONE (21:15)
[2016-12-17] MEDS: Heparin 5000 units/ml inj SUBQ SCH (21:21)
[2016-12-17] MEDS ORDERED: Zosyn 3.375gm/50ml Premix 50 ML IVPB SCH (22:00)
[2016-12-17] MEDS: Zosyn 3.375gm/50ml Premix 50 ML IVPB SCH (22:26)
[2016-12-17] MEDS ORDERED: NS 500ML ONE (22:47)
[2016-12-18] VITALS (24 sets, daily range): BP systolic 69–112; BP diastolic 36–66
--- NOTE | 2016-12-18 02:15 | History and Physical Report ---
DATE OF ADMISSION: 12/17/2016 CHIEF COMPLAINT: Respiratory failure, pneumonia, possible CHF exacerbation. HISTORY OF PRESENT ILLNESS: The patient is a 66-year-old female with history of end-stage renal disease, on chronic hemodialysis, hypertension, and diabetes. She presented from home with complaints of shortness of breath. According to the patient's family, she was well until the night prior to admission when they noted increasing cough, congestion, and shortness of breath. She apparently received cough medication from the family, but this morning, the patient was unarousable and family brought her to the emergency room. On evaluation here, she was noted to be short of breath. It was felt that the patient likely had pneumonia. On x-ray, she had evidence of cardiomegaly with bilateral congestive changes, basilar infiltrate versus effusion. On blood gases, the patient had worsening respiratory acidosis and congestion and was therefore intubated. She is currently on a ventilator. She is awake and does follow commands. PAST MEDICAL HISTORY: As above. The patient has history of an AV fistula in the left upper extremity. PAST SURGICAL HISTORY: Includes history of AV fistula. CURRENT MEDICATIONS: Reconciled and reviewed. ALLERGIES: Include amitriptyline, Tylenol, glipizide. SOCIAL HISTORY: Negative for tobacco, ethanol, or drugs. FAMILY HISTORY: Noncontributory. REVIEW OF SYSTEMS: Unobtainable as the patient is currently intubated. PHYSICAL EXAMINATION: VITAL SIGNS: Temperature 99.3 degrees, pulse 83, respirations 17, and blood pressure 127/59. GENERAL: The patient is a well-developed female, currently orally intubated and resting. HEENT: The oropharynx is orally intubated. NECK: Supple. HEART: Regular rate and rhythm. LUNGS: Significant for scattered rhonchi. ABDOMEN: Soft, nontender, and nondistended. EXTREMITIES: Without clubbing, cyanosis, or edema. There is an AV fistula with good bruit in the left upper extremity. LABORATORY DATA: White count 6, hemoglobin 12, hematocrit 41, platelets of 161,000. Sodium 137, potassium 5.5, and creatinine was 7.8. Lactic acid was 0.6. ASSESSMENT: This is a pleasant female with complaint of respiratory failure: 1. Respiratory failure. 2. Pneumonia. 3. Possible acute on chronic congestive heart failure exacerbation. 4. End-stage renal disease. 5. Diabetes. 6. Hypertension. PLAN: Continue vent support, respiratory treatments. Renal consultation for hemodialysis. Broad-spectrum antibiotic therapy. We will follow up pending cultures. We will continue outpatient diabetic and cardiac regimen. Goldy Sky M.D. DR: [place] JOB#: [id number] CC:
--- NOTE | 2016-12-18 04:00 | Consultation ---
DATE OF CONSULTATION: 12/17/2016 CARDIOLOGY CONSULTATION REQUESTING PHYSICIAN: Goldy Sky M.D. REASON FOR CONSULTATION: Hypotension in the setting of acute respiratory failure. HISTORY OF PRESENT ILLNESS: This 66-year-old female with prior cerebrovascular accident and left hemiparesis, who is on hemodialysis three times a week due to end-stage renal disease, presented to the emergency room with shortness of breath and lethargy. Her initial ABG was grossly abnormal revealing a pH 7.18, pCO2 74, and pO2 of 132. The patient was placed on BiPAP support and followup ABG worsened with pH 7.12, pCO2 96, and pO2 of 119. As a result, intubation and mechanical ventilation were initiated. The patient was admitted to the intensive care unit. She subsequently drops her blood pressure and I have been asked to assist with further care. PAST MEDICAL HISTORY: Includes: 1. Cerebrovascular accident with left hemiparesis. 2. End-stage renal disease, on hemodialysis. 3. Chronic obstructive pulmonary disease. 4. Type 2 diabetes mellitus. 5. Sinus node disease with history of bradycardia. 6. Anemia of chronic kidney disease. 7. History of coronary artery disease with coronary stents. OBJECTIVE: VITAL SIGNS: Blood pressure 81/34, pulse 74, and respiratory 19. The patient's temperature was 99.3 earlier. Orally intubated. Mechanically ventilated. Poorly responsive. LUNGS: Bilateral rhonchi. HEART: Regular rhythm and rate. Normal S1, S2 with no murmur. ABDOMEN: Soft. EXTREMITIES: Revealed trace edema. Left hemiparesis is noted. DIAGNOSTIC AND LABORATORY DATA: Chest x-ray reveals cardiomegaly, bilateral congestive changes, and left atelectasis and infiltrate. EKG reveals sinus tachycardia with nonspecific T-wave changes. Laboratories are as follows: White count 6.3, hemoglobin 12.2, sodium 137, potassium 5.5, bicarb 26, lactic acid 0.6, BUN 49, creatinine 7.8, troponin 0.018, and albumin 3.3. IMPRESSION: 1. Acute on chronic respiratory acidosis with hypoxia. 2. Acute myocardial ischemia. 3. End-stage renal disease. 4. Shock. 5. Probable sepsis. 6. Possible component of intravascular volume depletion. 7. Type 2 diabetes mellitus with complications. PLAN: 1. Ventilator support. 2. Monitor ABG and adjust vent settings accordingly. 3. Panculture. 4. Broad-spectrum antibiotics. 5. Fluid challenge x1, otherwise pressors will be added if inadequate response to peripheral perfusion pressures. 6. Hemodialysis without ultrafiltration presently. 7. Echocardiogram. 8. We will follow with you during this hospital course. 9. Further recommendations will follow. Adalberto May M.D. DR: NICK JOB#: [id number] CC:
[2016-12-18 06:02] LABS: BASOPHILS % (AUTO) 0.9 % (0.0-2.0); EOSINOPHILS % (AUTO) 0.7 % (0.0-3.0); LYMPHOCYTES % (AUTO) 18.6 % (20.0-45.0); MEAN CORPUSCULAR HEMOGLOBIN 33.1 PG (27.0-31.0); MEAN CORPUSCULAR HGB CONC 32.5 G/DL (32.0-36.0); MEAN CORPUSCULAR VOLUME 102 FL (80-99); MEAN PLATELET VOLUME 6.7 FL (6.5-10.1); MONOCYTES % (AUTO) 16.5 % (1.0-10.0); NEUTROPHILS % (AUTO) 63.2 % (45.0-75.0); PLATELET COUNT 119 K/UL (150-450); RED BLOOD COUNT 2.95 M/UL (4.20-5.40); RED CELL DISTRIBUTION WIDTH 13.2 % (11.6-14.8); WHITE BLOOD COUNT 4.8 K/UL (4.8-10.8)
[2016-12-18 06:21] LABS: ALANINE AMINOTRANSFERASE 43 U/L (12-78); ALBUMIN/GLOBULIN RATIO 0.9 (1.0-2.7); ANION GAP 13 mmol/L (5-15); ASPARTATE AMINO TRANSFERASE 40 U/L (15-37); CALCIUM 8.8 MG/DL (8.5-10.1); CARBON DIOXIDE 26 MMOL/L (21-32); CHLORIDE 100 MMOL/L (98-107); CREATININE 9.1 MG/DL (0.55-1.30); GLOMERULAR FILTRATION RATE 4.3 mL/min (>60); POTASSIUM 4.6 MMOL/L (3.5-5.1); SODIUM 139 MMOL/L (136-145); TOTAL PROTEIN 6.4 G/DL (6.4-8.2)
[2016-12-18] MEDS: NovoLOG Insulin Flexpen SUBQ SCH ×4 (06:30→21:00)
--- NOTE | 2016-12-18 08:28 | General Progress Note ---
Assessment/Plan Problem List: (1) Pneumonia ICD Codes: J18.9 - Pneumonia, unspecified organism SNOMED: 357418330 (2) Diastolic CHF, acute on chronic ICD Codes: I50.33 - Acute on chronic diastolic (congestive) heart failure SNOMED: 98146832, 006743751 (3) Respiratory failure ICD Codes: J96.90 - Respiratory failure, unspecified, unspecified whether with hypoxia or hypercapnia SNOMED: 213627748 (4) Severe sepsis ICD Codes: A41.9 - Sepsis, unspecified organism; R65.20 - Severe sepsis without septic shock SNOMED: 07174973 (5) End-stage renal disease ICD Codes: N18.6 - End stage renal disease SNOMED: 53834407 Status: stable Assessment/Plan feeds HD with UF iv abx follow up cultures sedation critical and guarded d/w dtr poc Subjective ROS Limited/Unobtainable: No Constitutional: Reports: malaise, weakness HEENT: Reports: no symptoms Cardiovascular: Reports: no symptoms Respiratory: Reports: cough Gastrointestinal/Abdominal: Reports: no symptoms Genitourinary: Reports: no symptoms Neurologic/Psychiatric: Reports: no symptoms Endocrine: Reports: no symptoms Hematologic/Lymphatic: Reports: anemia Allergies: Coded Allergies: AMITRIPTYLINE (Verified Allergy, Unknown, 11/15/14) When taken with glipizide pts Blood glucose was critically low. MD stopped medication ATENOLOL (Verified Allergy, Unknown, 11/03/14) GLIPIZIDE (Verified Allergy, Unknown, 11/15/14) Pt is not diabetic. When prescribed pt had symptoms of lethargy, somnolence, depressed, anxiousness. Medication was discontinued. UNABLE TO ASSESS (Unverified , 07/21/16) All Systems: reviewed and negative except above Subjective remains intubated. BP better off fentanyl. on ativan. Objective Last 24 Hour Vital Signs Date Time Temp Pulse Resp B/P (MAP) Pulse Ox O2 Delivery O2 Flow Rate FiO2 12/18/16 08:00 50 12/18/16 08:00 98.1 62 16 99/66 100 Mechanical Ventilator 50 12/18/16 08:00 60 12/18/16 07:09 58 16 50 12/18/16 07:00 57 16 101/46 100 Mechanical Ventilator 50 12/18/16 06:00 60 16 100/50 100 Mechanical Ventilator 50 12/18/16 05:10 63 16 50 12/18/16 05:00 62 16 94/49 100 Mechanical Ventilator 50 12/18/16 04:00 98.2 65 16 69/40 100 Mechanical Ventilator 50 12/18/16 04:00 50 12/18/16 04:00 65 12/18/16 03:11 61 16 50 12/18/16 03:00 59 16 103/45 100 Mechanical Ventilator 50 12/18/16 02:00 59 16 103/45 100 Mechanical Ventilator 50 12/18/16 01:11 66 16 50 12/18/16 01:00 60 16 95/42 100 Mechanical Ventilator 50 12/18/16 00:00 98.0 69 16 101/43 100 Mechanical Ventilator 80 12/18/16 00:00 70 12/18/16 00:00 80 12/17/16 23:20 95 16 60 12/17/16 23:00 84 16 95/36 100 Mechanical Ventilator 100 12/17/16 22:00 64 16 86/37 100 Mechanical Ventilator 100 12/17/16 21:30 20 12/17/16 21:15 95/75 12/17/16 21:05 71 16 80 12/17/16 21:00 69 16 80/31 100 Mechanical Ventilator 100 12/17/16 20:30 70 16 83/31 100 Mechanical Ventilator 100 12/17/16 20:00 85 12/17/16 20:00 20 12/17/16 20:00 74 19 81/34 100 100 12/17/16 19:16 75 16 80 12/17/16 18:00 74 19 81/34 100 100 12/17/16 17:11 87 16 100 12/17/16 17:00 97.2 83 19 111/53 100 100 12/17/16 16:15 100 12/17/16 16:00 85 12/17/16 16:00 99.3 79 20 103/50 100 Mechanical Ventilator 100 12/17/16 15:50 20 12/17/16 15:49 79 20 103/50 100 Mechanical Ventilator 100 12/17/16 15:03 99.3 82 17 127/59 100 Mechanical Ventilator 100 12/17/16 14:22 18 12/17/16 14:22 19 12/17/16 13:30 82 19 104/44 99 Mechanical Ventilator 100 12/17/16 13:20 72 16 100 12/17/16 13:20 100 12/17/16 11:29 100 17 89 Facial 60 12/17/16 10:34 106 20 115/50 100 Bi-pap 12/17/16 09:39 99.2 12/17/16 09:20 60 12/17/16 08:57 101.4 105 21 129/96 100 Bi-pap 12/17/16 08:50 105 26 100 Facial 60 12/17/16 08:47 Room Air 12/17/16 08:45 105 16 Bi-pap 60 Laboratory Tests 12/17/16 09:29: White Blood Count 6.3, Red Blood Count 3.86L, Hemoglobin 12.2, Hematocrit 41.1, Mean Corpuscular Volume 107H, Mean Corpuscular Hemoglobin 31.6H, Mean Corpuscular Hemoglobin Concent 29.7L, Red Cell Distribution Width 13.8, Platelet Count 161, Mean Platelet Volume 7.6, Neutrophils (%) (Auto) 61.6, Lymphocytes (%) (Auto) 19.6L, Monocytes (%) (Auto) 15.5H, Eosinophils (%) (Auto ) 1.3, Basophils (%) (Auto) 2.0, Sodium Level 137, Potassium Level 5.5H, Chloride Level 100, Carbon Dioxide Level 26, Anion Gap 11, Blood Urea Nitrogen 49H, Creatinine 7.8H, Estimat Glomerular Filtration Rate 5.2, Glucose Level 93, Lactic Acid Level 0.60L, Calcium Level 8.6, Total Bilirubin 0.4, Aspartate Amino Transf (AST/SGOT) 68H, Alanine Aminotransferase (ALT/SGPT) 56, Alkaline Phosphatase 197H, Troponin I 0.018, Total Protein 7.9, Albumin 3.3L, Globulin 4.6, Albumin/Globulin Ratio 0.7L 12/17/16 10:44: Arterial Blood pH 7.180*L, Arterial Blood Partial Pressure CO2 73.7*H, Arterial Blood Partial Pressure O2 132.7H, Arterial Blood HCO3 26.9H, Arterial Blood Oxygen Saturation 97.9, Arterial Blood Base Excess -2.8, Jarred Test Positive 12/17/16 12:28: Arterial Blood pH 7.117*L, Arterial Blood Partial Pressure CO2 95.9*H, Arterial Blood Partial Pressure O2 119.2H, Arterial Blood HCO3 30.1H, Arterial Blood Oxygen Saturation 97.5, Arterial Blood Base Excess -1.6, Jarred Test Positive 12/17/16 15:25: Arterial Blood pH 7.229*L, Arterial Blood Partial Pressure CO2 62.0*H, Arterial Blood Partial Pressure O2 372.9H, Arterial Blood HCO3 25.3, Arterial Blood Oxygen Saturation 99.3H, Arterial Blood Base Excess -3.1, Jarred Test Positive 12/17/16 19:00: Arterial Blood pH 7.401, Arterial Blood Partial Pressure CO2 36.3, Arterial Blood Partial Pressure O2 394.4H, Arterial Blood HCO3 22.0, Arterial Blood Oxygen Saturation 99.2H, Arterial Blood Base Excess -2.3, Jarred Test Positive 12/18/16 04:20: White Blood Count 4.8, Red Blood Count 2.95L, Hemoglobin 9.8L, Hematocrit 30.1L , Mean Corpuscular Volume 102H, Mean Corpuscular Hemoglobin 33.1H, Mean Corpuscular Hemoglobin Concent 32.5, Red Cell Distribution Width 13.2, Platelet Count 119L, Mean Platelet Volume 6.7, Neutrophils (%) (Auto) 63.2, Lymphocytes ( %) (Auto) 18.6L, Monocytes (%) (Auto) 16.5H, Eosinophils (%) (Auto) 0.7, Basophils (%) (Auto) 0.9, Sodium Level 139, Potassium Level 4.6, Chloride Level 100, Carbon Dioxide Level 26, Anion Gap 13, Blood Urea Nitrogen 59H, Creatinine 9.1H, Estimat Glomerular Filtration Rate 4.3, Glucose Level 78, Calcium Level 8.8, Total Bilirubin 0.7, Aspartate Amino Transf (AST/SGOT) 40H, Alanine Aminotransferase (ALT/SGPT) 43, Alkaline Phosphatase 134H, Troponin I 0.016, Total Protein 6.4, Albumin 3.0L, Globulin 3.4, Albumin/Globulin Ratio 0.9L Height (Feet): 5 Height (Inches): 2.00 Weight (Pounds): 190 General Appearance: WD/WN, lethargic Neck: supple Cardiovascular: normal rate, regular rhythm Respiratory/Chest: chest wall non-tender, lungs clear, normal breath sounds, no respiratory distress Abdomen: normal bowel sounds, non tender, soft, no organomegaly Edema: trace edema Skin: normal pigmentation TOMI GONZALES Dec 18, 2016 08:28
[2016-12-18] MEDS: Docusate 100mg/10ml Liq ORAL SCH ×2 (08:34→17:15)
[2016-12-18] MEDS: Metoprolol 25mg tab ORAL SCH (08:34)
[2016-12-18] MEDS: Nephrovite tab (Rena-Vite) ORAL SCH (08:34)
[2016-12-18] MEDS: Heparin 5000 units/ml inj SUBQ SCH ×2 (08:36→21:20)
[2016-12-18 08:51] LABS: ABG ALLEN TEST POSITIVE; ABG BASE EXCESS -1.5; ABG PCO2 40.6 mmHg (35.0-45.0)
[2016-12-18] MEDS ORDERED: Metoprolol 25mg tab ORAL SCH (09:00)
[2016-12-18] MEDS ORDERED: Aspirin EC 81mg tab ORAL SCH (09:00)
--- NOTE | 2016-12-18 09:38 | Diagnostic Imaging Report ---
Indication: Post intubation Technique: One view of the chest Comparison: 3 hours earlier Findings: Interim endotracheal intubation, endotracheal tube tip projecting in good position approximately 4 cm above the terry. The heart is enlarged. There is mild interstitial congestion again demonstrated. There is slightly improved aeration of the left lung base. Extensive venous stents are again demonstrated in the left chest. Impression: Satisfactory endotracheal intubation Other stable findings as described
[2016-12-18] MEDS: Aspirin Baby 81mg NG SCH (09:40)
[2016-12-18] MEDS: Zosyn 3.375gm/50ml Premix 50 ML IVPB SCH (09:40)
--- NOTE | 2016-12-18 16:17 | Consultation ---
DATE OF CONSULTATION: 12/18/2016 INFECTIOUS DISEASES CONSULTATION This consult is for coverage of Dr. Cunningham. PRIMARY ATTENDING PHYSICIAN: Goldy Sky M.D. REASON FOR CONSULT: Sepsis, pneumonia. HISTORY OF PRESENT ILLNESS: The patient is a 66-year-old female admitted yesterday because of altered mental status. According to family, she was less reactive, complaining of cough and shortness of breath. At the time of admission, she was tachycardic, febrile and hypoxemic, has a pulse rate of 105 in the ER, temperature of 101.4 degrees in the ER. The patient was intubated and transferred to ICU. PAST MEDICAL HISTORY: Significant for diabetes mellitus. The patient had end-stage renal disease on hemodialysis. She has a history of asthma and COPD, has history of CVA with left-sided hemiparesis, and AV shunt placement. MEDICATIONS: Getting folic acid, Nephro-Giulia, Colace, metoprolol, aspirin, Protonix, Zosyn, lorazepam, gabapentin, heparin, Lipitor, vancomycin, and Tylenol. ALLERGIES: She has allergic to amitriptyline, atenolol, and glipizide. SOCIAL HISTORY: . Comes from home. Ethiopian. No other history is obtainable. PHYSICAL EXAMINATION: VITAL SIGNS: Temperature is 98.1 degrees, pulse 57, and blood pressure 99/66. GENERAL APPEARANCE: She seems to be obese. HEAD AND NECK: Orally intubated. [place] conjunctivae. HEART: Regular. Slightly bradycardic. LUNGS: Clear on mechanical ventilator. ABDOMEN: Soft, obese, and nontender. EXTREMITIES: No edema. NEUROLOGIC: Open the eyes, cannot move the left leg. LABORATORY AND DIAGNOSTIC DATA: WBC 4.8, hemoglobin 9.8, hematocrit 30.1, and platelet 119. Sodium 139, potassium 4.6, chloride 100, bicarbonate 26, BUN 51, creatinine 9.1. Lactic acid was low at 0.6. Albumin was 3. Cultures are pending. Chest x-ray showed left basilar atelectasis, infiltrate or pleural effusion, left chest vascular stent, cardiomegaly, and bilateral congestion. The patient had a blood gas at the time of admission showed acidosis and increase in carbon dioxide. IMPRESSION: Sepsis with tachycardia, fever, and hypoxemia. The patient seems to have pneumonia. She has respiratory failure that was hypercapnic. She has end-stage renal dialysis on hemodialysis, has history of chronic obstructive pulmonary disease, has diabetes mellitus, and history of cerebrovascular accident. RECOMMENDATION: 1. We will continue with Zosyn and vancomycin. 2. Followup the cultures. At the end of my exam, I thank, Dr. Sky, for involving me in the care of this patient. Presley Carlson M.D. DR: ISHAN JOB#: [id number] CC:
[2016-12-18] MEDS: Zosyn 2.25 gm in D5W 55ml IV SCH (17:15)
--- NOTE | 2016-12-18 17:32 | Consultation ---
DATE OF CONSULTATION: 12/18/2016 PULMONARY CONSULTATION CONSULTING PHYSICIAN: Aquiles Clifton M.D. REASON FOR CONSULTATION: Respiratory failure. HISTORY OF PRESENT ILLNESS: The patient is a 66-year-old unfortunate female, who has had prior history of respiratory failure. The patient also with end-stage renal disease, on chronic hemodialysis. The patient presented with shortness of breath and noted some cough and congestion. The patient was noted to have pneumonia on x-ray. Blood gases appeared to be very critical with noted respiratory acidosis. The patient is therefore intubated and now in the ICU. I was called to assist to evaluate further. The patient is unable to give much in the way of history. Prior history reviewed. Care discussed with the primary MD. as well is present. The patient does have a longstanding history of respiratory failure as mentioned. The patient also is on home BiPAP. The patient previously had a stormy hospital course requiring prolonged intubation. PAST MEDICAL HISTORY: Notable for end-stage renal disease, hypertension, diabetes, respiratory failure, chronic respiratory acidosis, sleep apnea, significant immobility, and history of AV fistula. The patient also with prior history of acute encephalopathy, prior history of cellulitis, anemia of chronic disease, history of perforated abdominal viscus, history of CHF, history of diabetes, and history of reflux disease. MEDICATIONS: Reviewed. ALLERGIES: Reviewed. SOCIAL HISTORY: The patient is retired and disabled. Lives with her , who is her primary caregiver. The patient is mostly in a motorized wheelchair. PHYSICAL EXAMINATION: GENERAL: The patient is an ill-appearing female, on mechanical ventilation. VITAL SIGNS: Blood pressure 96/46, respirations 22, pulse 90, and sats are 100%. The patient is currently on 40% FiO2. The patient's temperature 98.1. HEENT: Normocephalic and atraumatic. Pupils are sluggish. The patient is orally intubated. NECK: Short. No clear jugular venous distention. LUNGS: Coarse breath sounds bilaterally with moderate air entry. CARDIAC: Normal S1 and S2. Regular rate and rhythm. Somewhat distant without murmurs, rubs, or gallops. ABDOMEN: Soft, obese, and nontender. EXTREMITIES: No cyanosis or clubbing. There is mild edema. Shortened limbs. NEUROLOGICAL: Poorly responsive and sedated. LABORATORY DATA: Reviewed. White count 4.8, hemoglobin 9.8, hematocrit 30, and platelets are 119. Arterial blood gases 7.38/40/199/23/98.5. Chemistries noted and reviewed. BUN 59 and creatinine is 9.1. The liver enzymes are minimally elevated. Albumin is 3. Chest x-ray with mild pulmonary vascular congestion. IMPRESSION: 1. Respiratory failure. 2. Possible pneumonia. 3. Possible pulmonary edema. 4. End-stage renal disease, on hemodialysis. 5. Chronic respiratory failure with a longstanding history of respiratory acidosis, although clinically stable, noted hypoxemia, underlying chronic obstructive pulmonary disease, underlying heart disease, underlying congestive heart failure. RECOMMENDATIONS: Supportive care. Monitor clinically and optimize. Maintain acid-base exchange for now. Maintain current ventilator setting for now. Nutritional support. Empiric antibiotics. Follow clinically. Hemodialysis with ultrafiltration. Monitor hemodynamics and stabilize further. Assess in the morning for possible bleeding. At present, the patient remains critical requiring ICU care and management. Aquiles Clifton M.D. DR: JANUARY JOB#: [id number] CC:
--- NOTE | 2016-12-18 17:44 | Consultation ---
Consult Note Assessment/Plan #[id number] Nephrology consult dictated MAYRA KANG Dec 18, 2016 17:44
[2016-12-18] MEDS ORDERED: Piperacillin/Tazobactam 3.375 GM in D5W 55 ML IVPB SCH (22:00)
--- NOTE | 2016-12-18 22:32 | Consultation ---
DATE OF CONSULTATION: 12/18/2016 NEPHROLOGY CONSULTATION REFERRING PHYSICIAN: Goldy Sky M.D. REASON FOR CONSULTATION: The patient with end-stage renal disease, has presented with respiratory failure. HISTORY OF PRESENT ILLNESS: This is a very pleasant, morbidly obese 66-year-old female, patient of Dr. Cm Carrero that I am covering for, has had end-stage renal disease, being on hemodialysis three days a week, on Sunday, Sunday, and Sunday, has been brought to the emergency room of [facility] on 12/17/2016 with some respiratory failure and has been intubated in the intensive care unit. She did not have any cough or purulent sputum production. She is living at home. Chest x-ray has shown evidence of apical redistribution of the vessels compatible with CHF and I have been asked to see her and assess for her hemodialysis needs. PAST MEDICAL HISTORY: Significant for end-stage renal disease, hypertension, type 2 diabetes mellitus, and morbid obesity. PAST SURGICAL HISTORY: Status post AV fistula creation on the left arm. MEDICATIONS: Zosyn, vancomycin IV, aspirin, Colace, folic acid, Neurontin, subcutaneous heparin, sliding scale insulin, metoprolol, and Protonix. ALLERGIES: Amitriptyline, Tylenol, and glipizide. SOCIAL HISTORY: No alcohol abuse. No tobacco or drug abuse. REVIEW OF SYSTEMS: Impossible, as she is intubated on the ventilator. PHYSICAL EXAMINATION: GENERAL: This is a morbidly obese lady. VITAL SIGNS: Blood pressure varies, 103/63, pulse of 57, respirations 16, and temperature 98.3 degrees. HEENT: Head is atraumatic. Eyes, pupils are reactive to light. No evidence of papilledema. Ears canals are clear. Tympanic membranes are intact. She has ET tube in place. NECK: Supple. Jugular venous distention is difficult to assess for JVD. No thyromegaly. HEART: Regular rhythm. No gallop. LUNGS: A few crackles in both bases. ABDOMEN: Supple. Bowel sounds positive. No hepatosplenomegaly. EXTREMITIES: Lower extremity shows 1 to 2+ pedal edema. NEUROLOGICAL: Cranial nerves are intact. Deep tendon reflexes are symmetrically decreased in both lower extremities. LABORATORY AND DIAGNOSTIC DATA: WBC of 4.8, hemoglobin 9.8, hematocrit 30.1, and platelets of 119. Sodium 139, potassium 4.6, chloride 100, carbon dioxide 26, BUN 69, creatinine 9.1. Troponin 0.016. TSH 0.413. IMPRESSION: 1. End-stage renal disease. 2. Evidence of congestive heart failure and fluid overload. 3. Status post respiratory failure secondary to evidence of congestive heart failure and fluid overload. 4. Type 2 diabetes mellitus. 5. Morbid obesity. PLAN: We are going to arrange for hemodialysis on her with about 3.5 liter fluid removal and hopefully we can extubate her. A 2D echo probably is warranted. Walker Barragan M.D. DR: KAR JOB#: [id number] CC: HANH
[2016-12-18] MEDS: Acetaminophen 500mg (ES) tab ORAL PRN (22:59)
[2016-12-19] VITALS (29 sets, daily range): BP systolic 82–139; BP diastolic 27–91
[2016-12-19] MEDS: Zosyn 2.25 gm in D5W 55ml IV SCH ×3 (01:35→18:22)
[2016-12-19] MEDS ORDERED: Heparin Sod 1000 units/ml 10ml IV ONE (06:00)
[2016-12-19] MEDS: NovoLOG Insulin Flexpen SUBQ SCH ×4 (06:29→23:53)
--- NOTE | 2016-12-19 07:45 | Progress Note ---
DATE: 12/18/2016 CARDIOLOGY PROGRESS NOTE SUBJECTIVE: The patient's condition remains critical. Prognosis guarded. She is in the intensive care unit. She is orally intubated and mechanically ventilated. Blood pressure has been unstable overnight. She required pressors. OBJECTIVE: VITAL SIGNS: Blood pressure is 99/66, heart rate 62, respiratory rate 16, and she is afebrile. CHEST: Bilateral breath sounds. HEART: Regular rhythm and rate. Normal S1 and S2 with a fourth heart sound. ABDOMEN: Soft and nontender. EXTREMITIES: Trace edema. LABORATORY DATA: White count is 4.8 and hemoglobin 9.8. ABG, pH 7.38, pCO2 41, and pO2 199. Troponin 0.016. TSH is 0.41. Albumin is 3.0. BUN is 59, creatinine 9.1, and potassium 4.6. IMPRESSION: 1. Sepsis with shock. 2. Respiratory failure. 3. Acute respiratory acidosis. 4. Healthcare-acquired pneumonia. 5. Cerebrovascular disease with prior cerebrovascular accident. 6. Acute myocardial ischemia. 7. End-stage renal disease, on hemodialysis. PLAN: 1. Antimicrobials. 2. Ventilator support with wean as able. 3. Empiric antibiotics. 4. Hemodialysis with ultrafiltration. 5. Avoid pressors and if able to maintain systolic pressure above 90. 6. DVT and stress ulcer prophylaxis discussed with staff. Adalberto May M.D. DR: Pauline JOB#: [id number] CC:
--- NOTE | 2016-12-19 07:52 | Critical Care Progress Note ---
Assessment/Plan Assessment/Plan IMPRESSION: Respiratory failure. Possible pneumonia. Possible pulmonary edema. End-stage renal disease, on hemodialysis. Chronic respiratory failure with a longstanding history of respiratory acidosis, hypoxemia, heart disease, congestive heart failure. PLAN care noted IV antibiotics as noted respiratory care Ventilatory support reviewed meds supportive care suction as needed trial of weaning after HD oxygen therapy prognosis guarded remains critical medications/laboratory data/nursing notes/ICU care reviewed in detail note reviewed and edited care discussed with RN and RT ICU time spent 37 minutes Critical Care - Subjective Interval Events: on the ventilator awake undergoing HD d/w ICU team ROS Limited/Unobtainable: Yes Condition: critical EKG Rhythm: Sinus Rhythm I&O: Intake and Output 12/19/16 12/20/16 19:00 07:00 Intake Total 60 ml Output Total 1 ml Balance 59 ml Intake Oral 0 ml Tube Feeding 20 ml Other 40 ml Output Urine Total 1 ml # Bowel Movements 1 Critical Care - Objective ET-Tube: 6.0 ET Position: 21 Last 24 Hour Vital Signs Date Time Temp Pulse Resp B/P (MAP) Pulse Ox O2 Delivery O2 Flow Rate FiO2 12/19/16 07:31 97.5 55 20 99/52 100 Mechanical Ventilator 40 12/19/16 07:31 97.5 55 20 99/52 100 Mechanical Ventilator 40 12/19/16 07:29 Mechanical Ventilator 40 12/19/16 07:20 Mechanical Ventilator 40 12/19/16 07:09 97.5 55 20 99/52 Mechanical Ventilator 40 12/19/16 07:00 57 23 99/52 100 Mechanical Ventilator 40 12/19/16 06:00 59 24 90/51 100 Mechanical Ventilator 40 12/19/16 05:29 63 16 40 12/19/16 05:00 55 25 92/44 100 Mechanical Ventilator 40 12/19/16 04:15 57 25 103/44 100 Mechanical Ventilator 40 12/19/16 04:00 97.8 63 25 87/46 100 Mechanical Ventilator 40 12/19/16 04:00 40 12/19/16 03:26 58 16 40 12/19/16 03:15 57 12/19/16 03:00 57 17 86/41 100 Mechanical Ventilator 40 12/19/16 02:00 57 24 84/44 100 Mechanical Ventilator 40 12/19/16 01:30 78 20 40 12/19/16 01:00 56 23 82/38 100 Mechanical Ventilator 40 12/19/16 00:20 60 16 94/44 100 Mechanical Ventilator 40 12/19/16 00:00 98.4 95 22 84/27 100 Mechanical Ventilator 40 12/19/16 00:00 40 12/18/16 23:41 61 12/18/16 23:30 85 23 40 12/18/16 23:00 62 17 93/41 100 Mechanical Ventilator 40 12/18/16 22:00 61 20 92/41 100 Mechanical Ventilator 40 12/18/16 21:15 93/36 12/18/16 21:06 71 16 40 12/18/16 21:00 60 29 84/42 100 Mechanical Ventilator 40 12/18/16 20:16 40 12/18/16 20:15 62 12/18/16 20:00 98.6 62 16 97/36 100 Mechanical Ventilator 40 12/18/16 19:30 68 16 40 12/18/16 19:00 64 16 92/39 100 Mechanical Ventilator 40 12/18/16 18:00 61 16 91/40 100 Mechanical Ventilator 40 12/18/16 17:20 75 15 40 12/18/16 17:00 63 16 95/49 100 Mechanical Ventilator 40 12/18/16 16:00 63 12/18/16 16:00 40 12/18/16 16:00 98.3 57 16 103/63 100 Mechanical Ventilator 40 12/18/16 15:21 67 14 40 12/18/16 15:00 59 23 90/48 100 Mechanical Ventilator 40 12/18/16 14:00 62 23 95/54 100 Mechanical Ventilator 40 12/18/16 13:15 64 16 40 12/18/16 13:00 61 20 112/56 100 Mechanical Ventilator 40 12/18/16 12:00 40 12/18/16 12:00 57 12/18/16 12:00 98.5 57 21 99/49 100 Mechanical Ventilator 40 12/18/16 11:20 59 14 40 12/18/16 11:00 90 22 96/46 100 Mechanical Ventilator 40 12/18/16 10:00 56 23 87/47 100 Mechanical Ventilator 50 12/18/16 09:00 55 20 97/50 100 Mechanical Ventilator 50 12/18/16 08:59 57 16 40 12/18/16 08:34 56 99/66 12/18/16 08:00 50 12/18/16 08:00 98.1 62 16 99/66 100 Mechanical Ventilator 50 12/18/16 08:00 60 Labs: Labs Test 12/17/16 09:29 12/17/16 10:44 12/17/16 12:28 12/17/16 15:25 White Blood Count 6.3 K/UL (4.8-10.8) Red Blood Count 3.86 M/UL (4.20-5.40) Hemoglobin 12.2 G/DL (12.0-16.0) Hematocrit 41.1 % (37.0-47.0) Mean Corpuscular Volume 107 FL (80-99) Mean Corpuscular Hemoglobin 31.6 PG (27.0-31.0) Mean Corpuscular Hemoglobin Concent 29.7 G/DL (32.0-36.0) Red Cell Distribution Width 13.8 % (11.6-14.8) Platelet Count 161 K/UL (150-450) Mean Platelet Volume 7.6 FL (6.5-10.1) Neutrophils (%) (Auto) 61.6 % (45.0-75.0) Lymphocytes (%) (Auto) 19.6 % (20.0-45.0) Monocytes (%) (Auto) 15.5 % (1.0-10.0) Eosinophils (%) (Auto) 1.3 % (0.0-3.0) Basophils (%) (Auto) 2.0 % (0.0-2.0) Sodium Level 137 MMOL/L (136-145) Potassium Level 5.5 MMOL/L (3.5-5.1) Chloride Level 100 MMOL/L (98-107) Carbon Dioxide Level 26 MMOL/L (21-32) Anion Gap 11 mmol/L (5-15) Blood Urea Nitrogen 49 mg/dL (7-18) Creatinine 7.8 MG/DL (0.55-1.30) Estimat Glomerular Filtration Rate 5.2 mL/min (>60) Glucose Level 93 MG/DL (74-106) Lactic Acid Level 0.60 mmol/L (0.66-2.22) Calcium Level 8.6 MG/DL (8.5-10.1) Total Bilirubin 0.4 MG/DL (0.2-1.0) Aspartate Amino Transf (AST/SGOT) 68 U/L (15-37) Alanine Aminotransferase (ALT/SGPT) 56 U/L (12-78) Alkaline Phosphatase 197 U/L (46-116) Troponin I 0.018 ng/mL (0.000-0.056) Total Protein 7.9 G/DL (6.4-8.2) Albumin 3.3 G/DL (3.4-5.0) Globulin 4.6 g/dL Albumin/Globulin Ratio 0.7 (1.0-2.7) Arterial Blood pH 7.180 (7.350-7.450) 7.117 (7.350-7.450) 7.229 (7.350-7.450) Arterial Blood Partial Pressure CO2 73.7 mmHg (35.0-45.0) 95.9 mmHg (35.0-45.0) 62.0 mmHg (35.0-45.0) Arterial Blood Partial Pressure O2 132.7 mmHg (75.0-100.0) 119.2 mmHg (75.0-100.0) 372.9 mmHg (75.0-100.0) Arterial Blood HCO3 26.9 mmol/L (22.0-26.0) 30.1 mmol/L (22.0-26.0) 25.3 mmol/L (22.0-26.0) Arterial Blood Oxygen Saturation 97.9 % (92.0-98.0) 97.5 % (92.0-98.0) 99.3 % (92.0-98.0) Arterial Blood Base Excess -2.8 -1.6 -3.1 Jarred Test Positive Positive Positive Test 12/17/16 19:00 12/18/16 04:20 12/18/16 08:48 12/19/16 04:10 Arterial Blood pH 7.401 (7.350-7.450) 7.380 (7.350-7.450) Arterial Blood Partial Pressure CO2 36.3 mmHg (35.0-45.0) 40.6 mmHg (35.0-45.0) Arterial Blood Partial Pressure O2 394.4 mmHg (75.0-100.0) 199.9 mmHg (75.0-100.0) Arterial Blood HCO3 22.0 mmol/L (22.0-26.0) 23.5 mmol/L (22.0-26.0) Arterial Blood Oxygen Saturation 99.2 % (92.0-98.0) 98.5 % (92.0-98.0) Arterial Blood Base Excess -2.3 -1.5 Jarred Test Positive Positive White Blood Count 4.8 K/UL (4.8-10.8) Red Blood Count 2.95 M/UL (4.20-5.40) Hemoglobin 9.8 G/DL (12.0-16.0) Hematocrit 30.1 % (37.0-47.0) Mean Corpuscular Volume 102 FL (80-99) Mean Corpuscular Hemoglobin 33.1 PG (27.0-31.0) Mean Corpuscular Hemoglobin Concent 32.5 G/DL (32.0-36.0) Red Cell Distribution Width 13.2 % (11.6-14.8) Platelet Count 119 K/UL (150-450) Mean Platelet Volume 6.7 FL (6.5-10.1) Neutrophils (%) (Auto) 63.2 % (45.0-75.0) Lymphocytes (%) (Auto) 18.6 % (20.0-45.0) Monocytes (%) (Auto) 16.5 % (1.0-10.0) Eosinophils (%) (Auto) 0.7 % (0.0-3.0) Basophils (%) (Auto) 0.9 % (0.0-2.0) Sodium Level 139 MMOL/L (136-145) Potassium Level 4.6 MMOL/L (3.5-5.1) Chloride Level 100 MMOL/L (98-107) Carbon Dioxide Level 26 MMOL/L (21-32) Anion Gap 13 mmol/L (5-15) Blood Urea Nitrogen 59 mg/dL (7-18) Creatinine 9.1 MG/DL (0.55-1.30) Estimat Glomerular Filtration Rate 4.3 mL/min (>60) Glucose Level 78 MG/DL (74-106) Calcium Level 8.8 MG/DL (8.5-10.1) Total Bilirubin 0.7 MG/DL (0.2-1.0) Aspartate Amino Transf (AST/SGOT) 40 U/L (15-37) Alanine Aminotransferase (ALT/SGPT) 43 U/L (12-78) Alkaline Phosphatase 134 U/L (46-116) Troponin I 0.016 ng/mL (0.000-0.056) Total Protein 6.4 G/DL (6.4-8.2) Albumin 3.0 G/DL (3.4-5.0) Globulin 3.4 g/dL Albumin/Globulin Ratio 0.9 (1.0-2.7) Thyroid Stimulating Hormone (TSH) 0.413 uiU/mL (0.360-3.740) Random Vancomycin Level 19.6 ug/mL Objective: GENERAL: The patient is an ill-appearing female, on mechanical ventilation. HEENT: Normocephalic and atraumatic. Pupils are sluggish. The patient is orally intubated. NECK: Short. No clear jugular venous distention. LUNGS: Coarse breath sounds bilaterally with moderate air entry. without change CARDIAC: Normal S1 and S2. Regular rate and rhythm. Somewhat distant without murmurs, rubs, or gallops. ABDOMEN: Soft, obese, and nontender. no HSM EXTREMITIES: No cyanosis or clubbing. There is mild edema. Shortened limbs. poor mobility NEUROLOGICAL: altered LOC; weak Micro: Microbiology Date/Time Source Procedure Growth Status 12/17/16 09:30 Blood Blood Culture - Preliminary NO GROWTH AFTER 24 HOURS Resulted 12/17/16 09:20 Blood Blood Culture - Preliminary NO GROWTH AFTER 24 HOURS Resulted 12/18/16 08:45 Sputum Gram Stain Pending Resulted 12/18/16 08:45 Sputum Sputum Culture - Preliminary Resulted Accucheck: 86 FITO SIMS Dec 19, 2016 07:52
[2016-12-19] MEDS: Metoprolol 25mg tab ORAL SCH (08:53)
[2016-12-19] MEDS: Heparin 5000 units/ml inj SUBQ SCH ×2 (08:55→20:39)
[2016-12-19] MEDS: Docusate 100mg/10ml Liq ORAL SCH ×2 (08:56→18:22)
[2016-12-19] MEDS: Nephrovite tab (Rena-Vite) ORAL SCH (08:56)
[2016-12-19] MEDS: Aspirin Baby 81mg NG SCH (08:56)
--- NOTE | 2016-12-19 09:25 | General Progress Note ---
Assessment/Plan Problem List: (1) Pneumonia ICD Codes: J18.9 - Pneumonia, unspecified organism SNOMED: 689995960 (2) Diastolic CHF, acute on chronic ICD Codes: I50.33 - Acute on chronic diastolic (congestive) heart failure SNOMED: 64995134, 215459645 (3) Respiratory failure ICD Codes: J96.90 - Respiratory failure, unspecified, unspecified whether with hypoxia or hypercapnia SNOMED: 288780990 (4) Severe sepsis ICD Codes: A41.9 - Sepsis, unspecified organism; R65.20 - Severe sepsis without septic shock SNOMED: 81943726 (5) End-stage renal disease ICD Codes: N18.6 - End stage renal disease SNOMED: 01163863 Status: stable, progressing Assessment/Plan feeds HD with UF iv abx follow up cultures sedation as needed wean vent critical and guarded d/w dtr poc Subjective ROS Limited/Unobtainable: No Constitutional: Reports: malaise, weakness HEENT: Reports: no symptoms Cardiovascular: Reports: no symptoms Respiratory: Reports: cough, sputum Gastrointestinal/Abdominal: Reports: no symptoms Genitourinary: Reports: no symptoms Neurologic/Psychiatric: Reports: no symptoms Endocrine: Reports: no symptoms Hematologic/Lymphatic: Reports: anemia Allergies: Coded Allergies: AMITRIPTYLINE (Verified Allergy, Unknown, 11/15/14) When taken with glipizide pts Blood glucose was critically low. MD stopped medication ATENOLOL (Verified Allergy, Unknown, 11/03/14) GLIPIZIDE (Verified Allergy, Unknown, 11/15/14) Pt is not diabetic. When prescribed pt had symptoms of lethargy, somnolence, depressed, anxiousness. Medication was discontinued. UNABLE TO ASSESS (Unverified , 07/21/16) All Systems: reviewed and negative except above Subjective remains intubated. currently on HD. alert. no sob, Objective Last 24 Hour Vital Signs Date Time Temp Pulse Resp B/P (MAP) Pulse Ox O2 Delivery O2 Flow Rate FiO2 12/19/16 08:53 67 92/54 12/19/16 07:31 97.5 55 20 99/52 100 Mechanical Ventilator 40 12/19/16 07:31 97.5 55 20 99/52 100 Mechanical Ventilator 40 12/19/16 07:29 Mechanical Ventilator 40 12/19/16 07:29 74 16 40 12/19/16 07:20 Mechanical Ventilator 40 12/19/16 07:09 97.5 55 20 99/52 Mechanical Ventilator 40 12/19/16 07:00 57 23 99/52 100 Mechanical Ventilator 40 12/19/16 06:00 59 24 90/51 100 Mechanical Ventilator 40 12/19/16 05:29 63 16 40 12/19/16 05:00 55 25 92/44 100 Mechanical Ventilator 40 12/19/16 04:15 57 25 103/44 100 Mechanical Ventilator 40 12/19/16 04:00 97.8 63 25 87/46 100 Mechanical Ventilator 40 12/19/16 04:00 40 12/19/16 03:26 58 16 40 12/19/16 03:15 57 12/19/16 03:00 57 17 86/41 100 Mechanical Ventilator 40 12/19/16 02:00 57 24 84/44 100 Mechanical Ventilator 40 12/19/16 01:30 78 20 40 12/19/16 01:00 56 23 82/38 100 Mechanical Ventilator 40 12/19/16 00:20 60 16 94/44 100 Mechanical Ventilator 40 12/19/16 00:00 98.4 95 22 84/27 100 Mechanical Ventilator 40 12/19/16 00:00 40 12/18/16 23:41 61 12/18/16 23:30 85 23 40 12/18/16 23:00 62 17 93/41 100 Mechanical Ventilator 40 12/18/16 22:00 61 20 92/41 100 Mechanical Ventilator 40 12/18/16 21:15 93/36 12/18/16 21:06 71 16 40 12/18/16 21:00 60 29 84/42 100 Mechanical Ventilator 40 12/18/16 20:16 40 12/18/16 20:15 62 12/18/16 20:00 98.6 62 16 97/36 100 Mechanical Ventilator 40 12/18/16 19:30 68 16 40 12/18/16 19:00 64 16 92/39 100 Mechanical Ventilator 40 12/18/16 18:00 61 16 91/40 100 Mechanical Ventilator 40 12/18/16 17:20 75 15 40 12/18/16 17:00 63 16 95/49 100 Mechanical Ventilator 40 12/18/16 16:00 63 12/18/16 16:00 40 12/18/16 16:00 98.3 57 16 103/63 100 Mechanical Ventilator 40 12/18/16 15:21 67 14 40 12/18/16 15:00 59 23 90/48 100 Mechanical Ventilator 40 12/18/16 14:00 62 23 95/54 100 Mechanical Ventilator 40 12/18/16 13:15 64 16 40 12/18/16 13:00 61 20 112/56 100 Mechanical Ventilator 40 12/18/16 12:00 40 12/18/16 12:00 57 12/18/16 12:00 98.5 57 21 99/49 100 Mechanical Ventilator 40 12/18/16 11:20 59 14 40 12/18/16 11:00 90 22 96/46 100 Mechanical Ventilator 40 12/18/16 10:00 56 23 87/47 100 Mechanical Ventilator 50 Intake and Output 12/19/16 12/20/16 19:00 07:00 Intake Total 60 ml Output Total 1 ml Balance 59 ml Intake Oral 0 ml Tube Feeding 20 ml Other 40 ml Output Urine Total 1 ml # Bowel Movements 1 Laboratory Tests 12/19/16 04:10: Random Vancomycin Level 19.6 Height (Feet): 5 Height (Inches): 2.00 Weight (Pounds): 191 General Appearance: WD/WN, alert Neck: supple Cardiovascular: normal peripheral pulses, normal rate, regular rhythm Respiratory/Chest: chest wall non-tender, lungs clear, normal breath sounds, no respiratory distress Abdomen: normal bowel sounds, non tender, soft, no organomegaly Edema: no edema noted Arm (L), no edema noted Arm (R), no edema noted Leg (L), no edema noted Leg (R), no edema noted Pedal (L), no edema noted Pedal (R), no edema noted 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
--- NOTE | 2016-12-19 12:31 | Infectious Diseases Prog Note ---
Assessment/Plan Assessment/Plan antibiotics : vancomycin iv, zosyn A 1. pneumonia 2. respiratory failure 3. renal failure 4. DM 5. CVA 6. shock P 1. continue vancomycin iv, zosyn 2. will follow up cultures Subjective ROS Limited/Unobtainable: Yes Allergies: Coded Allergies: AMITRIPTYLINE (Verified Allergy, Unknown, 11/15/14) When taken with glipizide pts Blood glucose was critically low. MD stopped medication ATENOLOL (Verified Allergy, Unknown, 11/03/14) GLIPIZIDE (Verified Allergy, Unknown, 11/15/14) Pt is not diabetic. When prescribed pt had symptoms of lethargy, somnolence, depressed, anxiousness. Medication was discontinued. UNABLE TO ASSESS (Unverified , 07/21/16) Objective Vital Signs Last 24 Hour Vital Signs Date Time Temp Pulse Resp B/P (MAP) Pulse Ox O2 Delivery O2 Flow Rate FiO2 12/19/16 11:21 71 16 40 12/19/16 09:29 66 16 40 12/19/16 08:53 67 92/54 12/19/16 07:31 97.5 55 20 99/52 100 Mechanical Ventilator 40 12/19/16 07:31 97.5 55 20 99/52 100 Mechanical Ventilator 40 12/19/16 07:29 Mechanical Ventilator 40 12/19/16 07:29 74 16 40 12/19/16 07:20 Mechanical Ventilator 40 12/19/16 07:09 97.5 55 20 99/52 Mechanical Ventilator 40 12/19/16 07:00 57 23 99/52 100 Mechanical Ventilator 40 12/19/16 06:00 59 24 90/51 100 Mechanical Ventilator 40 12/19/16 05:29 63 16 40 12/19/16 05:00 55 25 92/44 100 Mechanical Ventilator 40 12/19/16 04:15 57 25 103/44 100 Mechanical Ventilator 40 12/19/16 04:00 97.8 63 25 87/46 100 Mechanical Ventilator 40 12/19/16 04:00 40 12/19/16 03:26 58 16 40 12/19/16 03:15 57 12/19/16 03:00 57 17 86/41 100 Mechanical Ventilator 40 12/19/16 02:00 57 24 84/44 100 Mechanical Ventilator 40 12/19/16 01:30 78 20 40 12/19/16 01:00 56 23 82/38 100 Mechanical Ventilator 40 12/19/16 00:20 60 16 94/44 100 Mechanical Ventilator 40 12/19/16 00:00 98.4 95 22 84/27 100 Mechanical Ventilator 40 12/19/16 00:00 40 12/18/16 23:41 61 12/18/16 23:30 85 23 40 12/18/16 23:00 62 17 93/41 100 Mechanical Ventilator 40 12/18/16 22:00 61 20 92/41 100 Mechanical Ventilator 40 12/18/16 21:15 93/36 12/18/16 21:06 71 16 40 12/18/16 21:00 60 29 84/42 100 Mechanical Ventilator 40 12/18/16 20:16 40 12/18/16 20:15 62 12/18/16 20:00 98.6 62 16 97/36 100 Mechanical Ventilator 40 12/18/16 19:30 68 16 40 12/18/16 19:00 64 16 92/39 100 Mechanical Ventilator 40 12/18/16 18:00 61 16 91/40 100 Mechanical Ventilator 40 12/18/16 17:20 75 15 40 12/18/16 17:00 63 16 95/49 100 Mechanical Ventilator 40 12/18/16 16:00 63 12/18/16 16:00 40 12/18/16 16:00 98.3 57 16 103/63 100 Mechanical Ventilator 40 12/18/16 15:21 67 14 40 12/18/16 15:00 59 23 90/48 100 Mechanical Ventilator 40 12/18/16 14:00 62 23 95/54 100 Mechanical Ventilator 40 12/18/16 13:15 64 16 40 12/18/16 13:00 61 20 112/56 100 Mechanical Ventilator 40 Height (Feet): 5 Height (Inches): 2.00 Weight (Pounds): 191 HEENT: other - intubated Respiratory/Chest: lungs clear Cardiovascular: normal rate, regular rhythm, no gallop/murmur Abdomen: soft, non tender Extremities: no edema Microbiology Date/Time Source Procedure Growth Status 12/17/16 09:30 Blood Blood Culture - Preliminary NO GROWTH AFTER 24 HOURS Resulted 12/17/16 09:20 Blood Blood Culture - Preliminary NO GROWTH AFTER 24 HOURS Resulted 12/18/16 08:45 Sputum Gram Stain - Final Resulted 12/18/16 08:45 Sputum Sputum Culture - Preliminary Resulted 12/17/16 09:29 Nasal Nares MRSA Culture - Final NO METHICILLIN RESISTANT STAPH AUREUS... 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 Complete Laboratory Tests Test 12/19/16 04:10 Random Vancomycin Level 19.6 ug/mL MAKSIM HERNANDEZ Dec 19, 2016 12:31
--- NOTE | 2016-12-19 13:33 | Nephrology Progress Note ---
Assessment/Plan Problem List: (1) End-stage renal disease (2) Hemiplegia of nondominant side as late effect of cerebrovascular disease (3) Diastolic CHF, acute on chronic (4) Pneumonia (5) Respiratory failure (6) DM renal manif type II (7) Anemia in chronic kidney disease Assessment seen on HD, vss, fluid removal ongoing, lab reviewed, me4ds reviewed for eskd, epogen for anemia Subjective Constitutional: Reports: weakness HEENT: Reports: no symptoms Genitourinary: Reports: no symptoms Neurologic/Psychiatric: Reports: pre-existing deficit Objective Objective Last 24 Hour Vital Signs Date Time Temp Pulse Resp B/P (MAP) Pulse Ox O2 Delivery O2 Flow Rate FiO2 12/19/16 13:06 89 16 40 12/19/16 12:00 86 12/19/16 12:00 40 12/19/16 12:00 60 19 105/58 100 Mechanical Ventilator 40 12/19/16 11:21 71 16 40 12/19/16 09:29 66 16 40 12/19/16 08:53 67 92/54 12/19/16 08:00 78 24 83/41 100 Mechanical Ventilator 40 12/19/16 08:00 40 12/19/16 08:00 77 12/19/16 07:31 97.5 55 20 99/52 100 Mechanical Ventilator 40 12/19/16 07:31 97.5 55 20 99/52 100 Mechanical Ventilator 40 12/19/16 07:29 Mechanical Ventilator 40 12/19/16 07:29 74 16 40 12/19/16 07:20 Mechanical Ventilator 40 12/19/16 07:09 97.5 55 20 99/52 Mechanical Ventilator 40 12/19/16 07:00 57 23 99/52 100 Mechanical Ventilator 40 12/19/16 06:00 59 24 90/51 100 Mechanical Ventilator 40 12/19/16 05:29 63 16 40 12/19/16 05:00 55 25 92/44 100 Mechanical Ventilator 40 12/19/16 04:15 57 25 103/44 100 Mechanical Ventilator 40 12/19/16 04:00 97.8 63 25 87/46 100 Mechanical Ventilator 40 12/19/16 04:00 40 12/19/16 03:26 58 16 40 12/19/16 03:15 57 12/19/16 03:00 57 17 86/41 100 Mechanical Ventilator 40 12/19/16 02:00 57 24 84/44 100 Mechanical Ventilator 40 12/19/16 01:30 78 20 40 12/19/16 01:00 56 23 82/38 100 Mechanical Ventilator 40 12/19/16 00:20 60 16 94/44 100 Mechanical Ventilator 40 12/19/16 00:00 98.4 95 22 84/27 100 Mechanical Ventilator 40 12/19/16 00:00 40 12/18/16 23:41 61 12/18/16 23:30 85 23 40 12/18/16 23:00 62 17 93/41 100 Mechanical Ventilator 40 12/18/16 22:00 61 20 92/41 100 Mechanical Ventilator 40 12/18/16 21:15 93/36 12/18/16 21:06 71 16 40 12/18/16 21:00 60 29 84/42 100 Mechanical Ventilator 40 12/18/16 20:16 40 12/18/16 20:15 62 12/18/16 20:00 98.6 62 16 97/36 100 Mechanical Ventilator 40 12/18/16 19:30 68 16 40 12/18/16 19:00 64 16 92/39 100 Mechanical Ventilator 40 12/18/16 18:00 61 16 91/40 100 Mechanical Ventilator 40 12/18/16 17:20 75 15 40 12/18/16 17:00 63 16 95/49 100 Mechanical Ventilator 40 12/18/16 16:00 63 12/18/16 16:00 40 12/18/16 16:00 98.3 57 16 103/63 100 Mechanical Ventilator 40 12/18/16 15:21 67 14 40 12/18/16 15:00 59 23 90/48 100 Mechanical Ventilator 40 12/18/16 14:00 62 23 95/54 100 Mechanical Ventilator 40 Intake and Output 12/19/16 12/20/16 19:00 07:00 Intake Total 235 ml Output Total 6 ml Balance 229 ml Intake Oral 0 ml IV Total 55 ml Tube Feeding 60 ml Other 120 ml Output Urine Total 6 ml # Bowel Movements 1 Laboratory Tests 12/19/16 04:10: Random Vancomycin Level 19.6 Height (Feet): 5 Height (Inches): 2.00 Weight (Pounds): 191 General Appearance: alert, mild distress EENT: normal ENT inspection Neck: normal alignment Cardiovascular: regular rhythm Respiratory/Chest: decreased breath sounds, rhonchi - bilaterally Abdomen: non tender, soft Extremities: trace edema 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
[2016-12-19] MEDS: Acetaminophen 500mg (ES) tab ORAL PRN (18:42)
[2016-12-19] MEDS ORDERED: Vancomycin 1gm/D5W 275ml IVPB ONE ×2 (20:00)
[2016-12-20] VITALS (24 sets, daily range): BP systolic 84–140; BP diastolic 26–97
[2016-12-20] MEDS: Zosyn 2.25 gm in D5W 55ml IV SCH ×3 (01:46→18:08)
--- NOTE | 2016-12-20 03:15 | Progress Note ---
DATE: 12/19/2016 CARDIOLOGY PROGRESS NOTE SUBJECTIVE: The patient remains intubated, status post hemodialysis this afternoon. Alert, no respiratory distress. Tolerating feedings by G-tube. OBJECTIVE: VITAL SIGNS: Blood pressure 92/54, pulse 67, respirations 20, and afebrile. HEENT: Temporal wasting. LUNGS: Bilateral breath sounds with rhonchi. HEART: Regular rhythm and rate. Normal S1 and S2. ABDOMEN: Soft. EXTREMITIES: Trace edema. IMPRESSION: 1. Respiratory failure. 2. Healthcare-acquired pneumonia. 3. Acute on chronic diastolic congestive heart failure. 4. Sepsis with shock. 5. End-stage renal disease. 6. Acute on chronic respiratory acidosis. 7. Hypoxia. 8. Remains critical and guarded. PLAN: 1. Antimicrobials. 2. Hemodialysis with ultrafiltration for volume management. 3. Ventilator support with wean as able. 4. Taper pressors. 5. DVT and stress ulcer prophylaxes. 6. Remains critical and guarded. Adalberto May M.D. DR: LALO JOB#: [id number] CC:
[2016-12-20] MEDS: Acetaminophen 500mg (ES) tab ORAL PRN (04:40)
[2016-12-20] MEDS: NovoLOG Insulin Flexpen SUBQ SCH ×3 (06:00→18:00)
--- NOTE | 2016-12-20 07:50 | General Progress Note ---
Assessment/Plan Problem List: (1) Pneumonia ICD Codes: J18.9 - Pneumonia, unspecified organism SNOMED: 900385821 (2) Diastolic CHF, acute on chronic ICD Codes: I50.33 - Acute on chronic diastolic (congestive) heart failure SNOMED: 05568879, 315292975 (3) Respiratory failure ICD Codes: J96.90 - Respiratory failure, unspecified, unspecified whether with hypoxia or hypercapnia SNOMED: 508348508 (4) Severe sepsis ICD Codes: A41.9 - Sepsis, unspecified organism; R65.20 - Severe sepsis without septic shock SNOMED: 15697198 (5) End-stage renal disease ICD Codes: N18.6 - End stage renal disease SNOMED: 20865568 Status: stable, progressing Assessment/Plan feeds HD with UF iv abx follow up cultures sedation as needed wean vent as able critical and guarded d/w dtr poc Subjective ROS Limited/Unobtainable: No Constitutional: Reports: malaise, weakness HEENT: Reports: no symptoms Cardiovascular: Reports: no symptoms Respiratory: Reports: shortness of breath Gastrointestinal/Abdominal: Reports: no symptoms Genitourinary: Reports: no symptoms Neurologic/Psychiatric: Reports: no symptoms Endocrine: Reports: no symptoms Hematologic/Lymphatic: Reports: anemia Allergies: Coded Allergies: AMITRIPTYLINE (Verified Allergy, Unknown, 11/15/14) When taken with glipizide pts Blood glucose was critically low. MD stopped medication ATENOLOL (Verified Allergy, Unknown, 11/03/14) GLIPIZIDE (Verified Allergy, Unknown, 11/15/14) Pt is not diabetic. When prescribed pt had symptoms of lethargy, somnolence, depressed, anxiousness. Medication was discontinued. UNABLE TO ASSESS (Unverified , 07/21/16) All Systems: reviewed and negative except above Subjective remains intubated. tolerated cpap for 90 mins yesterday. on simv. no distress. w /o complaints. Objective Last 24 Hour Vital Signs Date Time Temp Pulse Resp B/P (MAP) Pulse Ox O2 Delivery O2 Flow Rate FiO2 12/20/16 07:25 74 14 30 12/20/16 07:00 61 21 94/46 98 Mechanical Ventilator 30 12/20/16 06:00 60 17 95/46 97 Mechanical Ventilator 12/20/16 05:29 62 16 30 12/20/16 05:00 60 16 140/80 97 Mechanical Ventilator 30 12/20/16 04:00 98.0 61 16 84/41 98 Mechanical Ventilator 30 12/20/16 04:00 30 12/20/16 04:00 62 12/20/16 03:00 64 18 86/97 99 Mechanical Ventilator 30 12/20/16 02:52 61 16 30 12/20/16 02:00 61 16 88/42 100 Mechanical Ventilator 30 12/20/16 01:00 61 16 86/44 98 Mechanical Ventilator 30 12/20/16 00:49 60 16 30 12/20/16 00:00 98.0 61 16 88/47 100 Mechanical Ventilator 30 12/20/16 00:00 30 12/20/16 00:00 65 12/19/16 23:18 64 16 30 12/19/16 23:00 75 16 102/51 98 Mechanical Ventilator 40 12/19/16 22:00 81 17 106/46 99 Mechanical Ventilator 40 12/19/16 21:28 74 16 40 12/19/16 21:15 100/48 12/19/16 21:00 98.8 66 21 100/48 98 Mechanical Ventilator 40 12/19/16 20:00 100.0 83 23 90/45 97 Mechanical Ventilator 40 12/19/16 20:00 83 12/19/16 20:00 40 12/19/16 19:00 94 23 119/45 96 Mechanical Ventilator 40 12/19/16 18:59 91 22 40 12/19/16 18:00 85 16 123/37 98 Mechanical Ventilator 40 12/19/16 17:00 93 16 86/34 98 Mechanical Ventilator 40 12/19/16 16:30 97 16 40 12/19/16 16:00 40 12/19/16 16:00 100.0 99 25 139/69 98 Mechanical Ventilator 40 12/19/16 16:00 99 12/19/16 15:06 95 28 40 12/19/16 15:00 94 25 113/91 98 Mechanical Ventilator 40 12/19/16 14:19 Mechanical Ventilator 40 12/19/16 14:00 86 22 119/47 100 Mechanical Ventilator 40 12/19/16 13:35 Mechanical Ventilator 40 12/19/16 13:35 97.8 83 20 119/47 Mechanical Ventilator 40 12/19/16 13:06 89 16 40 12/19/16 13:00 98.6 87 27 91/60 95 Mechanical Ventilator 40 12/19/16 12:00 86 12/19/16 12:00 40 12/19/16 12:00 60 19 105/58 100 Mechanical Ventilator 40 12/19/16 11:21 71 16 40 12/19/16 11:00 69 21 105/58 100 Mechanical Ventilator 40 12/19/16 10:00 65 21 100/57 100 Mechanical Ventilator 40 12/19/16 09:30 Mechanical Ventilator 40 12/19/16 09:29 66 16 40 12/19/16 09:00 98.8 60 19 105/58 100 Mechanical Ventilator 12/19/16 08:53 67 92/54 12/19/16 08:00 78 24 83/41 100 Mechanical Ventilator 40 12/19/16 08:00 40 12/19/16 08:00 77 Height (Feet): 5 Height (Inches): 2.00 Weight (Pounds): 190 Objective General Appearance: WD/WN, alert Neck: supple Cardiovascular: normal peripheral pulses, normal rate, regular rhythm Respiratory/Chest: chest wall non-tender, lungs clear, normal breath sounds, no respiratory distress Abdomen: normal bowel sounds, non tender, soft, no organomegaly Edema: no edema noted Arm (L), no edema noted Arm (R), no edema noted Leg (L), no edema noted Leg (R), no edema noted Pedal (L), no edema noted Pedal (R), no edema noted Generalized Neurologic: financial coordinator II-XII grossly normal, no motor/sensory deficits, abnormal gait , alert, oriented x 3 TOMI GONZALES Dec 20, 2016 07:50
[2016-12-20] MEDS: Metoprolol 25mg tab ORAL SCH (08:14)
[2016-12-20] MEDS: Nephrovite tab (Rena-Vite) ORAL SCH (08:15)
[2016-12-20] MEDS: Docusate 100mg/10ml Liq ORAL SCH ×2 (08:15→18:08)
[2016-12-20] MEDS: Aspirin Baby 81mg NG SCH (08:15)
[2016-12-20] MEDS: Heparin 5000 units/ml inj SUBQ SCH ×2 (08:19→20:37)
--- NOTE | 2016-12-20 08:51 | Critical Care Progress Note ---
Assessment/Plan Assessment/Plan IMPRESSION: Respiratory failure. Possible pneumonia. Possible pulmonary edema. End-stage renal disease, on hemodialysis. Chronic respiratory failure with a longstanding history of respiratory acidosis, hypoxemia, heart disease, congestive heart failure. PLAN care noted IV antibiotics as noted respiratory care Ventilatory support reviewed- on simv reviewed meds supportive care suction as needed trial of weaning on CPAP for now oxygen therapy prognosis guarded remains critical but improved medications/laboratory data/nursing notes/ICU care reviewed in detail note reviewed and edited care discussed with RN and RT ICU time spent 37 minutes Critical Care - Subjective Interval Events: awake and alert doing well d/w RT ROS Limited/Unobtainable: Yes Condition: critical EKG Rhythm: Sinus Rhythm Residuals: minimal Tube Feeding Tolerated: yes Critical Care - Objective ET-Tube: 6.0 ET Position: 21 Last 24 Hour Vital Signs Date Time Temp Pulse Resp B/P (MAP) Pulse Ox O2 Delivery O2 Flow Rate FiO2 12/20/16 08:14 96 102/54 12/20/16 07:25 74 14 30 12/20/16 07:00 61 21 94/46 98 Mechanical Ventilator 30 12/20/16 06:00 60 17 95/46 97 Mechanical Ventilator 30 12/20/16 05:29 62 16 30 12/20/16 05:00 60 16 140/80 97 Mechanical Ventilator 30 12/20/16 04:00 98.0 61 16 84/41 98 Mechanical Ventilator 30 12/20/16 04:00 30 12/20/16 04:00 62 12/20/16 03:00 64 18 86/97 99 Mechanical Ventilator 30 12/20/16 02:52 61 16 30 12/20/16 02:00 61 16 88/42 100 Mechanical Ventilator 30 12/20/16 01:00 61 16 86/44 98 Mechanical Ventilator 30 12/20/16 00:49 60 16 30 12/20/16 00:00 98.0 61 16 88/47 100 Mechanical Ventilator 30 12/20/16 00:00 30 12/20/16 00:00 65 12/19/16 23:18 64 16 30 12/19/16 23:00 75 16 102/51 98 Mechanical Ventilator 40 12/19/16 22:00 81 17 106/46 99 Mechanical Ventilator 40 12/19/16 21:28 74 16 40 12/19/16 21:15 100/48 12/19/16 21:00 98.8 66 21 100/48 98 Mechanical Ventilator 40 12/19/16 20:00 100.0 83 23 90/45 97 Mechanical Ventilator 40 12/19/16 20:00 83 12/19/16 20:00 40 12/19/16 19:00 94 23 119/45 96 Mechanical Ventilator 40 12/19/16 18:59 91 22 40 12/19/16 18:00 85 16 123/37 98 Mechanical Ventilator 40 12/19/16 17:00 93 16 86/34 98 Mechanical Ventilator 40 12/19/16 16:30 97 16 40 12/19/16 16:00 40 12/19/16 16:00 100.0 99 25 139/69 98 Mechanical Ventilator 40 12/19/16 16:00 99 12/19/16 15:06 95 28 40 12/19/16 15:00 94 25 113/91 98 Mechanical Ventilator 40 12/19/16 14:19 Mechanical Ventilator 40 12/19/16 14:00 86 22 119/47 100 Mechanical Ventilator 40 12/19/16 13:35 Mechanical Ventilator 40 12/19/16 13:35 97.8 83 20 119/47 Mechanical Ventilator 40 12/19/16 13:06 89 16 40 12/19/16 13:00 98.6 87 27 91/60 95 Mechanical Ventilator 40 12/19/16 12:00 86 12/19/16 12:00 40 12/19/16 12:00 60 19 105/58 100 Mechanical Ventilator 40 12/19/16 11:21 71 16 40 12/19/16 11:00 69 21 105/58 100 Mechanical Ventilator 40 12/19/16 10:00 65 21 100/57 100 Mechanical Ventilator 40 12/19/16 09:30 Mechanical Ventilator 40 12/19/16 09:29 66 16 40 12/19/16 09:00 98.8 60 19 105/58 100 Mechanical Ventilator 12/19/16 08:53 67 92/54 Labs: Labs Test 12/17/16 09:29 12/17/16 10:44 12/17/16 12:28 12/17/16 15:25 White Blood Count 6.3 K/UL (4.8-10.8) Red Blood Count 3.86 M/UL (4.20-5.40) Hemoglobin 12.2 G/DL (12.0-16.0) Hematocrit 41.1 % (37.0-47.0) Mean Corpuscular Volume 107 FL (80-99) Mean Corpuscular Hemoglobin 31.6 PG (27.0-31.0) Mean Corpuscular Hemoglobin Concent 29.7 G/DL (32.0-36.0) Red Cell Distribution Width 13.8 % (11.6-14.8) Platelet Count 161 K/UL (150-450) Mean Platelet Volume 7.6 FL (6.5-10.1) Neutrophils (%) (Auto) 61.6 % (45.0-75.0) Lymphocytes (%) (Auto) 19.6 % (20.0-45.0) Monocytes (%) (Auto) 15.5 % (1.0-10.0) Eosinophils (%) (Auto) 1.3 % (0.0-3.0) Basophils (%) (Auto) 2.0 % (0.0-2.0) Sodium Level 137 MMOL/L (136-145) Potassium Level 5.5 MMOL/L (3.5-5.1) Chloride Level 100 MMOL/L (98-107) Carbon Dioxide Level 26 MMOL/L (21-32) Anion Gap 11 mmol/L (5-15) Blood Urea Nitrogen 49 mg/dL (7-18) Creatinine 7.8 MG/DL (0.55-1.30) Estimat Glomerular Filtration Rate 5.2 mL/min (>60) Glucose Level 93 MG/DL (74-106) Lactic Acid Level 0.60 mmol/L (0.66-2.22) Calcium Level 8.6 MG/DL (8.5-10.1) Total Bilirubin 0.4 MG/DL (0.2-1.0) Aspartate Amino Transf (AST/SGOT) 68 U/L (15-37) Alanine Aminotransferase (ALT/SGPT) 56 U/L (12-78) Alkaline Phosphatase 197 U/L (46-116) Troponin I 0.018 ng/mL (0.000-0.056) Total Protein 7.9 G/DL (6.4-8.2) Albumin 3.3 G/DL (3.4-5.0) Globulin 4.6 g/dL Albumin/Globulin Ratio 0.7 (1.0-2.7) Arterial Blood pH 7.180 (7.350-7.450) 7.117 (7.350-7.450) 7.229 (7.350-7.450) Arterial Blood Partial Pressure CO2 73.7 mmHg (35.0-45.0) 95.9 mmHg (35.0-45.0) 62.0 mmHg (35.0-45.0) Arterial Blood Partial Pressure O2 132.7 mmHg (75.0-100.0) 119.2 mmHg (75.0-100.0) 372.9 mmHg (75.0-100.0) Arterial Blood HCO3 26.9 mmol/L (22.0-26.0) 30.1 mmol/L (22.0-26.0) 25.3 mmol/L (22.0-26.0) Arterial Blood Oxygen Saturation 97.9 % (92.0-98.0) 97.5 % (92.0-98.0) 99.3 % (92.0-98.0) Arterial Blood Base Excess -2.8 -1.6 -3.1 Jarred Test Positive Positive Positive Test 12/17/16 19:00 12/18/16 04:20 12/18/16 08:48 12/19/16 04:10 Arterial Blood pH 7.401 (7.350-7.450) 7.380 (7.350-7.450) Arterial Blood Partial Pressure CO2 36.3 mmHg (35.0-45.0) 40.6 mmHg (35.0-45.0) Arterial Blood Partial Pressure O2 394.4 mmHg (75.0-100.0) 199.9 mmHg (75.0-100.0) Arterial Blood HCO3 22.0 mmol/L (22.0-26.0) 23.5 mmol/L (22.0-26.0) Arterial Blood Oxygen Saturation 99.2 % (92.0-98.0) 98.5 % (92.0-98.0) Arterial Blood Base Excess -2.3 -1.5 Jarred Test Positive Positive White Blood Count 4.8 K/UL (4.8-10.8) Red Blood Count 2.95 M/UL (4.20-5.40) Hemoglobin 9.8 G/DL (12.0-16.0) Hematocrit 30.1 % (37.0-47.0) Mean Corpuscular Volume 102 FL (80-99) Mean Corpuscular Hemoglobin 33.1 PG (27.0-31.0) Mean Corpuscular Hemoglobin Concent 32.5 G/DL (32.0-36.0) Red Cell Distribution Width 13.2 % (11.6-14.8) Platelet Count 119 K/UL (150-450) Mean Platelet Volume 6.7 FL (6.5-10.1) Neutrophils (%) (Auto) 63.2 % (45.0-75.0) Lymphocytes (%) (Auto) 18.6 % (20.0-45.0) Monocytes (%) (Auto) 16.5 % (1.0-10.0) Eosinophils (%) (Auto) 0.7 % (0.0-3.0) Basophils (%) (Auto) 0.9 % (0.0-2.0) Sodium Level 139 MMOL/L (136-145) Potassium Level 4.6 MMOL/L (3.5-5.1) Chloride Level 100 MMOL/L (98-107) Carbon Dioxide Level 26 MMOL/L (21-32) Anion Gap 13 mmol/L (5-15) Blood Urea Nitrogen 59 mg/dL (7-18) Creatinine 9.1 MG/DL (0.55-1.30) Estimat Glomerular Filtration Rate 4.3 mL/min (>60) Glucose Level 78 MG/DL (74-106) Calcium Level 8.8 MG/DL (8.5-10.1) Total Bilirubin 0.7 MG/DL (0.2-1.0) Aspartate Amino Transf (AST/SGOT) 40 U/L (15-37) Alanine Aminotransferase (ALT/SGPT) 43 U/L (12-78) Alkaline Phosphatase 134 U/L (46-116) Troponin I 0.016 ng/mL (0.000-0.056) Total Protein 6.4 G/DL (6.4-8.2) Albumin 3.0 G/DL (3.4-5.0) Globulin 3.4 g/dL Albumin/Globulin Ratio 0.9 (1.0-2.7) Thyroid Stimulating Hormone (TSH) 0.413 uiU/mL (0.360-3.740) Random Vancomycin Level 19.6 ug/mL Objective: GENERAL: The patient is an ill-appearing female, on mechanical ventilation. and alert HEENT: Normocephalic and atraumatic. Pupils are sluggish. The patient is orally intubated. NECK: Short. No clear jugular venous distention. LUNGS: Coarse breath sounds bilaterally with moderate air entry. without change CARDIAC: Normal S1 and S2. Regular rate and rhythm. Somewhat distant without murmurs, rubs, or gallops. ABDOMEN: Soft, obese, and nontender. no HSM EXTREMITIES: No cyanosis or clubbing. There is mild edema. Shortened limbs. poor mobility NEUROLOGICAL: altered LOC; weak Micro: Microbiology Date/Time Source Procedure Growth Status 12/17/16 09:30 Blood Blood Culture - Preliminary NO GROWTH AFTER 48 HOURS Resulted 12/17/16 09:20 Blood Blood Culture - Preliminary NO GROWTH AFTER 48 HOURS Resulted 12/18/16 08:45 Sputum Gram Stain - Final Complete 12/18/16 08:45 Sputum Sputum Culture - Final NORMAL UPPER RESPIRATORY MARY PRESENT Complete 12/17/16 09:29 Nasal Nares MRSA Culture - Final NO METHICILLIN RESISTANT STAPH AUREUS... 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 Complete Accucheck: 104 FITO SIMS Dec 20, 2016 08:51
[2016-12-20 11:23] LABS: ABG ALLEN TEST POSITIVE; ABG BASE EXCESS 3.7; ABG PCO2 51.6 mmHg (35.0-45.0)
--- NOTE | 2016-12-20 11:34 | Infectious Diseases Prog Note ---
Assessment/Plan Assessment/Plan antibiotics : vancomycin iv, zosyn A 1. pneumonia 2. respiratory failure 3. renal failure 4. DM 5. CVA 6. shock P 1. continue vancomycin iv, zosyn 2. will follow up cultures Subjective ROS Limited/Unobtainable: Yes Allergies: Coded Allergies: AMITRIPTYLINE (Verified Allergy, Unknown, 11/15/14) When taken with glipizide pts Blood glucose was critically low. MD stopped medication ATENOLOL (Verified Allergy, Unknown, 11/03/14) GLIPIZIDE (Verified Allergy, Unknown, 11/15/14) Pt is not diabetic. When prescribed pt had symptoms of lethargy, somnolence, depressed, anxiousness. Medication was discontinued. UNABLE TO ASSESS (Unverified , 07/21/16) Objective Vital Signs Last 24 Hour Vital Signs Date Time Temp Pulse Resp B/P (MAP) Pulse Ox O2 Delivery O2 Flow Rate FiO2 12/20/16 11:05 78 21 30 12/20/16 09:37 83 14 30 12/20/16 09:36 96 12/20/16 08:14 96 102/54 12/20/16 07:25 74 14 30 12/20/16 07:00 61 21 94/46 98 Mechanical Ventilator 30 12/20/16 06:00 60 17 95/46 97 Mechanical Ventilator 30 12/20/16 05:29 62 16 30 12/20/16 05:00 60 16 140/80 97 Mechanical Ventilator 30 12/20/16 04:00 98.0 61 16 84/41 98 Mechanical Ventilator 30 12/20/16 04:00 30 12/20/16 04:00 62 12/20/16 03:00 64 18 86/97 99 Mechanical Ventilator 30 12/20/16 02:52 61 16 30 12/20/16 02:00 61 16 88/42 100 Mechanical Ventilator 30 12/20/16 01:00 61 16 86/44 98 Mechanical Ventilator 30 12/20/16 00:49 60 16 30 12/20/16 00:00 98.0 61 16 88/47 100 Mechanical Ventilator 30 12/20/16 00:00 30 12/20/16 00:00 65 12/19/16 23:18 64 16 30 12/19/16 23:00 75 16 102/51 98 Mechanical Ventilator 40 12/19/16 22:00 81 17 106/46 99 Mechanical Ventilator 40 12/19/16 21:28 74 16 40 12/19/16 21:15 100/48 12/19/16 21:00 98.8 66 21 100/48 98 Mechanical Ventilator 40 12/19/16 20:00 100.0 83 23 90/45 97 Mechanical Ventilator 40 12/19/16 20:00 83 12/19/16 20:00 40 12/19/16 19:00 94 23 119/45 96 Mechanical Ventilator 40 12/19/16 18:59 91 22 40 12/19/16 18:00 85 16 123/37 98 Mechanical Ventilator 40 12/19/16 17:00 93 16 86/34 98 Mechanical Ventilator 40 12/19/16 16:30 97 16 40 12/19/16 16:00 40 12/19/16 16:00 100.0 99 25 139/69 98 Mechanical Ventilator 40 12/19/16 16:00 99 12/19/16 15:06 95 28 40 12/19/16 15:00 94 25 113/91 98 Mechanical Ventilator 40 12/19/16 14:19 Mechanical Ventilator 40 12/19/16 14:00 86 22 119/47 100 Mechanical Ventilator 40 12/19/16 13:35 Mechanical Ventilator 40 12/19/16 13:35 97.8 83 20 119/47 Mechanical Ventilator 40 12/19/16 13:06 89 16 40 12/19/16 13:00 98.6 87 27 91/60 95 Mechanical Ventilator 40 12/19/16 12:00 86 12/19/16 12:00 40 12/19/16 12:00 60 19 105/58 100 Mechanical Ventilator 40 Height (Feet): 5 Height (Inches): 2.00 Weight (Pounds): 190 HEENT: other - intubated Respiratory/Chest: lungs clear Cardiovascular: normal rate, regular rhythm, no gallop/murmur Abdomen: soft, non tender Extremities: no edema Microbiology Date/Time Source Procedure Growth Status 12/18/16 08:45 Sputum Gram Stain - Final Complete 12/18/16 08:45 Sputum Sputum Culture - Final NORMAL UPPER RESPIRATORY MARY PRESENT Complete Laboratory Tests Test 12/20/16 11:10 Arterial Blood pH 7.378 (7.350-7.450) Arterial Blood Partial Pressure CO2 51.6 mmHg (35.0-45.0) H Arterial Blood Partial Pressure O2 96.9 mmHg (75.0-100.0) Arterial Blood HCO3 29.7 mmol/L (22.0-26.0) H Arterial Blood Oxygen Saturation 96.3 % (92.0-98.0) Arterial Blood Base Excess 3.7 Jarred Test Positive MAKSIM HERNANDEZ Dec 20, 2016 11:34
--- NOTE | 2016-12-20 14:33 | Nephrology Progress Note ---
Assessment/Plan Problem List: (1) End-stage renal disease (2) Hemiplegia of nondominant side as late effect of cerebrovascular disease (3) Diastolic CHF, acute on chronic (4) Pneumonia (5) Respiratory failure (6) DM renal manif type II (7) Anemia in chronic kidney disease Assessment extubated alert , lab reviewed, meds reviewed for eskd, epogen for anemia hd Subjective Constitutional: Reports: weakness HEENT: Reports: no symptoms Genitourinary: Reports: no symptoms Neurologic/Psychiatric: Reports: pre-existing deficit Objective Objective Last 24 Hour Vital Signs Date Time Temp Pulse Resp B/P (MAP) Pulse Ox O2 Delivery O2 Flow Rate FiO2 12/20/16 13:47 79 18 Nasal Cannula 4.0 36 12/20/16 12:20 97 Nasal Cannula 4.0 36 12/20/16 12:10 Nasal Cannula 4.0 12/20/16 12:10 Nasal Cannula 4.0 36 12/20/16 12:00 80 12/20/16 11:05 78 21 30 12/20/16 09:37 83 14 30 12/20/16 09:36 96 12/20/16 08:14 96 102/54 12/20/16 08:00 77 12/20/16 07:25 74 14 30 12/20/16 07:00 61 21 94/46 98 Mechanical Ventilator 30 12/20/16 06:00 60 17 95/46 97 Mechanical Ventilator 30 12/20/16 05:29 62 16 30 12/20/16 05:00 60 16 140/80 97 Mechanical Ventilator 30 12/20/16 04:00 98.0 61 16 84/41 98 Mechanical Ventilator 30 12/20/16 04:00 30 12/20/16 04:00 62 12/20/16 03:00 64 18 86/97 99 Mechanical Ventilator 30 12/20/16 02:52 61 16 30 12/20/16 02:00 61 16 88/42 100 Mechanical Ventilator 30 12/20/16 01:00 61 16 86/44 98 Mechanical Ventilator 30 12/20/16 00:49 60 16 30 12/20/16 00:00 98.0 61 16 88/47 100 Mechanical Ventilator 30 12/20/16 00:00 30 12/20/16 00:00 65 12/19/16 23:18 64 16 30 12/19/16 23:00 75 16 102/51 98 Mechanical Ventilator 40 12/19/16 22:00 81 17 106/46 99 Mechanical Ventilator 40 12/19/16 21:28 74 16 40 12/19/16 21:15 100/48 12/19/16 21:00 98.8 66 21 100/48 98 Mechanical Ventilator 40 12/19/16 20:00 100.0 83 23 90/45 97 Mechanical Ventilator 40 12/19/16 20:00 83 12/19/16 20:00 40 12/19/16 19:00 94 23 119/45 96 Mechanical Ventilator 40 12/19/16 18:59 91 22 40 12/19/16 18:00 85 16 123/37 98 Mechanical Ventilator 40 12/19/16 17:00 93 16 86/34 98 Mechanical Ventilator 40 12/19/16 16:30 97 16 40 12/19/16 16:00 40 12/19/16 16:00 100.0 99 25 139/69 98 Mechanical Ventilator 40 12/19/16 16:00 99 12/19/16 15:06 95 28 40 12/19/16 15:00 94 25 113/91 98 Mechanical Ventilator 40 Intake and Output 12/20/16 12/21/16 19:00 07:00 Intake Total 55 ml Balance 55 ml IV Total 55 ml Laboratory Tests 12/20/16 11:10: Arterial Blood pH 7.378, Arterial Blood Partial Pressure CO2 51.6H, Arterial Blood Partial Pressure O2 96.9, Arterial Blood HCO3 29.7H, Arterial Blood Oxygen Saturation 96.3, Arterial Blood Base Excess 3.7, Jarred Test Positive Height (Feet): 5 Height (Inches): 2.00 Weight (Pounds): 190 General Appearance: no apparent distress, alert, morbidly obese EENT: normal ENT inspection Neck: normal alignment Cardiovascular: normal rate, regular rhythm Respiratory/Chest: lungs clear, decreased breath sounds Abdomen: non tender, soft Extremities: trace edema Neurologic: motor weakness TATI DANIEL Dec 20, 2016 14:33
[2016-12-20] MEDS ORDERED: Epogen (for ESRD on dialysis) SUBQ SCH (21:00)
[2016-12-21] VITALS (20 sets, daily range): BP systolic 75–120; BP diastolic 39–88
[2016-12-21] MEDS: Zosyn 2.25 gm in D5W 55ml IV SCH ×3 (01:46→17:37)
[2016-12-21 04:51] LABS: BASOPHILS % (AUTO) 1.1 % (0.0-2.0); EOSINOPHILS % (AUTO) 13.6 % (0.0-3.0); LYMPHOCYTES % (AUTO) 23.5 % (20.0-45.0); MEAN CORPUSCULAR HEMOGLOBIN 32.3 PG (27.0-31.0); MEAN CORPUSCULAR HGB CONC 31.4 G/DL (32.0-36.0); MEAN CORPUSCULAR VOLUME 103 FL (80-99); MEAN PLATELET VOLUME 7.7 FL (6.5-10.1); MONOCYTES % (AUTO) 13.2 % (1.0-10.0); NEUTROPHILS % (AUTO) 48.7 % (45.0-75.0); PLATELET COUNT 128 K/UL (150-450); RED BLOOD COUNT 3.31 M/UL (4.20-5.40); RED CELL DISTRIBUTION WIDTH 13.5 % (11.6-14.8); WHITE BLOOD COUNT 5.3 K/UL (4.8-10.8)
[2016-12-21 05:16] LABS: ANION GAP 11 mmol/L (5-15); CARBON DIOXIDE 30 MMOL/L (21-32); CHLORIDE 97 MMOL/L (98-107); PHOSPHORUS 5.9 MG/DL (2.5-4.9); POTASSIUM 3.9 MMOL/L (3.5-5.1); SODIUM 138 MMOL/L (136-145)
[2016-12-21 05:56] LABS: MAGNESIUM 2.2 MG/DL (1.8-2.4)
[2016-12-21] MEDS ORDERED: Heparin Sod 1000 units/ml 10ml IV SCH (06:00)
[2016-12-21] MEDS: NovoLOG Insulin Flexpen SUBQ SCH ×5 (06:00→20:18)
--- NOTE | 2016-12-21 06:31 | Progress Note ---
DATE: 12/20/2016 CARDIOLOGY PROGRESS NOTE SUBJECTIVE: The patient remains critical and guarded in the intensive care unit. Orally intubated and mechanically ventilated. Weaning are initiated but she is not able to tolerate CPAP for more than 90 minutes. OBJECTIVE: VITAL SIGNS: Blood pressure 84/41, heart rate 61, respiratory rate 18, and afebrile. Orally intubated. LUNGS: Bilateral breath sounds with rhonchi. HEART: Regular rhythm and rate. Normal S1 and S2 with no appreciable murmur. ABDOMEN: Soft, obese and nontender. EXTREMITIES: Reveal mild edema. LABORATORY DATA: Cultures remained negative. ABG, 7.37, 51, and 96. IMPRESSION: 1. Respiratory failure. 2. Acute on chronic respiratory acidosis. 3. Hypoxia. 4. Sepsis with shock. 5. Acute myocardial ischemia. 6. End-stage renal disease. 7. Mild protein-calorie malnutrition. PLAN: 1. Ventilator support. 2. Antimicrobials. 3. Weaning efforts. 4. Taper pressors. 5. Anti-platelet therapy. 6. Statin drug. 7. Cautious use of beta-sha. 8. Hemodialysis with ultrafiltration if tolerable. 9. Remains critical and guarded. 10. Continue DVT with stress ulcer prophylaxis. Adalberto May M.D. DR: LALO JOB#: [id number] CC:
--- NOTE | 2016-12-21 07:56 | Critical Care Progress Note ---
Assessment/Plan Assessment/Plan IMPRESSION: Respiratory failure. Possible pneumonia. Possible pulmonary edema. End-stage renal disease, on hemodialysis. Chronic respiratory failure with a longstanding history of respiratory acidosis, hypoxemia, heart disease, congestive heart failure. PLAN care noted IV antibiotics as noted respiratory care BIPAP QHS and PRN reviewed meds supportive care suction as needed step down care and PT oxygen therapy prognosis guarded remains critical but improved medications/laboratory data/nursing notes/ICU care reviewed in detail note reviewed and edited care discussed with RN and RT ICU time spent 35 minutes Critical Care - Subjective Interval Events: extubated stable awake NAD on oxygen ICU care reviewed Condition: improving EKG Rhythm: Sinus Rhythm Critical Care - Objective ET-Tube: 6.0 ET Position: 21 Last 24 Hour Vital Signs Date Time Temp Pulse Resp B/P (MAP) Pulse Ox O2 Delivery O2 Flow Rate FiO2 12/21/16 07:00 80 18 116/47 99 Nasal Cannula 2.0 12/21/16 06:00 78 18 109/48 99 Nasal Cannula 2.0 12/21/16 05:30 80 23 98 3.0 32 12/21/16 05:00 75 19 119/48 99 Bi-pap 35 12/21/16 04:00 35 12/21/16 04:00 98.3 72 19 102/51 99 Bi-pap 35 12/21/16 04:00 72 12/21/16 03:26 72 19 96 Facial 35 12/21/16 03:00 77 20 102/41 97 Bi-pap 35 12/21/16 02:00 71 20 107/44 99 Bi-pap 35 12/21/16 01:07 69 20 97 Facial 35 12/21/16 01:00 69 20 95/45 97 Bi-pap 35 12/21/16 00:00 35 12/21/16 00:00 70 12/21/16 00:00 98.3 70 19 93/39 97 Bi-pap 35 12/20/16 23:01 79 17 96 Facial 35 12/20/16 23:00 35 12/20/16 23:00 78 22 95/43 97 Bi-pap 35 12/20/16 22:00 79 21 97/26 97 Nasal Cannula 2.0 12/20/16 21:00 80 22 112/50 98 Nasal Cannula 2.0 12/20/16 20:48 108/67 12/20/16 20:00 83 12/20/16 20:00 97.8 85 22 98/38 98 Nasal Cannula 2.0 12/20/16 19:01 Nasal Cannula 4.0 36 12/20/16 19:00 83 19 126/52 96 Nasal Cannula 2.0 12/20/16 19:00 98 Nasal Cannula 4.0 36 12/20/16 18:00 80 24 94/31 100 Nasal Cannula 12/20/16 17:00 75 21 111/51 98 Nasal Cannula 12/20/16 16:00 76 12/20/16 16:00 98.8 77 21 106/61 98 Nasal Cannula 4.0 12/20/16 15:00 61 21 94/46 98 Nasal Cannula 12/20/16 14:00 61 21 109/45 98 Nasal Cannula 12/20/16 13:47 79 18 Nasal Cannula 4.0 36 12/20/16 13:00 61 23 109/46 98 Nasal Cannula 12/20/16 12:20 97 Nasal Cannula 4.0 36 12/20/16 12:10 Nasal Cannula 4.0 12/20/16 12:10 Nasal Cannula 4.0 36 12/20/16 12:00 80 12/20/16 12:00 98.6 61 23 102/66 98 Bi-pap 12/20/16 11:05 78 21 30 12/20/16 11:00 61 20 112/49 97 Bi-pap 12/20/16 10:00 61 21 109/48 97 Bi-pap 12/20/16 09:37 83 14 30 12/20/16 09:36 96 12/20/16 09:00 61 19 97/55 97 Mechanical Ventilator 30 12/20/16 08:14 96 102/54 12/20/16 08:00 77 12/20/16 08:00 30 12/20/16 08:00 98.8 61 23 102/54 97 Mechanical Ventilator 30 Labs: Labs Test 12/18/16 08:48 12/19/16 04:10 12/20/16 11:10 12/21/16 04:00 Arterial Blood pH 7.380 (7.350-7.450) 7.378 (7.350-7.450) Arterial Blood Partial Pressure CO2 40.6 mmHg (35.0-45.0) 51.6 mmHg (35.0-45.0) Arterial Blood Partial Pressure O2 199.9 mmHg (75.0-100.0) 96.9 mmHg (75.0-100.0) Arterial Blood HCO3 23.5 mmol/L (22.0-26.0) 29.7 mmol/L (22.0-26.0) Arterial Blood Oxygen Saturation 98.5 % (92.0-98.0) 96.3 % (92.0-98.0) Arterial Blood Base Excess -1.5 3.7 Jarred Test Positive Positive Random Vancomycin Level 19.6 ug/mL White Blood Count 5.3 K/UL (4.8-10.8) Red Blood Count 3.31 M/UL (4.20-5.40) Hemoglobin 10.7 G/DL (12.0-16.0) Hematocrit 34.1 % (37.0-47.0) Mean Corpuscular Volume 103 FL (80-99) Mean Corpuscular Hemoglobin 32.3 PG (27.0-31.0) Mean Corpuscular Hemoglobin Concent 31.4 G/DL (32.0-36.0) Red Cell Distribution Width 13.5 % (11.6-14.8) Platelet Count 128 K/UL (150-450) Mean Platelet Volume 7.7 FL (6.5-10.1) Neutrophils (%) (Auto) 48.7 % (45.0-75.0) Lymphocytes (%) (Auto) 23.5 % (20.0-45.0) Monocytes (%) (Auto) 13.2 % (1.0-10.0) Eosinophils (%) (Auto) 13.6 % (0.0-3.0) Basophils (%) (Auto) 1.1 % (0.0-2.0) Phosphorus Level 6.0 MG/DL (2.5-4.9) Magnesium Level 2.2 MG/DL (1.8-2.4) Pro-B-Type Natriuretic Peptide 2325 pg/mL (0-125) Test 12/21/16 05:00 Sodium Level 138 MMOL/L (136-145) Potassium Level 3.9 MMOL/L (3.5-5.1) Chloride Level 97 MMOL/L (98-107) Carbon Dioxide Level 30 MMOL/L (21-32) Anion Gap 11 mmol/L (5-15) Blood Urea Nitrogen 40 mg/dL (7-18) Creatinine 8.0 MG/DL (0.55-1.30) Estimat Glomerular Filtration Rate 5.0 mL/min (>60) Glucose Level 81 MG/DL (74-106) Calcium Level 9.0 MG/DL (8.5-10.1) Phosphorus Level 5.9 MG/DL (2.5-4.9) Objective: GENERAL: The patient is an ill-appearing female, on NC oxygen HEENT: Normocephalic and atraumatic. Pupils are sluggish. The patient is awake NECK: Short. No clear jugular venous distention. LUNGS: clearer breath sounds bilaterally with moderate air entry. without change CARDIAC: Normal S1 and S2. Regular rate and rhythm. Somewhat distant without murmurs, rubs, or gallops. ABDOMEN: Soft, obese, and nontender. no HSM; no distention EXTREMITIES: No cyanosis or clubbing. There is mild edema. Shortened limbs. poor mobility NEUROLOGICAL: back to baseline; diffusely weak Micro: Microbiology Date/Time Source Procedure Growth Status 12/18/16 08:45 Sputum Gram Stain - Final Complete 12/18/16 08:45 Sputum Sputum Culture - Final NORMAL UPPER RESPIRATORY MARY PRESENT Complete Accucheck: 81 FITO SIMS Dec 21, 2016 07:56
[2016-12-21] MEDS: Nephrovite tab (Rena-Vite) ORAL SCH (09:31)
[2016-12-21] MEDS: Metoprolol 25mg tab ORAL SCH ×2 (09:32→09:34)
[2016-12-21] MEDS: Aspirin Baby 81mg NG SCH (09:32)
[2016-12-21] MEDS: Docusate 100mg/10ml Liq ORAL SCH ×2 (09:35→17:35)
[2016-12-21] MEDS: Heparin 5000 units/ml inj SUBQ SCH ×2 (09:37→20:18)
--- NOTE | 2016-12-21 11:00 | Infectious Diseases Prog Note ---
Assessment/Plan Assessment/Plan A 1. pneumonia 2. respiratory failure resolved 3. renal failure, ESRD on HD 4. DM 5. CVA P 1. discontinue vancomycin iv, Continue Zosyn Subjective ROS Limited/Unobtainable: No Constitutional: Reports: no symptoms Respiratory: Reports: productive cough, other - extubated yesterday Gastrointestinal/Abdominal: Reports: no symptoms Genitourinary: Reports: no symptoms Allergies: Coded Allergies: AMITRIPTYLINE (Verified Allergy, Unknown, 11/15/14) When taken with glipizide pts Blood glucose was critically low. MD stopped medication ATENOLOL (Verified Allergy, Unknown, 11/03/14) GLIPIZIDE (Verified Allergy, Unknown, 11/15/14) Pt is not diabetic. When prescribed pt had symptoms of lethargy, somnolence, depressed, anxiousness. Medication was discontinued. UNABLE TO ASSESS (Unverified , 07/21/16) Objective Vital Signs Last 24 Hour Vital Signs Date Time Temp Pulse Resp B/P (MAP) Pulse Ox O2 Delivery O2 Flow Rate FiO2 12/21/16 10:00 78 22 111/64 100 Nasal Cannula 3.0 35 12/21/16 09:34 80 103/44 12/21/16 09:00 80 20 103/44 98 Nasal Cannula 3.0 35 12/21/16 08:00 98.0 74 22 120/43 100 Nasal Cannula 3.0 35 12/21/16 08:00 72 12/21/16 07:05 Nasal Cannula 4.0 36 12/21/16 07:05 96 Nasal Cannula 4.0 36 12/21/16 07:00 80 18 116/47 99 Nasal Cannula 2.0 12/21/16 06:00 78 18 109/48 99 Nasal Cannula 2.0 12/21/16 05:30 80 23 98 3.0 32 12/21/16 05:00 75 19 119/48 99 Bi-pap 35 12/21/16 04:00 35 12/21/16 04:00 98.3 72 19 102/51 99 Bi-pap 35 12/21/16 04:00 72 12/21/16 03:26 72 19 96 Facial 35 12/21/16 03:00 77 20 102/41 97 Bi-pap 35 12/21/16 02:00 71 20 107/44 99 Bi-pap 35 12/21/16 01:07 69 20 97 Facial 35 12/21/16 01:00 69 20 95/45 97 Bi-pap 35 12/21/16 00:00 35 12/21/16 00:00 70 12/21/16 00:00 98.3 70 19 93/39 97 Bi-pap 35 12/20/16 23:01 79 17 96 Facial 35 12/20/16 23:00 35 12/20/16 23:00 78 22 95/43 97 Bi-pap 35 12/20/16 22:00 79 21 97/26 97 Nasal Cannula 2.0 12/20/16 21:00 80 22 112/50 98 Nasal Cannula 2.0 12/20/16 20:48 108/67 12/20/16 20:00 83 12/20/16 20:00 97.8 85 22 98/38 98 Nasal Cannula 2.0 12/20/16 19:01 Nasal Cannula 4.0 36 12/20/16 19:00 83 19 126/52 96 Nasal Cannula 2.0 12/20/16 19:00 98 Nasal Cannula 4.0 36 12/20/16 18:00 80 24 94/31 100 Nasal Cannula 12/20/16 17:00 75 21 111/51 98 Nasal Cannula 12/20/16 16:00 76 12/20/16 16:00 98.8 77 21 106/61 98 Nasal Cannula 4.0 12/20/16 15:00 61 21 94/46 98 Nasal Cannula 12/20/16 14:00 61 21 109/45 98 Nasal Cannula 12/20/16 13:47 79 18 Nasal Cannula 4.0 36 12/20/16 13:00 61 23 109/46 98 Nasal Cannula 12/20/16 12:20 97 Nasal Cannula 4.0 36 12/20/16 12:10 Nasal Cannula 4.0 12/20/16 12:10 Nasal Cannula 4.0 36 12/20/16 12:00 80 12/20/16 12:00 98.6 61 23 102/66 98 Bi-pap 12/20/16 11:05 78 21 30 12/20/16 11:00 61 20 112/49 97 Bi-pap Height (Feet): 5 Height (Inches): 2.00 Weight (Pounds): 194 General Appearance: no acute distress HEENT: mucous membranes moist Respiratory/Chest: lungs clear, other - O2 by cannula Cardiovascular: normal rate, other - R arm PICC line Extremities: no edema Neurologic/Psychiatric: alert, oriented x 3, responsive Laboratory Tests Test 12/20/16 11:10 12/21/16 04:00 12/21/16 05:00 Arterial Blood pH 7.378 (7.350-7.450) Arterial Blood Partial Pressure CO2 51.6 mmHg (35.0-45.0) H Arterial Blood Partial Pressure O2 96.9 mmHg (75.0-100.0) Arterial Blood HCO3 29.7 mmol/L (22.0-26.0) H Arterial Blood Oxygen Saturation 96.3 % (92.0-98.0) Arterial Blood Base Excess 3.7 Jarred Test Positive White Blood Count 5.3 K/UL (4.8-10.8) Red Blood Count 3.31 M/UL (4.20-5.40) L Hemoglobin 10.7 G/DL (12.0-16.0) L Hematocrit 34.1 % (37.0-47.0) L Mean Corpuscular Volume 103 FL (80-99) H Mean Corpuscular Hemoglobin 32.3 PG (27.0-31.0) H Mean Corpuscular Hemoglobin Concent 31.4 G/DL (32.0-36.0) L Red Cell Distribution Width 13.5 % (11.6-14.8) Platelet Count 128 K/UL (150-450) L Mean Platelet Volume 7.7 FL (6.5-10.1) Neutrophils (%) (Auto) 48.7 % (45.0-75.0) Lymphocytes (%) (Auto) 23.5 % (20.0-45.0) Monocytes (%) (Auto) 13.2 % (1.0-10.0) H Eosinophils (%) (Auto) 13.6 % (0.0-3.0) H Basophils (%) (Auto) 1.1 % (0.0-2.0) Phosphorus Level 6.0 MG/DL (2.5-4.9) H 5.9 MG/DL (2.5-4.9) H Magnesium Level 2.2 MG/DL (1.8-2.4) Pro-B-Type Natriuretic Peptide 2325 pg/mL (0-125) H Sodium Level 138 MMOL/L (136-145) Potassium Level 3.9 MMOL/L (3.5-5.1) Chloride Level 97 MMOL/L (98-107) L Carbon Dioxide Level 30 MMOL/L (21-32) Anion Gap 11 mmol/L (5-15) Blood Urea Nitrogen 40 mg/dL (7-18) H Creatinine 8.0 MG/DL (0.55-1.30) H Estimat Glomerular Filtration Rate 5.0 mL/min (>60) Glucose Level 81 MG/DL (74-106) Calcium Level 9.0 MG/DL (8.5-10.1) Current Medications Medications (Trade) Dose Ordered Sig/Gabriela Route PRN Reason Start Time Stop Time Status Last Admin Dose Admin Acetaminophen (Tylenol) 500 mg Q4H PRN ORAL Mild Pain/Temp > 100.5 12/17/16 16:30 01/16/17 16:29 12/20/16 04:40 Albuterol/ Ipratropium (Albuterol/ Ipratropium) 3 ml Q4H PRN HHN Shortness of Breath 12/17/16 16:30 12/22/16 16:29 Aspirin (ASA) 81 mg DAILY NG 12/18/16 09:00 01/17/17 08:59 12/21/16 09:32 Atorvastatin Calcium (Lipitor) 10 mg BEDTIME ORAL 12/17/16 21:00 01/16/17 20:59 12/20/16 20:34 Dextrose (Dextrose 50%) STAT PRN IV Hypoglycemia 12/17/16 16:30 01/16/17 16:29 Docusate Sodium (Colace) 100 mg TWICE A DAY ORAL 12/18/16 09:00 01/17/17 08:59 12/20/16 18:08 Epoetin Darren (Procrit (for ESRD on dialysis)) 7,000 units MON-SUN-SUN SUBQ 12/20/16 21:00 01/19/17 20:59 12/20/16 20:49 Folic Acid (Folate) 1 mg DAILY ORAL 12/18/16 09:00 01/17/17 08:59 12/21/16 09:31 Gabapentin (Neurontin) 300 mg BEDTIME ORAL 12/17/16 21:00 01/16/17 20:59 12/20/16 20:34 Heparin Sodium (Porcine) (Heparin 5000 units/ml) 5,000 units EVERY 12 HOURS SUBQ 12/17/16 21:00 01/16/17 20:59 12/21/16 09:37 Heparin Sodium (Porcine) (Heparin Sod 1000 units/ml 10ml) 2,000 unit ONCE IV 12/21/16 06:00 12/21/16 23:59 Insulin Aspart (NovoLOG) EVERY 6 HOURS SUBQ 12/20/16 00:00 01/16/17 16:59 Metoprolol Tartrate (Lopressor) 25 mg DAILY ORAL 12/18/16 09:00 01/17/17 08:59 Norepinephrine Bitartrate 4 mg/ Dextrose 250 ml @ 0 mls/hr Q24H IV 12/17/16 21:15 01/16/17 21:14 Pantoprazole (Protonix) 40 mg ACBREAKFAST ORAL 12/18/16 06:30 01/17/17 06:29 12/21/16 06:09 Piperacillin Sod/ Tazobactam Sod 2.25 gm/Dextrose 55 ml @ 110 mls/hr Q8HR@0200,1000,1800 IV 12/18/16 18:00 12/25/16 17:59 12/21/16 09:38 Sodium Chloride 1,000 ml @ 500 mls/hr Q2H PRN IVLG sbp<90 during hd 12/21/16 06:00 12/21/16 23:59 Vancomycin HCl (Vanco rx to dose) 1 ea DAILY PRN MISC Per rx protocol 12/17/16 16:30 01/16/17 16:29 Vitamin B Complex/ Vit C/Folic Acid (Nephrovite) 1 tab DAILY ORAL 12/18/16 09:00 01/17/17 08:59 12/21/16 09:31 COLIN SPRAGUE Dec 21, 2016 11:00
[2016-12-21] MEDS ORDERED: NS 275ml ONE ×2 (15:08→15:13)
[2016-12-21] MEDS ORDERED: Sterile Water Irrig 1000ml IRRIG ONE (15:08)
[2016-12-21] MEDS ORDERED: Tubing IV Secondary IV ONE (15:13)
--- NOTE | 2016-12-21 16:52 | Diagnostic Imaging Report ---
APPROVED REPORT CPT Code: 94823 Present Symptoms Shortness of breath Past History Prior Lower Extremity Venous DuplexDate : 09/10/2016 Comments :No acute findings. Technically difficult study due to vessel depth (mid-thigh and calf area). RIGHT LEG: Venous imaging reveals a patent deep venous system. There is no evidence of thrombus within the femoral, popliteal or tibial segments. The greater saphenous vein is also within normal limits. Doppler indicates normal spontaneous flow within these segments. The superficial femoral proximal to distal segments were not well visualized due to vessel depth. LEFT LEG: Venous imaging reveals a patent deep venous system. There is no evidence of thrombus within the femoral, popliteal or tibial segments. The greater saphenous vein is also within normal limits. Doppler indicates normal spontaneous flow within these segments.
--- NOTE | 2016-12-21 17:10 | General Progress Note ---
Assessment/Plan Problem List: (1) Pneumonia ICD Codes: J18.9 - Pneumonia, unspecified organism SNOMED: 547609846 (2) Diastolic CHF, acute on chronic ICD Codes: I50.33 - Acute on chronic diastolic (congestive) heart failure SNOMED: 52354654, 526334662 (3) Respiratory failure ICD Codes: J96.90 - Respiratory failure, unspecified, unspecified whether with hypoxia or hypercapnia SNOMED: 588651475 (4) Severe sepsis ICD Codes: A41.9 - Sepsis, unspecified organism; R65.20 - Severe sepsis without septic shock SNOMED: 40902245 (5) End-stage renal disease ICD Codes: N18.6 - End stage renal disease SNOMED: 57184292 Status: stable, progressing Assessment/Plan swallow eval HD with UF iv abx follow up cultures resp care monitor bs critical and guarded d/w dtr poc Subjective ROS Limited/Unobtainable: No Constitutional: Reports: malaise, weakness HEENT: Reports: no symptoms Cardiovascular: Reports: no symptoms Respiratory: Reports: no symptoms Gastrointestinal/Abdominal: Reports: no symptoms Genitourinary: Reports: no symptoms Neurologic/Psychiatric: Reports: no symptoms Endocrine: Reports: no symptoms Hematologic/Lymphatic: Reports: no symptoms Allergies: Coded Allergies: AMITRIPTYLINE (Verified Allergy, Unknown, 11/15/14) When taken with glipizide pts Blood glucose was critically low. MD stopped medication ATENOLOL (Verified Allergy, Unknown, 11/03/14) GLIPIZIDE (Verified Allergy, Unknown, 11/15/14) Pt is not diabetic. When prescribed pt had symptoms of lethargy, somnolence, depressed, anxiousness. Medication was discontinued. UNABLE TO ASSESS (Unverified , 07/21/16) All Systems: reviewed and negative except above Subjective extubated. feels "good." no cp.sob. wants to eat. no fever or chills. Objective Last 24 Hour Vital Signs Date Time Temp Pulse Resp B/P (MAP) Pulse Ox O2 Delivery O2 Flow Rate FiO2 12/21/16 16:00 98.0 80 22 107/50 100 Nasal Cannula 3.0 35 12/21/16 16:00 81 12/21/16 15:15 Nasal Cannula 3.0 12/21/16 15:00 78 18 106/46 98 Nasal Cannula 3.0 35 12/21/16 14:00 79 16 111/74 100 Nasal Cannula 3.0 35 12/21/16 13:00 81 21 105/88 100 Nasal Cannula 3.0 35 12/21/16 12:00 77 12/21/16 12:00 98.0 78 18 75/54 100 Nasal Cannula 3.0 35 12/21/16 11:40 Nasal Cannula 2.0 12/21/16 11:00 79 25 118/39 99 Nasal Cannula 3.0 35 12/21/16 10:00 78 22 111/64 100 Nasal Cannula 3.0 35 12/21/16 09:34 80 103/44 12/21/16 09:00 80 20 103/44 98 Nasal Cannula 3.0 35 12/21/16 08:00 98.0 74 22 120/43 100 Nasal Cannula 3.0 35 12/21/16 08:00 72 12/21/16 07:05 Nasal Cannula 4.0 36 12/21/16 07:05 96 Nasal Cannula 4.0 36 12/21/16 07:00 80 18 116/47 99 Nasal Cannula 2.0 12/21/16 06:00 78 18 109/48 99 Nasal Cannula 2.0 12/21/16 05:30 80 23 98 3.0 32 12/21/16 05:00 75 19 119/48 99 Bi-pap 35 12/21/16 04:00 35 12/21/16 04:00 98.3 72 19 102/51 99 Bi-pap 35 12/21/16 04:00 72 12/21/16 03:26 72 19 96 Facial 35 12/21/16 03:00 77 20 102/41 97 Bi-pap 35 12/21/16 02:00 71 20 107/44 99 Bi-pap 35 12/21/16 01:07 69 20 97 Facial 35 12/21/16 01:00 69 20 95/45 97 Bi-pap 35 12/21/16 00:00 35 12/21/16 00:00 70 12/21/16 00:00 98.3 70 19 93/39 97 Bi-pap 35 12/20/16 23:01 79 17 96 Facial 35 12/20/16 23:00 35 12/20/16 23:00 78 22 95/43 97 Bi-pap 35 12/20/16 22:00 79 21 97/26 97 Nasal Cannula 2.0 12/20/16 21:00 80 22 112/50 98 Nasal Cannula 2.0 12/20/16 20:48 108/67 12/20/16 20:00 83 12/20/16 20:00 97.8 85 22 98/38 98 Nasal Cannula 2.0 12/20/16 19:01 Nasal Cannula 4.0 36 12/20/16 19:00 83 19 126/52 96 Nasal Cannula 2.0 12/20/16 19:00 98 Nasal Cannula 4.0 36 12/20/16 18:00 80 24 94/31 100 Nasal Cannula Intake and Output 12/21/16 12/22/16 19:00 07:00 Intake Total 55 ml Output Total 2050 ml Balance -1995 ml IV Total 55 ml Output Urine Total 0 ml Hemodialysis UF 2050 ml Laboratory Tests 12/21/16 04:00: White Blood Count 5.3, Red Blood Count 3.31L, Hemoglobin 10.7L, Hematocrit 34.1L , Mean Corpuscular Volume 103H, Mean Corpuscular Hemoglobin 32.3H, Mean Corpuscular Hemoglobin Concent 31.4L, Red Cell Distribution Width 13.5, Platelet Count 128L, Mean Platelet Volume 7.7, Neutrophils (%) (Auto) 48.7, Lymphocytes (%) (Auto) 23.5, Monocytes (%) (Auto) 13.2H, Eosinophils (%) (Auto) 13.6H, Basophils (%) (Auto) 1.1, Phosphorus Level 6.0H, Magnesium Level 2.2, Pro -B-Type Natriuretic Peptide 2325H 12/21/16 05:00: Phosphorus Level 5.9H, Sodium Level 138, Potassium Level 3.9, Chloride Level 97L , Carbon Dioxide Level 30, Anion Gap 11, Blood Urea Nitrogen 40H, Creatinine 8.0H, Estimat Glomerular Filtration Rate 5.0, Glucose Level 81, Calcium Level 9.0 Height (Feet): 5 Height (Inches): 2.00 Weight (Pounds): 194 Objective General Appearance: WD/WN, alert. 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
[2016-12-21] MEDS ORDERED: Heparin Sod 1000 units/ml 10ml IV PRN ×2 (18:45→19:00)
--- NOTE | 2016-12-21 18:45 | Nephrology Progress Note ---
Assessment/Plan Problem List: (1) End-stage renal disease (2) Hemiplegia of nondominant side as late effect of cerebrovascular disease (3) Diastolic CHF, acute on chronic (4) Pneumonia (5) Respiratory failure (6) DM renal manif type II (7) Anemia in chronic kidney disease Assessment extubated alert , lab reviewed, meds reviewed for eskd, epogen for anemia, hd stable uf 1999, hd 12/22 to get back to [facility] Subjective Constitutional: Reports: weakness HEENT: Reports: no symptoms Genitourinary: Reports: no symptoms Neurologic/Psychiatric: Reports: pre-existing deficit Subjective less sob Objective Objective Last 24 Hour Vital Signs Date Time Temp Pulse Resp B/P (MAP) Pulse Ox O2 Delivery O2 Flow Rate FiO2 12/21/16 18:00 83 26 103/46 100 Nasal Cannula 3.0 35 12/21/16 17:00 84 25 106/48 100 Nasal Cannula 3.0 35 12/21/16 16:00 98.0 80 22 107/50 100 Nasal Cannula 3.0 35 12/21/16 16:00 81 12/21/16 15:15 Nasal Cannula 3.0 12/21/16 15:00 78 18 106/46 98 Nasal Cannula 3.0 35 12/21/16 14:00 79 16 111/74 100 Nasal Cannula 3.0 35 12/21/16 13:00 81 21 105/88 100 Nasal Cannula 3.0 35 12/21/16 12:00 77 12/21/16 12:00 98.0 78 18 75/54 100 Nasal Cannula 3.0 35 12/21/16 11:40 Nasal Cannula 2.0 12/21/16 11:00 79 25 118/39 99 Nasal Cannula 3.0 35 12/21/16 10:00 78 22 111/64 100 Nasal Cannula 3.0 35 12/21/16 09:34 80 103/44 12/21/16 09:00 80 20 103/44 98 Nasal Cannula 3.0 35 12/21/16 08:00 98.0 74 22 120/43 100 Nasal Cannula 3.0 35 12/21/16 08:00 72 12/21/16 07:05 Nasal Cannula 4.0 36 12/21/16 07:05 96 Nasal Cannula 4.0 36 12/21/16 07:00 80 18 116/47 99 Nasal Cannula 2.0 12/21/16 06:00 78 18 109/48 99 Nasal Cannula 2.0 12/21/16 05:30 80 23 98 3.0 32 12/21/16 05:00 75 19 119/48 99 Bi-pap 35 12/21/16 04:00 35 12/21/16 04:00 98.3 72 19 102/51 99 Bi-pap 35 12/21/16 04:00 72 12/21/16 03:26 72 19 96 Facial 35 12/21/16 03:00 77 20 102/41 97 Bi-pap 35 12/21/16 02:00 71 20 107/44 99 Bi-pap 35 12/21/16 01:07 69 20 97 Facial 35 12/21/16 01:00 69 20 95/45 97 Bi-pap 35 12/21/16 00:00 35 12/21/16 00:00 70 12/21/16 00:00 98.3 70 19 93/39 97 Bi-pap 35 12/20/16 23:01 79 17 96 Facial 35 12/20/16 23:00 35 12/20/16 23:00 78 22 95/43 97 Bi-pap 35 12/20/16 22:00 79 21 97/26 97 Nasal Cannula 2.0 12/20/16 21:00 80 22 112/50 98 Nasal Cannula 2.0 12/20/16 20:48 108/67 12/20/16 20:00 83 12/20/16 20:00 97.8 85 22 98/38 98 Nasal Cannula 2.0 12/20/16 19:01 Nasal Cannula 4.0 36 12/20/16 19:00 83 19 126/52 96 Nasal Cannula 2.0 12/20/16 19:00 98 Nasal Cannula 4.0 36 Intake and Output 12/21/16 12/22/16 19:00 07:00 Intake Total 230 ml Output Total 2050 ml Balance -1820 ml Intake Oral 175 ml IV Total 55 ml Output Urine Total 0 ml Hemodialysis UF 2050 ml Laboratory Tests 12/21/16 04:00: White Blood Count 5.3, Red Blood Count 3.31L, Hemoglobin 10.7L, Hematocrit 34.1L , Mean Corpuscular Volume 103H, Mean Corpuscular Hemoglobin 32.3H, Mean Corpuscular Hemoglobin Concent 31.4L, Red Cell Distribution Width 13.5, Platelet Count 128L, Mean Platelet Volume 7.7, Neutrophils (%) (Auto) 48.7, Lymphocytes (%) (Auto) 23.5, Monocytes (%) (Auto) 13.2H, Eosinophils (%) (Auto) 13.6H, Basophils (%) (Auto) 1.1, Phosphorus Level 6.0H, Magnesium Level 2.2, Pro -B-Type Natriuretic Peptide 2325H 12/21/16 05:00: Phosphorus Level 5.9H, Sodium Level 138, Potassium Level 3.9, Chloride Level 97L , Carbon Dioxide Level 30, Anion Gap 11, Blood Urea Nitrogen 40H, Creatinine 8.0H, Estimat Glomerular Filtration Rate 5.0, Glucose Level 81, Calcium Level 9.0 Height (Feet): 5 Height (Inches): 2.00 Weight (Pounds): 194 General Appearance: no apparent distress, morbidly obese EENT: normal ENT inspection Neck: normal alignment Cardiovascular: normal rate, regular rhythm Respiratory/Chest: lungs clear, decreased breath sounds Abdomen: non tender, soft Extremities: other - no edema Neurologic: motor weakness TATI DANIEL Dec 21, 2016 18:45
[2016-12-21] MEDS ORDERED: Albuterol/Ipratropium 3ml neb HHN PRN (19:00)
[2016-12-21] MEDS ORDERED: NovoLOG Insulin Flexpen SUBQ SCH (21:00)
--- NOTE | 2016-12-21 21:30 | Progress Note ---
DATE: 12/21/2016 CARDIOLOGY PROGRESS NOTE SUBJECTIVE: The patient was extubated. She is alert. She feels fine. She is hungry. OBJECTIVE: VITAL SIGNS: Blood pressure 107/50, pulse 81, respirations 22, afebrile. GENERAL: Left hemiparesis. LUNGS: Bilateral breath sounds. HEART: Regular rhythm and rate. ABDOMEN: Soft. EXTREMITIES: Trace edema. LABORATORY AND DIAGNOSTIC DATA: White count 5.3 and hemoglobin 10.7. Potassium 3.9, BUN 40, and creatinine 8. Pro-natriuretic peptide 2325. IMPRESSION: 1. Status post respiratory failure. 2. Recovered acute on chronic respiratory acidosis with hypoxia. 3. Sepsis with recovered shock. 4. Acute myocardial ischemia secondary to hypoperfusion. 5. End-stage renal disease, on hemodialysis. 6. Prior cerebrovascular accident with left hemiparesis. PLAN: 1. Respiratory hygiene. 2. Hemodialysis with ultrafiltration as tolerated by blood pressure parameters. Continue beta-sha. 3. Antimicrobials. 4. Respiratory hygiene. Adalberto May M.D. DR: Cira JOB#: [id number] CC:
[2016-12-22] VITALS (10 sets, daily range): BP systolic 105–126; BP diastolic 53–70
[2016-12-22] MEDS: Piperacillin/Tazobactam 2.25 GM in D5W 55 ML IV SCH ×3 (02:00→17:49)
[2016-12-22] MEDS: NovoLOG Insulin Flexpen SUBQ SCH ×4 (05:38→21:00)
[2016-12-22 05:48] LABS: BASOPHILS % (AUTO) 1.1 % (0.0-2.0); EOSINOPHILS % (AUTO) 10.8 % (0.0-3.0); MEAN CORPUSCULAR HEMOGLOBIN 32.8 PG (27.0-31.0); MEAN CORPUSCULAR HGB CONC 31.5 G/DL (32.0-36.0); MEAN CORPUSCULAR VOLUME 104 FL (80-99); MEAN PLATELET VOLUME 6.7 FL (6.5-10.1); MONOCYTES % (AUTO) 13.3 % (1.0-10.0); NEUTROPHILS % (AUTO) 54.8 % (45.0-75.0); PLATELET COUNT 125 K/UL (150-450); RED BLOOD COUNT 3.11 M/UL (4.20-5.40); RED CELL DISTRIBUTION WIDTH 13.8 % (11.6-14.8)
[2016-12-22] MEDS: Metoprolol Tartrate 12.5mg TAB ORAL SCH ×2 (09:00→21:00)
[2016-12-22] MEDS ORDERED: Metoprolol Tartrate 12.5mg TAB ORAL SCH (09:00)
[2016-12-22] MEDS ORDERED: Docusate 100mg/10ml Liq ORAL SCH (09:00)
--- NOTE | 2016-12-22 09:06 | Critical Care Progress Note ---
Assessment/Plan Assessment/Plan IMPRESSION: Respiratory failure. Possible pneumonia. Possible pulmonary edema. End-stage renal disease, on hemodialysis. Chronic respiratory failure with a longstanding history of respiratory acidosis, hypoxemia, heart disease, congestive heart failure. PLAN care noted IV antibiotics as noted respiratory care BIPAP QHS and PRN reviewed meds supportive care suction as needed step down care and PT oxygen therapy prognosis guarded improved overall medications/laboratory data/nursing notes care reviewed in detail note reviewed and edited care discussed with RN and RT Critical Care - Subjective Condition: improving I&O: overall improved care noted stable and moved to [facility] Critical Care - Objective ET-Tube: 6.0 ET Position: 21 Last 24 Hour Vital Signs Date Time Temp Pulse Resp B/P (MAP) Pulse Ox O2 Delivery O2 Flow Rate FiO2 12/22/16 08:00 97.5 82 19 110/63 96 Nasal Cannula 4.0 12/22/16 06:45 95 Nasal Cannula 4.0 36 12/22/16 06:45 Nasal Cannula 4.0 36 12/22/16 04:00 81 12/22/16 04:00 98.1 83 24 108/58 98 Nasal Cannula 4.0 12/22/16 02:52 77 18 99 Facial 35 12/22/16 00:57 75 18 99 Facial 35 12/22/16 00:00 79 12/22/16 00:00 98.0 81 17 115/60 98 Bi-pap 35 12/21/16 23:27 78 16 97 Facial 35 12/21/16 20:00 80 12/21/16 20:00 97.4 80 20 111/59 97 4.0 12/21/16 19:10 97 Nasal Cannula 4.0 36 12/21/16 19:10 Nasal Cannula 4.0 36 12/21/16 18:00 83 26 103/46 100 Nasal Cannula 3.0 35 12/21/16 17:00 84 25 106/48 100 Nasal Cannula 3.0 35 12/21/16 16:00 98.0 80 22 107/50 100 Nasal Cannula 3.0 35 12/21/16 16:00 81 12/21/16 15:15 Nasal Cannula 3.0 12/21/16 15:00 78 18 106/46 98 Nasal Cannula 3.0 35 12/21/16 14:00 79 16 111/74 100 Nasal Cannula 3.0 35 12/21/16 13:00 81 21 105/88 100 Nasal Cannula 3.0 35 12/21/16 12:00 77 12/21/16 12:00 98.0 78 18 75/54 100 Nasal Cannula 3.0 35 12/21/16 11:40 Nasal Cannula 2.0 12/21/16 11:00 79 25 118/39 99 Nasal Cannula 3.0 35 12/21/16 10:00 78 22 111/64 100 Nasal Cannula 3.0 35 12/21/16 09:34 80 103/44 Labs: Labs Test 12/20/16 11:10 12/21/16 04:00 12/21/16 05:00 12/22/16 05:20 Arterial Blood pH 7.378 (7.350-7.450) Arterial Blood Partial Pressure CO2 51.6 mmHg (35.0-45.0) Arterial Blood Partial Pressure O2 96.9 mmHg (75.0-100.0) Arterial Blood HCO3 29.7 mmol/L (22.0-26.0) Arterial Blood Oxygen Saturation 96.3 % (92.0-98.0) Arterial Blood Base Excess 3.7 Jarred Test Positive White Blood Count 5.3 K/UL (4.8-10.8) 7.0 K/UL (4.8-10.8) Red Blood Count 3.31 M/UL (4.20-5.40) 3.11 M/UL (4.20-5.40) Hemoglobin 10.7 G/DL (12.0-16.0) 10.2 G/DL (12.0-16.0) Hematocrit 34.1 % (37.0-47.0) 32.4 % (37.0-47.0) Mean Corpuscular Volume 103 FL (80-99) 104 FL (80-99) Mean Corpuscular Hemoglobin 32.3 PG (27.0-31.0) 32.8 PG (27.0-31.0) Mean Corpuscular Hemoglobin Concent 31.4 G/DL (32.0-36.0) 31.5 G/DL (32.0-36.0) Red Cell Distribution Width 13.5 % (11.6-14.8) 13.8 % (11.6-14.8) Platelet Count 128 K/UL (150-450) 125 K/UL (150-450) Mean Platelet Volume 7.7 FL (6.5-10.1) 6.7 FL (6.5-10.1) Neutrophils (%) (Auto) 48.7 % (45.0-75.0) 54.8 % (45.0-75.0) Lymphocytes (%) (Auto) 23.5 % (20.0-45.0) 20.0 % (20.0-45.0) Monocytes (%) (Auto) 13.2 % (1.0-10.0) 13.3 % (1.0-10.0) Eosinophils (%) (Auto) 13.6 % (0.0-3.0) 10.8 % (0.0-3.0) Basophils (%) (Auto) 1.1 % (0.0-2.0) 1.1 % (0.0-2.0) Phosphorus Level 6.0 MG/DL (2.5-4.9) 5.9 MG/DL (2.5-4.9) Magnesium Level 2.2 MG/DL (1.8-2.4) Pro-B-Type Natriuretic Peptide 2325 pg/mL (0-125) Sodium Level 138 MMOL/L (136-145) Potassium Level 3.9 MMOL/L (3.5-5.1) Chloride Level 97 MMOL/L (98-107) Carbon Dioxide Level 30 MMOL/L (21-32) Anion Gap 11 mmol/L (5-15) Blood Urea Nitrogen 40 mg/dL (7-18) Creatinine 8.0 MG/DL (0.55-1.30) Estimat Glomerular Filtration Rate 5.0 mL/min (>60) Glucose Level 81 MG/DL (74-106) Calcium Level 9.0 MG/DL (8.5-10.1) Objective: GENERAL: The patient is an ill-appearing female, on NC oxygen HEENT: Normocephalic and atraumatic. Pupils are sluggish. The patient is awake NECK: Short. No clear jugular venous distention. LUNGS: stable breath sounds bilaterally with moderate air entry. without change CARDIAC: Normal S1 and S2. Regular rate and rhythm. Somewhat distant without murmurs, rubs, or gallops. ABDOMEN: Soft, obese, and nontender. no HSM; no distention EXTREMITIES: No cyanosis or clubbing. There is mild edema. Shortened limbs. poor mobility NEUROLOGICAL: back to baseline; diffusely weak Accucheck: 93 FITO SIMS Dec 22, 2016 09:06
[2016-12-22] MEDS: Aspirin Baby 81mg NG SCH (09:16)
[2016-12-22] MEDS: Nephrovite tab (Rena-Vite) ORAL SCH (09:16)
[2016-12-22] MEDS: Acetaminophen 500mg (ES) tab ORAL PRN (09:17)
[2016-12-22] MEDS: Heparin 5000 units/ml inj SUBQ SCH (09:22)
--- NOTE | 2016-12-22 09:46 | General Progress Note ---
Assessment/Plan Problem List: (1) Pneumonia ICD Codes: J18.9 - Pneumonia, unspecified organism SNOMED: 787522230 (2) Diastolic CHF, acute on chronic ICD Codes: I50.33 - Acute on chronic diastolic (congestive) heart failure SNOMED: 31769958, 129919420 (3) Respiratory failure ICD Codes: J96.90 - Respiratory failure, unspecified, unspecified whether with hypoxia or hypercapnia SNOMED: 000627958 (4) Severe sepsis ICD Codes: A41.9 - Sepsis, unspecified organism; R65.20 - Severe sepsis without septic shock SNOMED: 27623656 (5) End-stage renal disease ICD Codes: N18.6 - End stage renal disease SNOMED: 51974233 Assessment/Plan xray hips and L spine HD with UF iv abx follow up cultures resp care monitor bs critical and guarded d/w dtr poc Subjective ROS Limited/Unobtainable: No Constitutional: Reports: malaise, weakness HEENT: Reports: no symptoms Cardiovascular: Reports: no symptoms Respiratory: Reports: cough Gastrointestinal/Abdominal: Reports: no symptoms Genitourinary: Reports: no symptoms Neurologic/Psychiatric: Reports: no symptoms Endocrine: Reports: no symptoms Hematologic/Lymphatic: Reports: no symptoms Allergies: Coded Allergies: AMITRIPTYLINE (Verified Allergy, Unknown, 11/15/14) When taken with glipizide pts Blood glucose was critically low. MD stopped medication ATENOLOL (Verified Allergy, Unknown, 11/03/14) GLIPIZIDE (Verified Allergy, Unknown, 11/15/14) Pt is not diabetic. When prescribed pt had symptoms of lethargy, somnolence, depressed, anxiousness. Medication was discontinued. UNABLE TO ASSESS (Unverified , 07/21/16) All Systems: reviewed and negative except above Subjective c/o bilateral leg/thing pain. no fevers or chills. no chest pain . Objective Last 24 Hour Vital Signs Date Time Temp Pulse Resp B/P (MAP) Pulse Ox O2 Delivery O2 Flow Rate FiO2 12/22/16 08:00 97.5 82 19 110/63 96 Nasal Cannula 4.0 12/22/16 06:45 95 Nasal Cannula 4.0 36 12/22/16 06:45 Nasal Cannula 4.0 36 12/22/16 04:00 81 12/22/16 04:00 98.1 83 24 108/58 98 Nasal Cannula 4.0 12/22/16 02:52 77 18 99 Facial 35 12/22/16 00:57 75 18 99 Facial 35 12/22/16 00:00 79 12/22/16 00:00 98.0 81 17 115/60 98 Bi-pap 35 12/21/16 23:27 78 16 97 Facial 35 12/21/16 20:00 80 12/21/16 20:00 97.4 80 20 111/59 97 4.0 12/21/16 19:10 97 Nasal Cannula 4.0 36 12/21/16 19:10 Nasal Cannula 4.0 36 12/21/16 18:00 83 26 103/46 100 Nasal Cannula 3.0 35 12/21/16 17:00 84 25 106/48 100 Nasal Cannula 3.0 35 12/21/16 16:00 98.0 80 22 107/50 100 Nasal Cannula 3.0 35 12/21/16 16:00 81 12/21/16 15:15 Nasal Cannula 3.0 12/21/16 15:00 78 18 106/46 98 Nasal Cannula 3.0 35 12/21/16 14:00 79 16 111/74 100 Nasal Cannula 3.0 35 12/21/16 13:00 81 21 105/88 100 Nasal Cannula 3.0 35 12/21/16 12:00 77 12/21/16 12:00 98.0 78 18 75/54 100 Nasal Cannula 3.0 35 12/21/16 11:40 Nasal Cannula 2.0 12/21/16 11:00 79 25 118/39 99 Nasal Cannula 3.0 35 12/21/16 10:00 78 22 111/64 100 Nasal Cannula 3.0 35 Laboratory Tests 12/22/16 05:20: White Blood Count 7.0, Red Blood Count 3.11L, Hemoglobin 10.2L, Hematocrit 32.4L , Mean Corpuscular Volume 104H, Mean Corpuscular Hemoglobin 32.8H, Mean Corpuscular Hemoglobin Concent 31.5L, Red Cell Distribution Width 13.8, Platelet Count 125L, Mean Platelet Volume 6.7, Neutrophils (%) (Auto) 54.8, Lymphocytes (%) (Auto) 20.0, Monocytes (%) (Auto) 13.3H, Eosinophils (%) (Auto) 10.8H, Basophils (%) (Auto) 1.1 Height (Feet): 5 Height (Inches): 2.00 Weight (Pounds): 190 Objective General Appearance: WD/WN, alert. 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
--- NOTE | 2016-12-22 13:36 | Infectious Diseases Prog Note ---
Assessment/Plan Assessment/Plan antibiotics : zosyn A 1. pneumonia 2. respiratory failure 3. renal failure 4. DM 5. CVA 6. shock P 1. continue zosyn 2. will follow up cultures Subjective ROS Limited/Unobtainable: Yes Allergies: Coded Allergies: AMITRIPTYLINE (Verified Allergy, Unknown, 11/15/14) When taken with glipizide pts Blood glucose was critically low. MD stopped medication ATENOLOL (Verified Allergy, Unknown, 11/03/14) GLIPIZIDE (Verified Allergy, Unknown, 11/15/14) Pt is not diabetic. When prescribed pt had symptoms of lethargy, somnolence, depressed, anxiousness. Medication was discontinued. UNABLE TO ASSESS (Unverified , 07/21/16) Objective Vital Signs Last 24 Hour Vital Signs Date Time Temp Pulse Resp B/P (MAP) Pulse Ox O2 Delivery O2 Flow Rate FiO2 12/22/16 12:00 96.6 78 20 126/70 98 Nasal Cannula 4.0 12/22/16 11:35 79 12/22/16 09:00 82 110/63 12/22/16 08:00 80 12/22/16 08:00 97.5 82 19 110/63 96 Nasal Cannula 4.0 12/22/16 06:45 95 Nasal Cannula 4.0 36 12/22/16 06:45 Nasal Cannula 4.0 36 12/22/16 04:00 81 12/22/16 04:00 98.1 83 24 108/58 98 Nasal Cannula 4.0 12/22/16 02:52 77 18 99 Facial 35 12/22/16 00:57 75 18 99 Facial 35 12/22/16 00:00 79 12/22/16 00:00 98.0 81 17 115/60 98 Bi-pap 35 12/21/16 23:27 78 16 97 Facial 35 12/21/16 20:00 80 12/21/16 20:00 97.4 80 20 111/59 97 4.0 12/21/16 19:10 97 Nasal Cannula 4.0 36 12/21/16 19:10 Nasal Cannula 4.0 36 12/21/16 18:00 83 26 103/46 100 Nasal Cannula 3.0 35 12/21/16 17:00 84 25 106/48 100 Nasal Cannula 3.0 35 12/21/16 16:00 98.0 80 22 107/50 100 Nasal Cannula 3.0 35 12/21/16 16:00 81 12/21/16 15:15 Nasal Cannula 3.0 12/21/16 15:00 78 18 106/46 98 Nasal Cannula 3.0 35 12/21/16 14:00 79 16 111/74 100 Nasal Cannula 3.0 35 Height (Feet): 5 Height (Inches): 2.00 Weight (Pounds): 190 Respiratory/Chest: lungs clear Cardiovascular: normal rate, regular rhythm, no gallop/murmur Abdomen: soft, non tender Extremities: no edema Laboratory Tests Test 12/22/16 05:20 White Blood Count 7.0 K/UL (4.8-10.8) Red Blood Count 3.11 M/UL (4.20-5.40) L Hemoglobin 10.2 G/DL (12.0-16.0) L Hematocrit 32.4 % (37.0-47.0) L Mean Corpuscular Volume 104 FL (80-99) H Mean Corpuscular Hemoglobin 32.8 PG (27.0-31.0) H Mean Corpuscular Hemoglobin Concent 31.5 G/DL (32.0-36.0) L Red Cell Distribution Width 13.8 % (11.6-14.8) Platelet Count 125 K/UL (150-450) L Mean Platelet Volume 6.7 FL (6.5-10.1) Neutrophils (%) (Auto) 54.8 % (45.0-75.0) Lymphocytes (%) (Auto) 20.0 % (20.0-45.0) Monocytes (%) (Auto) 13.3 % (1.0-10.0) H Eosinophils (%) (Auto) 10.8 % (0.0-3.0) H Basophils (%) (Auto) 1.1 % (0.0-2.0) MAKSIM HERNANDEZ Dec 22, 2016 13:36
--- NOTE | 2016-12-22 15:36 | Diagnostic Imaging Report ---
Indication: Hip pain Technique: One view the pelvis, 2 views of each hip Comparison: None Findings: Exam is somewhat limited by body habitus, abundant overlying bowel gas. No definite acute fractures. No dislocations. The joint spaces are preserved. There are fairly extensive vascular calcifications Impression: No definite acute bony trauma Note, however, that in elderly osteopenic patients, nondisplaced fractures can easily be occult. Consider cross-sectional imaging for further evaluation if there is high clinical suspicion
--- NOTE | 2016-12-22 15:40 | Diagnostic Imaging Report ---
Indication: Back pain Technique: 4 views of the lumbar spine Comparison: None Findings: There is mild levoscoliotic deformity at the upper lumbar spine. This may in part be an artifact of positioning, however. Bony alignment is otherwise normal. There is equivocal slight superior endplate depression of the L1 vertebral body, although this could be an artifact of projection. The vertebral body heights are otherwise preserved. No other evidence of acute fracture or dislocation. There is degenerative facet narrowing at at L5-S1 bilaterally. There is degenerative disc narrowing at L1-2. The remaining disc spaces are preserved. The bones are demineralized. There are fairly extensive vascular calcifications. Impression: Cannot rule out superior endplate compression deformity of the L1 vertebral body; acuity indeterminate, if real. Consider MRI if there is high clinical suspicion No other evidence of acute bony trauma Degenerative changes, as described Osteopenia
--- NOTE | 2016-12-22 17:32 | Nephrology Progress Note ---
Assessment/Plan Problem List: (1) End-stage renal disease (2) Hemiplegia of nondominant side as late effect of cerebrovascular disease (3) Diastolic CHF, acute on chronic (4) Pneumonia (5) Respiratory failure (6) DM renal manif type II (7) Anemia in chronic kidney disease Assessment extubated alert , lab reviewed, meds reviewed for eskd, epogen for anemia, hd stable uf 1999, hd 12/22 to get back to [facility] Subjective Constitutional: Reports: weakness HEENT: Reports: no symptoms Genitourinary: Reports: no symptoms Neurologic/Psychiatric: Reports: pre-existing deficit Subjective less sob Objective Objective Last 24 Hour Vital Signs Date Time Temp Pulse Resp B/P (MAP) Pulse Ox O2 Delivery O2 Flow Rate FiO2 12/22/16 16:00 96.8 77 17 112/57 91 Room Air 12/22/16 12:00 96.6 78 20 126/70 98 Nasal Cannula 4.0 12/22/16 11:35 79 12/22/16 09:00 82 110/63 12/22/16 08:00 80 12/22/16 08:00 97.5 82 19 110/63 96 Nasal Cannula 4.0 12/22/16 06:45 95 Nasal Cannula 4.0 36 12/22/16 06:45 Nasal Cannula 4.0 36 12/22/16 04:00 81 12/22/16 04:00 98.1 83 24 108/58 98 Nasal Cannula 4.0 12/22/16 02:52 77 18 99 Facial 35 12/22/16 00:57 75 18 99 Facial 35 12/22/16 00:00 79 12/22/16 00:00 98.0 81 17 115/60 98 Bi-pap 35 12/21/16 23:27 78 16 97 Facial 35 12/21/16 20:00 80 12/21/16 20:00 97.4 80 20 111/59 97 4.0 12/21/16 19:10 97 Nasal Cannula 4.0 36 12/21/16 19:10 Nasal Cannula 4.0 36 12/21/16 18:00 83 26 103/46 100 Nasal Cannula 3.0 35 Laboratory Tests 12/22/16 05:20: White Blood Count 7.0, Red Blood Count 3.11L, Hemoglobin 10.2L, Hematocrit 32.4L , Mean Corpuscular Volume 104H, Mean Corpuscular Hemoglobin 32.8H, Mean Corpuscular Hemoglobin Concent 31.5L, Red Cell Distribution Width 13.8, Platelet Count 125L, Mean Platelet Volume 6.7, Neutrophils (%) (Auto) 54.8, Lymphocytes (%) (Auto) 20.0, Monocytes (%) (Auto) 13.3H, Eosinophils (%) (Auto) 10.8H, Basophils (%) (Auto) 1.1 Height (Feet): 5 Height (Inches): 2.00 Weight (Pounds): 190 General Appearance: alert, morbidly obese EENT: normal ENT inspection Neck: normal alignment Cardiovascular: normal rate, regular rhythm Respiratory/Chest: decreased breath sounds, rhonchi - bilaterally Abdomen: non tender, soft Extremities: trace edema Neurologic: motor weakness TATI DANIEL Dec 22, 2016 17:32
[2016-12-22] MEDS: Docusate 100mg cap ORAL SCH (18:00)
[2016-12-23] MEDS: Epogen (for ESRD on dialysis) SUBQ SCH (00:32)
[2016-12-23] MEDS: Heparin 5000 units/ml inj SUBQ SCH ×3 (00:33→20:54)
[2016-12-23] MEDS: Piperacillin/Tazobactam 2.25 GM in D5W 55 ML IV SCH ×2 (01:04→09:32)
--- NOTE | 2016-12-23 03:16 | Progress Note ---
DATE: 12/22/2016 CARDIOLOGY PROGRESS NOTE SUBJECTIVE: The patient remains without respiratory distress. She was extubated yesterday. She continues on hemodialysis with ultrafiltration. Blood pressure parameters remained stable off pressors. OBJECTIVE: VITAL SIGNS: Blood pressure is 112/57, pulse rate 77, respiratory rate 17, and afebrile. LUNGS: With few rhonchi. CARDIAC: Regular rhythm and rate. Normal S1 and S2 with a fourth heart sound. ABDOMEN: Soft and nontender. EXTREMITIES: With trace edema. Baseline left hemiparesis is noted. LABORATORY DATA: White count is 7 and hemoglobin 10. Sodium is 138, potassium 3.9, bicarbonate 40, and BUN 8. DIAGNOSTIC DATA: X-rays of the spine revealed no acute trauma with baseline degenerative changes. IMPRESSION: 1. Recovered shock due to sepsis. 2. End-stage renal disease. 3. Status post respiratory failure with pneumonia. 4. Cerebrovascular accident with left hemiparesis. 5. Diabetes mellitus. PLAN: 1. Antimicrobials. 2. Respiratory hygiene. 3. Hemodialysis with ultrafiltration for volume management. 4. Blood pressure parameters. 5. Restriction of additional cardiovascular medications at this time. 6. We will continue anti-platelet therapy and statin drug with cautious titration of low-dose beta-sha as condition persists. Adalberto May M.D. DR: Pauline JOB#: [id number] CC:
[2016-12-23 04:00] VITALS: BP 113/52
[2016-12-23] MEDS: NovoLOG Insulin Flexpen SUBQ SCH ×4 (05:38→20:52)
--- NOTE | 2016-12-23 07:06 | Critical Care Progress Note ---
Assessment/Plan Assessment/Plan IMPRESSION: Respiratory failure. Possible pneumonia. Possible pulmonary edema. End-stage renal disease, on hemodialysis. Chronic respiratory failure with a longstanding history of respiratory acidosis, hypoxemia, heart disease, congestive heart failure. PLAN care noted ID followup respiratory care BIPAP QHS and PRN monitor ABG PRN reviewed meds supportive care suction as needed step down care and PT oxygen therapy prognosis guarded improved overall; avoid excessive sedation medications/laboratory data/nursing notes care reviewed in detail note reviewed and edited care discussed with RN and RT Critical Care - Subjective Interval Events: events noted and stable overall on oxygen ROS Limited/Unobtainable: No EKG Rhythm: Sinus Rhythm Critical Care - Objective ET-Tube: 6.0 ET Position: 21 Last 24 Hour Vital Signs Date Time Temp Pulse Resp B/P (MAP) Pulse Ox O2 Delivery O2 Flow Rate FiO2 12/23/16 04:00 84 12/23/16 04:00 97.7 70 24 113/52 Nasal Cannula 4.0 12/23/16 00:00 75 12/22/16 23:30 97.0 81 20 105/53 Room Air 12/22/16 23:30 Nasal Cannula 2.0 12/22/16 23:03 97.2 69 20 126/69 94 Room Air 4.0 36 12/22/16 21:30 97.2 69 20 126/69 Room Air 12/22/16 21:26 Nasal Cannula 4.0 36 12/22/16 21:26 94 Nasal Cannula 4.0 36 12/22/16 21:00 76 102/48 12/22/16 20:00 73 12/22/16 20:00 97.2 70 20 108/59 100 Nasal Cannula 4.0 12/22/16 19:00 96.8 77 17 112/57 91 Room Air 4.0 36 12/22/16 19:00 Room Air 12/22/16 16:00 96.8 77 17 112/57 91 Room Air 12/22/16 15:51 70 12/22/16 12:00 96.6 78 20 126/70 98 Nasal Cannula 4.0 12/22/16 11:35 79 12/22/16 09:00 82 110/63 12/22/16 08:00 80 12/22/16 08:00 97.5 82 19 110/63 96 Nasal Cannula 4.0 Labs: Labs Test 12/20/16 11:10 12/21/16 04:00 12/21/16 05:00 12/22/16 05:20 Arterial Blood pH 7.378 (7.350-7.450) Arterial Blood Partial Pressure CO2 51.6 mmHg (35.0-45.0) Arterial Blood Partial Pressure O2 96.9 mmHg (75.0-100.0) Arterial Blood HCO3 29.7 mmol/L (22.0-26.0) Arterial Blood Oxygen Saturation 96.3 % (92.0-98.0) Arterial Blood Base Excess 3.7 Jarred Test Positive White Blood Count 5.3 K/UL (4.8-10.8) 7.0 K/UL (4.8-10.8) Red Blood Count 3.31 M/UL (4.20-5.40) 3.11 M/UL (4.20-5.40) Hemoglobin 10.7 G/DL (12.0-16.0) 10.2 G/DL (12.0-16.0) Hematocrit 34.1 % (37.0-47.0) 32.4 % (37.0-47.0) Mean Corpuscular Volume 103 FL (80-99) 104 FL (80-99) Mean Corpuscular Hemoglobin 32.3 PG (27.0-31.0) 32.8 PG (27.0-31.0) Mean Corpuscular Hemoglobin Concent 31.4 G/DL (32.0-36.0) 31.5 G/DL (32.0-36.0) Red Cell Distribution Width 13.5 % (11.6-14.8) 13.8 % (11.6-14.8) Platelet Count 128 K/UL (150-450) 125 K/UL (150-450) Mean Platelet Volume 7.7 FL (6.5-10.1) 6.7 FL (6.5-10.1) Neutrophils (%) (Auto) 48.7 % (45.0-75.0) 54.8 % (45.0-75.0) Lymphocytes (%) (Auto) 23.5 % (20.0-45.0) 20.0 % (20.0-45.0) Monocytes (%) (Auto) 13.2 % (1.0-10.0) 13.3 % (1.0-10.0) Eosinophils (%) (Auto) 13.6 % (0.0-3.0) 10.8 % (0.0-3.0) Basophils (%) (Auto) 1.1 % (0.0-2.0) 1.1 % (0.0-2.0) Phosphorus Level 6.0 MG/DL (2.5-4.9) 5.9 MG/DL (2.5-4.9) Magnesium Level 2.2 MG/DL (1.8-2.4) Pro-B-Type Natriuretic Peptide 2325 pg/mL (0-125) Sodium Level 138 MMOL/L (136-145) Potassium Level 3.9 MMOL/L (3.5-5.1) Chloride Level 97 MMOL/L (98-107) Carbon Dioxide Level 30 MMOL/L (21-32) Anion Gap 11 mmol/L (5-15) Blood Urea Nitrogen 40 mg/dL (7-18) Creatinine 8.0 MG/DL (0.55-1.30) Estimat Glomerular Filtration Rate 5.0 mL/min (>60) Glucose Level 81 MG/DL (74-106) Calcium Level 9.0 MG/DL (8.5-10.1) Objective: GENERAL: The patient is an ill-appearing female, on [place] oxygen HEENT: Normocephalic and atraumatic. Pupils are sluggish. The patient is awake NECK: Short. No clear jugular venous distention. LUNGS: stable breath sounds bilaterally with moderate air entry. without change CARDIAC: Normal S1 and S2. Regular rate and rhythm. Somewhat distant without murmurs, rubs, or gallops. ABDOMEN: Soft, obese, and nontender. no HSM; no distention EXTREMITIES: No cyanosis or clubbing. There is mild edema. Shortened limbs. poor mobility NEUROLOGICAL: back to baseline; diffusely weak reviewed and edited Accucheck: 96 FITO SIMS Dec 23, 2016 07:06
[2016-12-23 08:00] VITALS: BP 126/50
--- NOTE | 2016-12-23 08:24 | General Progress Note ---
Assessment/Plan Problem List: (1) Pneumonia ICD Codes: J18.9 - Pneumonia, unspecified organism SNOMED: 291331039 (2) Diastolic CHF, acute on chronic ICD Codes: I50.33 - Acute on chronic diastolic (congestive) heart failure SNOMED: 36112835, 117404938 (3) Respiratory failure ICD Codes: J96.90 - Respiratory failure, unspecified, unspecified whether with hypoxia or hypercapnia SNOMED: 539673980 (4) Severe sepsis ICD Codes: A41.9 - Sepsis, unspecified organism; R65.20 - Severe sepsis without septic shock SNOMED: 21182176 (5) End-stage renal disease ICD Codes: N18.6 - End stage renal disease SNOMED: 60376988 Status: stable, progressing Assessment/Plan xray hips and L spine noted. consider mri or ct to further eval possible compression fx HD with UF iv abx follow up cultures resp care monitor bs improved. cont pt/ot anticipate dc for sunday if stable d/w dtr poc Subjective ROS Limited/Unobtainable: No Constitutional: Reports: malaise, weakness HEENT: Reports: no symptoms Cardiovascular: Reports: no symptoms Respiratory: Reports: cough, sputum Gastrointestinal/Abdominal: Reports: no symptoms Genitourinary: Reports: no symptoms Neurologic/Psychiatric: Reports: no symptoms Endocrine: Reports: no symptoms Hematologic/Lymphatic: Reports: anemia Allergies: Coded Allergies: AMITRIPTYLINE (Verified Allergy, Unknown, 11/15/14) When taken with glipizide pts Blood glucose was critically low. MD stopped medication ATENOLOL (Verified Allergy, Unknown, 11/03/14) GLIPIZIDE (Verified Allergy, Unknown, 11/15/14) Pt is not diabetic. When prescribed pt had symptoms of lethargy, somnolence, depressed, anxiousness. Medication was discontinued. UNABLE TO ASSESS (Unverified , 07/21/16) All Systems: reviewed and negative except above Subjective c/o bilateral leg/thing pain. no fevers or chills. no chest pain. feels "exhausted" from HD. xray hip and l spine noted. . Objective Last 24 Hour Vital Signs Date Time Temp Pulse Resp B/P (MAP) Pulse Ox O2 Delivery O2 Flow Rate FiO2 12/23/16 04:00 84 12/23/16 04:00 97.7 70 24 113/52 Nasal Cannula 4.0 12/23/16 00:00 75 12/22/16 23:30 97.0 81 20 105/53 Room Air 12/22/16 23:30 Nasal Cannula 2.0 12/22/16 23:03 97.2 69 20 126/69 94 Room Air 4.0 36 12/22/16 21:30 97.2 69 20 126/69 Room Air 12/22/16 21:26 Nasal Cannula 4.0 36 12/22/16 21:26 94 Nasal Cannula 4.0 36 12/22/16 21:00 76 102/48 12/22/16 20:00 73 12/22/16 20:00 97.2 70 20 108/59 100 Nasal Cannula 4.0 12/22/16 19:00 96.8 77 17 112/57 91 Room Air 4.0 36 12/22/16 19:00 Room Air 12/22/16 16:00 96.8 77 17 112/57 91 Room Air 12/22/16 15:51 70 12/22/16 12:00 96.6 78 20 126/70 98 Nasal Cannula 4.0 12/22/16 11:35 79 12/22/16 09:00 82 110/63 Height (Feet): 5 Height (Inches): 2.00 Weight (Pounds): 187 Objective General Appearance: WD/WN, alert. 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
[2016-12-23] MEDS: Docusate 100mg cap ORAL SCH ×2 (09:00→18:00)
[2016-12-23] MEDS: Aspirin Baby 81mg NG SCH (09:32)
[2016-12-23] MEDS: Nephrovite tab (Rena-Vite) ORAL SCH (09:32)
[2016-12-23] MEDS: Metoprolol Tartrate 12.5mg TAB ORAL SCH ×2 (09:32→20:48)
--- NOTE | 2016-12-23 10:34 | Infectious Diseases Prog Note ---
Assessment/Plan Assessment/Plan antibiotics : zosyn A 1. pneumonia 2. respiratory failure resolved 3. renal failure 4. DM 5. CVA 6. shock resolved P 1. d/c zosyn 2. start and continue po levoquin 3 more days 3. will follow up cultures Subjective ROS Limited/Unobtainable: Yes Allergies: Coded Allergies: AMITRIPTYLINE (Verified Allergy, Unknown, 11/15/14) When taken with glipizide pts Blood glucose was critically low. MD stopped medication ATENOLOL (Verified Allergy, Unknown, 11/03/14) GLIPIZIDE (Verified Allergy, Unknown, 11/15/14) Pt is not diabetic. When prescribed pt had symptoms of lethargy, somnolence, depressed, anxiousness. Medication was discontinued. UNABLE TO ASSESS (Unverified , 07/21/16) Objective Vital Signs Last 24 Hour Vital Signs Date Time Temp Pulse Resp B/P (MAP) Pulse Ox O2 Delivery O2 Flow Rate FiO2 12/23/16 09:32 86 126/50 12/23/16 08:05 86 12/23/16 08:00 97.2 88 20 126/50 99 12/23/16 06:32 Nasal Cannula 3.0 32 12/23/16 06:32 97 Nasal Cannula 3.0 32 12/23/16 04:00 84 12/23/16 04:00 97.7 70 24 113/52 Nasal Cannula 4.0 12/23/16 00:00 75 12/22/16 23:30 97.0 81 20 105/53 Room Air 12/22/16 23:30 Nasal Cannula 2.0 12/22/16 23:03 97.2 69 20 126/69 94 Room Air 4.0 36 12/22/16 21:30 97.2 69 20 126/69 Room Air 12/22/16 21:26 Nasal Cannula 4.0 36 12/22/16 21:26 94 Nasal Cannula 4.0 36 12/22/16 21:00 76 102/48 12/22/16 20:00 73 12/22/16 20:00 97.2 70 20 108/59 100 Nasal Cannula 4.0 12/22/16 19:00 96.8 77 17 112/57 91 Room Air 4.0 36 12/22/16 19:00 Room Air 12/22/16 16:00 96.8 77 17 112/57 91 Room Air 12/22/16 15:51 70 12/22/16 12:00 96.6 78 20 126/70 98 Nasal Cannula 4.0 12/22/16 11:35 79 Height (Feet): 5 Height (Inches): 2.00 Weight (Pounds): 187 Respiratory/Chest: lungs clear Cardiovascular: normal rate, regular rhythm, no gallop/murmur Abdomen: soft, non tender Extremities: no edema MAKSIM HERNANDEZ Dec 23, 2016 10:34
--- NOTE | 2016-12-23 11:54 | Nephrology Progress Note ---
Assessment/Plan Problem List: (1) End-stage renal disease (2) Hemiplegia of nondominant side as late effect of cerebrovascular disease (3) Diastolic CHF, acute on chronic (4) Pneumonia (5) Respiratory failure (6) DM renal manif type II (7) Anemia in chronic kidney disease Assessment extubated alert , lab reviewed, meds reviewed for eskd, epogen for anemia, hd stable uf 1999, hd 12/22 to get back to [facility], depressed, d/w daughter to start lexapro Subjective Constitutional: Reports: weakness HEENT: Reports: no symptoms Genitourinary: Reports: no symptoms Neurologic/Psychiatric: Reports: pre-existing deficit Subjective less sob Objective Objective Last 24 Hour Vital Signs Date Time Temp Pulse Resp B/P (MAP) Pulse Ox O2 Delivery O2 Flow Rate FiO2 12/23/16 09:32 86 126/50 12/23/16 08:05 86 12/23/16 08:00 97.2 88 20 126/50 99 12/23/16 06:32 Nasal Cannula 3.0 32 12/23/16 06:32 97 Nasal Cannula 3.0 32 12/23/16 04:00 84 12/23/16 04:00 97.7 70 24 113/52 Nasal Cannula 4.0 12/23/16 00:00 75 12/22/16 23:30 97.0 81 20 105/53 Room Air 12/22/16 23:30 Nasal Cannula 2.0 12/22/16 23:03 97.2 69 20 126/69 94 Room Air 4.0 36 12/22/16 21:30 97.2 69 20 126/69 Room Air 12/22/16 21:26 Nasal Cannula 4.0 36 12/22/16 21:26 94 Nasal Cannula 4.0 36 12/22/16 21:00 76 102/48 12/22/16 20:00 73 12/22/16 20:00 97.2 70 20 108/59 100 Nasal Cannula 4.0 12/22/16 19:00 96.8 77 17 112/57 91 Room Air 4.0 36 12/22/16 19:00 Room Air 12/22/16 16:00 96.8 77 17 112/57 91 Room Air 12/22/16 15:51 70 12/22/16 12:00 96.6 78 20 126/70 98 Nasal Cannula 4.0 Intake and Output 12/23/16 12/24/16 19:00 07:00 Intake Total 55 ml Balance 55 ml IV Total 55 ml Height (Feet): 5 Height (Inches): 2.00 Weight (Pounds): 187 General Appearance: no apparent distress, morbidly obese EENT: normal ENT inspection Neck: normal alignment Cardiovascular: normal rate, regular rhythm Respiratory/Chest: lungs clear, decreased breath sounds Abdomen: non tender Extremities: trace edema Neurologic: motor weakness TATI DANIEL Dec 23, 2016 11:54
[2016-12-23 12:00] VITALS: BP 116/49
[2016-12-23] MEDS: Acetaminophen 500mg (ES) tab ORAL PRN (13:11)
[2016-12-23 16:00] VITALS: BP 124/56
[2016-12-23 20:00] VITALS: BP 99/48
--- NOTE | 2016-12-23 23:00 | Progress Note ---
DATE: 12/23/2016 CARDIOLOGY PROGRESS NOTE SUBJECTIVE: The patient has less shortness of breath. Her blood pressure is stable. Dialysis was completed yesterday. The patient has been depressed and has started on antidepressant. OBJECTIVE: VITAL SIGNS: Blood pressure 113/52, pulse 70, and respiratory rate 24. NECK: Supple. LUNGS: Clear. CARDIAC: Regular rhythm and rate. Normal S1 and S2. ABDOMEN: Soft. No edema. IMPRESSION: 1. Status post sepsis with shock. 2. Acute myocardial ischemia. 3. End-stage renal disease. 4. Respiratory failure, resolved. 5. Acute on chronic respiratory acidosis, resolved. PLAN: 1. Hemodialysis, ultrafiltration. 2. Respiratory hygiene. 3. Antimicrobials. 4. Maintain current cardiovascular regimen. 5. Discharge planning. Adalberto May M.D. DR: ERICK JOB#: [id number] CC:
[2016-12-24] VITALS: BP 84/43
[2016-12-24 04:00] VITALS: BP 135/59
[2016-12-24] MEDS: NovoLOG Insulin Flexpen SUBQ SCH ×4 (05:42→21:00)
[2016-12-24 08:00] VITALS: BP 110/54
--- NOTE | 2016-12-24 08:25 | Infectious Diseases Prog Note ---
Assessment/Plan Assessment/Plan A 1. pneumonia 2. respiratory failure resolved 3. renal failure, ESRD on HD 4. DM 5. CVA 6. diarrhea, stool softener on hold P 1. Continue Levaquin X 2 days Subjective ROS Limited/Unobtainable: No Constitutional: Reports: no symptoms Respiratory: Reports: no symptoms Cardiovascular: Reports: no symptoms Gastrointestinal/Abdominal: Reports: diarrhea Allergies: Coded Allergies: AMITRIPTYLINE (Verified Allergy, Unknown, 11/15/14) When taken with glipizide pts Blood glucose was critically low. MD stopped medication ATENOLOL (Verified Allergy, Unknown, 11/03/14) GLIPIZIDE (Verified Allergy, Unknown, 11/15/14) Pt is not diabetic. When prescribed pt had symptoms of lethargy, somnolence, depressed, anxiousness. Medication was discontinued. UNABLE TO ASSESS (Unverified , 07/21/16) Objective Vital Signs Last 24 Hour Vital Signs Date Time Temp Pulse Resp B/P (MAP) Pulse Ox O2 Delivery O2 Flow Rate FiO2 12/24/16 07:35 Nasal Cannula 3.0 32 12/24/16 07:35 95 Nasal Cannula 3.0 32 12/24/16 04:00 97.7 91 20 135/59 100 Nasal Cannula 3.0 12/24/16 04:00 93 12/24/16 03:30 72 20 98 Facial 35 12/24/16 00:00 97.8 85 19 84/43 100 Nasal Cannula 3.0 12/24/16 00:00 85 12/23/16 20:48 91 99/48 12/23/16 20:00 98.1 91 15 99/48 100 Nasal Cannula 3.0 12/23/16 20:00 92 12/23/16 19:30 Nasal Cannula 3.0 32 12/23/16 19:30 94 Nasal Cannula 3.0 32 12/23/16 16:00 97.0 90 18 124/56 93 Nasal Cannula 4.0 12/23/16 15:21 80 12/23/16 12:00 97.6 83 18 116/49 93 Nasal Cannula 4.0 12/23/16 11:50 90 12/23/16 09:32 86 126/50 Height (Feet): 5 Height (Inches): 2.00 Weight (Pounds): 186 General Appearance: no acute distress HEENT: mucous membranes moist Respiratory/Chest: lungs clear Cardiovascular: normal rate Abdomen: soft, non tender Extremities: no edema Neurologic/Psychiatric: alert, oriented x 3, responsive Current Medications Medications (Trade) Dose Ordered Sig/Gabriela Route PRN Reason Start Time Stop Time Status Last Admin Dose Admin Acetaminophen (Tylenol) 500 mg Q4H PRN ORAL Mild Pain/Temp > 100.5 12/21/16 19:00 01/16/17 18:59 12/23/16 13:11 Aspirin (ASA) 81 mg DAILY NG 12/22/16 09:00 01/17/17 08:59 12/23/16 09:32 Atorvastatin Calcium (Lipitor) 10 mg BEDTIME ORAL 12/21/16 21:00 01/16/17 20:59 12/23/16 20:48 Dextrose (Dextrose 50%) STAT PRN IV Hypoglycemia 12/21/16 19:00 01/20/17 18:59 Docusate Sodium (Colace) 100 mg TWICE A DAY ORAL 12/22/16 18:00 01/21/17 17:59 Epoetin Darren (Procrit (for ESRD on dialysis)) 7,000 units MON-WED-FRI SUBQ 12/22/16 21:00 01/19/17 20:59 12/23/16 00:32 Escitalopram Oxalate (Lexapro) 10 mg DAILY ORAL 12/23/16 14:00 01/22/17 13:59 12/23/16 13:12 Folic Acid (Folate) 1 mg DAILY ORAL 12/22/16 09:00 01/17/17 08:59 12/23/16 09:32 Gabapentin (Neurontin) 300 mg BEDTIME ORAL 12/21/16 21:00 01/16/17 20:59 12/23/16 20:49 Heparin Sodium (Porcine) (Heparin 5000 units/ml) 5,000 units EVERY 12 HOURS SUBQ 12/21/16 21:00 01/16/17 20:59 12/23/16 20:54 Insulin Aspart (NovoLOG) AC+HS SUBQ 12/21/16 21:00 01/16/17 16:59 12/23/16 20:52 Levofloxacin (Levaquin) 250 mg DAILY ORAL 12/23/16 14:00 12/26/16 13:59 11/18/17 13:12 Metoprolol Tartrate (Lopressor) 12.5 mg Q12HR ORAL 12/22/16 09:00 01/21/17 08:59 12/23/16 09:32 Pantoprazole (Protonix) 40 mg ACBREAKFAST ORAL 12/22/16 06:30 01/17/17 06:29 12/24/16 05:43 Vitamin B Complex/ Vit C/Folic Acid (Nephrovite) 1 tab DAILY ORAL 12/22/16 09:00 01/17/17 08:59 12/23/16 09:32 COLIN SPRAGUE Dec 24, 2016 08:25
--- NOTE | 2016-12-24 08:35 | General Progress Note ---
Assessment/Plan Problem List: (1) Pneumonia ICD Codes: J18.9 - Pneumonia, unspecified organism SNOMED: 186969522 (2) Diastolic CHF, acute on chronic ICD Codes: I50.33 - Acute on chronic diastolic (congestive) heart failure SNOMED: 78707778, 135708040 (3) Respiratory failure ICD Codes: J96.90 - Respiratory failure, unspecified, unspecified whether with hypoxia or hypercapnia SNOMED: 294786975 (4) Severe sepsis ICD Codes: A41.9 - Sepsis, unspecified organism; R65.20 - Severe sepsis without septic shock SNOMED: 14973894 (5) End-stage renal disease ICD Codes: N18.6 - End stage renal disease SNOMED: 74567492 Status: stable, progressing Assessment/Plan resume resp rx HD with UF iv abx follow up cultures resp care monitor bs improved. cont pt/ot anticipate dc tomorrow if wheezing better d/w dtr poc Subjective ROS Limited/Unobtainable: No Constitutional: Reports: malaise, weakness HEENT: Reports: no symptoms Cardiovascular: Reports: no symptoms Respiratory: Reports: cough, wheezing Gastrointestinal/Abdominal: Reports: no symptoms Genitourinary: Reports: no symptoms Neurologic/Psychiatric: Reports: no symptoms Endocrine: Reports: no symptoms Hematologic/Lymphatic: Reports: anemia Allergies: Coded Allergies: AMITRIPTYLINE (Verified Allergy, Unknown, 11/15/14) When taken with glipizide pts Blood glucose was critically low. MD stopped medication ATENOLOL (Verified Allergy, Unknown, 11/03/14) GLIPIZIDE (Verified Allergy, Unknown, 11/15/14) Pt is not diabetic. When prescribed pt had symptoms of lethargy, somnolence, depressed, anxiousness. Medication was discontinued. UNABLE TO ASSESS (Unverified , 07/21/16) All Systems: reviewed and negative except above Subjective no fevers or chills. no chest pain. wheezing today. dtr concerned pt is depressed . Objective Last 24 Hour Vital Signs Date Time Temp Pulse Resp B/P (MAP) Pulse Ox O2 Delivery O2 Flow Rate FiO2 12/24/16 07:35 Nasal Cannula 3.0 32 12/24/16 07:35 95 Nasal Cannula 3.0 32 12/24/16 04:00 97.7 91 20 135/59 100 Nasal Cannula 3.0 12/24/16 04:00 93 12/24/16 03:30 72 20 98 Facial 35 12/24/16 00:00 97.8 85 19 84/43 100 Nasal Cannula 3.0 12/24/16 00:00 85 12/23/16 20:48 91 99/48 12/23/16 20:00 98.1 91 15 99/48 100 Nasal Cannula 3.0 12/23/16 20:00 92 12/23/16 19:30 Nasal Cannula 3.0 32 12/23/16 19:30 94 Nasal Cannula 3.0 32 12/23/16 16:00 97.0 90 18 124/56 93 Nasal Cannula 4.0 12/23/16 15:21 80 12/23/16 12:00 97.6 83 18 116/49 93 Nasal Cannula 4.0 12/23/16 11:50 90 12/23/16 09:32 86 126/50 Height (Feet): 5 Height (Inches): 2.00 Weight (Pounds): 186 Objective General Appearance: WD/WN, alert. 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
[2016-12-24] MEDS: Docusate 100mg cap ORAL SCH ×2 (09:00→18:40)
[2016-12-24] MEDS: Metoprolol Tartrate 12.5mg TAB ORAL SCH ×2 (09:00→21:00)
[2016-12-24] MEDS: Aspirin Baby 81mg NG SCH (09:30)
[2016-12-24] MEDS: Nephrovite tab (Rena-Vite) ORAL SCH (09:30)
[2016-12-24] MEDS: Heparin 5000 units/ml inj SUBQ SCH ×2 (09:32→20:59)
[2016-12-24] MEDS ORDERED: Tubing IV Secondary IV ONE (10:40)
[2016-12-24] MEDS ORDERED: NS 275ml ONE (10:40)
[2016-12-24] MEDS ORDERED: NS 500ML ONE (10:40)
--- NOTE | 2016-12-24 11:54 | Nephrology Progress Note ---
Assessment/Plan Problem List: (1) End-stage renal disease (2) Hemiplegia of nondominant side as late effect of cerebrovascular disease (3) Diastolic CHF, acute on chronic (4) Pneumonia (5) Respiratory failure (6) DM renal manif type II (7) Anemia in chronic kidney disease Assessment extubated alert , lab reviewed, meds reviewed for eskd, epogen for anemia, hd Subjective Constitutional: Reports: weakness HEENT: Reports: no symptoms Genitourinary: Reports: no symptoms Neurologic/Psychiatric: Reports: pre-existing deficit Subjective less sob Objective Objective Last 24 Hour Vital Signs Date Time Temp Pulse Resp B/P (MAP) Pulse Ox O2 Delivery O2 Flow Rate FiO2 12/24/16 09:00 94 110/54 12/24/16 08:01 95 12/24/16 08:00 98.1 94 22 110/54 95 Room Air 12/24/16 07:48 136 12/24/16 07:35 Nasal Cannula 3.0 32 12/24/16 07:35 95 Nasal Cannula 3.0 32 12/24/16 04:00 97.7 91 20 135/59 100 Nasal Cannula 3.0 12/24/16 04:00 93 12/24/16 03:30 72 20 98 Facial 35 12/24/16 00:00 97.8 85 19 84/43 100 Nasal Cannula 3.0 12/24/16 00:00 85 12/23/16 20:48 91 99/48 12/23/16 20:00 98.1 91 15 99/48 100 Nasal Cannula 3.0 12/23/16 20:00 92 12/23/16 19:30 Nasal Cannula 3.0 32 12/23/16 19:30 94 Nasal Cannula 3.0 32 12/23/16 16:00 97.0 90 18 124/56 93 Nasal Cannula 4.0 12/23/16 15:21 80 12/23/16 12:00 97.6 83 18 116/49 93 Nasal Cannula 4.0 Height (Feet): 5 Height (Inches): 2.00 Weight (Pounds): 186 General Appearance: no apparent distress, morbidly obese EENT: normal ENT inspection Neck: normal alignment Cardiovascular: normal rate, regular rhythm Respiratory/Chest: lungs clear, decreased breath sounds Abdomen: soft Extremities: trace edema Neurologic: motor weakness TATI DANIEL Dec 24, 2016 11:54
[2016-12-24 12:00] VITALS: BP 106/43
--- NOTE | 2016-12-24 12:54 | Critical Care Progress Note ---
Assessment/Plan Assessment/Plan IMPRESSION: Respiratory failure. Possible pneumonia. Possible pulmonary edema. End-stage renal disease, on hemodialysis. Chronic respiratory failure with a longstanding history of respiratory acidosis, hypoxemia, heart disease, congestive heart failure. PLAN care noted ID followup respiratory care BIPAP QHS and PRN monitor ABG PRN reviewed meds supportive care monitor for bronchospasm step down care and PT oxygen therapy prognosis guarded improved overall; avoid excessive sedation hope to proceed with dc soon medications/laboratory data/nursing notes care reviewed in detail note reviewed and edited care discussed with RN and RT Critical Care - Subjective Interval Events: mild wheeze no distress Condition: stable EKG Rhythm: Sinus Rhythm Critical Care - Objective ET-Tube: 6.0 ET Position: 21 Last 24 Hour Vital Signs Date Time Temp Pulse Resp B/P (MAP) Pulse Ox O2 Delivery O2 Flow Rate FiO2 12/24/16 09:00 94 110/54 12/24/16 08:01 95 12/24/16 08:00 98.1 94 22 110/54 95 Room Air 12/24/16 07:48 136 12/24/16 07:35 Nasal Cannula 3.0 32 12/24/16 07:35 95 Nasal Cannula 3.0 32 12/24/16 04:00 97.7 91 20 135/59 100 Nasal Cannula 3.0 12/24/16 04:00 93 12/24/16 03:30 72 20 98 Facial 35 12/24/16 00:00 97.8 85 19 84/43 100 Nasal Cannula 3.0 12/24/16 00:00 85 12/23/16 20:48 91 99/48 12/23/16 20:00 98.1 91 15 99/48 100 Nasal Cannula 3.0 12/23/16 20:00 92 12/23/16 19:30 Nasal Cannula 3.0 32 12/23/16 19:30 94 Nasal Cannula 3.0 32 12/23/16 16:00 97.0 90 18 124/56 93 Nasal Cannula 4.0 12/23/16 15:21 80 Objective: GENERAL: The patient is an ill-appearing female, on NC oxygen HEENT: Normocephalic and atraumatic. Pupils are sluggish. The patient is awake NECK: Short. No clear jugular venous distention. LUNGS: stable breath sounds bilaterally with moderate air entry. without change CARDIAC: Normal S1 and S2. Regular rate and rhythm. Somewhat distant without murmurs, rubs, or gallops. ABDOMEN: Soft, obese, and nontender. no HSM; no distention EXTREMITIES: No cyanosis or clubbing. There is mild edema. Shortened limbs. poor mobility NEUROLOGICAL: back to baseline; diffusely weak reviewed and edited Accucheck: 132 FITO SIMS Dec 24, 2016 12:54
--- NOTE | 2016-12-24 15:50 | Cardiology Report ---
APPROVED REPORT EKG Measurement Heart [id number] Sinus tachycardia Left axis deviation Low voltage QRS Cannot rule out Anterior infarct, age undetermined Abnormal ECG
[2016-12-24 16:00] VITALS: BP 129/53
[2016-12-24 20:59] VITALS: BP 133/57
--- NOTE | 2016-12-24 22:45 | Progress Note ---
DATE: 12/24/2016 CARDIOLOGY PROGRESS NOTE SUBJECTIVE: The patient is without any respiratory distress. She has been off the ventilator for several days. She does require bronchodilators by respiratory therapist for periodic wheezing. She is status post hemodialysis with ultrafiltration. She is now on a regular schedule of Sunday, Sunday, and Sunday. OBJECTIVE: VITAL SIGNS: Blood pressure 110/54, pulse 94, and respiratory rate 22. LUNGS: Clear with rare rhonchi. No wheezing. CARDIAC: Regular rhythm and rate. Normal S1 and S2 with a 4th heart sound. ABDOMEN: Soft and nontender. EXTREMITIES: With trace dependent edema. NEUROLOGIC: Left hemiparesis was noted. IMPRESSION: 1. End-stage renal disease. 2. Paroxysmal bronchospasm. 3. Status post respiratory failure. 4. Healthcare-acquired pneumonia, recovered. 5. Shock due to sepsis. 6. Diastolic dysfunction with chronic congestive heart failure. 7. 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 PLAN: 1. Respiratory therapy. 2. Bronchodilators. 3. Antimicrobials. 4. Anti-platelet therapy. 5. Hemodialysis with ultrafiltration for volume management. 6. Consider DC beta blockers. Adalberto May M.D. DR: LALO JOB#: [id number] CC: HANH
[2016-12-25] VITALS (7 sets, daily range): BP systolic 100–156; BP diastolic 53–97
[2016-12-25 05:06] LABS: BASOPHILS % (AUTO) 1.2 % (0.0-2.0); EOSINOPHILS % (AUTO) 3.5 % (0.0-3.0); LYMPHOCYTES % (AUTO) 16.6 % (20.0-45.0); MEAN CORPUSCULAR HEMOGLOBIN 33.3 PG (27.0-31.0); MEAN CORPUSCULAR HGB CONC 31.3 G/DL (32.0-36.0); MEAN CORPUSCULAR VOLUME 106 FL (80-99); MEAN PLATELET VOLUME 5.9 FL (6.5-10.1); MONOCYTES % (AUTO) 15.1 % (1.0-10.0); NEUTROPHILS % (AUTO) 63.7 % (45.0-75.0); PLATELET COUNT 200 K/UL (150-450); RED BLOOD COUNT 2.85 M/UL (4.20-5.40); RED CELL DISTRIBUTION WIDTH 14.6 % (11.6-14.8); WHITE BLOOD COUNT 9.3 K/UL (4.8-10.8)
[2016-12-25 05:44] LABS: ANION GAP 11 mmol/L (5-15); CALCIUM 9.1 MG/DL (8.5-10.1); CARBON DIOXIDE 26 MMOL/L (21-32); CHLORIDE 104 MMOL/L (98-107); CREATININE 8.5 MG/DL (0.55-1.30); GLOMERULAR FILTRATION RATE 4.7 mL/min (>60); PHOSPHORUS 6.1 MG/DL (2.5-4.9); SODIUM 141 MMOL/L (136-145)
[2016-12-25] MEDS: NovoLOG Insulin Flexpen SUBQ SCH ×4 (06:30→20:20)
--- NOTE | 2016-12-25 07:43 | Critical Care Progress Note ---
Assessment/Plan Assessment/Plan IMPRESSION: Respiratory failure. Possible pneumonia. Possible pulmonary edema. End-stage renal disease, on hemodialysis. Chronic respiratory failure with a longstanding history of respiratory acidosis, hypoxemia, heart disease, congestive heart failure. PLAN care noted keep negative respiratory care BIPAP QHS and PRN monitor ABG PRN reviewed meds supportive care monitor for bronchospasm step down care and PT oxygen therapy HD with UF prognosis guarded dc planning medications/laboratory data/nursing notes care reviewed in detail note reviewed and edited care discussed with RN and RT Critical Care - Subjective Interval Events: improving on oxygen on BIPAP at HS Condition: improving EKG Rhythm: Sinus Rhythm Critical Care - Objective ET-Tube: 6.0 ET Position: 21 Last 24 Hour Vital Signs Date Time Temp Pulse Resp B/P (MAP) Pulse Ox O2 Delivery O2 Flow Rate FiO2 12/25/16 07:25 Nasal Cannula 3.0 32 12/25/16 07:25 97 Nasal Cannula 3.0 32 12/25/16 04:00 87 12/25/16 04:00 97.8 84 20 130/60 97 Nasal Cannula 4.0 12/25/16 03:30 82 22 96 Facial 35 12/25/16 01:30 84 20 97 Facial 35 12/25/16 00:27 88 21 96 Facial 35 12/25/16 00:00 97.5 89 20 124/59 97 Nasal Cannula 4.0 12/25/16 00:00 85 12/24/16 21:00 88 135/67 12/24/16 20:59 98.3 88 20 133/57 97 Nasal Cannula 4.0 12/24/16 20:00 87 12/24/16 19:30 Nasal Cannula 3.0 32 12/24/16 19:30 94 Nasal Cannula 3.0 32 12/24/16 16:00 97.3 83 20 129/53 97 Nasal Cannula 3.0 12/24/16 15:46 81 12/24/16 12:00 97.2 81 21 106/43 98 12/24/16 12:00 74 12/24/16 09:00 94 110/54 12/24/16 08:01 95 12/24/16 08:00 98.1 94 22 110/54 95 Room Air 12/24/16 07:48 136 Labs: Laboratory Tests Test 12/25/16 03:07 White Blood Count 9.3 K/UL (4.8-10.8) Red Blood Count 2.85 M/UL (4.20-5.40) L Hemoglobin 9.5 G/DL (12.0-16.0) L Hematocrit 30.3 % (37.0-47.0) L Mean Corpuscular Volume 106 FL (80-99) H Mean Corpuscular Hemoglobin 33.3 PG (27.0-31.0) H Mean Corpuscular Hemoglobin Concent 31.3 G/DL (32.0-36.0) L Red Cell Distribution Width 14.6 % (11.6-14.8) Platelet Count 200 K/UL (150-450) Mean Platelet Volume 5.9 FL (6.5-10.1) L Neutrophils (%) (Auto) 63.7 % (45.0-75.0) Lymphocytes (%) (Auto) 16.6 % (20.0-45.0) L Monocytes (%) (Auto) 15.1 % (1.0-10.0) H Eosinophils (%) (Auto) 3.5 % (0.0-3.0) H Basophils (%) (Auto) 1.2 % (0.0-2.0) Sodium Level 141 MMOL/L (136-145) Potassium Level 4.0 MMOL/L (3.5-5.1) Chloride Level 104 MMOL/L (98-107) Carbon Dioxide Level 26 MMOL/L (21-32) Anion Gap 11 mmol/L (5-15) Blood Urea Nitrogen 31 mg/dL (7-18) H Creatinine 8.5 MG/DL (0.55-1.30) H Estimat Glomerular Filtration Rate 4.7 mL/min (>60) Glucose Level 103 MG/DL (74-106) Calcium Level 9.1 MG/DL (8.5-10.1) Phosphorus Level 6.1 MG/DL (2.5-4.9) H Objective: GENERAL: The patient is an ill-appearing female, on [place] oxygen HEENT: Normocephalic and atraumatic. Pupils are sluggish. The patient is awake NECK: Short. No clear jugular venous distention. LUNGS: stable breath sounds bilaterally with moderate air entry. without change CARDIAC: Normal S1 and S2. Regular rate and rhythm. Somewhat distant without murmurs, rubs, or gallops. ABDOMEN: Soft, obese, and nontender. no HSM; no distention EXTREMITIES: No cyanosis or clubbing. There is mild edema. Shortened limbs. poor mobility NEUROLOGICAL: back to baseline; diffusely weak reviewed and edited Accucheck: 98 FITO SIMS Dec 25, 2016 07:43
--- NOTE | 2016-12-25 08:43 | Infectious Diseases Prog Note ---
Assessment/Plan Assessment/Plan A 1. pneumonia 2. respiratory failure resolved 3. renal failure, ESRD on HD 4. DM 5. CVA 6. diarrhea decreased, stool softener on hold P 1. Continue Levaquin X 1 days Subjective ROS Limited/Unobtainable: No Respiratory: Reports: shortness of breath, other - wheezing Allergies: Coded Allergies: AMITRIPTYLINE (Verified Allergy, Unknown, 11/15/14) When taken with glipizide pts Blood glucose was critically low. MD stopped medication ATENOLOL (Verified Allergy, Unknown, 11/03/14) GLIPIZIDE (Verified Allergy, Unknown, 11/15/14) Pt is not diabetic. When prescribed pt had symptoms of lethargy, somnolence, depressed, anxiousness. Medication was discontinued. Objective Vital Signs Last 24 Hour Vital Signs Date Time Temp Pulse Resp B/P (MAP) Pulse Ox O2 Delivery O2 Flow Rate FiO2 12/25/16 08:00 98.1 92 22 156/97 96 Nasal Cannula 3.0 12/25/16 07:25 Nasal Cannula 3.0 32 12/25/16 07:25 97 Nasal Cannula 3.0 32 12/25/16 04:00 87 12/25/16 04:00 97.8 84 20 130/60 97 Nasal Cannula 4.0 12/25/16 03:30 82 22 96 Facial 35 12/25/16 01:30 84 20 97 Facial 35 12/25/16 00:27 88 21 96 Facial 35 12/25/16 00:00 97.5 89 20 124/59 97 Nasal Cannula 4.0 12/25/16 00:00 85 12/24/16 21:00 88 135/67 12/24/16 20:59 98.3 88 20 133/57 97 Nasal Cannula 4.0 12/24/16 20:00 87 12/24/16 19:30 Nasal Cannula 3.0 32 12/24/16 19:30 94 Nasal Cannula 3.0 32 12/24/16 16:00 97.3 83 20 129/53 97 Nasal Cannula 3.0 12/24/16 15:46 81 12/24/16 12:00 97.2 81 21 106/43 98 12/24/16 12:00 74 12/24/16 09:00 94 110/54 Height (Feet): 5 Height (Inches): 2.00 Weight (Pounds): 187 General Appearance: other - obese Respiratory/Chest: expiratory wheezing Cardiovascular: normal rate Abdomen: soft, non tender Extremities: no edema Neurologic/Psychiatric: alert, oriented x 3, responsive Laboratory Tests Test 12/25/16 03:07 White Blood Count 9.3 K/UL (4.8-10.8) Red Blood Count 2.85 M/UL (4.20-5.40) L Hemoglobin 9.5 G/DL (12.0-16.0) L Hematocrit 30.3 % (37.0-47.0) L Mean Corpuscular Volume 106 FL (80-99) H Mean Corpuscular Hemoglobin 33.3 PG (27.0-31.0) H Mean Corpuscular Hemoglobin Concent 31.3 G/DL (32.0-36.0) L Red Cell Distribution Width 14.6 % (11.6-14.8) Platelet Count 200 K/UL (150-450) Mean Platelet Volume 5.9 FL (6.5-10.1) L Neutrophils (%) (Auto) 63.7 % (45.0-75.0) Lymphocytes (%) (Auto) 16.6 % (20.0-45.0) L Monocytes (%) (Auto) 15.1 % (1.0-10.0) H Eosinophils (%) (Auto) 3.5 % (0.0-3.0) H Basophils (%) (Auto) 1.2 % (0.0-2.0) Sodium Level 141 MMOL/L (136-145) Potassium Level 4.0 MMOL/L (3.5-5.1) Chloride Level 104 MMOL/L (98-107) Carbon Dioxide Level 26 MMOL/L (21-32) Anion Gap 11 mmol/L (5-15) Blood Urea Nitrogen 31 mg/dL (7-18) H Creatinine 8.5 MG/DL (0.55-1.30) H Estimat Glomerular Filtration Rate 4.7 mL/min (>60) Glucose Level 103 MG/DL (74-106) Calcium Level 9.1 MG/DL (8.5-10.1) Phosphorus Level 6.1 MG/DL (2.5-4.9) H Current Medications Medications (Trade) Dose Ordered Sig/Gabriela Route PRN Reason Start Time Stop Time Status Last Admin Dose Admin Acetaminophen (Tylenol) 500 mg Q4H PRN ORAL Mild Pain/Temp > 100.5 12/21/16 19:00 01/16/17 18:59 12/23/16 13:11 Aspirin (ASA) 81 mg DAILY ORAL 12/25/16 09:00 01/17/17 08:59 Atorvastatin Calcium (Lipitor) 10 mg BEDTIME ORAL 12/21/16 21:00 01/16/17 20:59 12/24/16 21:00 Dextrose (Dextrose 50%) STAT PRN IV Hypoglycemia 12/21/16 19:00 01/20/17 18:59 Docusate Sodium (Colace) 100 mg TWICE A DAY ORAL 12/22/16 18:00 01/21/17 17:59 Epoetin Darren (Procrit (for ESRD on dialysis)) 7,000 units SUN-SUN-SUN SUBQ 12/22/16 21:00 01/19/17 20:59 12/23/16 00:32 Escitalopram Oxalate (Lexapro) 10 mg DAILY ORAL 12/23/16 14:00 01/22/17 13:59 12/24/16 09:30 Folic Acid (Folate) 1 mg DAILY ORAL 12/22/16 09:00 01/17/17 08:59 12/24/16 09:30 Gabapentin (Neurontin) 300 mg BEDTIME ORAL 12/21/16 21:00 01/16/17 20:59 12/24/16 20:59 Heparin Sodium (Porcine) (Heparin 5000 units/ml) 5,000 units EVERY 12 HOURS SUBQ 12/21/16 21:00 01/16/17 20:59 12/24/16 20:59 Heparin Sodium (Porcine) (Heparin Sod 1000 units/ml 10ml) 2,000 unit ONCE ONCE IV 12/25/16 12:00 12/25/16 12:01 Insulin Aspart (NovoLOG) AC+HS SUBQ 12/21/16 21:00 01/16/17 16:59 12/23/16 20:52 Levofloxacin (Levaquin) 250 mg DAILY ORAL 12/23/16 14:00 12/26/16 13:59 12/24/16 09:30 Metoprolol Tartrate (Lopressor) 12.5 mg Q12HR ORAL 12/22/16 09:00 01/21/17 08:59 12/24/16 21:00 Pantoprazole (Protonix) 40 mg ACBREAKFAST ORAL 12/22/16 06:30 01/17/17 06:29 12/25/16 06:49 Sodium Chloride 1,000 ml @ 500 mls/hr Q2H PRN IVLG sbp<90 during hd 12/25/16 11:54 01/24/17 11:53 Vitamin B Complex/ Vit C/Folic Acid (Nephrovite) 1 tab DAILY ORAL 12/22/16 09:00 01/17/17 08:59 12/24/16 09:30 COLIN SPRAGUE Dec 25, 2016 08:43
[2016-12-25] MEDS: Docusate 100mg cap ORAL SCH ×2 (09:00→17:34)
[2016-12-25] MEDS: Heparin 5000 units/ml inj SUBQ SCH ×2 (09:00→20:19)
[2016-12-25] MEDS: Aspirin Baby 81mg ORAL SCH (10:28)
[2016-12-25] MEDS: Nephrovite tab (Rena-Vite) ORAL SCH (10:28)
[2016-12-25] MEDS: Metoprolol Tartrate 12.5mg TAB ORAL SCH ×2 (10:28→20:17)
--- NOTE | 2016-12-25 10:50 | Cardiology Report ---
APPROVED REPORT EXAM: Two-dimensional and M-mode echocardiogram with Doppler and color Doppler. INDICATION Congestive Heart Failure M-Mode DIMENSIONS IVSd1.3 (0.7-1.1cm)Left Atrium (MM)5.7 (1.6-4.0cm) LVDd4.6 (3.5-5.6cm)Aortic Root2.4 (2.0-3.7cm) PWd1.1 (0.7-1.1cm)Aortic Cusp Exc.1.8 (1.5-2.0cm) LVDs2.3 (2.5-4.0cm) PWs1.7 cm Technically difficult study due to poor parasternal acoustical windows. Study quality precludes accurate assessment of regional wall motion. Normal left ventricular chamber size, systolic function and wall motion. Left ventricular ejection fraction estimated to be 60-65 %. Mild left ventricular hypertrophy. Anterior Echo-free space, may be due to pericardial fat or effusion. All other cardiac chamber sizes are within normal limits. Mild left atrial enlargement. Right cardiac chamber sizes are within normal limits. Mild focal aortic valve sclerosis with adequate cusp excursion. Mildly thickened mitral valve leaflets with normal excursion. Mild mitral annulus and aortic root calcification. Pulmonic valve not well visualized. Normal tricuspid valve structure. IVC measures at 1.9 cm with physiological collapse. A color flow and spectral Doppler study was performed and revealed: No aortic insufficiency. Mild mitral regurgitation. Mitral diastolic velocities suggest reduced left ventricular relaxation c/w diastolic dysfunction (Grade I). Trace tricuspid regurgitation. Tricuspid systolic velocities suggests peak right ventricular systolic pressure of 36 mmHg, consistent with mild pulmonary hypertension. No pulmonic regurgitation present.
[2016-12-25] MEDS ORDERED: Heparin Sod 1000 units/ml 10ml IV ONE (12:00)
--- NOTE | 2016-12-25 12:28 | General Progress Note ---
Assessment/Plan Problem List: (1) Pneumonia ICD Codes: J18.9 - Pneumonia, unspecified organism SNOMED: 570488221 (2) Diastolic CHF, acute on chronic ICD Codes: I50.33 - Acute on chronic diastolic (congestive) heart failure SNOMED: 70617503, 683182026 (3) Respiratory failure ICD Codes: J96.90 - Respiratory failure, unspecified, unspecified whether with hypoxia or hypercapnia SNOMED: 070669841 (4) Severe sepsis ICD Codes: A41.9 - Sepsis, unspecified organism; R65.20 - Severe sepsis without septic shock SNOMED: 69804792 (5) End-stage renal disease ICD Codes: N18.6 - End stage renal disease SNOMED: 66666162 Status: stable, progressing Assessment/Plan resume resp rx HD with UF iv abx follow up cultures resp care add steroids monitor bs improved. cont pt/ot anticipate dc tomorrow if wheezing better d/w dtr poc Subjective ROS Limited/Unobtainable: No Constitutional: Reports: malaise, weakness HEENT: Reports: no symptoms Cardiovascular: Reports: no symptoms Respiratory: Reports: cough, SOB with excertion Gastrointestinal/Abdominal: Reports: no symptoms Genitourinary: Reports: no symptoms Allergies: Coded Allergies: AMITRIPTYLINE (Verified Allergy, Unknown, 11/15/14) When taken with glipizide pts Blood glucose was critically low. MD stopped medication ATENOLOL (Verified Allergy, Unknown, 11/03/14) GLIPIZIDE (Verified Allergy, Unknown, 11/15/14) Pt is not diabetic. When prescribed pt had symptoms of lethargy, somnolence, depressed, anxiousness. Medication was discontinued. All Systems: reviewed and negative except above Subjective no fevers or chills. no chest pain. wheezing today. dtr concerned pt is depressed remains on bipap at night. still has significant wheezing Objective Last 24 Hour Vital Signs Date Time Temp Pulse Resp B/P (MAP) Pulse Ox O2 Delivery O2 Flow Rate FiO2 12/25/16 12:00 87 12/25/16 10:28 84 156/97 12/25/16 08:00 84 12/25/16 08:00 98.1 92 22 156/97 96 Nasal Cannula 3.0 12/25/16 07:25 Nasal Cannula 3.0 32 12/25/16 07:25 97 Nasal Cannula 3.0 32 12/25/16 04:00 87 12/25/16 04:00 97.8 84 20 130/60 97 Nasal Cannula 4.0 12/25/16 03:30 82 22 96 Facial 35 12/25/16 01:30 84 20 97 Facial 35 12/25/16 00:27 88 21 96 Facial 35 12/25/16 00:00 97.5 89 20 124/59 97 Nasal Cannula 4.0 12/25/16 00:00 85 12/24/16 21:00 88 135/67 12/24/16 20:59 98.3 88 20 133/57 97 Nasal Cannula 4.0 12/24/16 20:00 87 12/24/16 19:30 Nasal Cannula 3.0 32 12/24/16 19:30 94 Nasal Cannula 3.0 32 12/24/16 16:00 97.3 83 20 129/53 97 Nasal Cannula 3.0 12/24/16 15:46 81 Laboratory Tests 12/25/16 03:07: White Blood Count 9.3, Red Blood Count 2.85L, Hemoglobin 9.5L, Hematocrit 30.3L , Mean Corpuscular Volume 106H, Mean Corpuscular Hemoglobin 33.3H, Mean Corpuscular Hemoglobin Concent 31.3L, Red Cell Distribution Width 14.6, Platelet Count 200, Mean Platelet Volume 5.9L, Neutrophils (%) (Auto) 63.7, Lymphocytes (%) (Auto) 16.6L, Monocytes (%) (Auto) 15.1H, Eosinophils (%) (Auto ) 3.5H, Basophils (%) (Auto) 1.2, Sodium Level 141, Potassium Level 4.0, Chloride Level 104, Carbon Dioxide Level 26, Anion Gap 11, Blood Urea Nitrogen 31H, Creatinine 8.5H, Estimat Glomerular Filtration Rate 4.7, Glucose Level 103 , Calcium Level 9.1, Phosphorus Level 6.1H Height (Feet): 5 Height (Inches): 2.00 Weight (Pounds): 187 Objective General Appearance: WD/WN, alert. on NC Neck: supple Cardiovascular: normal peripheral pulses, normal rate, regular rhythm Respiratory/Chest: chest wall non-tender, lungs moses wheezes, no respiratory distress Abdomen: normal bowel sounds, non tender, soft, no organomegaly Edema: no edema noted Arm (L), no edema noted Arm (R), no edema noted Leg (L), no edema noted Leg (R), no edema noted Pedal (L), no edema noted Pedal (R), no edema noted Generalized Neurologic: emergency management consultant II-XII grossly normal, no motor/sensory deficits, abnormal gait , alert, oriented x 3 TOMI GONZALES Dec 25, 2016 12:28
--- NOTE | 2016-12-25 14:08 | Nephrology Progress Note ---
Assessment/Plan Problem List: (1) End-stage renal disease (2) Hemiplegia of nondominant side as late effect of cerebrovascular disease (3) Diastolic CHF, acute on chronic (4) Pneumonia (5) Respiratory failure (6) DM renal manif type II (7) Anemia in chronic kidney disease Assessment extubated alert , lab reviewed, meds reviewed for eskd, epogen for anemia, hd seen on hd, stable Subjective Constitutional: Reports: weakness HEENT: Reports: no symptoms Genitourinary: Reports: no symptoms Neurologic/Psychiatric: Reports: pre-existing deficit Subjective less sob Objective Objective Last 24 Hour Vital Signs Date Time Temp Pulse Resp B/P (MAP) Pulse Ox O2 Delivery O2 Flow Rate FiO2 12/25/16 13:43 84 18 Nasal Cannula 3.0 32 12/25/16 12:00 97.5 88 20 132/55 98 Nasal Cannula 3.0 12/25/16 12:00 87 12/25/16 10:28 84 156/97 12/25/16 08:00 84 12/25/16 08:00 98.1 92 22 156/97 96 Nasal Cannula 3.0 12/25/16 07:25 Nasal Cannula 3.0 32 12/25/16 07:25 97 Nasal Cannula 3.0 32 12/25/16 04:00 87 12/25/16 04:00 97.8 84 20 130/60 97 Nasal Cannula 4.0 12/25/16 03:30 82 22 96 Facial 35 12/25/16 01:30 84 20 97 Facial 35 12/25/16 00:27 88 21 96 Facial 35 12/25/16 00:00 97.5 89 20 124/59 97 Nasal Cannula 4.0 12/25/16 00:00 85 12/24/16 21:00 88 135/67 12/24/16 20:59 98.3 88 20 133/57 97 Nasal Cannula 4.0 12/24/16 20:00 87 12/24/16 19:30 Nasal Cannula 3.0 32 12/24/16 19:30 94 Nasal Cannula 3.0 32 12/24/16 16:00 97.3 83 20 129/53 97 Nasal Cannula 3.0 12/24/16 15:46 81 Laboratory Tests 12/25/16 03:07: White Blood Count 9.3, Red Blood Count 2.85L, Hemoglobin 9.5L, Hematocrit 30.3L , Mean Corpuscular Volume 106H, Mean Corpuscular Hemoglobin 33.3H, Mean Corpuscular Hemoglobin Concent 31.3L, Red Cell Distribution Width 14.6, Platelet Count 200, Mean Platelet Volume 5.9L, Neutrophils (%) (Auto) 63.7, Lymphocytes (%) (Auto) 16.6L, Monocytes (%) (Auto) 15.1H, Eosinophils (%) (Auto ) 3.5H, Basophils (%) (Auto) 1.2, Sodium Level 141, Potassium Level 4.0, Chloride Level 104, Carbon Dioxide Level 26, Anion Gap 11, Blood Urea Nitrogen 31H, Creatinine 8.5H, Estimat Glomerular Filtration Rate 4.7, Glucose Level 103 , Calcium Level 9.1, Phosphorus Level 6.1H Height (Feet): 5 Height (Inches): 2.00 Weight (Pounds): 187 General Appearance: morbidly obese EENT: normal ENT inspection Neck: normal alignment Cardiovascular: normal rate, regular rhythm Respiratory/Chest: decreased breath sounds, rhonchi - bilaterally Abdomen: non tender Neurologic: motor weakness TATI DANIEL Dec 25, 2016 14:07
[2016-12-25] MEDS: Solu-MEDROL 40mg Inj IVP SCH ×2 (14:35→21:36)
[2016-12-25] MEDS: Epogen (for ESRD on dialysis) SUBQ SCH (20:23)
--- NOTE | 2016-12-25 23:30 | Progress Note ---
DATE: 12/25/2016 CARDIOLOGY PROGRESS NOTE SUBJECTIVE: The patient still has congestion and wheezing. She is on BiPAP support at night and requires around the clock bronchodilators. OBJECTIVE: VITAL SIGNS: Blood pressure is 156/97, pulse rate 84, respiratory rate 22, afebrile, that is the maximal blood pressure recorded for the day, and oxygen saturation 96% on three liters nasal cannula. LUNGS: Few rhonchi. Expiratory wheezes. HEART: Regular rhythm and rate. Normal S1 and S2. ABDOMEN: Soft. EXTREMITIES: Trace edema. Left hemiparesis. LABORATORY STUDIES: White count is 9 and hemoglobin 9.5. Potassium is 4, BUN 31, and creatinine 8.5. IMPRESSION: 1. Paroxysmal bronchospasm, status post respiratory failure. 2. Healthcare-acquired pneumonia, recovered. 3. Sepsis with shock, recovered. 4. Acute myocardial ischemia. 5. Acute on chronic diastolic congestive heart failure. 6. End-stage renal disease. 7. Hypertensive heart disease with rising blood pressure range. PLAN: 1. Respiratory hygiene. 2. Bronchodilators. 3. BiPAP as needed. 4. Hemodialysis with ultrafiltration for volume management. 5. Advance antihypertensive regimen with caution. Adalberto May M.D. DR: Pauline JOB#: [id number] CC:
[2016-12-26] VITALS: BP 107/64
[2016-12-26 04:00] VITALS: BP 114/69
[2016-12-26] MEDS: Solu-MEDROL 40mg Inj IVP SCH ×2 (05:32→15:08)
[2016-12-26] MEDS: NovoLOG Insulin Flexpen SUBQ SCH ×3 (06:24→16:30)
[2016-12-26 08:00] VITALS: BP 133/65
[2016-12-26] MEDS: Docusate 100mg cap ORAL SCH ×2 (09:00→18:00)
--- NOTE | 2016-12-26 09:18 | Nephrology Progress Note ---
Assessment/Plan Problem List: (1) End-stage renal disease (2) Hemiplegia of nondominant side as late effect of cerebrovascular disease (3) Diastolic CHF, acute on chronic (4) Pneumonia (5) Respiratory failure (6) DM renal manif type II (7) Anemia in chronic kidney disease Assessment extubated alert , lab reviewed, meds reviewed for eskd, epogen for anemia, hd seen on hd, stable Subjective Constitutional: Reports: weakness Genitourinary: Reports: no symptoms Neurologic/Psychiatric: Reports: pre-existing deficit Subjective less sob Objective Objective Last 24 Hour Vital Signs Date Time Temp Pulse Resp B/P (MAP) Pulse Ox O2 Delivery O2 Flow Rate FiO2 12/26/16 04:00 97.9 82 20 114/69 Bi-pap 35.0 12/26/16 04:00 76 12/26/16 00:00 72 12/26/16 00:00 97.6 78 20 107/64 Bi-pap 35.0 12/25/16 22:14 88 22 97 Facial 35 12/25/16 20:17 93 125/61 12/25/16 20:00 98.2 95 18 120/61 Room Air 12/25/16 20:00 95 12/25/16 19:00 94 Nasal Cannula 3.0 32 12/25/16 19:00 Nasal Cannula 3.0 32 12/25/16 16:45 Nasal Cannula 12/25/16 16:45 99.1 70 20 100/56 Room Air 12/25/16 16:45 Nasal Cannula 12/25/16 16:00 97.6 56 20 104/53 98 Nasal Cannula 3.0 12/25/16 16:00 82 12/25/16 13:43 84 18 Nasal Cannula 3.0 32 12/25/16 12:00 Nasal Cannula 12/25/16 12:00 97.8 79 20 126/65 Room Air 12/25/16 12:00 Room Air 3.0 32 12/25/16 12:00 97.5 88 20 132/55 98 Nasal Cannula 3.0 12/25/16 12:00 87 12/25/16 10:28 84 156/97 Height (Feet): 5 Height (Inches): 2.00 Weight (Pounds): 186 General Appearance: no apparent distress, morbidly obese EENT: normal ENT inspection Neck: supple Cardiovascular: regular rhythm Respiratory/Chest: rhonchi - bilaterally Abdomen: non tender Extremities: trace edema Neurologic: director of marketing analytics II-XII grossly normal, no motor/sensory deficits, motor weakness TATI DANIEL Dec 26, 2016 09:18
[2016-12-26] MEDS: Aspirin Baby 81mg ORAL SCH (09:57)
[2016-12-26] MEDS: Nephrovite tab (Rena-Vite) ORAL SCH (09:58)
[2016-12-26] MEDS: Heparin 5000 units/ml inj SUBQ SCH (10:10)
--- NOTE | 2016-12-26 10:49 | Infectious Diseases Prog Note ---
Assessment/Plan Assessment/Plan antibiotics : levoquin A 1. pneumonia 2. respiratory failure resolved 3. renal failure 4. DM 5. CVA 6. shock resolved P 1. d/c po levoquin 2. observe off antibiotics Subjective ROS Limited/Unobtainable: Yes Allergies: Coded Allergies: AMITRIPTYLINE (Verified Allergy, Unknown, 11/15/14) When taken with glipizide pts Blood glucose was critically low. MD stopped medication ATENOLOL (Verified Allergy, Unknown, 11/03/14) GLIPIZIDE (Verified Allergy, Unknown, 11/15/14) Pt is not diabetic. When prescribed pt had symptoms of lethargy, somnolence, depressed, anxiousness. Medication was discontinued. Objective Vital Signs Last 24 Hour Vital Signs Date Time Temp Pulse Resp B/P (MAP) Pulse Ox O2 Delivery O2 Flow Rate FiO2 12/26/16 09:58 76 114/69 12/26/16 08:00 80 12/26/16 08:00 97.2 84 19 133/65 Bi-pap 2.0 12/26/16 04:00 97.9 82 20 114/69 Bi-pap 35.0 12/26/16 04:00 76 12/26/16 00:00 72 12/26/16 00:00 97.6 78 20 107/64 Bi-pap 35.0 12/25/16 22:14 88 22 97 Facial 35 12/25/16 20:17 93 125/61 12/25/16 20:00 98.2 95 18 120/61 Room Air 12/25/16 20:00 95 12/25/16 19:00 94 Nasal Cannula 3.0 32 12/25/16 19:00 Nasal Cannula 3.0 32 12/25/16 16:45 Nasal Cannula 12/25/16 16:45 99.1 70 20 100/56 Room Air 12/25/16 16:45 Nasal Cannula 12/25/16 16:00 97.6 56 20 104/53 98 Nasal Cannula 3.0 12/25/16 16:00 82 12/25/16 13:43 84 18 Nasal Cannula 3.0 32 12/25/16 12:00 Nasal Cannula 12/25/16 12:00 97.8 79 20 126/65 Room Air 12/25/16 12:00 Room Air 3.0 32 12/25/16 12:00 97.5 88 20 132/55 98 Nasal Cannula 3.0 12/25/16 12:00 87 Height (Feet): 5 Height (Inches): 2.00 Weight (Pounds): 186 Respiratory/Chest: lungs clear Cardiovascular: normal rate, regular rhythm, no gallop/murmur Abdomen: soft, non tender Extremities: no edema MAKSIM HERNANDEZ Dec 26, 2016 10:49
--- NOTE | 2016-12-26 10:56 | General Progress Note ---
Assessment/Plan Problem List: (1) Pneumonia ICD Codes: J18.9 - Pneumonia, unspecified organism SNOMED: 881993552 (2) Diastolic CHF, acute on chronic ICD Codes: I50.33 - Acute on chronic diastolic (congestive) heart failure SNOMED: 33627395, 902092096 (3) Respiratory failure ICD Codes: J96.90 - Respiratory failure, unspecified, unspecified whether with hypoxia or hypercapnia SNOMED: 180517429 (4) Severe sepsis ICD Codes: A41.9 - Sepsis, unspecified organism; R65.20 - Severe sepsis without septic shock SNOMED: 83000397 (5) End-stage renal disease ICD Codes: N18.6 - End stage renal disease SNOMED: 70103915 (6) Asthma exacerbation ICD Codes: J45.901 - Unspecified asthma with (acute) exacerbation SNOMED: 532733701 Qualifiers: Qualified Codes: J45.41 - Moderate persistent asthma with (acute) exacerbation Status: stable, progressing Assessment/Plan resume resp HD with UF iv abx follow up cultures resp care add steroids monitor bs improved. cont pt/ot will try to order nebulizer needs duoneb q4 for for few days at home can dc if able to get nebulizer Subjective ROS Limited/Unobtainable: No Constitutional: Reports: malaise, weakness HEENT: Reports: no symptoms Cardiovascular: Reports: no symptoms Respiratory: Reports: wheezing Gastrointestinal/Abdominal: Reports: no symptoms Genitourinary: Reports: no symptoms Neurologic/Psychiatric: Reports: no symptoms Endocrine: Reports: no symptoms Hematologic/Lymphatic: Reports: anemia Allergies: Coded Allergies: AMITRIPTYLINE (Verified Allergy, Unknown, 11/15/14) When taken with glipizide pts Blood glucose was critically low. MD stopped medication ATENOLOL (Verified Allergy, Unknown, 11/03/14) GLIPIZIDE (Verified Allergy, Unknown, 11/15/14) Pt is not diabetic. When prescribed pt had symptoms of lethargy, somnolence, depressed, anxiousness. Medication was discontinued. All Systems: reviewed and negative except above Subjective overall feels better. wants to go home. still has some wheezing. has bipap at home Objective Last 24 Hour Vital Signs Date Time Temp Pulse Resp B/P (MAP) Pulse Ox O2 Delivery O2 Flow Rate FiO2 12/26/16 09:58 76 114/69 11/21/17 08:00 80 12/26/16 08:00 97.2 84 19 133/65 Bi-pap 2.0 12/26/16 04:00 97.9 82 20 114/69 Bi-pap 35.0 12/26/16 04:00 76 12/26/16 00:00 72 12/26/16 00:00 97.6 78 20 107/64 Bi-pap 35.0 12/25/16 22:14 88 22 97 Facial 35 12/25/16 20:17 93 125/61 12/25/16 20:00 98.2 95 18 120/61 Room Air 12/25/16 20:00 95 12/25/16 19:00 94 Nasal Cannula 3.0 32 12/25/16 19:00 Nasal Cannula 3.0 32 12/25/16 16:45 Nasal Cannula 12/25/16 16:45 99.1 70 20 100/56 Room Air 12/25/16 16:45 Nasal Cannula 12/25/16 16:00 97.6 56 20 104/53 98 Nasal Cannula 3.0 12/25/16 16:00 82 12/25/16 13:43 84 18 Nasal Cannula 3.0 32 12/25/16 12:00 Nasal Cannula 12/25/16 12:00 97.8 79 20 126/65 Room Air 12/25/16 12:00 Room Air 3.0 32 12/25/16 12:00 97.5 88 20 132/55 98 Nasal Cannula 3.0 12/25/16 12:00 87 Height (Feet): 5 Height (Inches): 2.00 Weight (Pounds): 186 Objective General Appearance: WD/WN, alert. on NC Neck: supple Cardiovascular: normal peripheral pulses, normal rate, regular rhythm Respiratory/Chest: chest wall non-tender, lungs moses wheezes, no respiratory distress Abdomen: normal bowel sounds, non tender, soft, no organomegaly Edema: no edema noted Arm (L), no edema noted Arm (R), no edema noted Leg (L), no edema noted Leg (R), no edema noted Pedal (L), no edema noted Pedal (R), no edema noted Generalized Neurologic: eeler II-XII grossly normal, no motor/sensory deficits, abnormal gait , alert, oriented x 3 UOMOTO,TOMI Dec 26, 2016 10:56
[2016-12-26 12:57] VITALS: BP 128/58
[2016-12-26 16:00] VITALS: BP 116/61
[2016-12-26] MEDS ORDERED: NS 500ML ONE (18:33)
--- NOTE | 2016-12-27 03:15 | Progress Note ---
DATE: 12/26/2016 CARDIOLOGY PROGRESS NOTE SUBJECTIVE: The patient is without respiratory distress. Episodes of wheezing persist. Inhaled bronchodilators are effective. No chest pain. OBJECTIVE: VITAL SIGNS: Blood pressure is 114/69, pulse rate 76, and respiratory rate 20. LUNGS: Bilateral breath sounds. Few expiratory wheezes. HEART: Regular rhythm and rate. Normal S1 and S2. ABDOMEN: Soft. EXTREMITIES: No edema. NEUROLOGICAL: Left side weakness. IMPRESSION: 1. Cerebrovascular accident with hemiparesis. 2. Acute on chronic diastolic congestive heart failure, compensated. 3. Status post respiratory failure, now recovered. 4. Anemia of chronic kidney disease. 5. Type 2 diabetes mellitus with multiple complications. 6. End-stage renal disease. PLAN: 1. Stable for outpatient followup. 2. Discharge medication regimen reviewed. 3. We will continue outpatient hemodialysis and ultrafiltration for volume management. 4. Avoid tighter blood pressure control due to risk of orthostasis. 5. Discussed discharge treatment and plan with Dr. Sky. Adalberto May M.D. DR: Pauline JOB#: [id number] CC:
[2016-12-27] MEDS ORDERED: Heparin Sod 1000 units/ml 10ml IV SCH (06:00)
--- NOTE | 2016-12-28 10:19 | Discharge Summary ---
Discharge Summary Hospital Course Date of Admission Dec 17, 2016 at 15:16 Date of Discharge Dec 26, 2016 at 18:34 Admitting Diagnosis sob HPI Leslie Morrow is a 66 year old female who was admitted on Dec 17, 2016 at 15:16 for Shortness Of Breath Hospital Course [id number] Discharge Discharge Disposition Patient was discharged to Home (01) Discharge Diagnoses: Betsy Alaniz NP Dec 28, 2016 10:19
--- NOTE | 2016-12-28 18:15 | Discharge Summary 2 SIG ---
DATE OF ADMISSION: 12/17/2016 DATE OF DISCHARGE: 12/26/2016 CONSULTANTS: 1. Cm Carrero M.D. 2. Adalberto May M.D. 3. Aquiles Clifton M.D. 4. Margarita Cunningham M.D. BRIEF HOSPITAL COURSE: The patient is a 66-year-old female with history of end-stage renal disease, on chronic hemodialysis, hypertension, and diabetes, presented from home with complaints of shortness of breath. According to the patient's family, she was well until the night prior to admission when they noticed increased cough, congestion, and shortness of breath. In the morning, she was found unarousable and the family brought her to the emergency room where on evaluation, she was noted to be in respiratory distress and was lethargic. She was orally intubated. Chest x-ray on evaluation showed evidence of cardiomegaly with bilateral congestive changes, basilar infiltrate versus effusion and on blood gas she had worsening respiratory acidosis and congestion. She was admitted to ICU and was started on IV vancomycin and Zosyn. She was placed on IV pressors and received inpatient hemodialysis. She was eventually extubated on a 12/20/2016. She was then placed on BiPAP p.r.n. and at bedtime. She was eventually tapered off to nasal cannula. She was transferred out of ICU following day, and underwent physical therapy and occupational therapy evaluation. Blood culture did not isolate any growth. Sputum culture with normal upper respiratory dk. Zosyn and vancomycin was discontinued. Antibiotic was switched to p.o. Levaquin and she was eventually observed off antibiotic treatment. She had a venous duplex scan of the lower extremity that was negative for DVT. Echocardiogram showed ejection fraction 60% to 65%. She complained of pain on the hip and back. X-ray findings showed no evidence of acute bony trauma. She was given Epogen for anemia and was continued on bronchodilators. She was eventually discharged home to continue DuoNebs every four hours p.r.n. DME was ordered. The patient was discharged home. Nebulizer treatment to be delivered at the patient's place of residence. FINAL DIAGNOSES: 1. Acute respiratory failure requiring intubation, status post extubation. 2. Pneumonia. 3. Acute on chronic diastolic congestive heart failure. 4. Severe sepsis. 5. End-stage renal disease, on hemodialysis. 6. Acute asthma exacerbation. 7. 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 8. Type 2 diabetes mellitus with multiple complications. 9. Anemia of chronic kidney disease. 10. Paroxysmal bronchospasms. 11. Hypertensive heart disease. DISPOSITION: The patient was discharged home. FOLLOWUP: Follow up with PMD in a week. Continue with nebulizer treatments DuoNeb q.4 hours. Goldy Sky M.D. I have been assigned to dictate discharge summary on this account and I was not involved in the patient's management. Betsy Alaniz N.P. DR: JOSIE JOB#: [id number] CC:
== END 2016-12-26 18:34 | disposition home or self-care (01) | DRG 871 ==
LOC: EDBD 08:39 → EMR 09:09 → EDBEDREQSVC 13:38 → EDBEDREQ 14:58 → ICU 15:16 → 2W 12-21 18:55
PROC: 0BH17EZ Insertion of Endotracheal Airway into Trachea, Via Natural or Artificial Opening (ICD-10-PCS; principal; 2016-12-17)
PROC: 5A1945Z Respiratory Ventilation, 24-96 Consecutive Hours (ICD-10-PCS; principal; 2016-12-17)
PROC: 5A1D70Z Performance of Urinary Filtration, Intermittent, Less than 6 Hours Per Day (ICD-10-PCS; 2016-12-19)
DX: A41.9 Sepsis, unspecified organism (principal); J96.21 Acute and chronic respiratory failure with hypoxia; R65.21 Severe sepsis with septic shock; I50.33 Acute on chronic diastolic (congestive) heart failure; J18.9 Pneumonia, unspecified organism; N18.6 End stage renal disease; E11.22 Type 2 diabetes mellitus with diabetic chronic kidney disease; J96.22 Acute and chronic respiratory failure with hypercapnia; J44.0 Chronic obstructive pulmonary disease with (acute) lower respiratory infection; I13.2 Hypertensive heart and chronic kidney disease with heart failure and with stage 5 chronic kidney disease, or end stage renal disease; J44.1 Chronic obstructive pulmonary disease with (acute) exacerbation; I69.954 Hemiplegia and hemiparesis following unspecified cerebrovascular disease affecting left non-dominant side; E44.1 Mild protein-calorie malnutrition; Z99.2 Dependence on renal dialysis; D63.1 Anemia in chronic kidney disease; I25.10 Atherosclerotic heart disease of native coronary artery without angina pectoris; Z95.5 Presence of coronary angioplasty implant and graft; I25.9 Chronic ischemic heart disease, unspecified; E66.01 Morbid (severe) obesity due to excess calories; Z68.34 Body mass index [BMI] 34.0-34.9, adult; R19.7 Diarrhea, unspecified
CPT/HCPCS: 31500; 36415; 36600; 71010; 72020; 73521; 80048; 80053; 80202; 82803; 82962; 83605; 83735; 83880; 84100; 84443; 84484; 85025; 87040; 87070; 87081; 87205; 93005; 93306; 93970; 94003; 94660; 94664; 94760; J1815